=== PATIENT | female | born 1945 | race Caucasian/White ===

== ENCOUNTER 2018-08-18 12:24 | Emergency (ER) | payer MEDICARE, OTHER ==
[2018-08-18 13:05] LABS: ALT (SGPT) 15 U/L (8-55); AST (SGOT) 29 U/L (5-34); Albumin 3.7 g/dL (3.4-4.8); Alkaline Phosphatase 98 U/L (40-150); Anion Gap 19 mmol/L (10-20); BUN (Urea Nitrogen) 25 mg/dL (9.8-20.1); Bilirubin, Total 1.3 mg/dL (0.2-1.2); Calc. Creatinine Clearance 0 mL/min (70-130); Calcium 9.2 mg/dL (7.8-10.44); Estimated GFR-MDRD 45; Globulin 3.5 g/dL (2.4-3.5); Glucose 60 mg/dL (83-110); Protein, Total 7.2 g/dL (6.0-8.3)
[2018-08-18 13:06] LABS: #Basophils 0.1 thou/uL (0.0-0.2); #Eosinphils 0.1 thou/uL (0.0-0.7); #Lymphocytes 1.6 thou/uL (1.20-3.40); #Monocytes 0.9 thou/uL (0.11-0.59); #Neutrophils 11.2 thou/uL (1.40-6.50); %Basophils 0.9 % (0.0-1.0); %Eosinophils 0.9 % (0.0-10.0); %Lymphocytes 11.3 % (21.0-51.0); %Monocytes 6.5 % (0.0-10.0); %Neutrophils 80.4 % (42.0-75.0); Elliptocytes SLIGHT = 2-5 cells (100X) (0-1/hpf); Hemoglobin 6.8 g/dL (12.0-16.0); Hypochromia MARKED = >30 cells (100X) (0-5/hpf); Large Platelets SLIGHT; MDiff Complete? YES; Macrocytosis SLIGHT = 6-15 cells (100X) (0-5/hpf); Mean Corpuscular HGB CONC 28.7 g/dL (32.0-36.0); Mean Corpuscular Hemoglobin 16.5 pg (27.0-31.0); Mean Corpuscular Volume 57.3 fL (78.0-98.0); Mean Platelet Volume 7.8 fL (7.4-10.4); Microcytosis MARKED = >30 cells (100X) (0-5/hpf); Platelet Count 163 thou/uL (130-400); Polychromasia SLIGHT = 2-3 cells (100X) (0-2/hpf); RBC Distribution Width 15.1 % (11.5-14.5); Red Blood Cell (RBC) Count 4.14 mill/uL (4.20-5.40); Stomatocytes SLIGHT = 2-5 cells (100X) (0-1/hpf); Tear Drops SLIGHT = 2-5 cells (100X) (0-1/hpf); White Blood Cell (WBC) Count 13.9 thou/uL (4.8-10.8)
[2018-08-18 13:09] LABS: Chloride 78 mmol/L (98-107); Sodium 135 mmol/L (136-145)
[2018-08-18 13:13] LABS: Carbon Dioxide 41 mmol/L (23-31); Potassium 2.7 mmol/L (3.5-5.1)
[2018-08-18 13:21] LABS: CKMB 1.6 ng/mL (0-6.6)
[2018-08-18 13:46] LABS: Bilirubin Small (Negative); Blood, Urine Negative (Negative); Clarity Clear (Clear); Glucose, Urine (Dipstick) Negative (Negative); Leukocyte Negative (Negative); Nitrite Negative (Negative); Protein, Urine (Dipstick) Negative (Neg-Trace); Specific Gravity, Urine 1.015 (1.005-1.030)
[2018-08-18] MEDS ORDERED: Potassium Chloride 20 MEQ TAB ONE (14:26)
[2018-08-18] MEDS ORDERED: Ondansetron PF 4 MG/2 ML Vial ONE (14:46)
--- NOTE | 2018-08-18 15:09 | CT ---
CT OF THE BRAIN WITHOUT CONTRAST: DATE: 08/18/2018. FINDINGS: Spiral CT of the brain was performed for evaluation following trauma. Axial slices were acquired, th en coronal and sagittal reconstructions were done. No acute bleeding was seen. There was no sign of parenchymal hematoma or extraaxial hematoma. Subar achnoid/subdural space on the left side is chronically large, not any different than prior studies. No intracranial mass or edema was seen. The ventricular sizes are normal. The calvarium appears int act. The sphenoid sinus and mastoid air cells are clear. IMPRESSION: No acute intracranial findings. No adverse change since 09/22/2010 scan. POS: HOME
--- NOTE | 2018-08-18 15:11 | RAD ---
PORTABLE CHEST: DATE: 08/18/2018. COMPARISON: Comparison is made with a 02/06/2016 study. FINDINGS: Cardiomegaly is about the same. Chronic interstitial changes are seen in the lungs, particularly the upper lobes. The mediastinal width is prominent but the same as pr8ior studies. This appears to be her norm. There are no large effusions. IMPRESSION: Cardiomegaly and chronic interstitial changes. See CT report to follow. POS: HOME
--- NOTE | 2018-08-18 15:11 | RAD ---
RIGHT LEG TWO VIEWS: 08/18/2018 FINDINGS: Fractures of the proximal tibial and fibular shafts are present. The fibula fracture is near the nec k. There is slight posterior angulation of the proximal fragment of the tibia. Each fragment is sli ghtly comminuted. Degenerative changes are seen at the knee. The mid to distal portions of the tibi a and fibula appear intact. IMPRESSION: Displaced fractures of the proximal tibia and fibula. POS: HOME
--- NOTE | 2018-08-18 15:32 | CT ---
CT OF THE THORAX WITHOUT CONTRAST: DATE: 08/18/2018. FINDINGS: Comparison is made with the prior study from 01/11/2014. As before, there are chronic interstitial changes throughout the lungs which are particularly severe in the apices of the upper lobes. Changes are present in all lobes, however. There are some scatter ed mildly prominent mediastinal nodes, generally measuring in the 1.2 to 1.4 cm range. These are not markedly different than before and are present throughout, both in the subcarinal regions and in the vicinity of the ascending aorta. No discrete pulmonary mass was seen. While most of the interstiti al changes are presumed to be chronic and seem very similar to the prior scan, a minimal acute infilt rate would be lost against this chronic background. The heart is mildly enlarged and shows coronary artery calcifications. The widening of the mediastinum and prominence of the central vessels is mere ly due to ectasia. No central masses were detected. No focal lesions of the visualized portions of the liver and spleen were seen. No adrenal masses. There is a mass in the left adrenal gland. On this noncontrast study it is difficult to measure disc retely but seems around 2.7 cm in size. Many of the central areas in this mass have CT numbers that are single-digit or slightly negative. This makes a benign adenoma more likely. Looking back at the 2013 study, there was a small 1.8 cm mass on that exam that was better defined. Since it was a cont rast study, I cannot compare the densities. IMPRESSION: 1. Diffuse severe interstitial lung disease, worst in the lung apices. Change is present throughout all lobes. Overall, the appearance is fairly similar to 2014. Although there may be a few more lillian nges in some places than others, overall the findings are fairly comparable. 2. Cardiomegaly and coronary arteriosclerosis. 3. Scattered mediastinal nodes similar to before. 4. A 2.7 cm left adrenal mass with very low CT numbers. Statistically, this is most likely an adeno ma. Adrenal washout study could be done for confirmation if deemed necessary. POS: HOME
== END 2018-08-18 15:05 | disposition short-term general hospital (02) ==
LOC: BURERS 12:24
DX: S82.144A Nondisplaced bicondylar fracture of right tibia, initial encounter for closed fracture (principal); S82.831A Other fracture of upper and lower end of right fibula, initial encounter for closed fracture; S09.90XA Unspecified injury of head, initial encounter; D64.9 Anemia, unspecified; J44.9 Chronic obstructive pulmonary disease, unspecified; E87.6 Hypokalemia; I25.10 Atherosclerotic heart disease of native coronary artery without angina pectoris; I11.0 Hypertensive heart disease with heart failure; I50.9 Heart failure, unspecified; E11.9 Type 2 diabetes mellitus without complications; K21.9 Gastro-esophageal reflux disease without esophagitis; D50.9 Iron deficiency anemia, unspecified; Z86.73 Personal history of transient ischemic attack (TIA), and cerebral infarction without residual deficits; E03.9 Hypothyroidism, unspecified; E66.9 Obesity, unspecified; E78.5 Hyperlipidemia, unspecified; F41.9 Anxiety disorder, unspecified; G47.00 Insomnia, unspecified; F17.210 Nicotine dependence, cigarettes, uncomplicated; Z79.899 Other long term (current) drug therapy; Z79.4 Long term (current) use of insulin; Z79.51 Long term (current) use of inhaled steroids; Z79.82 Long term (current) use of aspirin
CPT/HCPCS: 51701; 70450; 71045; 71250; 80053; 81003; 82553; 83880; 84484; 85025; 93005; 94760; 96374; A4353; J2405

== ENCOUNTER 2018-08-24 11:52 | Inpatient (IN) | payer MEDICARE, MEDICAID ==
[2018-08-24] MEDS: Famotidine 20 MG TAB PO SCH (16:00)
[2018-08-24] MEDS ORDERED: Dextrose 5% in Water 1,000 ML IV PRN (17:34)
[2018-08-24] MEDS ORDERED: Dextrose 50% Abboject 50 ML SYRINGE SLOW IVP PRN (17:34)
[2018-08-24] MEDS ORDERED: HumaLOG 300 UNITS/3 ML VIAL SC PRN ×2 (17:45→18:17)
[2018-08-24] MEDS ORDERED: Nitroglycerin 0.4 MG TAB (25 Tab Bottle) SL PRN ×2 (17:59→19:45)
[2018-08-24] MEDS ORDERED: Sodium Chloride 0.65% Nasal 44 ML BOT EA NARE PRN (18:03)
[2018-08-24] MEDS: Mometasone/Formoterol 60 PUFF AER INH SCH (18:53)
[2018-08-24] MEDS ORDERED: traMADol HCl 50 MG TAB PO PRN (19:45)
[2018-08-24] MEDS ORDERED: [UNRECOGNIZED DRUG - REMARK] EA NARE PRN (19:45)
[2018-08-24] MEDS: Pregabalin 75 MG CAP PO SCH (20:07)
[2018-08-24] MEDS: Atorvastatin Calcium 10 MG TAB PO SCH (20:09)
[2018-08-24] MEDS: Aspirin 81 mg Enteric Coated Tablet PO SCH (20:09)
[2018-08-24] MEDS: Fish Oil 1,000 MG CAP PO SCH (20:09)
[2018-08-24] MEDS: Loratadine 10 MG TAB PO SCH (20:09)
[2018-08-24] MEDS: Mirtazapine 15 MG TAB PO SCH (20:09)
[2018-08-24] MEDS: traZODone HCl 50 MG TAB PO SCH (20:09)
[2018-08-24] MEDS: Magnesium Oxide 400 MG TAB PO SCH (20:10)
[2018-08-24] MEDS: traMADol HCl 50 MG TAB PO PRN (20:10)
[2018-08-24] MEDS: Senokot S 8.6-50 MG TAB PO SCH (20:10)
[2018-08-24] MEDS: Fluticasone Propionate Nasal Spray 16 gm Bottle NASAL SCH (20:11)
[2018-08-24] MEDS ORDERED: Non-Formulary Item 1 EACH (Pregabalin [Lyrica] 300 MG) PO SCH (21:00)
[2018-08-24] MEDS ORDERED: Loratadine 10 MG TAB PO SCH (21:00)
[2018-08-24] MEDS ORDERED: TRAZODONE 200 MG PO SCH (21:00)
[2018-08-24] MEDS ORDERED: MIRTAZAPINE 30 MG PO SCH (21:00)
[2018-08-24] MEDS ORDERED: Magnesium Oxide 400 MG TAB PO SCH (21:00)
[2018-08-24] MEDS ORDERED: Non-Formulary Item 1 EACH (Insulin Glargine,Hum.Rec.Anlog [Lantus Solostar] 32 UNIT) SC SCH (21:00)
[2018-08-24] MEDS ORDERED: Fish Oil 1,000 MG CAP PO SCH (21:00)
[2018-08-24] MEDS ORDERED: Non-Formulary Item 1 EACH (Ranitidine Hcl [Ranitidine Hcl] 150 MG) PO SCH (21:00)
[2018-08-24] MEDS ORDERED: Famotidine 20 MG TAB PO SCH (21:00)
[2018-08-24] MEDS ORDERED: Albuterol Sulfate 2.5 mg/3 ml Neb NEB SCH (21:00)
[2018-08-24] MEDS ORDERED: Non-Formulary Item 1 EACH (Pravastatin Sodium [Pravastatin Sodium] 40 MG) PO SCH (21:00)
[2018-08-24] MEDS ORDERED: Senokot S 8.6-50 MG TAB PO SCH (21:00)
[2018-08-24] MEDS ORDERED: Insulin Glargine 100 UNIT/ML 3 ML PEN SQ SCH (21:00)
[2018-08-24] MEDS: Levemir Flexpen 100 UNITS/ML PEN SC SCH (21:14)
[2018-08-25] MEDS: traMADol HCl 50 MG TAB PO PRN ×2 (05:42→11:54)
[2018-08-25] MEDS: Mometasone/Formoterol 60 PUFF AER INH SCH ×2 (06:06→18:28)
[2018-08-25] MEDS ORDERED: Potassium Chloride 20 MEQ TAB PO SCH (08:00)
[2018-08-25] MEDS ORDERED: Metolazone 5 MG TAB PO SCH ×2 (08:30→09:00)
[2018-08-25] MEDS: Aspirin 81 mg Enteric Coated Tablet PO SCH ×2 (08:43→20:59)
[2018-08-25] MEDS: Potassium Chloride 20 MEQ TAB PO SCH ×2 (08:44→17:31)
[2018-08-25] MEDS: Senokot S 8.6-50 MG TAB PO SCH ×2 (08:44→20:59)
[2018-08-25] MEDS: Fish Oil 1,000 MG CAP PO SCH ×2 (08:45→21:00)
[2018-08-25] MEDS: DULoxetine 30 MG CAP PO SCH (08:45)
[2018-08-25] MEDS: Docusate 100 MG CAP PO SCH (08:45)
[2018-08-25] MEDS: Famotidine 20 MG TAB PO SCH ×2 (08:45→20:59)
[2018-08-25] MEDS: Pregabalin 75 MG CAP PO SCH ×2 (08:45→20:57)
[2018-08-25] MEDS: Clopidogrel Bisulfate 75 MG TAB PO SCH (08:45)
[2018-08-25] MEDS: Polyethylene Glycol 3350 17 GM Packet PO SCH (08:47)
[2018-08-25] MEDS: Cyanocobalamin (Vitamin B-12) 1,000 MCG TAB PO SCH (08:47)
[2018-08-25] MEDS: Multivit, Therapeutic 1 TAB PO SCH (08:47)
[2018-08-25] MEDS: Magnesium Oxide 400 MG TAB PO SCH ×2 (08:47→21:00)
[2018-08-25] MEDS: Fluticasone Propionate Nasal Spray 16 gm Bottle NASAL SCH ×2 (08:51→20:57)
[2018-08-25] MEDS ORDERED: EAC PO SCH (09:00)
[2018-08-25] MEDS ORDERED: MULTIVIT MIN PO SCH (09:00)
[2018-08-25] MEDS ORDERED: CA CARB PO SCH (09:00)
[2018-08-25] MEDS ORDERED: Losartan Potassium 50 MG TAB PO SCH (09:00)
[2018-08-25] MEDS ORDERED: Pantoprazole 40 MG GRANULES PACKET PO SCH (09:00)
[2018-08-25] MEDS ORDERED: LOSARTAN 25 MG PO SCH (09:00)
[2018-08-25] MEDS ORDERED: Polyethylene Glycol 3350 17 GM Packet PO SCH (09:00)
[2018-08-25] MEDS ORDERED: VIT K PO SCH (09:00)
[2018-08-25] MEDS ORDERED: [UNRECOGNIZED DRUG - OTHER] PO SCH (09:00)
[2018-08-25] MEDS: Levemir Flexpen 100 UNITS/ML PEN SC SCH ×2 (09:04→20:55)
[2018-08-25] MEDS: Estradiol 1 MG TAB PO SCH (09:05)
[2018-08-25] MEDS ORDERED: traMADol HCl 50 MG TAB PO PRN (10:28)
[2018-08-25] MEDS: traZODone HCl 50 MG TAB PO SCH (20:58)
[2018-08-25] MEDS: Atorvastatin Calcium 10 MG TAB PO SCH (20:59)
[2018-08-25] MEDS: Mirtazapine 15 MG TAB PO SCH (21:00)
[2018-08-25] MEDS: Loratadine 10 MG TAB PO SCH (21:00)
[2018-08-26 05:40] LABS: ALT (SGPT) 20 U/L (8-55); AST (SGOT) 38 U/L (5-34); Alkaline Phosphatase 83 U/L (40-150); Anion Gap 16 mmol/L (10-20); BUN (Urea Nitrogen) 42 mg/dL (9.8-20.1); Bilirubin, Total 1.5 mg/dL (0.2-1.2); Calc. Creatinine Clearance 24 mL/min (70-130); Calcium 8.6 mg/dL (7.8-10.44); Carbon Dioxide 32 mmol/L (23-31); Chloride 90 mmol/L (98-107); Estimated GFR-MDRD 18; Globulin 2.9 g/dL (2.4-3.5); Glucose 103 mg/dL (83-110); Potassium 6.5 mmol/L (3.5-5.1); Protein, Total 5.9 g/dL (6.0-8.3); Sodium 131 mmol/L (136-145)
[2018-08-26 05:41] LABS: Mean Corpuscular HGB CONC 29.8 g/dL (32.0-36.0); Mean Corpuscular Hemoglobin 19.1 pg (27.0-31.0); Mean Platelet Volume 7.8 fL (7.4-10.4); Platelet Count 200 thou/uL (130-400); RBC Distribution Width 23.4 % (11.5-14.5); Red Blood Cell (RBC) Count 4.16 mill/uL (4.20-5.40); White Blood Cell (WBC) Count 27.6 thou/uL (4.8-10.8)
[2018-08-26] MEDS: traMADol HCl 50 MG TAB PO PRN (05:49)
[2018-08-26 05:51] LABS: Anisocytosis MODERATE=16-30 cells (100X) (0-5/hpf); Band 1 % (5-11); Basophilic Stippling SLIGHT = 1-2 cells (100X) (None Seen); Hypochromia SLIGHT = 6-15 cells (100X) (0-5/hpf); Lymphocytes 6 % (21-51); MDiff Complete? YES; Metamyelocyte 1 % (0-0); Microcytosis MODERATE=15-30 cells (100X) (0-5/hpf); Monocytes 6 % (0-10); Neutrophil 86 % (42-75); Platelet Morphology Comment Appears Adequate; Polychromasia SLIGHT = 2-3 cells (100X) (0-2/hpf)
[2018-08-26] MEDS: Mometasone/Formoterol 60 PUFF AER INH SCH (05:51)
[2018-08-26 06:05] VITALS: BP 106/50; TEMP 100.4
[2018-08-26] MEDS ORDERED: Sodium Chloride 0.9% 1,000 ML IV SCH ×2 (07:30→12:50)
[2018-08-26] MEDS ORDERED: cefTRIAXone\\ROCEPHIN 1 GM in Sodium Chloride 0.9% 100 ML IVPB SCH (08:00)
[2018-08-26] MEDS ORDERED: Ferrous Sulfate 325 MG TAB PO SCH (08:00)
[2018-08-26] MEDS: Aspirin 81 mg Enteric Coated Tablet PO SCH (09:54)
[2018-08-26] MEDS: Clopidogrel Bisulfate 75 MG TAB PO SCH (09:55)
[2018-08-26] MEDS: Cyanocobalamin (Vitamin B-12) 1,000 MCG TAB PO SCH (09:55)
[2018-08-26] MEDS: Docusate 100 MG CAP PO SCH (09:56)
[2018-08-26] MEDS: DULoxetine 30 MG CAP PO SCH (09:56)
[2018-08-26] MEDS: Estradiol 1 MG TAB PO SCH (09:57)
[2018-08-26] MEDS: Fish Oil 1,000 MG CAP PO SCH (09:58)
[2018-08-26] MEDS: Famotidine 20 MG TAB PO SCH (09:58)
[2018-08-26] MEDS: Fluticasone Propionate Nasal Spray 16 gm Bottle NASAL SCH (10:00)
[2018-08-26] MEDS: Levemir Flexpen 100 UNITS/ML PEN SC SCH (10:02)
[2018-08-26] MEDS: Polyethylene Glycol 3350 17 GM Packet PO SCH (10:05)
[2018-08-26] MEDS: Magnesium Oxide 400 MG TAB PO SCH (10:05)
[2018-08-26] MEDS: Multivit, Therapeutic 1 TAB PO SCH (10:05)
[2018-08-26] MEDS: Pregabalin 75 MG CAP PO SCH (10:06)
[2018-08-26] MEDS: Senokot S 8.6-50 MG TAB PO SCH (10:07)
[2018-08-26] MEDS ORDERED: Ibuprofen 200 MG TAB PO PRN (10:28)
[2018-08-26 13:51] LABS: Clarity Hazy (Clear)
[2018-08-26 13:52] LABS: Bacteria/HPF 3+ HPF (None Seen); Bilirubin Moderate (Negative); Blood, Urine Negative (Negative); Glucose, Urine (Dipstick) Negative (Negative); Leukocyte Negative (Negative); Nitrite Negative (Negative); Protein, Urine (Dipstick) Negative (Neg-Trace); RBC/HPF 0-3 HPF (0-3); WBC/HPF 0-3 HPF (0-3); pH, Urine 6.5 (5.0-9.0)
[2018-08-26 13:53] LABS: Other Microscopic Description MUCOUS THREADS
[2018-08-26 14:06] VITALS: BMI 29.7
[2018-08-26 16:04] LABS: Hemoglobin 7.2 g/dL (12.0-16.0); Mean Corpuscular HGB CONC 30.1 g/dL (32.0-36.0); Mean Corpuscular Hemoglobin 19.3 pg (27.0-31.0); Mean Corpuscular Volume 64.2 fL (78.0-98.0); Mean Platelet Volume 7.7 fL (7.4-10.4); Platelet Count 192 thou/uL (130-400); Red Blood Cell (RBC) Count 3.71 mill/uL (4.20-5.40); White Blood Cell (WBC) Count 24.3 thou/uL (4.8-10.8)
[2018-08-26 16:11] LABS: Lactic Acid 0.9 mmol/L (0.5-2.2)
[2018-08-26 16:12] LABS: #Basophils 0.3 thou/uL (0.0-0.2); #Eosinphils 0.2 thou/uL (0.0-0.7); #Lymphocytes 1.1 thou/uL (1.20-3.40); #Monocytes 1.3 thou/uL (0.11-0.59); #Neutrophils 21.5 thou/uL (1.40-6.50); %Basophils 0.9 % (0.0-1.0); %Eosinophils 0.9 % (0.0-10.0); %Lymphocytes 4.6 % (21.0-51.0); %Monocytes 5.2 % (0.0-10.0); %Neutrophils 88.4 % (42.0-75.0); Basophilic Stippling SLIGHT = 1-2 cells (100X) (None Seen); Elliptocytes SLIGHT = 2-5 cells (100X) (0-1/hpf); Hypochromia MODERATE=16-30 cells (100X) (0-5/hpf); MDiff Complete? YES; Macrocytosis SLIGHT = 6-15 cells (100X) (0-5/hpf); Microcytosis MARKED = >30 cells (100X) (0-5/hpf); Reflex for Review?? NO; Spherocytes MARKED = >16 cells (100X) (None Seen)
[2018-08-26 16:14] LABS: Anion Gap 16 mmol/L (10-20); BUN (Urea Nitrogen) 44 mg/dL (9.8-20.1); Calc. Creatinine Clearance 25 mL/min (70-130); Calcium 8.1 mg/dL (7.8-10.44); Carbon Dioxide 28 mmol/L (23-31); Chloride 92 mmol/L (98-107); Estimated GFR-MDRD 19; Glucose 130 mg/dL (83-110); Potassium 5.7 mmol/L (3.5-5.1); Sodium 130 mmol/L (136-145)
--- NOTE | 2018-08-26 18:01 | RAD ---
PORTABLE CHEST 08/26/18 An AP portable film at 0727 is compared with a 08/19/18 study. Chronic interstitial changes are seen throughout the lungs again, worse in the upper lobes. This stay s fair constant film to film. No lobar consolidation or obvious new infiltrate was seen. There are no effusions. The heart is enlarged but I am not convinced that there is congestion of the vessels. IMPRESSION: Cardiomegaly and chronic interstitial changes. POS: HOME
--- NOTE | 2018-08-27 15:46 | DIS ---
DATE OF ADMISSION: 08/24/2018 DATE OF DISCHARGE: 08/26/2018 ADMISSION DIAGNOSES: 1. Status post repair of right tibial plateau fracture. 2. Chronic obstructive pulmonary disease, oxygen dependence. 3. Diastolic congestive heart failure. 4. Type 1 diabetes mellitus. 5. Hypertension. 6. Coronary artery disease. 7. Dyslipidemia. 8. Anemia. DISCHARGE DIAGNOSES: 1. Status post repair of right tibial plateau fracture. 2. Chronic obstructive pulmonary disease, oxygen dependence. 3. Diastolic congestive heart failure. 4. Type 1 diabetes mellitus. 5. Hypertension. 6. Coronary artery disease. 7. Dyslipidemia. 8. Anemia. 9. Sepsis. 10. Acute renal failure. 11. Hyponatremia. 12. Hyperkalemia. PROCEDURES: On 08/26/2018, chest x-ray shows chronic interstitial changes and cardiomegaly, minimally different than 08/19/2018 chest x-ray. HOSPITAL COURSE: A 73-year-old female recently presented to our facility as a swing patient from [facility] to participate with physical therapy and occupational therapy as she is status post repair of a right tibial plateau fracture via Dr. Mcmullen on 08/19/2018. During that admission in [place] , the patient, per review of records notably did have a change in her mentation along with acute kidney injury, and thus, her Lasix and Zaroxolyn were held due to concern for dehydration, and she was provided intravenous fluids; subsequent evaluation of her renal function showed vast improvement and her mentation reportedly did as well. Thus, she was able to be discharged to our facility as a swing patient. Upon arrival here, the patient was resumed on her usual medications other than the Lasix being held to see how her intake would be. This morning, the patient had repeat labs drawn with a noted drastic rise in her white blood cell count to 27.6 with a left shift whereas her white blood cell count on 08/24/2018 was 8.6. She was also noted to be febrile this morning with a temperature of 100.4. Further evaluation of her lab work showed electrolyte abnormalities with a sodium of 131, potassium of 6.5, BUN 42, and creatinine of 2.63 with a GFR of 18 displaying acute renal failure. The patient has underlying COPD, which is oxygen dependent and was requiring her usual amount of supplemental oxygen. However, she notably has had developed a cough with mucopurulent sputum. Thus, the chest x-ray was ordered and is stated as above. The patient was suspected to be dehydrated as per her recent hospitalization and thus was started on normal saline intravenous fluid initially at 100 mL an hour and then increased to 150 mL an hour around lunchtime. She was provided Kayexalate in light of her elevated potassium. Blood cultures were obtained along with a lactic acid level, and she was started empirically on Rocephin and Levaquin. Her lactic acid level has returned within normal limits at 0.9. Followup labs were obtained in the afternoon showing virtually unchanged sodium level now at 130 and improved potassium level at 5.7, and only modest improvement in her renal function with a BUN of 44 and a creatinine of 2.55. Unfortunately, the patient's blood pressure began to drop with a systolic blood pressure in the mid 80s and thus she was transferred to the emergency department for further care and likely transition back to [facility] in [place]. At this time, it is somewhat unclear as to what the exact cause of her sepsis is, as her chest x-ray was somewhat reassuring. Urinalysis and urine culture were ordered as well as the blood cultures and sputum culture. DISPOSITION: The patient has been discharged from swing bed status to the [facility] Emergency Department due to sepsis with development of hypotension. DISCHARGE MEDICATIONS: The patient has resumed all of her home medications. However, as of today, her supplemental potassium has been held along with her Lasix and metolazone. Job ID: [id number] MTDD
== END 2018-08-26 16:00 | disposition short-term general hospital (02) | DRG 559 ==
LOC: BURMED 15:06
PROVIDERS: ADMIT Family Medicine; ATTEND Family Medicine
DX: S82.141D Displaced bicondylar fracture of right tibia, subsequent encounter for closed fracture with routine healing (principal); A41.9 Sepsis, unspecified organism; R65.20 Severe sepsis without septic shock; N17.9 Acute kidney failure, unspecified; I50.30 Unspecified diastolic (congestive) heart failure; E87.1 Hypo-osmolality and hyponatremia; J44.9 Chronic obstructive pulmonary disease, unspecified; I11.0 Hypertensive heart disease with heart failure; E10.9 Type 1 diabetes mellitus without complications; I25.10 Atherosclerotic heart disease of native coronary artery without angina pectoris; E78.5 Hyperlipidemia, unspecified; D64.9 Anemia, unspecified; E87.5 Hyperkalemia; E86.0 Dehydration; Z99.81 Dependence on supplemental oxygen; X58.XXXD Exposure to other specified factors, subsequent encounter
CPT/HCPCS: 36415; 36416; 71045; 80053; 81001; 83605; 85025; 87040; 87070; 87077; 87086; 87186; 87205; A4353; J0696; J1815; J1956; J7050; J7620

== ENCOUNTER 2018-08-26 16:18 | Emergency (ER) | payer MEDICARE, MEDICAID ==
[2018-08-26] MEDS ORDERED: DOPamine 400 MG/D5W 250 ML 0 ML ONE (16:54)
[2018-08-26] MEDS ORDERED: DOPamine 400 MG/D5W 250 ML 250 ML ONE (16:56)
[2018-08-26 17:14] LABS: CKMB 2.4 ng/mL (0-6.6)
--- NOTE | 2018-08-26 17:31 | RAD ---
PORTABLE CHEST: 08/26/18 Followup film at 1629 is compared with the earlier exam from the morning. Cardiomegaly is about the s yamilex as before. Chronic interstitial changes, particularly in the upper lobes are noted as usual. The mediastinum is prominent in width but it always is. There is a little more streaking in the right ronaldo g base than there was before. I cannot exclude a developing infiltrate here. The depth of inspiration is shallow which does make seeing the lungs well very difficult. IMPRESSION: 1. Cardiomegaly and chronic interstitial changes. 2. Possible slight increase in haziness in the right lung base. POS: HOME
[2018-08-26] MEDS ORDERED: Norepinephrine 4 MG/4 ML VIAL ONE ×2 (18:10→18:14)
== END 2018-08-26 18:45 | disposition short-term general hospital (02) ==
LOC: BURERS 16:18
DX: A41.9 Sepsis, unspecified organism (principal); J18.9 Pneumonia, unspecified organism; I11.0 Hypertensive heart disease with heart failure; I50.9 Heart failure, unspecified; I25.10 Atherosclerotic heart disease of native coronary artery without angina pectoris; E11.9 Type 2 diabetes mellitus without complications; K21.9 Gastro-esophageal reflux disease without esophagitis; F41.9 Anxiety disorder, unspecified; D50.9 Iron deficiency anemia, unspecified; Z86.73 Personal history of transient ischemic attack (TIA), and cerebral infarction without residual deficits; J44.9 Chronic obstructive pulmonary disease, unspecified; E66.9 Obesity, unspecified; E78.5 Hyperlipidemia, unspecified; G47.00 Insomnia, unspecified; F17.210 Nicotine dependence, cigarettes, uncomplicated; Z79.899 Other long term (current) drug therapy; Z79.82 Long term (current) use of aspirin; Z79.51 Long term (current) use of inhaled steroids
CPT/HCPCS: 71045; 82553; 83880; 84484; 93005; 96365; 96375; J1265

== ENCOUNTER 2018-09-02 14:11 | Inpatient (IN) | payer MEDICARE, MEDICAID ==
[2018-09-02] MEDS ORDERED: [UNRECOGNIZED DRUG - REMARK] EA NARE PRN (20:26)
[2018-09-02] MEDS ORDERED: Nitroglycerin 0.4 MG TAB (25 Tab Bottle) SL PRN (20:26)
[2018-09-02] MEDS ORDERED: INSULIN ASPART 1 UNIT SC SCH (20:30)
[2018-09-02] MEDS ORDERED: Dextrose 50% Abboject 50 ML SYRINGE SLOW IVP PRN (20:43)
[2018-09-02] MEDS ORDERED: Dextrose 5% in Water 1,000 ML IV PRN (20:43)
[2018-09-02] MEDS ORDERED: Non-Formulary Item 1 EACH (Ipratropium/Albuterol Sulfate [Combivent Respimat] 1 PUFF) INH SCH (21:00)
[2018-09-02] MEDS ORDERED: Non-Formulary Item 1 EACH (Pravastatin Sodium [Pravastatin Sodium] 40 MG) PO SCH (21:00)
[2018-09-02] MEDS ORDERED: LEVOCETIRIZINE DIHYDROCHLORIDE 10 MG PO SCH (21:00)
[2018-09-02] MEDS ORDERED: AZELASTINE NS SCH (21:00)
[2018-09-02] MEDS ORDERED: Non-Formulary Item 1 EACH (Ranitidine Hcl [Ranitidine Hcl] 150 MG) PO SCH (21:00)
[2018-09-02] MEDS ORDERED: Atorvastatin Calcium 10 MG TAB PO SCH (21:45)
[2018-09-02] MEDS: Magnesium Oxide 400 MG TAB PO SCH (22:52)
[2018-09-02] MEDS: Senokot S 8.6-50 MG TAB PO SCH (22:52)
[2018-09-02] MEDS: Acetaminophen 500 MG TAB PO SCH (22:52)
[2018-09-02] MEDS: Fish Oil 1,000 MG CAP PO SCH (22:52)
[2018-09-02] MEDS: Mirtazapine 15 MG TAB PO SCH (22:52)
[2018-09-02] MEDS: Atorvastatin Calcium 10 MG TAB PO SCH (22:53)
[2018-09-02] MEDS: Fluticasone Propionate Nasal Spray 16 gm Bottle NASAL SCH (22:53)
[2018-09-02] MEDS: Pregabalin 75 MG CAP PO SCH (22:54)
[2018-09-02] MEDS: traZODone HCl 50 MG TAB PO SCH (22:54)
[2018-09-02] MEDS: Albuterol Sulfate 2.5 mg/3 ml Neb NEB SCH ×2 (22:56→23:46)
[2018-09-02] MEDS: Lantus 1000 UNITS/10 ML VIAL SC SCH (23:07)
[2018-09-02] MEDS ORDERED: Albuterol Sulfate 2.5 mg/3 ml Neb ONE (23:41)
[2018-09-02] MEDS: HumaLOG 300 UNITS/3 ML VIAL SC PRN (23:45)
[2018-09-03] MEDS: Acetaminophen 500 MG TAB PO SCH ×4 (03:34→21:46)
[2018-09-03] MEDS: Mometasone/Formoterol 60 PUFF AER INH SCH ×2 (05:40→18:40)
[2018-09-03] MEDS: Furosemide 40 MG TAB PO SCH ×2 (05:40→14:54)
[2018-09-03] MEDS: Albuterol Sulfate 2.5 mg/3 ml Neb NEB SCH ×4 (07:16→22:08)
[2018-09-03] MEDS ORDERED: [UNRECOGNIZED DRUG - OTHER] PO SCH (09:00)
[2018-09-03] MEDS ORDERED: MULTIVIT MIN PO SCH (09:00)
[2018-09-03] MEDS ORDERED: CA CARB PO SCH (09:00)
[2018-09-03] MEDS ORDERED: VIT K PO SCH (09:00)
[2018-09-03] MEDS ORDERED: Estradiol 1 MG TAB PO SCH (09:00)
[2018-09-03] MEDS ORDERED: Non-Formulary Item 1 EACH (Fluticasone/Vilanterol [Breo Ellipta] 1 INH) IH SCH (09:00)
[2018-09-03] MEDS ORDERED: EAC PO SCH (09:00)
[2018-09-03] MEDS: Losartan Potassium 50 MG TAB PO SCH (10:00)
[2018-09-03] MEDS: DULoxetine 30 MG CAP PO SCH (10:00)
[2018-09-03] MEDS: Potassium Chloride 20 MEQ TAB PO SCH ×2 (10:00→17:13)
[2018-09-03] MEDS: Aspirin 81 mg Enteric Coated Tablet PO SCH (10:00)
[2018-09-03] MEDS: Famotidine 20 MG TAB PO SCH ×2 (10:00→21:47)
[2018-09-03] MEDS: Multivitamin W/ Minerals 1 TAB PO SCH (10:00)
[2018-09-03] MEDS: Cyanocobalamin (Vitamin B-12) 1,000 MCG TAB PO SCH (10:02)
[2018-09-03] MEDS: Digoxin 0.125 MG TAB PO SCH (10:02)
[2018-09-03] MEDS: Fish Oil 1,000 MG CAP PO SCH ×2 (10:02→21:45)
[2018-09-03] MEDS: Magnesium Oxide 400 MG TAB PO SCH ×2 (10:02→21:49)
[2018-09-03] MEDS: Pregabalin 75 MG CAP PO SCH ×2 (10:02→21:49)
[2018-09-03] MEDS: Docusate 100 MG CAP PO SCH (10:04)
[2018-09-03] MEDS: Pantoprazole 40 MG GRANULES PACKET PO SCH (10:04)
[2018-09-03] MEDS: Fluticasone Propionate Nasal Spray 16 gm Bottle NASAL SCH ×2 (10:04→21:51)
[2018-09-03] MEDS: Senokot S 8.6-50 MG TAB PO SCH ×2 (10:05→21:51)
[2018-09-03] MEDS: Polyethylene Glycol 3350 17 GM Packet PO SCH (10:05)
[2018-09-03] MEDS: Lantus 1000 UNITS/10 ML VIAL SC SCH ×2 (10:08→22:02)
[2018-09-03] MEDS: HumaLOG 300 UNITS/3 ML VIAL SC PRN ×2 (13:10→22:03)
[2018-09-03] MEDS ORDERED: Enoxaparin Sodium 40 MG/0.4 ML SYRINGE SC SCH (14:45)
--- NOTE | 2018-09-03 15:47 | HP ---
ADMISSION HISTORY AND PHYSICAL TO RESIDENTIAL UNIT CHIEF COMPLAINT: Need for skilled rehabilitation. HISTORY OF PRESENT ILLNESS: Ms. Kwong is a 73-year-old female, who earlier in August experienced a ground-level fall with resultant right bicondylar tibial plateau fracture and underwent closed reduction and percutaneous screw stabilization of the intercondylar split of the right tibial plateau and closed treatment of the proximal tibial metaphyseal fracture with Dr. César Mcmullen on August 19, 2018. Just prior to her discharge on August 24, 2018, her Lasix and Zaroxolyn were held with concern for dehydration as her p.o. intake was not sufficient, and she had a slight change in her mental status and acute kidney injury. However, she improved enough with bolus fluid back to her baseline and her creatinine normalized prior to her transfer. She was admitted here for rehab and became hypotensive on August 26, and had alteration of mental status. She was evaluated in the emergency room here at [facility] and was noted to have leukocytosis and hypotension with suspicion for sepsis and was transferred back to [facility] on August 26, where she required admission. She necessitated the start of Levophed to support her blood pressure. The patient remained on 100% O2 saturation in the ED on 3 L nasal cannula and was weaned off the Levophed and placed on hydrocortisone at a taper dose during her hospital stay. Thus, it was felt that her hypotension was a possible adrenal insufficiency. The patient was given gentle fluid hydration for renal protection, and her I's and O 's were monitored strictly during her stay. She had an episode of dyspnea with flash pulmonary edema while she was there, which was improved with Lasix, and Cardiology saw the patient. She had an echocardiogram performed at recommendations from Dr. Clark on August 29, which showed left ventricular ejection fraction at 45% to 50 % with overall left ventricular function mildly depressed, moderately dilated left atrium, mildly enlarged right atrium, mitral annular calcification, mild mitral regurgitation, trivial aortic regurgitation, and moderate tricuspid regurgitation. The patient was placed empirically on IV antibiotics and eventually was transitioned to oral Levaquin. The patient had hypomagnesemia and hypokalemia, which were repleted during her hospital stay as well. She had paroxysmal atrial fibrillation and was started on digoxin. The patient eventually was placed with a new brace to the right lower extremity and continued to tolerate her pain regimen and diet. She has been transferred back here for continued physical and occupational therapy. PAST MEDICAL HISTORY: 1. Gastroesophageal reflux disease. 2. COPD. 3. Hyperlipidemia. 4. Hypothyroidism. 5. Carotid artery disease. 6. Hypertension. 7. History of TIA. 8. Type 2 diabetes. 9. Anxiety. 10. Insomnia. 11. Spinal stenosis. 12. Peripheral vascular disease. 13. Systolic congestive heart failure with recent echo as per HPI. 14. Chronic kidney disease with baseline creatinine of 0.98 to 1.2 since her recent medical issues began. PAST SURGICAL HISTORY: 1. Appendectomy. 2. Coronary artery bypass graft, 4-vessel. 3. Cholecystectomy. 4. Hernia repair. 5. Hysterectomy. 6. Tonsillectomy. 7. Right tibial fracture repair. SOCIAL HISTORY: Prior to the fall, the patient lived independently at home. Smokes approximately 4 to 5 cigarettes per day, but has smoked more over her lifetime. Denies drug or alcohol use. FAMILY HISTORY: Noncontributory to this case. ALLERGIES: CODEINE, GABAPENTIN, HYDROCODONE, AND MORPHINE, WHICH ALL MAKE HER TO FEEL "FUNNY AND WOOZY". NO HISTORY OF ANAPHYLAXIS FROM ANY OF THESE MEDICATIONS. CURRENT MEDICATIONS: 1. Acetaminophen 1000 mg q.i.d. 2. Albuterol nebulized t.i.d. 3. Aspirin 81 mg daily. 4. Atorvastatin calcium 10 mg p.o. at bedtime. 5. Vitamin B12 of 1000 mcg daily. 6. Cyclobenzaprine 5 mg p.o. t.i.d. p.r.n. muscle spasm. 7. Digoxin 0.125 mg p.o. daily. 8. Diltiazem 180 mg p.o. daily. 9. Docusate 100 mg p.o. daily. 10. Duloxetine 60 mg p.o. daily. 11. Estradiol 0.5 mg p.o. daily. 12. Pepcid 20 mg p.o. b.i.d. 13. Fish oil 1000 mg p.o. b.i.d. 14. Fluticasone nasal 1 spray per naris b.i.d. 15. Lasix 40 mg p.o. b.i.d. 16. Humalog mild sliding scale as directed. 17. Lantus 32 units subcutaneous b.i.d. 18. DuoNeb t.i.d. 19. Loratadine 10 mg p.o. at bedtime. 20. Losartan 25 mg p.o. daily. 21. Magnesium oxide 400 mg p.o. b.i.d. 22. Mirtazapine 30 mg p.o. at bedtime. 23. Mometasone/formoterol 2 puffs inhaled b.i.d. 24. Multivitamin 1 p.o. daily. 25. Nitroglycerin 0.4 mg sublingual q.5 minutes p.r.n. chest pain. 26. Pantoprazole 40 mg p.o. daily. 27. MiraLAX 17 g p.o. daily. 28. Potassium chloride 40 mEq p.o. b.i.d. 29. Lyrica 300 mg p.o. b.i.d. 30. Sennosides/docusate 1 p.o. b.i.d. 31. Trazodone 200 mg p.o. at bedtime. 32. Hypoglycemia correction protocol p.r.n. REVIEW OF SYSTEMS: GENERAL: The patient denies fever. She has generalized weakness from her hospital stay. She denies any confusion, lightheadedness, or presyncope. HEENT: Denies vision changes, sore throat, ear pain, or rhinorrhea. CARDIOVASCULAR: Denies chest pain, palpitations, orthopnea, or PND. RESPIRATORY: Denies shortness of breath above her baseline or wheezing above her baseline. She has had no recent cough or sputum production. GASTROINTESTINAL: The patient denies nausea, vomiting, diarrhea, constipation, or abdominal pain. GENITOURINARY: The patient denies dysuria, gross hematuria, or problems with urination. HEMATOLOGY: The patient denies any bleeding. MUSCULOSKELETAL: The patient has a right fracture of the proximal tibia with a brace and has pain at this region, but no other localized pain. LYMPHATIC: The patient has had some recent swelling, but this has improved. NEUROLOGIC: The patient denies numbness, tingling, confusion, slurring of her speech, or vision changes. PHYSICAL EXAMINATION: VITAL SIGNS: Temperature 98.1, pulse 70, respirations 20, O2 saturation 100% on 3 L per minute, blood pressure 131/60. GENERAL: Well-developed, well-nourished, female with slight cantu-like facies, who is alert and oriented x3, in no acute distress. HEENT: Normocephalic and atraumatic. Pupils are equally round and reactive to light and accommodation. Extraocular muscles are intact. Nares are patent without discharge. Tongue protrudes in the midline. NECK: Supple without lymphadenopathy, thyromegaly, JVD, or bruit. HEART: Regular rate and rhythm with a 3/6 systolic ejection murmur best heard at the left upper sternal border without radiation. LUNGS: Diminished air entry throughout, but clear to auscultation. No wheezes or rhonchi. No increased work of breathing. Nasal cannula is in place. ABDOMEN: Positive bowel sounds in all 4 quadrants. Soft, nontender, and nondistended. No masses, guarding, or rebound tenderness. EXTREMITIES: No cyanosis, clubbing, or edema. The right lower extremity has an immobilizer brace in place from the proximal to the distal aspect of the extremity with Coban wrap where the surgical site occurred. She cannot dorsiflex the foot and has a padding in place near the straps into the posterior aspect of the heel, which she has developed some pressure changes. ASSESSMENT AND PLAN: 1. Status post percutaneous screw fixation of the right proximal tibial fracture. The patient will remain in the brace with careful padding of pressure areas. We will keep her pain well controlled. She will have physical and occupational therapy and orthopedic followup as directed. Orthopedic precautions will be continued. 2. Right lower lobe pneumonia/sepsis. The patient has completed her antibiotic regimen. We will monitor for recurrent symptoms. 3. Chronic obstructive pulmonary disease. The patient will be continued on her maintenance regimen and supportive O2. 4. Congestive heart failure. We will have strict I's and O's and daily weights as able. We have parameters for notification in place. Low-sodium diet. She will be continued on her angiotensin-receptor breanna. She had a recent echo with left ventricular ejection fraction documented as above. She is currently not on beta-breanna presumably secondary to severe chronic obstructive pulmonary disease. 5. Pwmwy-ue-[id number] kidney disease. We will follow her BUN and creatinine. 6. Coronary artery disease. The patient will be continued on aspirin, statin, nitroglycerin p.r.n., angiotensin-receptor breanna, and omega-3 fatty acid. 7. Paroxysmal atrial fibrillation. The patient will be continued on digoxin, and we will monitor levels. 8. Allergic rhinitis. The patient will be continued on her azelastine and nasal steroid sprays as well as her oral antihistamine. 9. Type 2 diabetes. The patient is on a sliding scale. We will have Accu-Cheks q.a.c., and at bedtime. We will continue a diabetic diet. Hypoglycemia protocol p.r.n. 10. Hypokalemia. The patient will be continued on potassium, and we will monitor this. 11. Hypomagnesemia. The patient will be continued on magnesium, and we will monitor this. 12. Gastroesophageal reflux disease. The patient will be continued on her histamine-breanna and her PPI. 13. Hyperlipidemia. Statin and omega-3 to be continued and low-cholesterol diet. 14. History of hypothyroidism. Not currently on levothyroxine or thyroid medication. We will check a TSH. 15. Hypertension. We will continue current regimen and monitor BP. 16. Anxiety/insomnia. The patient will be continued on her psych regimen. 17. Spinal stenosis and chronic pain. The patient's Lyrica will be continued. 18. Prophylaxis. We will order subcutaneous Lovenox as the patient is not a candidate for sequential compression devices with this recent fracture. She is already on PPI. CODE STATUS: Full code. Job ID: [id number] MTDD
[2018-09-03] MEDS ORDERED: ESTRADIOL 0.5 MG TAB PO SCH (16:30)
[2018-09-03] MEDS: Cyclobenzaprine 10 MG TAB PO PRN (17:15)
[2018-09-03] MEDS: Mirtazapine 15 MG TAB PO SCH (21:46)
[2018-09-03] MEDS: traZODone HCl 50 MG TAB PO SCH (21:48)
[2018-09-03] MEDS: Loratadine 10 MG TAB PO SCH (21:49)
[2018-09-03] MEDS: Atorvastatin Calcium 10 MG TAB PO SCH (22:01)
[2018-09-04] MEDS: Acetaminophen 500 MG TAB PO SCH ×4 (03:20→20:10)
[2018-09-04] MEDS: Furosemide 40 MG TAB PO SCH ×2 (05:36→13:07)
[2018-09-04] MEDS: Mometasone/Formoterol 60 PUFF AER INH SCH ×2 (05:36→18:40)
[2018-09-04 05:48] LABS: Platelet Count 193 thou/uL (130-400)
[2018-09-04] MEDS: Magnesium Oxide 400 MG TAB PO SCH ×2 (10:08→20:11)
[2018-09-04] MEDS: Fish Oil 1,000 MG CAP PO SCH ×2 (10:08→20:09)
[2018-09-04] MEDS: Multivitamin W/ Minerals 1 TAB PO SCH (10:08)
[2018-09-04] MEDS: DULoxetine 30 MG CAP PO SCH (10:08)
[2018-09-04] MEDS: ESTRADIOL 0.5 MG TAB PO SCH (10:08)
[2018-09-04] MEDS: Famotidine 20 MG TAB PO SCH ×2 (10:09→20:09)
[2018-09-04] MEDS: Digoxin 0.125 MG TAB PO SCH (10:09)
[2018-09-04] MEDS: Potassium Chloride 20 MEQ TAB PO SCH ×2 (10:09→17:45)
[2018-09-04] MEDS: Cyanocobalamin (Vitamin B-12) 1,000 MCG TAB PO SCH (10:10)
[2018-09-04] MEDS: Losartan Potassium 50 MG TAB PO SCH (10:10)
[2018-09-04] MEDS: Aspirin 81 mg Enteric Coated Tablet PO SCH (10:12)
[2018-09-04] MEDS: Docusate 100 MG CAP PO SCH (10:12)
[2018-09-04] MEDS: Pregabalin 75 MG CAP PO SCH ×2 (10:12→20:07)
[2018-09-04] MEDS: Pantoprazole 40 MG GRANULES PACKET PO SCH (10:12)
[2018-09-04] MEDS: Fluticasone Propionate Nasal Spray 16 gm Bottle NASAL SCH ×2 (10:13→20:15)
[2018-09-04] MEDS: Polyethylene Glycol 3350 17 GM Packet PO SCH (10:13)
[2018-09-04] MEDS: Senokot S 8.6-50 MG TAB PO SCH ×2 (10:13→20:11)
[2018-09-04] MEDS: Enoxaparin Sodium 40 MG/0.4 ML SYRINGE SC SCH (10:14)
[2018-09-04] MEDS: Albuterol Sulfate 2.5 mg/3 ml Neb NEB SCH ×3 (10:28→20:41)
[2018-09-04] MEDS: Lantus 1000 UNITS/10 ML VIAL SC SCH ×2 (10:28→20:33)
[2018-09-04] MEDS: HumaLOG 300 UNITS/3 ML VIAL SC PRN ×4 (10:29→20:32)
[2018-09-04] MEDS: traZODone HCl 50 MG TAB PO SCH (20:09)
[2018-09-04] MEDS: Atorvastatin Calcium 10 MG TAB PO SCH (20:11)
[2018-09-04] MEDS: Mirtazapine 15 MG TAB PO SCH (20:12)
[2018-09-04] MEDS: Loratadine 10 MG TAB PO SCH (20:12)
[2018-09-05] MEDS: Cyclobenzaprine 10 MG TAB PO PRN ×2 (01:16→13:14)
[2018-09-05] MEDS: Acetaminophen 500 MG TAB PO SCH ×4 (03:07→20:18)
[2018-09-05 05:03] LABS: #Basophils 0.1 thou/uL (0.0-0.2); #Eosinphils 0.3 thou/uL (0.0-0.7); #Lymphocytes 1.1 thou/uL (1.20-3.40); #Monocytes 0.7 thou/uL (0.11-0.59); #Neutrophils 7.4 thou/uL (1.40-6.50); %Basophils 1.2 % (0.0-1.0); %Eosinophils 2.6 % (0.0-10.0); %Lymphocytes 11.9 % (21.0-51.0); %Monocytes 7.3 % (0.0-10.0); Hemoglobin 9.2 g/dL (12.0-16.0); Mean Corpuscular HGB CONC 30.2 g/dL (32.0-36.0); Mean Corpuscular Hemoglobin 20.7 pg (27.0-31.0); Mean Corpuscular Volume 68.6 fL (78.0-98.0); Mean Platelet Volume 9.1 fL (7.4-10.4); Platelet Count 187 thou/uL (130-400); RBC Distribution Width 24.1 % (11.5-14.5); Red Blood Cell (RBC) Count 4.44 mill/uL (4.20-5.40); White Blood Cell (WBC) Count 9.6 thou/uL (4.8-10.8)
[2018-09-05 05:04] LABS: Anisocytosis MODERATE=16-30 cells (100X) (0-5/hpf); Hypochromia SLIGHT = 6-15 cells (100X) (0-5/hpf); MDiff Complete? YES; Microcytosis MODERATE=15-30 cells (100X) (0-5/hpf); Ovalocytes SLIGHT = 2-5 cells (100X) (0-1/hpf); Platelet Morphology Comment Appears Adequate; Poikilocytosis MODERATE=16-30 cells (100X) (0-5/hpf); Stomatocytes SLIGHT = 2-5 cells (100X) (0-1/hpf)
[2018-09-05 05:20] LABS: Anion Gap 15 mmol/L (10-20); BUN (Urea Nitrogen) 30 mg/dL (9.8-20.1); Calc. Creatinine Clearance 42 mL/min (70-130); Calcium 9.1 mg/dL (7.8-10.44); Carbon Dioxide 35 mmol/L (23-31); Chloride 86 mmol/L (98-107); Estimated GFR-MDRD 36; Glucose 183 mg/dL (83-110); Magnesium 4.6 mg/dL (1.6-2.6); Potassium 4.4 mmol/L (3.5-5.1); Sodium 132 mmol/L (136-145)
[2018-09-05 05:49] LABS: Digoxin 1.47 ng/mL (0.8-2.0)
[2018-09-05] MEDS: Furosemide 40 MG TAB PO SCH ×2 (06:15→13:14)
[2018-09-05] MEDS: Mometasone/Formoterol 60 PUFF AER INH SCH ×2 (06:16→18:07)
[2018-09-05] MEDS: Fluticasone Propionate Nasal Spray 16 gm Bottle NASAL SCH (08:50)
[2018-09-05] MEDS: Digoxin 0.125 MG TAB PO SCH (08:51)
[2018-09-05] MEDS: Aspirin 81 mg Enteric Coated Tablet PO SCH (08:51)
[2018-09-05] MEDS: DULoxetine 30 MG CAP PO SCH (08:52)
[2018-09-05] MEDS: Cyanocobalamin (Vitamin B-12) 1,000 MCG TAB PO SCH (08:56)
[2018-09-05] MEDS: Magnesium Oxide 400 MG TAB PO SCH (08:56)
[2018-09-05] MEDS: Losartan Potassium 50 MG TAB PO SCH (08:56)
[2018-09-05] MEDS: Docusate 100 MG CAP PO SCH (08:56)
[2018-09-05] MEDS: Fish Oil 1,000 MG CAP PO SCH ×2 (08:56→20:21)
[2018-09-05] MEDS: Famotidine 20 MG TAB PO SCH ×2 (08:57→20:20)
[2018-09-05] MEDS: Multivitamin W/ Minerals 1 TAB PO SCH (08:57)
[2018-09-05] MEDS: ESTRADIOL 0.5 MG TAB PO SCH (08:57)
[2018-09-05] MEDS: Potassium Chloride 20 MEQ TAB PO SCH ×2 (08:57→18:07)
[2018-09-05] MEDS: Enoxaparin Sodium 40 MG/0.4 ML SYRINGE SC SCH (08:58)
[2018-09-05] MEDS: Pregabalin 75 MG CAP PO SCH ×2 (08:58→20:21)
[2018-09-05] MEDS: Pantoprazole 40 MG GRANULES PACKET PO SCH (08:58)
[2018-09-05] MEDS: Polyethylene Glycol 3350 17 GM Packet PO SCH (09:00)
[2018-09-05] MEDS: Senokot S 8.6-50 MG TAB PO SCH ×2 (09:01→20:20)
[2018-09-05] MEDS: Albuterol Sulfate 2.5 mg/3 ml Neb NEB SCH ×3 (09:01→20:40)
[2018-09-05] MEDS: Lantus 1000 UNITS/10 ML VIAL SC SCH ×2 (09:06→20:41)
[2018-09-05] MEDS: HumaLOG 300 UNITS/3 ML VIAL SC PRN (13:15)
[2018-09-05] MEDS: [UNRECOGNIZED DRUG - OTHER] PO PRN (15:32)
[2018-09-05] MEDS: traZODone HCl 50 MG TAB PO SCH (20:18)
[2018-09-05] MEDS: Mirtazapine 15 MG TAB PO SCH (20:19)
[2018-09-05] MEDS: Atorvastatin Calcium 10 MG TAB PO SCH (20:19)
[2018-09-05] MEDS: Loratadine 10 MG TAB PO SCH (20:20)
[2018-09-05] MEDS: DYMISTA EA NARE SCH (20:37)
[2018-09-06] MEDS ORDERED: Acetaminophen 500 MG TAB ONE (03:02)
[2018-09-06] MEDS: Acetaminophen 500 MG TAB PO SCH ×4 (03:20→21:21)
[2018-09-06 04:53] LABS: Hemoglobin 9.1 g/dL (12.0-16.0); Platelet Count 179 thou/uL (130-400)
[2018-09-06] MEDS: Furosemide 40 MG TAB PO SCH ×2 (06:13→13:19)
[2018-09-06] MEDS: Mometasone/Formoterol 60 PUFF AER INH SCH ×2 (06:13→18:37)
[2018-09-06] MEDS: Potassium Chloride 20 MEQ TAB PO SCH ×2 (08:51→17:46)
[2018-09-06] MEDS: Pantoprazole 40 MG GRANULES PACKET PO SCH (08:52)
[2018-09-06] MEDS: Digoxin 0.125 MG TAB PO SCH (08:52)
[2018-09-06] MEDS: Docusate 100 MG CAP PO SCH (08:52)
[2018-09-06] MEDS: Magnesium Oxide 400 MG TAB PO SCH (08:53)
[2018-09-06] MEDS: Famotidine 20 MG TAB PO SCH ×2 (08:53→21:19)
[2018-09-06] MEDS: DULoxetine 30 MG CAP PO SCH (08:53)
[2018-09-06] MEDS: Multivitamin W/ Minerals 1 TAB PO SCH (08:53)
[2018-09-06] MEDS: Aspirin 81 mg Enteric Coated Tablet PO SCH (08:53)
[2018-09-06] MEDS: Fish Oil 1,000 MG CAP PO SCH ×2 (09:02→21:19)
[2018-09-06] MEDS: Pregabalin 75 MG CAP PO SCH ×2 (09:03→21:23)
[2018-09-06] MEDS: ESTRADIOL 0.5 MG TAB PO SCH (09:03)
[2018-09-06] MEDS: Cyanocobalamin (Vitamin B-12) 1,000 MCG TAB PO SCH (09:03)
[2018-09-06] MEDS: Enoxaparin Sodium 40 MG/0.4 ML SYRINGE SC SCH (09:11)
[2018-09-06] MEDS: Senokot S 8.6-50 MG TAB PO SCH ×2 (09:12→21:19)
[2018-09-06] MEDS: DYMISTA EA NARE SCH ×2 (09:12→21:24)
[2018-09-06] MEDS: Polyethylene Glycol 3350 17 GM Packet PO SCH (09:12)
[2018-09-06] MEDS: Lantus 1000 UNITS/10 ML VIAL SC SCH ×2 (09:18→21:30)
[2018-09-06] MEDS: Albuterol Sulfate 2.5 mg/3 ml Neb NEB SCH ×3 (09:21→21:26)
[2018-09-06] MEDS: HumaLOG 300 UNITS/3 ML VIAL SC PRN ×2 (12:14→21:31)
[2018-09-06] MEDS: [UNRECOGNIZED DRUG - OTHER] PO PRN (15:50)
[2018-09-06] MEDS: Loratadine 10 MG TAB PO SCH (21:20)
[2018-09-06] MEDS: Atorvastatin Calcium 10 MG TAB PO SCH (21:22)
[2018-09-06] MEDS: traZODone HCl 50 MG TAB PO SCH (21:22)
[2018-09-06] MEDS: Mirtazapine 15 MG TAB PO SCH (21:22)
[2018-09-07] MEDS: Acetaminophen 500 MG TAB PO SCH ×4 (02:28→19:58)
[2018-09-07 05:26] LABS: ALT (SGPT) 17 U/L (8-55); AST (SGOT) 33 U/L (5-34); Albumin 3.1 g/dL (3.4-4.8); Alkaline Phosphatase 130 U/L (40-150); Anion Gap 16 mmol/L (10-20); BUN (Urea Nitrogen) 28 mg/dL (9.8-20.1); Bilirubin, Total 0.6 mg/dL (0.2-1.2); Calc. Creatinine Clearance 52 mL/min (70-130); Calcium 9.1 mg/dL (7.8-10.44); Carbon Dioxide 34 mmol/L (23-31); Chloride 91 mmol/L (98-107); Estimated GFR-MDRD 46; Glucose 137 mg/dL (83-110); Potassium 3.9 mmol/L (3.5-5.1); Protein, Total 6.1 g/dL (6.0-8.3); Sodium 137 mmol/L (136-145)
[2018-09-07] MEDS: Furosemide 40 MG TAB PO SCH ×2 (05:50→13:35)
[2018-09-07] MEDS: Mometasone/Formoterol 60 PUFF AER INH SCH ×2 (05:51→18:27)
[2018-09-07 06:22] LABS: #Basophils 0.1 thou/uL (0.0-0.2); #Eosinphils 0.2 thou/uL (0.0-0.7); #Lymphocytes 1.3 thou/uL (1.20-3.40); #Monocytes 0.6 thou/uL (0.11-0.59); #Neutrophils 5.5 thou/uL (1.40-6.50); %Basophils 1.3 % (0.0-1.0); %Eosinophils 2.5 % (0.0-10.0); %Lymphocytes 17.1 % (21.0-51.0); %Monocytes 7.6 % (0.0-10.0); %Neutrophils 71.5 % (42.0-75.0); Anisocytosis SLIGHT = 6-15 cells (100X) (0-5/hpf); MDiff Complete? YES; Mean Corpuscular HGB CONC 29.5 g/dL (32.0-36.0); Mean Corpuscular Hemoglobin 20.1 pg (27.0-31.0); Mean Corpuscular Volume 68.2 fL (78.0-98.0); Mean Platelet Volume 9.4 fL (7.4-10.4); Microcytosis MODERATE=15-30 cells (100X) (0-5/hpf); Ovalocytes SLIGHT = 2-5 cells (100X) (0-1/hpf); Platelet Count 165 thou/uL (130-400); Platelet Morphology Comment Appears Adequate; Poikilocytosis MODERATE=16-30 cells (100X) (0-5/hpf); RBC Distribution Width 24.2 % (11.5-14.5); Red Blood Cell (RBC) Count 4.47 mill/uL (4.20-5.40); Target Cells SLIGHT = 2-5 cells (100X) (0-1/hpf); White Blood Cell (WBC) Count 7.6 thou/uL (4.8-10.8)
[2018-09-07] MEDS: Enoxaparin Sodium 40 MG/0.4 ML SYRINGE SC SCH (08:36)
[2018-09-07] MEDS: Pregabalin 75 MG CAP PO SCH ×2 (08:36→20:00)
[2018-09-07] MEDS: Polyethylene Glycol 3350 17 GM Packet PO SCH (08:36)
[2018-09-07] MEDS: Pantoprazole 40 MG GRANULES PACKET PO SCH (08:38)
[2018-09-07] MEDS: Fish Oil 1,000 MG CAP PO SCH ×2 (08:38→19:57)
[2018-09-07] MEDS: Multivitamin W/ Minerals 1 TAB PO SCH (08:38)
[2018-09-07] MEDS: Magnesium Oxide 400 MG TAB PO SCH (08:38)
[2018-09-07] MEDS: Potassium Chloride 20 MEQ TAB PO SCH ×2 (08:38→16:49)
[2018-09-07] MEDS: DULoxetine 30 MG CAP PO SCH (08:39)
[2018-09-07] MEDS: Cyanocobalamin (Vitamin B-12) 1,000 MCG TAB PO SCH (08:39)
[2018-09-07] MEDS: Digoxin 0.125 MG TAB PO SCH (08:40)
[2018-09-07] MEDS: Senokot S 8.6-50 MG TAB PO SCH ×2 (08:40→19:57)
[2018-09-07] MEDS: Famotidine 20 MG TAB PO SCH ×2 (08:41→19:56)
[2018-09-07] MEDS: Aspirin 81 mg Enteric Coated Tablet PO SCH (08:41)
[2018-09-07] MEDS: Albuterol Sulfate 2.5 mg/3 ml Neb NEB SCH ×3 (08:51→20:03)
[2018-09-07] MEDS: Lantus 1000 UNITS/10 ML VIAL SC SCH ×2 (09:00→20:07)
[2018-09-07] MEDS: Docusate 100 MG CAP PO SCH (09:01)
[2018-09-07] MEDS: DYMISTA EA NARE SCH ×2 (09:01→20:02)
[2018-09-07] MEDS: ESTRADIOL 0.5 MG TAB PO SCH (09:02)
[2018-09-07] MEDS: HumaLOG 300 UNITS/3 ML VIAL SC PRN ×3 (12:37→20:06)
[2018-09-07] MEDS: Mirtazapine 15 MG TAB PO SCH (19:58)
[2018-09-07] MEDS: Loratadine 10 MG TAB PO SCH (19:59)
[2018-09-07] MEDS: Atorvastatin Calcium 10 MG TAB PO SCH (19:59)
[2018-09-07] MEDS: traZODone HCl 50 MG TAB PO SCH (19:59)
[2018-09-08] MEDS: Acetaminophen 500 MG TAB PO SCH ×4 (03:23→20:49)
[2018-09-08 04:47] LABS: Platelet Count 166 thou/uL (130-400)
[2018-09-08] MEDS: Furosemide 40 MG TAB PO SCH ×2 (05:24→14:24)
[2018-09-08] MEDS: Mometasone/Formoterol 60 PUFF AER INH SCH ×2 (05:25→18:29)
[2018-09-08] MEDS: Docusate 100 MG CAP PO SCH (08:42)
[2018-09-08] MEDS: Polyethylene Glycol 3350 17 GM Packet PO SCH (08:42)
[2018-09-08] MEDS: Pregabalin 75 MG CAP PO SCH ×2 (08:43→20:50)
[2018-09-08] MEDS: Magnesium Oxide 400 MG TAB PO SCH (08:43)
[2018-09-08] MEDS: Cyanocobalamin (Vitamin B-12) 1,000 MCG TAB PO SCH (08:43)
[2018-09-08] MEDS: Pantoprazole 40 MG GRANULES PACKET PO SCH (08:45)
[2018-09-08] MEDS: Fish Oil 1,000 MG CAP PO SCH ×2 (08:45→20:50)
[2018-09-08] MEDS: Multivitamin W/ Minerals 1 TAB PO SCH (08:45)
[2018-09-08] MEDS: Famotidine 20 MG TAB PO SCH ×2 (08:45→20:49)
[2018-09-08] MEDS: Aspirin 81 mg Enteric Coated Tablet PO SCH (08:45)
[2018-09-08] MEDS: Potassium Chloride 20 MEQ TAB PO SCH ×2 (08:46→17:49)
[2018-09-08] MEDS: Senokot S 8.6-50 MG TAB PO SCH ×2 (08:46→20:50)
[2018-09-08] MEDS: DULoxetine 30 MG CAP PO SCH (08:46)
[2018-09-08] MEDS: Digoxin 0.125 MG TAB PO SCH (08:48)
[2018-09-08] MEDS: Enoxaparin Sodium 40 MG/0.4 ML SYRINGE SC SCH (08:49)
[2018-09-08] MEDS: Lantus 1000 UNITS/10 ML VIAL SC SCH ×2 (08:58→20:47)
[2018-09-08] MEDS: DYMISTA EA NARE SCH ×2 (09:00→20:47)
[2018-09-08] MEDS: Albuterol Sulfate 2.5 mg/3 ml Neb NEB SCH ×3 (09:01→20:41)
[2018-09-08] MEDS: ESTRADIOL 0.5 MG TAB PO SCH (09:08)
[2018-09-08] MEDS: HumaLOG 300 UNITS/3 ML VIAL SC PRN ×2 (12:18→17:47)
[2018-09-08] MEDS: Ibuprofen 800 MG TAB PO PRN (17:53)
[2018-09-08] MEDS: traZODone HCl 50 MG TAB PO SCH (20:48)
[2018-09-08] MEDS: Atorvastatin Calcium 10 MG TAB PO SCH (20:49)
[2018-09-08] MEDS: Mirtazapine 15 MG TAB PO SCH (20:49)
[2018-09-08] MEDS: Loratadine 10 MG TAB PO SCH (20:50)
[2018-09-08] MEDS: [UNRECOGNIZED DRUG - OTHER] PO PRN (21:52)
[2018-09-09] MEDS: Acetaminophen 500 MG TAB PO SCH ×4 (03:19→20:33)
[2018-09-09 04:57] LABS: #Basophils 0.1 thou/uL (0.0-0.2); #Eosinphils 0.2 thou/uL (0.0-0.7); #Lymphocytes 1.1 thou/uL (1.20-3.40); #Monocytes 0.7 thou/uL (0.11-0.59); %Basophils 1.9 % (0.0-1.0); %Eosinophils 3.4 % (0.0-10.0); %Lymphocytes 15.6 % (21.0-51.0); %Monocytes 9.6 % (0.0-10.0); %Neutrophils 69.5 % (42.0-75.0); Anisocytosis SLIGHT = 6-15 cells (100X) (0-5/hpf); Hemoglobin 8.4 g/dL (12.0-16.0); Hypochromia SLIGHT = 6-15 cells (100X) (0-5/hpf); MDiff Complete? YES; Mean Corpuscular HGB CONC 30.6 g/dL (32.0-36.0); Mean Corpuscular Hemoglobin 21.1 pg (27.0-31.0); Mean Platelet Volume 8.8 fL (7.4-10.4); Microcytosis MODERATE=15-30 cells (100X) (0-5/hpf); Ovalocytes SLIGHT = 2-5 cells (100X) (0-1/hpf); Platelet Count 155 thou/uL (130-400); Platelet Morphology Comment Appears Adequate; Poikilocytosis MODERATE=16-30 cells (100X) (0-5/hpf); RBC Distribution Width 23.9 % (11.5-14.5); Red Blood Cell (RBC) Count 3.98 mill/uL (4.20-5.40); Tear Drops SLIGHT = 2-5 cells (100X) (0-1/hpf); White Blood Cell (WBC) Count 7.2 thou/uL (4.8-10.8)
[2018-09-09 05:22] LABS: ALT (SGPT) 13 U/L (8-55); AST (SGOT) 28 U/L (5-34); Alkaline Phosphatase 120 U/L (40-150); Anion Gap 16 mmol/L (10-20); BUN (Urea Nitrogen) 32 mg/dL (9.8-20.1); Bilirubin, Total 0.5 mg/dL (0.2-1.2); Calc. Creatinine Clearance 44 mL/min (70-130); Carbon Dioxide 32 mmol/L (23-31); Chloride 98 mmol/L (98-107); Estimated GFR-MDRD 39; Globulin 2.9 g/dL (2.4-3.5); Glucose 175 mg/dL (83-110); Potassium 4.1 mmol/L (3.5-5.1); Protein, Total 5.9 g/dL (6.0-8.3); Sodium 142 mmol/L (136-145)
[2018-09-09] MEDS: Furosemide 40 MG TAB PO SCH ×2 (05:59→14:44)
[2018-09-09] MEDS: Mometasone/Formoterol 60 PUFF AER INH SCH ×2 (05:59→16:52)
[2018-09-09] MEDS: Lantus 1000 UNITS/10 ML VIAL SC SCH ×2 (08:15→20:48)
[2018-09-09] MEDS: HumaLOG 300 UNITS/3 ML VIAL SC PRN ×3 (08:16→17:02)
[2018-09-09] MEDS: Enoxaparin Sodium 40 MG/0.4 ML SYRINGE SC SCH (08:21)
[2018-09-09] MEDS: Polyethylene Glycol 3350 17 GM Packet PO SCH (08:22)
[2018-09-09] MEDS: Pregabalin 75 MG CAP PO SCH ×2 (08:22→20:34)
[2018-09-09] MEDS: Multivitamin W/ Minerals 1 TAB PO SCH (08:24)
[2018-09-09] MEDS: Fish Oil 1,000 MG CAP PO SCH ×2 (08:24→20:31)
[2018-09-09] MEDS: Potassium Chloride 20 MEQ TAB PO SCH ×2 (08:25→16:45)
[2018-09-09] MEDS: Pantoprazole 40 MG GRANULES PACKET PO SCH (08:26)
[2018-09-09] MEDS: Senokot S 8.6-50 MG TAB PO SCH ×2 (08:27→20:31)
[2018-09-09] MEDS: Aspirin 81 mg Enteric Coated Tablet PO SCH (08:27)
[2018-09-09] MEDS: Ferrous Sulfate 325 MG TAB PO SCH (08:27)
[2018-09-09] MEDS: Famotidine 20 MG TAB PO SCH ×2 (08:27→20:34)
[2018-09-09] MEDS: Cyanocobalamin (Vitamin B-12) 1,000 MCG TAB PO SCH (08:28)
[2018-09-09] MEDS: DULoxetine 30 MG CAP PO SCH (08:29)
[2018-09-09] MEDS: Digoxin 0.125 MG TAB PO SCH (08:29)
[2018-09-09] MEDS: Docusate 100 MG CAP PO SCH (08:30)
[2018-09-09] MEDS: Magnesium Oxide 400 MG TAB PO SCH (08:30)
[2018-09-09] MEDS: Albuterol Sulfate 2.5 mg/3 ml Neb NEB SCH ×3 (08:31→20:36)
[2018-09-09] MEDS: ESTRADIOL 0.5 MG TAB PO SCH (12:15)
[2018-09-09] MEDS: Ibuprofen 800 MG TAB PO PRN (12:15)
[2018-09-09] MEDS: DYMISTA EA NARE SCH ×2 (12:16→20:41)
[2018-09-09] MEDS: Loratadine 10 MG TAB PO SCH (20:31)
[2018-09-09] MEDS: traZODone HCl 50 MG TAB PO SCH (20:32)
[2018-09-09] MEDS: Atorvastatin Calcium 10 MG TAB PO SCH (20:33)
[2018-09-09] MEDS: Mirtazapine 15 MG TAB PO SCH (20:34)
[2018-09-10] MEDS: Acetaminophen 500 MG TAB PO SCH ×4 (03:03→20:29)
[2018-09-10 05:25] LABS: Hemoglobin 7.7 g/dL (12.0-16.0); Platelet Count 143 thou/uL (130-400)
[2018-09-10] MEDS: Furosemide 40 MG TAB PO SCH ×2 (05:46→13:59)
[2018-09-10] MEDS: Mometasone/Formoterol 60 PUFF AER INH SCH ×2 (05:47→18:16)
[2018-09-10] MEDS: Pregabalin 75 MG CAP PO SCH ×2 (09:26→20:25)
[2018-09-10] MEDS: Potassium Chloride 20 MEQ TAB PO SCH ×2 (09:28→17:10)
[2018-09-10] MEDS: Ferrous Sulfate 325 MG TAB PO SCH (09:28)
[2018-09-10] MEDS: Aspirin 81 mg Enteric Coated Tablet PO SCH (09:28)
[2018-09-10] MEDS: DULoxetine 30 MG CAP PO SCH (09:28)
[2018-09-10] MEDS: Docusate 100 MG CAP PO SCH (09:29)
[2018-09-10] MEDS: Multivitamin W/ Minerals 1 TAB PO SCH (09:29)
[2018-09-10] MEDS: Fish Oil 1,000 MG CAP PO SCH ×2 (09:29→20:28)
[2018-09-10] MEDS: Cyanocobalamin (Vitamin B-12) 1,000 MCG TAB PO SCH (09:29)
[2018-09-10] MEDS: Senokot S 8.6-50 MG TAB PO SCH ×2 (09:29→20:31)
[2018-09-10] MEDS: Magnesium Oxide 400 MG TAB PO SCH (09:30)
[2018-09-10] MEDS: Polyethylene Glycol 3350 17 GM Packet PO SCH (09:30)
[2018-09-10] MEDS: Famotidine 20 MG TAB PO SCH ×2 (09:30→20:31)
[2018-09-10] MEDS: Pantoprazole 40 MG GRANULES PACKET PO SCH (09:30)
[2018-09-10] MEDS: Enoxaparin Sodium 40 MG/0.4 ML SYRINGE SC SCH (09:30)
[2018-09-10] MEDS: Digoxin 0.125 MG TAB PO SCH (09:30)
[2018-09-10] MEDS: ESTRADIOL 0.5 MG TAB PO SCH (09:31)
[2018-09-10] MEDS: Lantus 1000 UNITS/10 ML VIAL SC SCH ×2 (09:31→20:34)
[2018-09-10] MEDS: Albuterol Sulfate 2.5 mg/3 ml Neb NEB SCH ×3 (09:39→20:32)
[2018-09-10] MEDS: DYMISTA EA NARE SCH ×2 (09:52→20:27)
[2018-09-10] MEDS: Ibuprofen 800 MG TAB PO PRN ×2 (11:37→21:37)
[2018-09-10] MEDS: HumaLOG 300 UNITS/3 ML VIAL SC PRN ×2 (12:39→17:14)
[2018-09-10 14:42] LABS: Bacteria/HPF Rare-Few HPF (None Seen); Bilirubin Negative (Negative); Blood, Urine Negative (Negative); Clarity Clear (Clear); Glucose, Urine (Dipstick) Negative (Negative); Leukocyte Negative (Negative); Nitrite Negative (Negative); Protein, Urine (Dipstick) Negative (Neg-Trace); RBC/HPF 0-3 HPF (0-3); Specific Gravity, Urine 1.015 (1.005-1.030); Squamous Epithelial 0-3 HPF (0-3); Urobilinogen 0.2 mg/dL (0.2-1.0); WBC/HPF 0-3 HPF (0-3)
[2018-09-10] MEDS: Mirtazapine 15 MG TAB PO SCH (20:28)
[2018-09-10] MEDS: Atorvastatin Calcium 10 MG TAB PO SCH (20:29)
[2018-09-10] MEDS: Loratadine 10 MG TAB PO SCH (20:31)
[2018-09-10] MEDS: traZODone HCl 50 MG TAB PO SCH (20:31)
[2018-09-10] MEDS: Cyclobenzaprine 10 MG TAB PO PRN (22:20)
[2018-09-11] MEDS: Acetaminophen 500 MG TAB PO SCH ×4 (03:52→20:43)
[2018-09-11 05:35] LABS: Hemoglobin 7.6 g/dL (12.0-16.0)
[2018-09-11] MEDS: Mometasone/Formoterol 60 PUFF AER INH SCH ×2 (05:51→18:09)
[2018-09-11] MEDS: Furosemide 40 MG TAB PO SCH ×2 (05:51→14:57)
[2018-09-11] MEDS: Enoxaparin Sodium 40 MG/0.4 ML SYRINGE SC SCH (08:33)
[2018-09-11] MEDS: Potassium Chloride 20 MEQ TAB PO SCH ×2 (08:34→17:12)
[2018-09-11] MEDS: Pantoprazole 40 MG GRANULES PACKET PO SCH (08:34)
[2018-09-11] MEDS: Ferrous Sulfate 325 MG TAB PO SCH (08:34)
[2018-09-11] MEDS: Magnesium Oxide 400 MG TAB PO SCH (08:35)
[2018-09-11] MEDS: Famotidine 20 MG TAB PO SCH ×2 (08:35→20:42)
[2018-09-11] MEDS: Digoxin 0.125 MG TAB PO SCH (08:35)
[2018-09-11] MEDS: Senokot S 8.6-50 MG TAB PO SCH ×2 (08:35→20:53)
[2018-09-11] MEDS: Pregabalin 75 MG CAP PO SCH ×2 (08:35→20:39)
[2018-09-11] MEDS: Docusate 100 MG CAP PO SCH (08:37)
[2018-09-11] MEDS: Fish Oil 1,000 MG CAP PO SCH ×2 (08:37→20:43)
[2018-09-11] MEDS: Multivitamin W/ Minerals 1 TAB PO SCH (08:37)
[2018-09-11] MEDS: Cyanocobalamin (Vitamin B-12) 1,000 MCG TAB PO SCH (08:37)
[2018-09-11] MEDS: DULoxetine 30 MG CAP PO SCH (08:37)
[2018-09-11] MEDS: Aspirin 81 mg Enteric Coated Tablet PO SCH (08:38)
[2018-09-11] MEDS: DYMISTA EA NARE SCH ×2 (08:38→20:39)
[2018-09-11] MEDS: Polyethylene Glycol 3350 17 GM Packet PO SCH (08:42)
[2018-09-11] MEDS: ESTRADIOL 0.5 MG TAB PO SCH (08:46)
[2018-09-11] MEDS: Lantus 1000 UNITS/10 ML VIAL SC SCH ×2 (08:47→20:43)
[2018-09-11] MEDS: Albuterol Sulfate 2.5 mg/3 ml Neb NEB SCH ×3 (08:49→20:44)
[2018-09-11 11:15] LABS: Hemoglobin 8.4 g/dL (12.0-16.0)
[2018-09-11] MEDS: Ibuprofen 800 MG TAB PO PRN ×2 (11:22→22:35)
[2018-09-11] MEDS: HumaLOG 300 UNITS/3 ML VIAL SC PRN ×2 (12:01→17:16)
[2018-09-11] MEDS: Cyclobenzaprine 10 MG TAB PO PRN (17:11)
[2018-09-11] MEDS: traZODone HCl 50 MG TAB PO SCH (20:37)
[2018-09-11] MEDS: Loratadine 10 MG TAB PO SCH (20:40)
[2018-09-11] MEDS: Mirtazapine 15 MG TAB PO SCH (20:41)
[2018-09-11] MEDS: Atorvastatin Calcium 10 MG TAB PO SCH (20:41)
[2018-09-12] MEDS: Acetaminophen 500 MG TAB PO SCH ×4 (03:17→20:10)
[2018-09-12] MEDS: Furosemide 40 MG TAB PO SCH ×2 (05:04→13:30)
[2018-09-12] MEDS: Mometasone/Formoterol 60 PUFF AER INH SCH ×2 (05:05→18:06)
[2018-09-12 05:35] LABS: ALT (SGPT) 18 U/L (8-55); AST (SGOT) 31 U/L (5-34); Albumin 2.9 g/dL (3.4-4.8); Alkaline Phosphatase 128 U/L (40-150); Anion Gap 12 mmol/L (10-20); BUN (Urea Nitrogen) 29 mg/dL (9.8-20.1); Bilirubin, Total 0.5 mg/dL (0.2-1.2); Calc. Creatinine Clearance 48 mL/min (70-130); Carbon Dioxide 32 mmol/L (23-31); Chloride 104 mmol/L (98-107); Estimated GFR-MDRD 41; Globulin 2.7 g/dL (2.4-3.5); Glucose 106 mg/dL (83-110); Potassium 4.2 mmol/L (3.5-5.1); Protein, Total 5.6 g/dL (6.0-8.3); Sodium 144 mmol/L (136-145)
[2018-09-12 05:41] LABS: #Basophils 0.1 thou/uL (0.0-0.2); #Eosinphils 0.3 thou/uL (0.0-0.7); #Lymphocytes 1.1 thou/uL (1.20-3.40); #Monocytes 0.6 thou/uL (0.11-0.59); #Neutrophils 3.9 thou/uL (1.40-6.50); %Basophils 1.5 % (0.0-1.0); %Eosinophils 4.7 % (0.0-10.0); %Lymphocytes 17.8 % (21.0-51.0); %Monocytes 9.9 % (0.0-10.0); %Neutrophils 66.1 % (42.0-75.0); Anisocytosis MODERATE=16-30 cells (100X) (0-5/hpf); Basophilic Stippling SLIGHT = 1-2 cells (100X) (None Seen); Hemoglobin 7.4 g/dL (12.0-16.0); Hypochromia MODERATE=16-30 cells (100X) (0-5/hpf); MDiff Complete? YES; Mean Corpuscular HGB CONC 30.4 g/dL (32.0-36.0); Mean Corpuscular Hemoglobin 20.9 pg (27.0-31.0); Mean Corpuscular Volume 68.8 fL (78.0-98.0); Mean Platelet Volume 10.6 fL (7.4-10.4); Microcytosis MODERATE=15-30 cells (100X) (0-5/hpf); Platelet Count 120 thou/uL (130-400); Platelet Morphology Comment Appears Decreased; RBC Distribution Width 23.9 % (11.5-14.5); Red Blood Cell (RBC) Count 3.55 mill/uL (4.20-5.40); White Blood Cell (WBC) Count 5.9 thou/uL (4.8-10.8)
[2018-09-12] MEDS: ESTRADIOL 0.5 MG TAB PO SCH (08:13)
[2018-09-12] MEDS: Fish Oil 1,000 MG CAP PO SCH ×2 (08:14→20:12)
[2018-09-12] MEDS: Pregabalin 75 MG CAP PO SCH ×2 (08:14→20:05)
[2018-09-12] MEDS: DULoxetine 30 MG CAP PO SCH (08:15)
[2018-09-12] MEDS: Famotidine 20 MG TAB PO SCH ×2 (08:16→20:14)
[2018-09-12] MEDS: Docusate 100 MG CAP PO SCH (08:16)
[2018-09-12] MEDS: Ferrous Sulfate 325 MG TAB PO SCH (08:17)
[2018-09-12] MEDS: Magnesium Oxide 400 MG TAB PO SCH (08:17)
[2018-09-12] MEDS: Cyanocobalamin (Vitamin B-12) 1,000 MCG TAB PO SCH (08:17)
[2018-09-12] MEDS: Potassium Chloride 20 MEQ TAB PO SCH ×2 (08:17→17:24)
[2018-09-12] MEDS: Senokot S 8.6-50 MG TAB PO SCH ×2 (08:17→20:05)
[2018-09-12] MEDS: Multivitamin W/ Minerals 1 TAB PO SCH (08:17)
[2018-09-12] MEDS: Aspirin 81 mg Enteric Coated Tablet PO SCH (08:18)
[2018-09-12] MEDS: Digoxin 0.125 MG TAB PO SCH (08:18)
[2018-09-12] MEDS: Polyethylene Glycol 3350 17 GM Packet PO SCH (08:18)
[2018-09-12] MEDS: Pantoprazole 40 MG GRANULES PACKET PO SCH (08:18)
[2018-09-12] MEDS: Lantus 1000 UNITS/10 ML VIAL SC SCH ×2 (08:23→20:35)
[2018-09-12] MEDS: Albuterol Sulfate 2.5 mg/3 ml Neb NEB SCH ×3 (08:26→20:26)
[2018-09-12] MEDS: DYMISTA EA NARE SCH ×2 (09:13→20:15)
[2018-09-12] MEDS: Ibuprofen 800 MG TAB PO PRN (09:17)
[2018-09-12] MEDS: Ondansetron ODT 4 MG TAB PO PRN (09:56)
[2018-09-12] MEDS: Cyclobenzaprine 10 MG TAB PO PRN (17:24)
[2018-09-12] MEDS: HumaLOG 300 UNITS/3 ML VIAL SC PRN (17:25)
[2018-09-12] MEDS: [UNRECOGNIZED DRUG - OTHER] PO PRN ×2 (18:33→23:27)
[2018-09-12] MEDS: traZODone HCl 50 MG TAB PO SCH (20:09)
[2018-09-12] MEDS: Mirtazapine 15 MG TAB PO SCH (20:10)
[2018-09-12] MEDS: Atorvastatin Calcium 10 MG TAB PO SCH (20:10)
[2018-09-12] MEDS: Loratadine 10 MG TAB PO SCH (20:10)
[2018-09-13] MEDS: Acetaminophen 500 MG TAB PO SCH ×4 (03:45→21:21)
[2018-09-13] MEDS: [UNRECOGNIZED DRUG - OTHER] PO PRN ×4 (04:04→16:02)
[2018-09-13] MEDS: Mometasone/Formoterol 60 PUFF AER INH SCH ×2 (05:55→19:51)
[2018-09-13] MEDS: Furosemide 40 MG TAB PO SCH ×2 (05:55→13:47)
[2018-09-13] MEDS: DYMISTA EA NARE SCH ×2 (08:11→21:14)
[2018-09-13] MEDS: ESTRADIOL 0.5 MG TAB PO SCH (08:12)
[2018-09-13] MEDS: Polyethylene Glycol 3350 17 GM Packet PO SCH (08:13)
[2018-09-13] MEDS: Cyanocobalamin (Vitamin B-12) 1,000 MCG TAB PO SCH (08:13)
[2018-09-13] MEDS: Senokot S 8.6-50 MG TAB PO SCH ×2 (08:13→21:21)
[2018-09-13] MEDS: Digoxin 0.125 MG TAB PO SCH (08:14)
[2018-09-13] MEDS: Famotidine 20 MG TAB PO SCH ×2 (08:14→21:19)
[2018-09-13] MEDS: Fish Oil 1,000 MG CAP PO SCH ×2 (08:14→21:18)
[2018-09-13] MEDS: Multivitamin W/ Minerals 1 TAB PO SCH (08:14)
[2018-09-13] MEDS: Potassium Chloride 20 MEQ TAB PO SCH ×2 (08:15→17:09)
[2018-09-13] MEDS: DULoxetine 30 MG CAP PO SCH (08:15)
[2018-09-13] MEDS: Ferrous Sulfate 325 MG TAB PO SCH (08:15)
[2018-09-13] MEDS: Pregabalin 75 MG CAP PO SCH ×2 (08:16→21:16)
[2018-09-13] MEDS: Pantoprazole 40 MG GRANULES PACKET PO SCH (08:16)
[2018-09-13] MEDS: Aspirin 81 mg Enteric Coated Tablet PO SCH (08:16)
[2018-09-13] MEDS: Magnesium Oxide 400 MG TAB PO SCH (08:16)
[2018-09-13] MEDS: Lantus 1000 UNITS/10 ML VIAL SC SCH ×2 (08:22→21:15)
[2018-09-13] MEDS: Albuterol Sulfate 2.5 mg/3 ml Neb NEB SCH ×3 (08:26→21:23)
[2018-09-13] MEDS: Docusate 100 MG CAP PO SCH (08:39)
[2018-09-13] MEDS: HumaLOG 300 UNITS/3 ML VIAL SC PRN (12:32)
[2018-09-13] MEDS: Ibuprofen 800 MG TAB PO PRN (13:47)
--- NOTE | 2018-09-13 20:30 | RAD ---
PORTABLE CHEST: 09/13/18 An AP portable film at 1733 is compared with recent studies of 08/27, 08/28 and 08/29/18. This portable film at 1733 again shows a left upper lobe consolidation. It is no worst that before. N o new infiltrates were seen. There are no larger effusions. Overall, the right lung seems a little cl earer than on some of the prior films. The mild cardiomegaly is no worse. While it is difficult to te ll in this patient, I do not belief there is clear vascular congestion. IMPRESSION: Persisting left upper lobe consolidation, but overall, the appearance of the chest may have improved slightly over the interval. POS: HOME
[2018-09-13] MEDS: guaiFENesin ER 600 MG TAB PO SCH (21:18)
[2018-09-13] MEDS: Mirtazapine 15 MG TAB PO SCH (21:19)
[2018-09-13] MEDS: Atorvastatin Calcium 10 MG TAB PO SCH (21:19)
[2018-09-13] MEDS: traZODone HCl 50 MG TAB PO SCH (21:20)
[2018-09-13] MEDS: Loratadine 10 MG TAB PO SCH (21:22)
[2018-09-14] MEDS: Ibuprofen 800 MG TAB PO PRN ×2 (00:11→12:13)
[2018-09-14] MEDS: [UNRECOGNIZED DRUG - OTHER] PO PRN ×4 (00:13→21:24)
[2018-09-14] MEDS: Acetaminophen 500 MG TAB PO SCH ×4 (03:46→21:27)
[2018-09-14 05:37] LABS: Hemoglobin 7.8 g/dL (12.0-16.0); Platelet Count 105 thou/uL (130-400)
[2018-09-14] MEDS: Mometasone/Formoterol 60 PUFF AER INH SCH (06:02)
[2018-09-14] MEDS: Furosemide 40 MG TAB PO SCH ×2 (06:07→15:15)
[2018-09-14] MEDS: Ferrous Sulfate 325 MG TAB PO SCH (07:54)
[2018-09-14] MEDS: Potassium Chloride 20 MEQ TAB PO SCH ×2 (07:54→15:14)
[2018-09-14] MEDS: Pantoprazole 40 MG GRANULES PACKET PO SCH (07:57)
[2018-09-14] MEDS: Polyethylene Glycol 3350 17 GM Packet PO SCH (08:04)
[2018-09-14] MEDS: Albuterol Sulfate 2.5 mg/3 ml Neb NEB SCH (08:18)
[2018-09-14] MEDS: Aspirin 81 mg Enteric Coated Tablet PO SCH (08:48)
[2018-09-14] MEDS: Digoxin 0.125 MG TAB PO SCH (08:48)
[2018-09-14] MEDS: Cyanocobalamin (Vitamin B-12) 1,000 MCG TAB PO SCH (08:48)
[2018-09-14] MEDS: DULoxetine 30 MG CAP PO SCH (08:51)
[2018-09-14] MEDS: Docusate 100 MG CAP PO SCH (08:51)
[2018-09-14] MEDS: Lantus 1000 UNITS/10 ML VIAL SC SCH ×2 (08:56→21:25)
[2018-09-14] MEDS: Fish Oil 1,000 MG CAP PO SCH ×2 (08:56→21:27)
[2018-09-14] MEDS: Famotidine 20 MG TAB PO SCH (08:56)
[2018-09-14] MEDS: guaiFENesin ER 600 MG TAB PO SCH ×2 (08:56→21:27)
[2018-09-14] MEDS: Magnesium Oxide 400 MG TAB PO SCH (08:57)
[2018-09-14] MEDS: Multivitamin W/ Minerals 1 TAB PO SCH (08:57)
[2018-09-14] MEDS: DYMISTA EA NARE SCH ×2 (08:57→21:49)
[2018-09-14] MEDS: ESTRADIOL 0.5 MG TAB PO SCH (08:58)
[2018-09-14] MEDS: Pregabalin 75 MG CAP PO SCH ×2 (08:59→21:27)
[2018-09-14] MEDS ORDERED: Azithromycin 250 MG TAB PO SCH ×2 (09:00→09:30)
[2018-09-14] MEDS: Senokot S 8.6-50 MG TAB PO SCH ×2 (09:01→21:27)
[2018-09-14] MEDS: HumaLOG 300 UNITS/3 ML VIAL SC PRN ×2 (12:40→17:39)
[2018-09-14] MEDS: Loratadine 10 MG TAB PO SCH (21:26)
[2018-09-14] MEDS: Mirtazapine 15 MG TAB PO SCH (21:26)
[2018-09-14] MEDS: traZODone HCl 50 MG TAB PO SCH (21:26)
[2018-09-14] MEDS: Atorvastatin Calcium 10 MG TAB PO SCH (21:26)
[2018-09-15] MEDS: Acetaminophen 500 MG TAB PO SCH ×4 (03:25→20:08)
[2018-09-15 05:16] LABS: #Eosinphils 0.2 thou/uL (0.0-0.7); #Monocytes 0.5 thou/uL (0.11-0.59); #Neutrophils 4.1 thou/uL (1.40-6.50); %Basophils 0.8 % (0.0-1.0); %Eosinophils 3.8 % (0.0-10.0); %Lymphocytes 17.3 % (21.0-51.0); %Monocytes 8.6 % (0.0-10.0); %Neutrophils 69.4 % (42.0-75.0); ALT (SGPT) 20 U/L (8-55); AST (SGOT) 27 U/L (5-34); Albumin 2.9 g/dL (3.4-4.8); Alkaline Phosphatase 144 U/L (40-150); Anion Gap 12 mmol/L (10-20); Anisocytosis SLIGHT = 6-15 cells (100X) (0-5/hpf); BUN (Urea Nitrogen) 20 mg/dL (9.8-20.1); Bilirubin, Total 0.5 mg/dL (0.2-1.2); Calc. Creatinine Clearance 68 mL/min (70-130); Calcium 8.7 mg/dL (7.8-10.44); Carbon Dioxide 34 mmol/L (23-31); Chloride 103 mmol/L (98-107); Estimated GFR-MDRD 62; Globulin 2.6 g/dL (2.4-3.5); Glucose 150 mg/dL (83-110); Hemoglobin 7.3 g/dL (12.0-16.0); Hypochromia SLIGHT = 6-15 cells (100X) (0-5/hpf); MDiff Complete? YES; Mean Corpuscular HGB CONC 29.4 g/dL (32.0-36.0); Mean Corpuscular Hemoglobin 20.5 pg (27.0-31.0); Mean Corpuscular Volume 69.6 fL (78.0-98.0); Mean Platelet Volume 8.6 fL (7.4-10.4); Microcytosis SLIGHT = 6-15 cells (100X) (0-5/hpf); Platelet Count 92 thou/uL (130-400); Platelet Morphology Comment Appears Decreased; Potassium 4.2 mmol/L (3.5-5.1); Protein, Total 5.5 g/dL (6.0-8.3); RBC Distribution Width 23.5 % (11.5-14.5); Red Blood Cell (RBC) Count 3.58 mill/uL (4.20-5.40); Sodium 145 mmol/L (136-145); White Blood Cell (WBC) Count 5.9 thou/uL (4.8-10.8)
[2018-09-15] MEDS: Furosemide 40 MG TAB PO SCH ×2 (05:36→14:51)
[2018-09-15] MEDS: Mometasone/Formoterol 60 PUFF AER INH SCH ×3 (06:10→18:58)
[2018-09-15] MEDS: [UNRECOGNIZED DRUG - OTHER] PO PRN ×3 (06:14→20:25)
[2018-09-15] MEDS: Ibuprofen 800 MG TAB PO PRN (07:18)
[2018-09-15] MEDS: Pregabalin 75 MG CAP PO SCH ×2 (08:31→20:38)
[2018-09-15] MEDS: Potassium Chloride 20 MEQ TAB PO SCH ×2 (08:31→17:17)
[2018-09-15] MEDS: DULoxetine 30 MG CAP PO SCH (08:34)
[2018-09-15] MEDS: Multivitamin W/ Minerals 1 TAB PO SCH (08:34)
[2018-09-15] MEDS: Cyanocobalamin (Vitamin B-12) 1,000 MCG TAB PO SCH (08:34)
[2018-09-15] MEDS: Senokot S 8.6-50 MG TAB PO SCH ×3 (08:34→20:19)
[2018-09-15] MEDS: Magnesium Oxide 400 MG TAB PO SCH (08:34)
[2018-09-15] MEDS: Ferrous Sulfate 325 MG TAB PO SCH (08:34)
[2018-09-15] MEDS: guaiFENesin ER 600 MG TAB PO SCH ×2 (08:35→20:07)
[2018-09-15] MEDS: Docusate 100 MG CAP PO SCH (08:35)
[2018-09-15] MEDS: Pantoprazole 40 MG GRANULES PACKET PO SCH ×2 (08:35→08:57)
[2018-09-15] MEDS: Fish Oil 1,000 MG CAP PO SCH ×2 (08:35→20:07)
[2018-09-15] MEDS: Aspirin 81 mg Enteric Coated Tablet PO SCH (08:35)
[2018-09-15] MEDS: Digoxin 0.125 MG TAB PO SCH (08:35)
[2018-09-15] MEDS: Azithromycin 250 MG TAB PO SCH (08:37)
[2018-09-15] MEDS: ESTRADIOL 0.5 MG TAB PO SCH (08:42)
[2018-09-15] MEDS: Lantus 1000 UNITS/10 ML VIAL SC SCH ×2 (08:46→20:33)
[2018-09-15] MEDS: Polyethylene Glycol 3350 17 GM Packet PO SCH (08:54)
[2018-09-15] MEDS: DYMISTA EA NARE SCH ×2 (09:02→20:28)
[2018-09-15] MEDS: HumaLOG 300 UNITS/3 ML VIAL SC PRN ×3 (12:23→20:30)
[2018-09-15] MEDS: Mirtazapine 15 MG TAB PO SCH (20:07)
[2018-09-15] MEDS: Atorvastatin Calcium 10 MG TAB PO SCH (20:08)
[2018-09-15] MEDS: Loratadine 10 MG TAB PO SCH (20:09)
[2018-09-15] MEDS: traZODone HCl 50 MG TAB PO SCH (20:09)
[2018-09-16] MEDS: Ibuprofen 800 MG TAB PO PRN (00:34)
[2018-09-16] MEDS: [UNRECOGNIZED DRUG - OTHER] PO PRN ×3 (00:36→22:54)
[2018-09-16] MEDS: Acetaminophen 500 MG TAB PO SCH ×4 (02:51→21:56)
[2018-09-16 04:44] LABS: Hemoglobin 7.2 g/dL (12.0-16.0); Platelet Count 92 thou/uL (130-400)
[2018-09-16] MEDS: Mometasone/Formoterol 60 PUFF AER INH SCH ×2 (06:10→18:31)
[2018-09-16] MEDS: Furosemide 40 MG TAB PO SCH ×2 (06:11→13:38)
[2018-09-16] MEDS: Pregabalin 75 MG CAP PO SCH ×2 (08:46→21:57)
[2018-09-16] MEDS: Magnesium Oxide 400 MG TAB PO SCH (08:48)
[2018-09-16] MEDS: Multivitamin W/ Minerals 1 TAB PO SCH (08:48)
[2018-09-16] MEDS: Azithromycin 250 MG TAB PO SCH (08:48)
[2018-09-16] MEDS: guaiFENesin ER 600 MG TAB PO SCH ×2 (08:48→21:56)
[2018-09-16] MEDS: DULoxetine 30 MG CAP PO SCH (08:48)
[2018-09-16] MEDS: Polyethylene Glycol 3350 17 GM Packet PO SCH (08:49)
[2018-09-16] MEDS: Digoxin 0.125 MG TAB PO SCH (08:49)
[2018-09-16] MEDS: Fish Oil 1,000 MG CAP PO SCH ×2 (08:49→21:56)
[2018-09-16] MEDS: Senokot S 8.6-50 MG TAB PO SCH ×2 (08:50→21:56)
[2018-09-16] MEDS: Cyanocobalamin (Vitamin B-12) 1,000 MCG TAB PO SCH (08:50)
[2018-09-16] MEDS: Aspirin 81 mg Enteric Coated Tablet PO SCH (08:50)
[2018-09-16] MEDS: Ferrous Sulfate 325 MG TAB PO SCH (08:51)
[2018-09-16] MEDS: Potassium Chloride 20 MEQ TAB PO SCH ×2 (08:51→16:58)
[2018-09-16] MEDS: Lantus 1000 UNITS/10 ML VIAL SC SCH ×2 (08:52→21:53)
[2018-09-16] MEDS: Docusate 100 MG CAP PO SCH (08:52)
[2018-09-16] MEDS: ESTRADIOL 0.5 MG TAB PO SCH (08:52)
[2018-09-16] MEDS: DYMISTA EA NARE SCH ×2 (09:01→21:54)
[2018-09-16] MEDS: HumaLOG 300 UNITS/3 ML VIAL SC PRN ×3 (12:20→21:49)
[2018-09-16] MEDS ORDERED: Sodium Chloride For Inhalation 0.9% 3 ML NEB ONE (13:20)
[2018-09-16] MEDS ORDERED: Sodium Chloride 0.9% 10 ML ONE (13:21)
[2018-09-16] MEDS: Mirtazapine 15 MG TAB PO SCH (21:55)
[2018-09-16] MEDS: Atorvastatin Calcium 10 MG TAB PO SCH (21:56)
[2018-09-16] MEDS: Loratadine 10 MG TAB PO SCH (21:56)
[2018-09-16] MEDS: traZODone HCl 50 MG TAB PO SCH (21:56)
[2018-09-17] MEDS: Acetaminophen 500 MG TAB PO SCH ×4 (03:05→21:31)
[2018-09-17] MEDS: Mometasone/Formoterol 60 PUFF AER INH SCH ×2 (06:06→18:06)
[2018-09-17] MEDS: Furosemide 40 MG TAB PO SCH ×2 (06:06→13:58)
[2018-09-17] MEDS: Multivitamin W/ Minerals 1 TAB PO SCH (09:18)
[2018-09-17] MEDS: Digoxin 0.125 MG TAB PO SCH (09:18)
[2018-09-17] MEDS: Pregabalin 75 MG CAP PO SCH ×2 (09:19→21:32)
[2018-09-17] MEDS: DULoxetine 30 MG CAP PO SCH (09:20)
[2018-09-17] MEDS: Magnesium Oxide 400 MG TAB PO SCH (09:20)
[2018-09-17] MEDS: Potassium Chloride 20 MEQ TAB PO SCH ×2 (09:20→17:31)
[2018-09-17] MEDS: Senokot S 8.6-50 MG TAB PO SCH ×2 (09:20→21:31)
[2018-09-17] MEDS: Cyanocobalamin (Vitamin B-12) 1,000 MCG TAB PO SCH (09:20)
[2018-09-17] MEDS: Docusate 100 MG CAP PO SCH (09:21)
[2018-09-17] MEDS: Ferrous Sulfate 325 MG TAB PO SCH (09:21)
[2018-09-17] MEDS: Aspirin 81 mg Enteric Coated Tablet PO SCH (09:21)
[2018-09-17] MEDS: guaiFENesin ER 600 MG TAB PO SCH ×2 (09:21→21:32)
[2018-09-17] MEDS: Polyethylene Glycol 3350 17 GM Packet PO SCH (09:22)
[2018-09-17] MEDS: Azithromycin 250 MG TAB PO SCH (09:22)
[2018-09-17] MEDS: Fish Oil 1,000 MG CAP PO SCH ×2 (09:22→21:31)
[2018-09-17] MEDS: ESTRADIOL 0.5 MG TAB PO SCH (09:23)
[2018-09-17] MEDS: Pantoprazole 40 MG GRANULES PACKET PO SCH (09:23)
[2018-09-17] MEDS: DYMISTA EA NARE SCH ×2 (09:23→21:33)
[2018-09-17] MEDS: Lantus 1000 UNITS/10 ML VIAL SC SCH ×2 (09:24→21:46)
[2018-09-17] MEDS: HumaLOG 300 UNITS/3 ML VIAL SC PRN ×3 (12:32→21:46)
[2018-09-17] MEDS: Atorvastatin Calcium 10 MG TAB PO SCH (21:31)
[2018-09-17] MEDS: traZODone HCl 50 MG TAB PO SCH (21:31)
[2018-09-17] MEDS: Mirtazapine 15 MG TAB PO SCH (21:31)
[2018-09-17] MEDS: Loratadine 10 MG TAB PO SCH (21:37)
[2018-09-17] MEDS: [UNRECOGNIZED DRUG - OTHER] PO PRN (21:41)
[2018-09-18] MEDS: Ibuprofen 800 MG TAB PO PRN ×2 (00:30→12:49)
[2018-09-18] MEDS: Acetaminophen 500 MG TAB PO SCH ×4 (02:21→21:05)
[2018-09-18 05:23] LABS: Platelet Count 99 thou/uL (130-400)
[2018-09-18] MEDS: Furosemide 40 MG TAB PO SCH ×2 (06:11→13:02)
[2018-09-18] MEDS: Mometasone/Formoterol 60 PUFF AER INH SCH ×2 (06:11→18:35)
[2018-09-18] MEDS: ESTRADIOL 0.5 MG TAB PO SCH (08:59)
[2018-09-18] MEDS: DYMISTA EA NARE SCH ×2 (08:59→21:19)
[2018-09-18] MEDS: Polyethylene Glycol 3350 17 GM Packet PO SCH (09:00)
[2018-09-18] MEDS: Fish Oil 1,000 MG CAP PO SCH ×2 (09:01→21:06)
[2018-09-18] MEDS: Magnesium Oxide 400 MG TAB PO SCH (09:01)
[2018-09-18] MEDS: Aspirin 81 mg Enteric Coated Tablet PO SCH (09:01)
[2018-09-18] MEDS: DULoxetine 30 MG CAP PO SCH (09:01)
[2018-09-18] MEDS: Ferrous Sulfate 325 MG TAB PO SCH (09:01)
[2018-09-18] MEDS: Potassium Chloride 20 MEQ TAB PO SCH ×2 (09:01→18:05)
[2018-09-18] MEDS: Senokot S 8.6-50 MG TAB PO SCH ×2 (09:02→21:06)
[2018-09-18] MEDS: guaiFENesin ER 600 MG TAB PO SCH ×2 (09:02→21:06)
[2018-09-18] MEDS: Azithromycin 250 MG TAB PO SCH (09:02)
[2018-09-18] MEDS: Pantoprazole 40 MG GRANULES PACKET PO SCH (09:03)
[2018-09-18] MEDS: Multivitamin W/ Minerals 1 TAB PO SCH (09:03)
[2018-09-18] MEDS: Digoxin 0.125 MG TAB PO SCH (09:03)
[2018-09-18] MEDS: Docusate 100 MG CAP PO SCH (09:03)
[2018-09-18] MEDS: Cyanocobalamin (Vitamin B-12) 1,000 MCG TAB PO SCH (09:03)
[2018-09-18] MEDS: Pregabalin 75 MG CAP PO SCH ×2 (09:03→21:02)
[2018-09-18] MEDS: Lantus 1000 UNITS/10 ML VIAL SC SCH ×2 (09:10→21:08)
[2018-09-18] MEDS: HumaLOG 300 UNITS/3 ML VIAL SC PRN ×3 (12:50→21:08)
[2018-09-18] MEDS: traZODone HCl 50 MG TAB PO SCH (21:04)
[2018-09-18] MEDS: Atorvastatin Calcium 10 MG TAB PO SCH (21:06)
[2018-09-18] MEDS: Loratadine 10 MG TAB PO SCH (21:07)
[2018-09-18] MEDS: Mirtazapine 15 MG TAB PO SCH (21:07)
[2018-09-19] MEDS: Acetaminophen 500 MG TAB PO SCH ×4 (02:52→21:05)
[2018-09-19] MEDS: Cyclobenzaprine 10 MG TAB PO PRN (02:55)
[2018-09-19] MEDS: Furosemide 40 MG TAB PO SCH ×2 (06:04→13:58)
[2018-09-19] MEDS: Mometasone/Formoterol 60 PUFF AER INH SCH ×2 (06:05→18:23)
[2018-09-19] MEDS: ESTRADIOL 0.5 MG TAB PO SCH (08:23)
[2018-09-19] MEDS: Polyethylene Glycol 3350 17 GM Packet PO SCH (08:24)
[2018-09-19] MEDS: DYMISTA EA NARE SCH ×2 (08:24→21:07)
[2018-09-19] MEDS: Pregabalin 75 MG CAP PO SCH ×2 (08:26→21:04)
[2018-09-19] MEDS: Ferrous Sulfate 325 MG TAB PO SCH (08:27)
[2018-09-19] MEDS: DULoxetine 30 MG CAP PO SCH (08:27)
[2018-09-19] MEDS: Cyanocobalamin (Vitamin B-12) 1,000 MCG TAB PO SCH (08:27)
[2018-09-19] MEDS: Fish Oil 1,000 MG CAP PO SCH ×2 (08:27→21:04)
[2018-09-19] MEDS: Multivitamin W/ Minerals 1 TAB PO SCH (08:28)
[2018-09-19] MEDS: Digoxin 0.125 MG TAB PO SCH (08:28)
[2018-09-19] MEDS: Magnesium Oxide 400 MG TAB PO SCH (08:28)
[2018-09-19] MEDS: Docusate 100 MG CAP PO SCH (08:28)
[2018-09-19] MEDS: Senokot S 8.6-50 MG TAB PO SCH ×2 (08:28→21:06)
[2018-09-19] MEDS: Potassium Chloride 20 MEQ TAB PO SCH ×2 (08:28→17:52)
[2018-09-19] MEDS: Pantoprazole 40 MG GRANULES PACKET PO SCH (08:28)
[2018-09-19] MEDS: Lantus 1000 UNITS/10 ML VIAL SC SCH ×2 (08:31→21:10)
[2018-09-19] MEDS: HumaLOG 300 UNITS/3 ML VIAL SC PRN ×3 (08:31→21:41)
[2018-09-19] MEDS ORDERED: Acetaminophen 500 MG TAB ONE ×2 (08:39→14:56)
[2018-09-19] MEDS: guaiFENesin ER 600 MG TAB PO SCH ×2 (08:44→21:06)
[2018-09-19] MEDS: Aspirin 81 mg Enteric Coated Tablet PO SCH (08:44)
[2018-09-19] MEDS: Ibuprofen 800 MG TAB PO PRN (13:58)
[2018-09-19] MEDS: Albuterol Sulfate 2.5 mg/3 ml Neb NEB PRN ×3 (16:22→23:42)
[2018-09-19] MEDS: methylPREDNISolone Sod Succ 40 MG VIAL IVP SCH (16:41)
[2018-09-19] MEDS ORDERED: Furosemide 20 MG/2 ML VIAL SLOW IVP SCH ×2 (17:00)
--- NOTE | 2018-09-19 17:49 | RAD ---
PORTABLE CHEST: 09/19/2018 COMPARISON: 09/13/2018 FINDINGS: The vasculature seems a little more congested today than before. There are no large effusions. The left upper lobe infiltrate persists and is about the same. The mediastinum remains prominent in size , but no different than it appeared on the chest x-ray done last month, when a CT angio of the chest was done. Cardiomegaly is about the same. IMPRESSION: 1. Slight increased prominence of vessels. Mild congestive change is possible. 2. Left upper lobe streaking, about the same as before. COMMENT: If the patient is not improving at a rate expected,it may become pertinent in the near future to do a follow-up elective CT of the chest to compare with the prior study. POS: HOME
[2018-09-19] MEDS: traZODone HCl 50 MG TAB PO SCH (21:05)
[2018-09-19] MEDS: Loratadine 10 MG TAB PO SCH (21:06)
[2018-09-19] MEDS: Mirtazapine 15 MG TAB PO SCH (21:06)
[2018-09-19] MEDS: Atorvastatin Calcium 10 MG TAB PO SCH (21:06)
[2018-09-19] MEDS ORDERED: Acetaminophen 500 MG TAB PO SCH (21:45)
[2018-09-20] MEDS: Sodium Chloride 0.9% 20 ML ONE ×2 (00:53→21:18)
[2018-09-20] MEDS: methylPREDNISolone Sod Succ 40 MG VIAL IVP SCH (00:54)
[2018-09-20] MEDS: Ibuprofen 800 MG TAB PO PRN ×2 (02:04→13:44)
[2018-09-20] MEDS: Acetaminophen 500 MG TAB PO SCH ×4 (03:12→21:20)
[2018-09-20] MEDS: Albuterol Sulfate 2.5 mg/3 ml Neb NEB PRN ×3 (04:15→18:31)
[2018-09-20] MEDS: Cyclobenzaprine 10 MG TAB PO PRN ×2 (04:34→17:01)
[2018-09-20 05:20] LABS: Hemoglobin 10.9 g/dL (12.0-16.0); Platelet Count 83 thou/uL (130-400)
[2018-09-20] MEDS: Mometasone/Formoterol 60 PUFF AER INH SCH ×2 (06:11→18:27)
[2018-09-20] MEDS: Furosemide 40 MG TAB PO SCH ×2 (06:11→13:04)
[2018-09-20] MEDS: Lantus 1000 UNITS/10 ML VIAL SC SCH ×2 (09:13→21:42)
[2018-09-20] MEDS: HumaLOG 300 UNITS/3 ML VIAL SC PRN ×3 (09:13→21:42)
[2018-09-20] MEDS: DYMISTA EA NARE SCH ×2 (09:16→21:42)
[2018-09-20] MEDS: ESTRADIOL 0.5 MG TAB PO SCH (09:16)
[2018-09-20] MEDS: Pregabalin 75 MG CAP PO SCH ×2 (09:17→21:19)
[2018-09-20] MEDS: DULoxetine 30 MG CAP PO SCH (09:18)
[2018-09-20] MEDS: Aspirin 81 mg Enteric Coated Tablet PO SCH (09:18)
[2018-09-20] MEDS: Ferrous Sulfate 325 MG TAB PO SCH (09:19)
[2018-09-20] MEDS: Multivitamin W/ Minerals 1 TAB PO SCH (09:19)
[2018-09-20] MEDS: Fish Oil 1,000 MG CAP PO SCH ×2 (09:19→21:20)
[2018-09-20] MEDS: Senokot S 8.6-50 MG TAB PO SCH ×2 (09:19→21:21)
[2018-09-20] MEDS: predniSONE 20 MG TAB PO SCH (09:19)
[2018-09-20] MEDS: Digoxin 0.125 MG TAB PO SCH (09:19)
[2018-09-20] MEDS: guaiFENesin ER 600 MG TAB PO SCH ×2 (09:19→21:20)
[2018-09-20] MEDS: Potassium Chloride 20 MEQ TAB PO SCH ×2 (09:20→17:01)
[2018-09-20] MEDS: Docusate 100 MG CAP PO SCH (09:20)
[2018-09-20] MEDS: Magnesium Oxide 400 MG TAB PO SCH (09:20)
[2018-09-20] MEDS: Cyanocobalamin (Vitamin B-12) 1,000 MCG TAB PO SCH (09:21)
[2018-09-20] MEDS: Pantoprazole 40 MG GRANULES PACKET PO SCH (09:21)
[2018-09-20] MEDS: Polyethylene Glycol 3350 17 GM Packet PO SCH (09:22)
[2018-09-20] MEDS ORDERED: Albuterol Sulfate 2.5 mg/3 ml Neb NEB PRN (18:43)
[2018-09-20] MEDS ORDERED: HumaLOG 300 UNITS/3 ML VIAL SC SCH (18:45)
[2018-09-20] MEDS: Nystatin Powder 15 GM BOT TOP SCH (21:17)
[2018-09-20] MEDS: traZODone HCl 50 MG TAB PO SCH (21:20)
[2018-09-20] MEDS: Atorvastatin Calcium 10 MG TAB PO SCH (21:21)
[2018-09-20] MEDS: Loratadine 10 MG TAB PO SCH (21:21)
[2018-09-20] MEDS: Mirtazapine 15 MG TAB PO SCH (21:21)
[2018-09-21] MEDS: Ibuprofen 800 MG TAB PO PRN (03:25)
[2018-09-21] MEDS: Acetaminophen 500 MG TAB PO SCH ×4 (03:25→20:38)
[2018-09-21] MEDS: Mometasone/Formoterol 60 PUFF AER INH SCH ×2 (06:08→16:55)
[2018-09-21] MEDS: Furosemide 40 MG TAB PO SCH ×2 (06:08→14:48)
[2018-09-21] MEDS: Cyclobenzaprine 10 MG TAB PO PRN (07:20)
[2018-09-21] MEDS: Lantus 1000 UNITS/10 ML VIAL SC SCH ×2 (09:11→20:50)
[2018-09-21] MEDS: HumaLOG 300 UNITS/3 ML VIAL SC PRN ×4 (09:12→21:26)
[2018-09-21] MEDS: Pantoprazole 40 MG GRANULES PACKET PO SCH (09:14)
[2018-09-21] MEDS: Pregabalin 75 MG CAP PO SCH ×2 (09:16→20:41)
[2018-09-21] MEDS: Ferrous Sulfate 325 MG TAB PO SCH (09:18)
[2018-09-21] MEDS: Digoxin 0.125 MG TAB PO SCH (09:18)
[2018-09-21] MEDS: guaiFENesin ER 600 MG TAB PO SCH ×2 (09:19→20:38)
[2018-09-21] MEDS: Senokot S 8.6-50 MG TAB PO SCH ×2 (09:19→20:39)
[2018-09-21] MEDS: Fish Oil 1,000 MG CAP PO SCH ×2 (09:20→20:38)
[2018-09-21] MEDS: DULoxetine 30 MG CAP PO SCH (09:20)
[2018-09-21] MEDS: Cyanocobalamin (Vitamin B-12) 1,000 MCG TAB PO SCH (09:21)
[2018-09-21] MEDS: Docusate 100 MG CAP PO SCH (09:21)
[2018-09-21] MEDS: Multivitamin W/ Minerals 1 TAB PO SCH (09:21)
[2018-09-21] MEDS: Magnesium Oxide 400 MG TAB PO SCH (09:21)
[2018-09-21] MEDS: predniSONE 20 MG TAB PO SCH (09:22)
[2018-09-21] MEDS: Potassium Chloride 20 MEQ TAB PO SCH ×2 (09:22→16:55)
[2018-09-21] MEDS: Metolazone 5 MG TAB PO SCH (09:23)
[2018-09-21] MEDS: Aspirin 81 mg Enteric Coated Tablet PO SCH (09:25)
[2018-09-21] MEDS: Nystatin Powder 15 GM BOT TOP SCH ×2 (09:27→20:48)
[2018-09-21] MEDS: DYMISTA EA NARE SCH ×2 (09:28→20:46)
[2018-09-21] MEDS: ESTRADIOL 0.5 MG TAB PO SCH (09:29)
[2018-09-21] MEDS: Polyethylene Glycol 3350 17 GM Packet PO SCH (09:30)
[2018-09-21] MEDS: Atorvastatin Calcium 10 MG TAB PO SCH (20:38)
[2018-09-21] MEDS: Loratadine 10 MG TAB PO SCH (20:39)
[2018-09-21] MEDS: Mirtazapine 15 MG TAB PO SCH (20:39)
[2018-09-21] MEDS: traZODone HCl 50 MG TAB PO SCH (20:40)
[2018-09-22] MEDS: Acetaminophen 500 MG TAB PO SCH ×4 (04:27→20:57)
[2018-09-22 05:03] LABS: Hemoglobin 10.8 g/dL (12.0-16.0); Platelet Count 98 thou/uL (130-400)
[2018-09-22] MEDS: Ibuprofen 800 MG TAB PO PRN (05:40)
[2018-09-22] MEDS: Mometasone/Formoterol 60 PUFF AER INH SCH ×2 (05:41→19:01)
[2018-09-22] MEDS: Furosemide 40 MG TAB PO SCH ×2 (05:41→14:33)
[2018-09-22] MEDS: Lantus 1000 UNITS/10 ML VIAL SC SCH ×2 (09:47→20:54)
[2018-09-22] MEDS: Polyethylene Glycol 3350 17 GM Packet PO SCH (09:48)
[2018-09-22] MEDS: Magnesium Oxide 400 MG TAB PO SCH (09:50)
[2018-09-22] MEDS: Cyanocobalamin (Vitamin B-12) 1,000 MCG TAB PO SCH (09:50)
[2018-09-22] MEDS: guaiFENesin ER 600 MG TAB PO SCH ×2 (09:50→20:54)
[2018-09-22] MEDS: DULoxetine 30 MG CAP PO SCH (09:51)
[2018-09-22] MEDS: Fish Oil 1,000 MG CAP PO SCH ×2 (09:51→20:54)
[2018-09-22] MEDS: Potassium Chloride 20 MEQ TAB PO SCH ×2 (09:52→16:55)
[2018-09-22] MEDS: Aspirin 81 mg Enteric Coated Tablet PO SCH (09:52)
[2018-09-22] MEDS: Ferrous Sulfate 325 MG TAB PO SCH (09:53)
[2018-09-22] MEDS: Senokot S 8.6-50 MG TAB PO SCH ×2 (09:53→20:55)
[2018-09-22] MEDS: Digoxin 0.125 MG TAB PO SCH (09:53)
[2018-09-22] MEDS: predniSONE 20 MG TAB PO SCH (09:54)
[2018-09-22] MEDS: Multivitamin W/ Minerals 1 TAB PO SCH (09:54)
[2018-09-22] MEDS: Docusate 100 MG CAP PO SCH (09:54)
[2018-09-22] MEDS: Pregabalin 75 MG CAP PO SCH ×2 (09:54→20:55)
[2018-09-22] MEDS: ESTRADIOL 0.5 MG TAB PO SCH (09:55)
[2018-09-22] MEDS: DYMISTA EA NARE SCH (09:56)
[2018-09-22] MEDS: Nystatin Powder 15 GM BOT TOP SCH ×2 (10:00→21:00)
[2018-09-22] MEDS: Pantoprazole 40 MG GRANULES PACKET PO SCH (10:00)
[2018-09-22] MEDS: HumaLOG 300 UNITS/3 ML VIAL SC PRN ×2 (18:37→20:53)
[2018-09-22] MEDS: Mirtazapine 15 MG TAB PO SCH (20:54)
[2018-09-22] MEDS: traZODone HCl 50 MG TAB PO SCH (20:56)
[2018-09-22] MEDS: Loratadine 10 MG TAB PO SCH (20:57)
[2018-09-22] MEDS: Atorvastatin Calcium 10 MG TAB PO SCH (20:57)
[2018-09-23] MEDS: DYMISTA EA NARE SCH ×3 (00:13→22:14)
[2018-09-23] MEDS: Acetaminophen 500 MG TAB PO SCH ×4 (03:18→21:54)
[2018-09-23] MEDS: Ibuprofen 800 MG TAB PO PRN ×2 (05:37→14:24)
[2018-09-23] MEDS: Furosemide 40 MG TAB PO SCH ×2 (05:37→14:15)
[2018-09-23] MEDS: Mometasone/Formoterol 60 PUFF AER INH SCH ×2 (06:03→18:25)
[2018-09-23] MEDS: Lantus 1000 UNITS/10 ML VIAL SC SCH ×2 (09:41→21:58)
[2018-09-23] MEDS: ESTRADIOL 0.5 MG TAB PO SCH (09:43)
[2018-09-23] MEDS: Polyethylene Glycol 3350 17 GM Packet PO SCH (09:44)
[2018-09-23] MEDS: Pantoprazole 40 MG GRANULES PACKET PO SCH (09:46)
[2018-09-23] MEDS: guaiFENesin ER 600 MG TAB PO SCH ×2 (09:48→21:55)
[2018-09-23] MEDS: Aspirin 81 mg Enteric Coated Tablet PO SCH (09:48)
[2018-09-23] MEDS: Docusate 100 MG CAP PO SCH (09:48)
[2018-09-23] MEDS: DULoxetine 30 MG CAP PO SCH (09:48)
[2018-09-23] MEDS: predniSONE 10 MG TAB PO SCH (09:48)
[2018-09-23] MEDS: Digoxin 0.125 MG TAB PO SCH (09:49)
[2018-09-23] MEDS: Senokot S 8.6-50 MG TAB PO SCH ×2 (09:49→21:54)
[2018-09-23] MEDS: Potassium Chloride 20 MEQ TAB PO SCH ×2 (09:50→18:21)
[2018-09-23] MEDS: Ferrous Sulfate 325 MG TAB PO SCH (09:50)
[2018-09-23] MEDS: Multivitamin W/ Minerals 1 TAB PO SCH (09:50)
[2018-09-23] MEDS: Magnesium Oxide 400 MG TAB PO SCH (09:50)
[2018-09-23] MEDS: Pregabalin 75 MG CAP PO SCH ×2 (09:51→21:51)
[2018-09-23] MEDS: Fish Oil 1,000 MG CAP PO SCH ×2 (09:51→21:53)
[2018-09-23] MEDS: Cyanocobalamin (Vitamin B-12) 1,000 MCG TAB PO SCH (09:51)
[2018-09-23] MEDS: Metolazone 5 MG TAB PO SCH (11:06)
[2018-09-23] MEDS: Nystatin Powder 15 GM BOT TOP SCH ×2 (11:08→22:13)
[2018-09-23] MEDS: HumaLOG 300 UNITS/3 ML VIAL SC PRN ×2 (18:23→22:07)
[2018-09-23] MEDS: Mirtazapine 15 MG TAB PO SCH (21:53)
[2018-09-23] MEDS: Loratadine 10 MG TAB PO SCH (21:55)
[2018-09-23] MEDS: traZODone HCl 50 MG TAB PO SCH (21:55)
[2018-09-23] MEDS: Atorvastatin Calcium 10 MG TAB PO SCH (21:58)
[2018-09-24] MEDS: Acetaminophen 500 MG TAB PO SCH ×4 (03:25→20:58)
[2018-09-24 05:36] LABS: Hemoglobin 10.5 g/dL (12.0-16.0); Platelet Count 92 thou/uL (130-400)
[2018-09-24] MEDS: Mometasone/Formoterol 60 PUFF AER INH SCH ×2 (06:24→18:23)
[2018-09-24] MEDS: Furosemide 40 MG TAB PO SCH ×2 (06:25→13:30)
[2018-09-24] MEDS: Polyethylene Glycol 3350 17 GM Packet PO SCH (09:22)
[2018-09-24] MEDS: ESTRADIOL 0.5 MG TAB PO SCH (09:23)
[2018-09-24] MEDS: DYMISTA EA NARE SCH ×2 (09:23→20:49)
[2018-09-24] MEDS: Lantus 1000 UNITS/10 ML VIAL SC SCH ×2 (09:24→20:54)
[2018-09-24] MEDS: DULoxetine 30 MG CAP PO SCH (09:36)
[2018-09-24] MEDS: Pregabalin 75 MG CAP PO SCH ×2 (09:36→20:57)
[2018-09-24] MEDS: Fish Oil 1,000 MG CAP PO SCH ×2 (09:37→20:57)
[2018-09-24] MEDS: Ferrous Sulfate 325 MG TAB PO SCH (09:37)
[2018-09-24] MEDS: Digoxin 0.125 MG TAB PO SCH (09:37)
[2018-09-24] MEDS: guaiFENesin ER 600 MG TAB PO SCH ×2 (09:39→20:56)
[2018-09-24] MEDS: predniSONE 10 MG TAB PO SCH (09:40)
[2018-09-24] MEDS: Senokot S 8.6-50 MG TAB PO SCH ×2 (09:40→20:56)
[2018-09-24] MEDS: Potassium Chloride 20 MEQ TAB PO SCH ×2 (09:40→18:21)
[2018-09-24] MEDS: Multivitamin W/ Minerals 1 TAB PO SCH (09:41)
[2018-09-24] MEDS: Cyanocobalamin (Vitamin B-12) 1,000 MCG TAB PO SCH (09:41)
[2018-09-24] MEDS: Aspirin 81 mg Enteric Coated Tablet PO SCH (09:41)
[2018-09-24] MEDS: Magnesium Oxide 400 MG TAB PO SCH (09:41)
[2018-09-24] MEDS: Docusate 100 MG CAP PO SCH (09:41)
[2018-09-24] MEDS: Nystatin Powder 15 GM BOT TOP SCH ×2 (09:42→21:04)
[2018-09-24] MEDS: Pantoprazole 40 MG GRANULES PACKET PO SCH (09:42)
[2018-09-24] MEDS: HumaLOG 300 UNITS/3 ML VIAL SC PRN ×3 (13:25→20:55)
[2018-09-24] MEDS: Ibuprofen 800 MG TAB PO PRN (13:30)
[2018-09-24] MEDS: Loratadine 10 MG TAB PO SCH (20:56)
[2018-09-24] MEDS: Atorvastatin Calcium 10 MG TAB PO SCH (20:59)
[2018-09-24] MEDS: traZODone HCl 50 MG TAB PO SCH (20:59)
[2018-09-24] MEDS: Mirtazapine 15 MG TAB PO SCH (21:02)
[2018-09-25] MEDS: Acetaminophen 500 MG TAB PO SCH ×4 (03:36→21:15)
[2018-09-25] MEDS: Furosemide 40 MG TAB PO SCH ×2 (06:05→15:12)
[2018-09-25] MEDS: Polyethylene Glycol 3350 17 GM Packet PO SCH (09:51)
[2018-09-25] MEDS: ESTRADIOL 0.5 MG TAB PO SCH (09:52)
[2018-09-25] MEDS: Lantus 1000 UNITS/10 ML VIAL SC SCH ×2 (09:54→21:20)
[2018-09-25] MEDS: HumaLOG 300 UNITS/3 ML VIAL SC PRN ×4 (09:56→21:21)
[2018-09-25] MEDS: Pantoprazole 40 MG GRANULES PACKET PO SCH (09:58)
[2018-09-25] MEDS: Pregabalin 75 MG CAP PO SCH ×2 (09:59→21:12)
[2018-09-25] MEDS: DULoxetine 30 MG CAP PO SCH (10:00)
[2018-09-25] MEDS: Potassium Chloride 20 MEQ TAB PO SCH ×2 (10:01→18:34)
[2018-09-25] MEDS: Cyanocobalamin (Vitamin B-12) 1,000 MCG TAB PO SCH (10:02)
[2018-09-25] MEDS: Ferrous Sulfate 325 MG TAB PO SCH (10:02)
[2018-09-25] MEDS: Digoxin 0.125 MG TAB PO SCH (10:02)
[2018-09-25] MEDS: Magnesium Oxide 400 MG TAB PO SCH (10:03)
[2018-09-25] MEDS: Multivitamin W/ Minerals 1 TAB PO SCH (10:03)
[2018-09-25] MEDS: guaiFENesin ER 600 MG TAB PO SCH ×2 (10:03→21:16)
[2018-09-25] MEDS: predniSONE 10 MG TAB PO SCH (10:03)
[2018-09-25] MEDS: Senokot S 8.6-50 MG TAB PO SCH ×2 (10:04→21:20)
[2018-09-25] MEDS: Aspirin 81 mg Enteric Coated Tablet PO SCH (10:04)
[2018-09-25] MEDS: Docusate 100 MG CAP PO SCH (10:04)
[2018-09-25] MEDS: Fish Oil 1,000 MG CAP PO SCH ×2 (10:04→21:16)
[2018-09-25] MEDS: DYMISTA EA NARE SCH ×2 (10:08→21:11)
[2018-09-25] MEDS: Mometasone/Formoterol 60 PUFF AER INH SCH ×2 (10:33→18:37)
[2018-09-25] MEDS: Nystatin Powder 15 GM BOT TOP SCH ×2 (10:34→23:09)
[2018-09-25] MEDS: Loratadine 10 MG TAB PO SCH (21:16)
[2018-09-25] MEDS: Atorvastatin Calcium 10 MG TAB PO SCH (21:16)
[2018-09-25] MEDS: traZODone HCl 50 MG TAB PO SCH (21:18)
[2018-09-25] MEDS: Mirtazapine 15 MG TAB PO SCH (21:19)
[2018-09-26] MEDS: Acetaminophen 500 MG TAB PO SCH ×4 (03:50→20:47)
[2018-09-26 05:12] LABS: Platelet Count 112 thou/uL (130-400)
[2018-09-26] MEDS: Mometasone/Formoterol 60 PUFF AER INH SCH ×2 (05:37→09:59)
[2018-09-26] MEDS: Furosemide 40 MG TAB PO SCH ×2 (05:37→14:55)
[2018-09-26] MEDS: Cyclobenzaprine 10 MG TAB PO PRN (09:07)
[2018-09-26] MEDS: ESTRADIOL 0.5 MG TAB PO SCH (09:10)
[2018-09-26] MEDS: Pregabalin 75 MG CAP PO SCH ×2 (09:11→20:45)
[2018-09-26] MEDS: Polyethylene Glycol 3350 17 GM Packet PO SCH (09:13)
[2018-09-26] MEDS: Senokot S 8.6-50 MG TAB PO SCH ×2 (09:13→20:48)
[2018-09-26] MEDS: Docusate 100 MG CAP PO SCH (09:13)
[2018-09-26] MEDS: Magnesium Oxide 400 MG TAB PO SCH (09:13)
[2018-09-26] MEDS: Potassium Chloride 20 MEQ TAB PO SCH ×2 (09:14→17:47)
[2018-09-26] MEDS: Cyanocobalamin (Vitamin B-12) 1,000 MCG TAB PO SCH (09:14)
[2018-09-26] MEDS: DULoxetine 30 MG CAP PO SCH (09:15)
[2018-09-26] MEDS: Fish Oil 1,000 MG CAP PO SCH ×2 (09:15→20:55)
[2018-09-26] MEDS: Digoxin 0.125 MG TAB PO SCH (09:16)
[2018-09-26] MEDS: Ferrous Sulfate 325 MG TAB PO SCH (09:25)
[2018-09-26] MEDS: Multivitamin W/ Minerals 1 TAB PO SCH (09:25)
[2018-09-26] MEDS: guaiFENesin ER 600 MG TAB PO SCH ×2 (09:25→20:47)
[2018-09-26] MEDS: Aspirin 81 mg Enteric Coated Tablet PO SCH (09:25)
[2018-09-26] MEDS: Nystatin Powder 15 GM BOT TOP SCH ×2 (09:38→21:45)
[2018-09-26] MEDS: Lantus 1000 UNITS/10 ML VIAL SC SCH ×2 (09:40→20:54)
[2018-09-26] MEDS: Pantoprazole 40 MG GRANULES PACKET PO SCH (09:48)
[2018-09-26] MEDS: DYMISTA EA NARE SCH ×2 (10:04→20:53)
[2018-09-26] MEDS: Ibuprofen 800 MG TAB PO PRN (12:20)
[2018-09-26] MEDS: HumaLOG 300 UNITS/3 ML VIAL SC PRN ×3 (12:41→20:59)
[2018-09-26] MEDS: Metolazone 5 MG TAB PO SCH (12:41)
[2018-09-26] MEDS: Mirtazapine 15 MG TAB PO SCH (20:44)
[2018-09-26] MEDS: traZODone HCl 50 MG TAB PO SCH (20:47)
[2018-09-26] MEDS: Atorvastatin Calcium 10 MG TAB PO SCH (20:48)
[2018-09-26] MEDS: Loratadine 10 MG TAB PO SCH (20:48)
[2018-09-27] MEDS: Acetaminophen 500 MG TAB PO SCH ×4 (02:12→20:50)
[2018-09-27] MEDS: Cyclobenzaprine 10 MG TAB PO PRN (02:13)
[2018-09-27] MEDS: Mometasone/Formoterol 60 PUFF AER INH SCH ×2 (06:04→17:20)
[2018-09-27] MEDS: Furosemide 40 MG TAB PO SCH ×2 (06:04→13:53)
[2018-09-27] MEDS: Lantus 1000 UNITS/10 ML VIAL SC SCH ×2 (09:05→20:47)
[2018-09-27] MEDS: Polyethylene Glycol 3350 17 GM Packet PO SCH (09:07)
[2018-09-27] MEDS: Pantoprazole 40 MG GRANULES PACKET PO SCH (09:10)
[2018-09-27] MEDS: Pregabalin 75 MG CAP PO SCH ×2 (09:11→20:48)
[2018-09-27] MEDS: DULoxetine 30 MG CAP PO SCH (09:11)
[2018-09-27] MEDS: Docusate 100 MG CAP PO SCH (09:12)
[2018-09-27] MEDS: guaiFENesin ER 600 MG TAB PO SCH ×2 (09:12→20:50)
[2018-09-27] MEDS: Fish Oil 1,000 MG CAP PO SCH ×2 (09:13→20:50)
[2018-09-27] MEDS: Senokot S 8.6-50 MG TAB PO SCH ×2 (09:13→20:51)
[2018-09-27] MEDS: Aspirin 81 mg Enteric Coated Tablet PO SCH (09:14)
[2018-09-27] MEDS: Potassium Chloride 20 MEQ TAB PO SCH ×2 (09:14→17:20)
[2018-09-27] MEDS: Ferrous Sulfate 325 MG TAB PO SCH (09:14)
[2018-09-27] MEDS: Multivitamin W/ Minerals 1 TAB PO SCH (09:15)
[2018-09-27] MEDS: Digoxin 0.125 MG TAB PO SCH (09:16)
[2018-09-27] MEDS: Cyanocobalamin (Vitamin B-12) 1,000 MCG TAB PO SCH (09:16)
[2018-09-27] MEDS: DYMISTA EA NARE SCH ×2 (10:38→20:42)
[2018-09-27] MEDS: ESTRADIOL 0.5 MG TAB PO SCH (10:38)
[2018-09-27] MEDS: Magnesium Oxide 400 MG TAB PO SCH (10:38)
[2018-09-27] MEDS: Nystatin Powder 15 GM BOT TOP SCH ×2 (10:39→20:47)
[2018-09-27] MEDS: HumaLOG 300 UNITS/3 ML VIAL SC PRN ×3 (12:57→20:55)
[2018-09-27] MEDS: Loratadine 10 MG TAB PO SCH (20:51)
[2018-09-27] MEDS: Atorvastatin Calcium 10 MG TAB PO SCH (20:51)
[2018-09-27] MEDS: Mirtazapine 15 MG TAB PO SCH (20:52)
[2018-09-27] MEDS: traZODone HCl 50 MG TAB PO SCH (20:52)
[2018-09-28] MEDS: Acetaminophen 500 MG TAB PO SCH ×4 (03:39→21:26)
[2018-09-28 05:15] LABS: Hemoglobin 10.7 g/dL (12.0-16.0); Platelet Count 126 thou/uL (130-400)
[2018-09-28] MEDS: Mometasone/Formoterol 60 PUFF AER INH SCH ×2 (06:06→16:54)
[2018-09-28] MEDS: Furosemide 40 MG TAB PO SCH ×2 (06:06→14:34)
[2018-09-28] MEDS: Ferrous Sulfate 325 MG TAB PO SCH (11:01)
[2018-09-28] MEDS: Potassium Chloride 20 MEQ TAB PO SCH ×2 (11:01→16:52)
[2018-09-28] MEDS: Cyanocobalamin (Vitamin B-12) 1,000 MCG TAB PO SCH (11:02)
[2018-09-28] MEDS: Docusate 100 MG CAP PO SCH (11:02)
[2018-09-28] MEDS: Metolazone 5 MG TAB PO SCH (11:02)
[2018-09-28] MEDS: DULoxetine 30 MG CAP PO SCH (11:02)
[2018-09-28] MEDS: Aspirin 81 mg Enteric Coated Tablet PO SCH (11:02)
[2018-09-28] MEDS: Digoxin 0.125 MG TAB PO SCH (11:02)
[2018-09-28] MEDS: Fish Oil 1,000 MG CAP PO SCH ×2 (11:03→21:30)
[2018-09-28] MEDS: guaiFENesin ER 600 MG TAB PO SCH ×2 (11:03→21:29)
[2018-09-28] MEDS: Lantus 1000 UNITS/10 ML VIAL SC SCH ×2 (11:03→21:35)
[2018-09-28] MEDS: Magnesium Oxide 400 MG TAB PO SCH (11:04)
[2018-09-28] MEDS: Pantoprazole 40 MG GRANULES PACKET PO SCH (11:05)
[2018-09-28] MEDS: DYMISTA EA NARE SCH ×2 (11:05→21:35)
[2018-09-28] MEDS: Pregabalin 75 MG CAP PO SCH ×2 (11:05→21:27)
[2018-09-28] MEDS: ESTRADIOL 0.5 MG TAB PO SCH (11:05)
[2018-09-28] MEDS: Nystatin Powder 15 GM BOT TOP SCH ×2 (11:05→21:34)
[2018-09-28] MEDS: Multivitamin W/ Minerals 1 TAB PO SCH (11:05)
[2018-09-28] MEDS: Polyethylene Glycol 3350 17 GM Packet PO SCH (11:05)
[2018-09-28] MEDS: Senokot S 8.6-50 MG TAB PO SCH ×2 (11:06→21:30)
[2018-09-28] MEDS: HumaLOG 300 UNITS/3 ML VIAL SC PRN ×2 (12:34→21:38)
[2018-09-28] MEDS: traZODone HCl 50 MG TAB PO SCH (21:26)
[2018-09-28] MEDS: Atorvastatin Calcium 10 MG TAB PO SCH (21:29)
[2018-09-28] MEDS: Mirtazapine 15 MG TAB PO SCH (21:30)
[2018-09-28] MEDS: Loratadine 10 MG TAB PO SCH (21:30)
[2018-09-28] MEDS: [UNRECOGNIZED DRUG - OTHER] PO PRN (21:42)
[2018-09-29] MEDS: Acetaminophen 500 MG TAB PO SCH ×4 (03:22→20:41)
[2018-09-29] MEDS: Furosemide 40 MG TAB PO SCH ×2 (06:12→14:11)
[2018-09-29] MEDS: Mometasone/Formoterol 60 PUFF AER INH SCH ×2 (06:14→18:26)
[2018-09-29] MEDS: ESTRADIOL 0.5 MG TAB PO SCH (09:05)
[2018-09-29] MEDS: Polyethylene Glycol 3350 17 GM Packet PO SCH (09:06)
[2018-09-29] MEDS: Pregabalin 75 MG CAP PO SCH ×2 (09:06→20:43)
[2018-09-29] MEDS: DULoxetine 30 MG CAP PO SCH (09:07)
[2018-09-29] MEDS: Multivitamin W/ Minerals 1 TAB PO SCH (09:08)
[2018-09-29] MEDS: Fish Oil 1,000 MG CAP PO SCH ×2 (09:08→20:43)
[2018-09-29] MEDS: Magnesium Oxide 400 MG TAB PO SCH (09:08)
[2018-09-29] MEDS: Docusate 100 MG CAP PO SCH (09:08)
[2018-09-29] MEDS: Potassium Chloride 20 MEQ TAB PO SCH ×2 (09:08→17:25)
[2018-09-29] MEDS: Aspirin 81 mg Enteric Coated Tablet PO SCH (09:09)
[2018-09-29] MEDS: Senokot S 8.6-50 MG TAB PO SCH ×2 (09:09→20:43)
[2018-09-29] MEDS: Pantoprazole 40 MG GRANULES PACKET PO SCH (09:10)
[2018-09-29] MEDS: guaiFENesin ER 600 MG TAB PO SCH ×2 (09:10→20:42)
[2018-09-29] MEDS: Cyanocobalamin (Vitamin B-12) 1,000 MCG TAB PO SCH (09:10)
[2018-09-29] MEDS: Ferrous Sulfate 325 MG TAB PO SCH (09:11)
[2018-09-29] MEDS: Digoxin 0.125 MG TAB PO SCH (09:11)
[2018-09-29] MEDS: Lantus 1000 UNITS/10 ML VIAL SC SCH ×2 (09:14→20:48)
[2018-09-29] MEDS: DYMISTA EA NARE SCH ×2 (09:17→20:39)
[2018-09-29] MEDS: Nystatin Powder 15 GM BOT TOP SCH ×2 (09:19→20:51)
[2018-09-29] MEDS: [UNRECOGNIZED DRUG - OTHER] PO PRN ×2 (09:45→20:38)
[2018-09-29] MEDS: HumaLOG 300 UNITS/3 ML VIAL SC PRN ×3 (14:13→20:49)
[2018-09-29] MEDS: traZODone HCl 50 MG TAB PO SCH (20:40)
[2018-09-29] MEDS: Atorvastatin Calcium 10 MG TAB PO SCH (20:41)
[2018-09-29] MEDS: Loratadine 10 MG TAB PO SCH (20:41)
[2018-09-29] MEDS: Mirtazapine 15 MG TAB PO SCH (20:42)
[2018-09-30] MEDS: Ibuprofen 800 MG TAB PO PRN (00:03)
[2018-09-30] MEDS: Acetaminophen 500 MG TAB PO SCH ×4 (03:22→20:24)
[2018-09-30 05:18] LABS: Hemoglobin 10.4 g/dL (12.0-16.0); Platelet Count 143 thou/uL (130-400)
[2018-09-30] MEDS: Mometasone/Formoterol 60 PUFF AER INH SCH ×2 (06:22→16:46)
[2018-09-30] MEDS: Furosemide 40 MG TAB PO SCH ×2 (06:27→14:28)
[2018-09-30] MEDS: Lantus 1000 UNITS/10 ML VIAL SC SCH ×2 (08:44→20:19)
[2018-09-30] MEDS: ESTRADIOL 0.5 MG TAB PO SCH (08:44)
[2018-09-30] MEDS: Pregabalin 75 MG CAP PO SCH ×2 (08:49→20:22)
[2018-09-30] MEDS: HumaLOG 300 UNITS/3 ML VIAL SC PRN ×4 (08:49→20:16)
[2018-09-30] MEDS: Multivitamin W/ Minerals 1 TAB PO SCH (08:51)
[2018-09-30] MEDS: Ferrous Sulfate 325 MG TAB PO SCH (08:51)
[2018-09-30] MEDS: Potassium Chloride 20 MEQ TAB PO SCH ×2 (08:52→16:45)
[2018-09-30] MEDS: DULoxetine 30 MG CAP PO SCH (08:52)
[2018-09-30] MEDS: Fish Oil 1,000 MG CAP PO SCH ×2 (08:52→20:28)
[2018-09-30] MEDS: Magnesium Oxide 400 MG TAB PO SCH (08:53)
[2018-09-30] MEDS: Digoxin 0.125 MG TAB PO SCH (08:53)
[2018-09-30] MEDS: Cyanocobalamin (Vitamin B-12) 1,000 MCG TAB PO SCH (08:53)
[2018-09-30] MEDS: Senokot S 8.6-50 MG TAB PO SCH ×2 (08:54→20:24)
[2018-09-30] MEDS: guaiFENesin ER 600 MG TAB PO SCH ×2 (08:54→20:26)
[2018-09-30] MEDS: Aspirin 81 mg Enteric Coated Tablet PO SCH (08:54)
[2018-09-30] MEDS: Pantoprazole 40 MG GRANULES PACKET PO SCH (08:54)
[2018-09-30] MEDS: Polyethylene Glycol 3350 17 GM Packet PO SCH (08:55)
[2018-09-30] MEDS: Nystatin Powder 15 GM BOT TOP SCH ×2 (09:00→20:21)
[2018-09-30] MEDS: DYMISTA EA NARE SCH ×2 (09:01→20:21)
[2018-09-30] MEDS: Docusate 100 MG CAP PO SCH (09:03)
[2018-09-30] MEDS: Metolazone 5 MG TAB PO SCH (09:04)
[2018-09-30] MEDS: Atorvastatin Calcium 10 MG TAB PO SCH (20:25)
[2018-09-30] MEDS: Loratadine 10 MG TAB PO SCH (20:25)
[2018-09-30] MEDS: Mirtazapine 15 MG TAB PO SCH (20:26)
[2018-09-30] MEDS: traZODone HCl 50 MG TAB PO SCH (20:27)
[2018-10-01] MEDS: Acetaminophen 500 MG TAB PO SCH ×4 (02:46→21:31)
[2018-10-01] MEDS: Furosemide 40 MG TAB PO SCH ×2 (06:02→14:56)
[2018-10-01] MEDS: Mometasone/Formoterol 60 PUFF AER INH SCH ×2 (06:02→21:42)
[2018-10-01] MEDS: Ferrous Sulfate 325 MG TAB PO SCH (08:44)
[2018-10-01] MEDS: Potassium Chloride 20 MEQ TAB PO SCH ×2 (08:44→18:21)
[2018-10-01] MEDS: Senokot S 8.6-50 MG TAB PO SCH ×2 (08:57→21:31)
[2018-10-01] MEDS: Multivitamin W/ Minerals 1 TAB PO SCH (08:58)
[2018-10-01] MEDS: Pregabalin 75 MG CAP PO SCH ×2 (08:58→21:28)
[2018-10-01] MEDS: Docusate 100 MG CAP PO SCH (08:58)
[2018-10-01] MEDS: ESTRADIOL 0.5 MG TAB PO SCH (09:00)
[2018-10-01] MEDS: DYMISTA EA NARE SCH ×2 (09:00→21:49)
[2018-10-01] MEDS: Aspirin 81 mg Enteric Coated Tablet PO SCH (09:05)
[2018-10-01] MEDS: Polyethylene Glycol 3350 17 GM Packet PO SCH (09:05)
[2018-10-01] MEDS: DULoxetine 30 MG CAP PO SCH (09:06)
[2018-10-01] MEDS: Fish Oil 1,000 MG CAP PO SCH ×2 (09:06→21:30)
[2018-10-01] MEDS: guaiFENesin ER 600 MG TAB PO SCH ×2 (09:06→21:34)
[2018-10-01] MEDS: Digoxin 0.125 MG TAB PO SCH (09:07)
[2018-10-01] MEDS: Cyanocobalamin (Vitamin B-12) 1,000 MCG TAB PO SCH (09:07)
[2018-10-01] MEDS: Magnesium Oxide 400 MG TAB PO SCH (09:08)
[2018-10-01] MEDS: Pantoprazole 40 MG GRANULES PACKET PO SCH (09:14)
[2018-10-01] MEDS: Nystatin Powder 15 GM BOT TOP SCH ×2 (09:16→21:45)
[2018-10-01] MEDS: Lantus 1000 UNITS/10 ML VIAL SC SCH ×2 (09:25→21:47)
[2018-10-01] MEDS: HumaLOG 300 UNITS/3 ML VIAL SC PRN ×3 (09:26→18:21)
[2018-10-01] MEDS: Ibuprofen 800 MG TAB PO PRN (15:44)
[2018-10-01] MEDS: Atorvastatin Calcium 10 MG TAB PO SCH (21:30)
[2018-10-01] MEDS: Loratadine 10 MG TAB PO SCH (21:34)
[2018-10-01] MEDS: traZODone HCl 50 MG TAB PO SCH (21:34)
[2018-10-01] MEDS: Mirtazapine 15 MG TAB PO SCH (21:34)
[2018-10-02] MEDS: Acetaminophen 500 MG TAB PO SCH ×4 (04:00→21:49)
[2018-10-02 05:38] LABS: Hemoglobin 9.8 g/dL (12.0-16.0); Platelet Count 140 thou/uL (130-400)
[2018-10-02] MEDS: Mometasone/Formoterol 60 PUFF AER INH SCH ×2 (06:18→18:31)
[2018-10-02] MEDS: Furosemide 40 MG TAB PO SCH ×2 (06:18→14:44)
[2018-10-02] MEDS: Potassium Chloride 20 MEQ TAB PO SCH ×2 (08:55→16:33)
[2018-10-02] MEDS: Ferrous Sulfate 325 MG TAB PO SCH (08:55)
[2018-10-02] MEDS: Fish Oil 1,000 MG CAP PO SCH ×2 (08:56→21:50)
[2018-10-02] MEDS: guaiFENesin ER 600 MG TAB PO SCH ×2 (08:56→21:53)
[2018-10-02] MEDS: DULoxetine 30 MG CAP PO SCH (08:57)
[2018-10-02] MEDS: Pregabalin 50 MG CAP PO SCH ×2 (08:57→21:50)
[2018-10-02] MEDS: Senokot S 8.6-50 MG TAB PO SCH ×2 (08:59→21:54)
[2018-10-02] MEDS: Docusate 100 MG CAP PO SCH (08:59)
[2018-10-02] MEDS: Pantoprazole 40 MG GRANULES PACKET PO SCH (09:00)
[2018-10-02] MEDS: Cyanocobalamin (Vitamin B-12) 1,000 MCG TAB PO SCH (09:00)
[2018-10-02] MEDS: Multivitamin W/ Minerals 1 TAB PO SCH (09:00)
[2018-10-02] MEDS: Aspirin 81 mg Enteric Coated Tablet PO SCH (09:00)
[2018-10-02] MEDS: Polyethylene Glycol 3350 17 GM Packet PO SCH (09:00)
[2018-10-02] MEDS: Magnesium Oxide 400 MG TAB PO SCH (09:00)
[2018-10-02] MEDS: Nystatin Powder 15 GM BOT TOP SCH ×2 (09:01→22:14)
[2018-10-02] MEDS: Digoxin 0.125 MG TAB PO SCH (09:14)
[2018-10-02] MEDS: Lantus 1000 UNITS/10 ML VIAL SC SCH ×2 (09:19→22:12)
[2018-10-02] MEDS: DYMISTA EA NARE SCH ×2 (09:39→21:55)
[2018-10-02] MEDS: ESTRADIOL 0.5 MG TAB PO SCH (09:40)
[2018-10-02] MEDS: HumaLOG 300 UNITS/3 ML VIAL SC PRN ×2 (14:39→18:36)
[2018-10-02] MEDS ORDERED: Acetaminophen 500 MG TAB ONE ×2 (20:04→20:05)
[2018-10-02] MEDS: Atorvastatin Calcium 10 MG TAB PO SCH (21:50)
[2018-10-02] MEDS: traZODone HCl 50 MG TAB PO SCH (21:52)
[2018-10-02] MEDS: Mirtazapine 15 MG TAB PO SCH (21:53)
[2018-10-02] MEDS: Loratadine 10 MG TAB PO SCH (21:54)
[2018-10-03] MEDS ORDERED: Acetaminophen 500 MG TAB ONE ×2 (02:18)
[2018-10-03] MEDS: Acetaminophen 500 MG TAB PO SCH ×4 (02:39→21:02)
[2018-10-03] MEDS: Furosemide 40 MG TAB PO SCH ×2 (05:27→14:54)
[2018-10-03] MEDS: Mometasone/Formoterol 60 PUFF AER INH SCH (05:29)
[2018-10-03] MEDS: Lantus 1000 UNITS/10 ML VIAL SC SCH ×2 (08:26→20:55)
[2018-10-03] MEDS: HumaLOG 300 UNITS/3 ML VIAL SC PRN ×3 (08:26→20:56)
[2018-10-03] MEDS: Pantoprazole 40 MG GRANULES PACKET PO SCH (08:32)
[2018-10-03] MEDS: Polyethylene Glycol 3350 17 GM Packet PO SCH (08:33)
[2018-10-03] MEDS: DULoxetine 30 MG CAP PO SCH (08:34)
[2018-10-03] MEDS: Pregabalin 50 MG CAP PO SCH ×2 (08:35→20:57)
[2018-10-03] MEDS: Magnesium Oxide 400 MG TAB PO SCH (08:35)
[2018-10-03] MEDS: Digoxin 0.125 MG TAB PO SCH (08:39)
[2018-10-03] MEDS: Docusate 100 MG CAP PO SCH (08:39)
[2018-10-03] MEDS: Fish Oil 1,000 MG CAP PO SCH ×2 (08:40→21:01)
[2018-10-03] MEDS: Aspirin 81 mg Enteric Coated Tablet PO SCH (08:40)
[2018-10-03] MEDS: Multivitamin W/ Minerals 1 TAB PO SCH (08:40)
[2018-10-03] MEDS: Senokot S 8.6-50 MG TAB PO SCH ×2 (08:40→21:02)
[2018-10-03] MEDS: guaiFENesin ER 600 MG TAB PO SCH ×2 (08:41→21:02)
[2018-10-03] MEDS: Cyanocobalamin (Vitamin B-12) 1,000 MCG TAB PO SCH (08:41)
[2018-10-03] MEDS: Ferrous Sulfate 325 MG TAB PO SCH (08:41)
[2018-10-03] MEDS: Nystatin Powder 15 GM BOT TOP SCH ×2 (08:45→20:54)
[2018-10-03] MEDS: ESTRADIOL 0.5 MG TAB PO SCH (08:45)
[2018-10-03] MEDS: DYMISTA EA NARE SCH ×2 (08:47→21:05)
[2018-10-03] MEDS: Cyclobenzaprine 10 MG TAB PO PRN (09:27)
[2018-10-03] MEDS: Potassium Chloride 20 MEQ TAB PO SCH ×2 (09:31→17:09)
[2018-10-03] MEDS: Metolazone 5 MG TAB PO SCH (13:26)
[2018-10-03] MEDS: Ibuprofen 800 MG TAB PO PRN ×2 (13:28→23:41)
[2018-10-03] MEDS: Atorvastatin Calcium 10 MG TAB PO SCH (21:01)
[2018-10-03] MEDS: traZODone HCl 50 MG TAB PO SCH (21:01)
[2018-10-03] MEDS: Mirtazapine 15 MG TAB PO SCH (21:02)
[2018-10-03] MEDS: Loratadine 10 MG TAB PO SCH (21:02)
[2018-10-04 04:44] LABS: Hemoglobin 9.6 g/dL (12.0-16.0); Platelet Count 134 thou/uL (130-400)
[2018-10-04] MEDS: Acetaminophen 500 MG TAB PO SCH ×4 (04:51→21:24)
[2018-10-04] MEDS: Furosemide 40 MG TAB PO SCH ×2 (05:57→14:29)
[2018-10-04] MEDS: Mometasone/Formoterol 60 PUFF AER INH SCH ×3 (05:58→17:21)
[2018-10-04] MEDS: Pregabalin 50 MG CAP PO SCH ×2 (08:28→21:27)
[2018-10-04] MEDS: Lantus 1000 UNITS/10 ML VIAL SC SCH ×2 (08:56→21:45)
[2018-10-04] MEDS: Polyethylene Glycol 3350 17 GM Packet PO SCH (08:58)
[2018-10-04] MEDS: Pantoprazole 40 MG GRANULES PACKET PO SCH (09:01)
[2018-10-04] MEDS: Nystatin Powder 15 GM BOT TOP SCH (09:02)
[2018-10-04] MEDS: Potassium Chloride 20 MEQ TAB PO SCH ×2 (09:03→17:20)
[2018-10-04] MEDS: guaiFENesin ER 600 MG TAB PO SCH ×2 (09:03→21:24)
[2018-10-04] MEDS: Multivitamin W/ Minerals 1 TAB PO SCH (09:04)
[2018-10-04] MEDS: Ferrous Sulfate 325 MG TAB PO SCH (09:05)
[2018-10-04] MEDS: DULoxetine 30 MG CAP PO SCH (09:05)
[2018-10-04] MEDS: Senokot S 8.6-50 MG TAB PO SCH ×2 (09:05→21:25)
[2018-10-04] MEDS: Docusate 100 MG CAP PO SCH (09:05)
[2018-10-04] MEDS: Magnesium Oxide 400 MG TAB PO SCH (09:06)
[2018-10-04] MEDS: Cyanocobalamin (Vitamin B-12) 1,000 MCG TAB PO SCH (09:06)
[2018-10-04] MEDS: Aspirin 81 mg Enteric Coated Tablet PO SCH (09:06)
[2018-10-04] MEDS: Digoxin 0.125 MG TAB PO SCH (09:06)
[2018-10-04] MEDS: DYMISTA EA NARE SCH ×2 (09:12→21:31)
[2018-10-04] MEDS: ESTRADIOL 0.5 MG TAB PO SCH (09:12)
[2018-10-04] MEDS: Fish Oil 1,000 MG CAP PO SCH ×2 (09:18→21:25)
[2018-10-04] MEDS: HumaLOG 300 UNITS/3 ML VIAL SC PRN ×3 (12:47→21:56)
[2018-10-04] MEDS: traZODone HCl 50 MG TAB PO SCH (21:24)
[2018-10-04] MEDS: Loratadine 10 MG TAB PO SCH (21:25)
[2018-10-04] MEDS: Atorvastatin Calcium 10 MG TAB PO SCH (21:25)
[2018-10-04] MEDS: Mirtazapine 15 MG TAB PO SCH (21:25)
[2018-10-05] MEDS: Nystatin Powder 15 GM BOT TOP SCH ×3 (00:42→20:49)
[2018-10-05] MEDS: Acetaminophen 500 MG TAB PO SCH ×4 (03:12→20:45)
[2018-10-05] MEDS: Mometasone/Formoterol 60 PUFF AER INH SCH ×2 (06:18→18:12)
[2018-10-05] MEDS: Furosemide 40 MG TAB PO SCH ×2 (06:18→13:13)
[2018-10-05] MEDS: Pregabalin 50 MG CAP PO SCH ×2 (08:51→20:43)
[2018-10-05] MEDS: Fish Oil 1,000 MG CAP PO SCH ×2 (08:53→20:47)
[2018-10-05] MEDS: Potassium Chloride 20 MEQ TAB PO SCH ×2 (08:53→16:17)
[2018-10-05] MEDS: Senokot S 8.6-50 MG TAB PO SCH ×2 (08:54→20:43)
[2018-10-05] MEDS: Magnesium Oxide 400 MG TAB PO SCH (08:54)
[2018-10-05] MEDS: guaiFENesin ER 600 MG TAB PO SCH ×2 (08:54→20:45)
[2018-10-05] MEDS: Aspirin 81 mg Enteric Coated Tablet PO SCH (08:54)
[2018-10-05] MEDS: Multivitamin W/ Minerals 1 TAB PO SCH (08:54)
[2018-10-05] MEDS: Docusate 100 MG CAP PO SCH (08:55)
[2018-10-05] MEDS: DULoxetine 30 MG CAP PO SCH (08:55)
[2018-10-05] MEDS: Cyanocobalamin (Vitamin B-12) 1,000 MCG TAB PO SCH (08:56)
[2018-10-05] MEDS: Digoxin 0.125 MG TAB PO SCH (08:56)
[2018-10-05] MEDS: Ferrous Sulfate 325 MG TAB PO SCH (08:56)
[2018-10-05] MEDS: Pantoprazole 40 MG GRANULES PACKET PO SCH (08:57)
[2018-10-05] MEDS: Lantus 1000 UNITS/10 ML VIAL SC SCH ×2 (08:57→21:10)
[2018-10-05] MEDS: Polyethylene Glycol 3350 17 GM Packet PO SCH (08:57)
[2018-10-05] MEDS: HumaLOG 300 UNITS/3 ML VIAL SC PRN ×4 (09:03→21:13)
[2018-10-05] MEDS: ESTRADIOL 0.5 MG TAB PO SCH (09:04)
[2018-10-05] MEDS: DYMISTA EA NARE SCH ×2 (09:04→20:49)
[2018-10-05] MEDS: Metolazone 5 MG TAB PO SCH (09:11)
[2018-10-05] MEDS: Ibuprofen 800 MG TAB PO PRN (13:13)
[2018-10-05] MEDS: Atorvastatin Calcium 10 MG TAB PO SCH (20:44)
[2018-10-05] MEDS: traZODone HCl 50 MG TAB PO SCH (20:46)
[2018-10-05] MEDS: Mirtazapine 15 MG TAB PO SCH (20:47)
[2018-10-05] MEDS: Loratadine 10 MG TAB PO SCH (20:47)
[2018-10-06] MEDS: Acetaminophen 500 MG TAB PO SCH ×4 (03:00→20:46)
[2018-10-06 04:58] LABS: Hemoglobin 9.1 g/dL (12.0-16.0); Platelet Count 108 thou/uL (130-400)
[2018-10-06] MEDS: Mometasone/Formoterol 60 PUFF AER INH SCH ×2 (06:11→18:51)
[2018-10-06] MEDS: Furosemide 40 MG TAB PO SCH ×2 (06:14→14:47)
[2018-10-06] MEDS: Polyethylene Glycol 3350 17 GM Packet PO SCH (10:23)
[2018-10-06] MEDS: Pregabalin 50 MG CAP PO SCH ×2 (10:23→20:44)
[2018-10-06] MEDS: Aspirin 81 mg Enteric Coated Tablet PO SCH (10:24)
[2018-10-06] MEDS: Multivitamin W/ Minerals 1 TAB PO SCH (10:26)
[2018-10-06] MEDS: Fish Oil 1,000 MG CAP PO SCH ×2 (10:27→20:46)
[2018-10-06] MEDS: Cyanocobalamin (Vitamin B-12) 1,000 MCG TAB PO SCH (10:27)
[2018-10-06] MEDS: DULoxetine 30 MG CAP PO SCH (10:27)
[2018-10-06] MEDS: Potassium Chloride 20 MEQ TAB PO SCH ×2 (10:28→17:35)
[2018-10-06] MEDS: guaiFENesin ER 600 MG TAB PO SCH ×2 (10:28→20:45)
[2018-10-06] MEDS: Ferrous Sulfate 325 MG TAB PO SCH (10:28)
[2018-10-06] MEDS: Senokot S 8.6-50 MG TAB PO SCH ×2 (10:31→20:48)
[2018-10-06] MEDS: Digoxin 0.125 MG TAB PO SCH (10:31)
[2018-10-06] MEDS: Nystatin Powder 15 GM BOT TOP SCH ×2 (10:32→20:49)
[2018-10-06] MEDS: Pantoprazole 40 MG GRANULES PACKET PO SCH (10:32)
[2018-10-06] MEDS: Lantus 1000 UNITS/10 ML VIAL SC SCH ×2 (10:32→20:43)
[2018-10-06] MEDS: Magnesium Oxide 400 MG TAB PO SCH (10:32)
[2018-10-06] MEDS: Docusate 100 MG CAP PO SCH (10:32)
[2018-10-06] MEDS: DYMISTA EA NARE SCH ×2 (10:49→20:48)
[2018-10-06] MEDS: ESTRADIOL 0.5 MG TAB PO SCH (10:50)
[2018-10-06] MEDS: HumaLOG 300 UNITS/3 ML VIAL SC PRN ×4 (10:50→20:42)
[2018-10-06] MEDS: Ibuprofen 800 MG TAB PO PRN (13:20)
[2018-10-06] MEDS: traZODone HCl 50 MG TAB PO SCH (20:45)
[2018-10-06] MEDS: Loratadine 10 MG TAB PO SCH (20:47)
[2018-10-06] MEDS: Atorvastatin Calcium 10 MG TAB PO SCH (20:47)
[2018-10-06] MEDS: Mirtazapine 15 MG TAB PO SCH (20:48)
[2018-10-07] MEDS: Acetaminophen 500 MG TAB PO SCH ×4 (03:15→21:07)
[2018-10-07 03:44] VITALS: BMI 29.0
[2018-10-07] MEDS: Furosemide 40 MG TAB PO SCH ×2 (06:19→14:43)
[2018-10-07] MEDS: Mometasone/Formoterol 60 PUFF AER INH SCH ×2 (06:19→17:44)
[2018-10-07] MEDS: Polyethylene Glycol 3350 17 GM Packet PO SCH (09:13)
[2018-10-07] MEDS: Digoxin 0.125 MG TAB PO SCH (09:14)
[2018-10-07] MEDS: Docusate 100 MG CAP PO SCH (09:15)
[2018-10-07] MEDS: Aspirin 81 mg Enteric Coated Tablet PO SCH (09:15)
[2018-10-07] MEDS: Magnesium Oxide 400 MG TAB PO SCH (09:15)
[2018-10-07] MEDS: Potassium Chloride 20 MEQ TAB PO SCH ×2 (09:15→18:47)
[2018-10-07] MEDS: Fish Oil 1,000 MG CAP PO SCH ×2 (09:15→21:52)
[2018-10-07] MEDS: Cyanocobalamin (Vitamin B-12) 1,000 MCG TAB PO SCH (09:16)
[2018-10-07] MEDS: DULoxetine 30 MG CAP PO SCH (09:16)
[2018-10-07] MEDS: Multivitamin W/ Minerals 1 TAB PO SCH (09:16)
[2018-10-07] MEDS: Pantoprazole 40 MG GRANULES PACKET PO SCH (09:17)
[2018-10-07] MEDS: guaiFENesin ER 600 MG TAB PO SCH ×2 (09:17→21:05)
[2018-10-07] MEDS: Metolazone 5 MG TAB PO SCH (09:17)
[2018-10-07] MEDS: Ferrous Sulfate 325 MG TAB PO SCH (09:18)
[2018-10-07] MEDS: Senokot S 8.6-50 MG TAB PO SCH ×2 (09:18→21:05)
[2018-10-07] MEDS: Pregabalin 50 MG CAP PO SCH ×2 (09:19→21:03)
[2018-10-07] MEDS: Nystatin Powder 15 GM BOT TOP SCH ×2 (09:21→21:14)
[2018-10-07] MEDS: HumaLOG 300 UNITS/3 ML VIAL SC PRN ×4 (09:29→21:58)
[2018-10-07] MEDS: Lantus 1000 UNITS/10 ML VIAL SC SCH ×2 (09:30→21:53)
[2018-10-07] MEDS: DYMISTA EA NARE SCH ×2 (11:08→21:11)
[2018-10-07] MEDS: ESTRADIOL 0.5 MG TAB PO SCH (11:09)
[2018-10-07] MEDS ORDERED: Potassium Chloride 20 MEQ TAB PO SCH (17:45)
[2018-10-07] MEDS: Atorvastatin Calcium 10 MG TAB PO SCH (21:06)
[2018-10-07] MEDS: Loratadine 10 MG TAB PO SCH (21:06)
[2018-10-07] MEDS: Mirtazapine 15 MG TAB PO SCH (21:06)
[2018-10-07] MEDS: traZODone HCl 50 MG TAB PO SCH (21:07)
[2018-10-08] MEDS: Acetaminophen 500 MG TAB PO SCH ×4 (04:08→21:26)
[2018-10-08 05:44] LABS: Hemoglobin 9.6 g/dL (12.0-16.0); Platelet Count 102 thou/uL (130-400)
[2018-10-08] MEDS: Mometasone/Formoterol 60 PUFF AER INH SCH ×2 (06:18→18:50)
[2018-10-08] MEDS: Furosemide 40 MG TAB PO SCH ×2 (06:18→14:41)
[2018-10-08] MEDS: DULoxetine 30 MG CAP PO SCH (10:08)
[2018-10-08] MEDS: Docusate 100 MG CAP PO SCH (10:09)
[2018-10-08] MEDS: Digoxin 0.125 MG TAB PO SCH (10:09)
[2018-10-08] MEDS: Ferrous Sulfate 325 MG TAB PO SCH (10:09)
[2018-10-08] MEDS: Metolazone 5 MG TAB PO SCH (10:10)
[2018-10-08] MEDS: Pregabalin 50 MG CAP PO SCH ×2 (10:11→21:23)
[2018-10-08] MEDS: Potassium Chloride 20 MEQ TAB PO SCH ×2 (10:13→17:20)
[2018-10-08] MEDS: guaiFENesin ER 600 MG TAB PO SCH ×2 (10:13→21:27)
[2018-10-08] MEDS: Pantoprazole 40 MG GRANULES PACKET PO SCH (10:14)
[2018-10-08] MEDS: Senokot S 8.6-50 MG TAB PO SCH ×2 (10:14→21:28)
[2018-10-08] MEDS: Magnesium Oxide 400 MG TAB PO SCH (10:14)
[2018-10-08] MEDS: Cyanocobalamin (Vitamin B-12) 1,000 MCG TAB PO SCH (10:14)
[2018-10-08] MEDS: Aspirin 81 mg Enteric Coated Tablet PO SCH (10:14)
[2018-10-08] MEDS: Multivitamin W/ Minerals 1 TAB PO SCH (10:14)
[2018-10-08] MEDS: Fish Oil 1,000 MG CAP PO SCH ×2 (10:15→21:26)
[2018-10-08] MEDS: Lantus 1000 UNITS/10 ML VIAL SC SCH ×2 (10:15→21:28)
[2018-10-08] MEDS: ESTRADIOL 0.5 MG TAB PO SCH (10:16)
[2018-10-08] MEDS: DYMISTA EA NARE SCH ×2 (10:17→21:22)
[2018-10-08] MEDS: Nystatin Powder 15 GM BOT TOP SCH ×2 (10:25→21:32)
[2018-10-08] MEDS: Polyethylene Glycol 3350 17 GM Packet PO SCH (10:26)
[2018-10-08] MEDS: HumaLOG 300 UNITS/3 ML VIAL SC PRN ×3 (12:34→21:36)
[2018-10-08] MEDS: Ibuprofen 800 MG TAB PO PRN (17:31)
[2018-10-08] MEDS: Ondansetron ODT 4 MG TAB PO PRN (18:49)
[2018-10-08] MEDS: Loratadine 10 MG TAB PO SCH (21:24)
[2018-10-08] MEDS: Mirtazapine 15 MG TAB PO SCH (21:25)
[2018-10-08] MEDS: Atorvastatin Calcium 10 MG TAB PO SCH (21:25)
[2018-10-08] MEDS: traZODone HCl 50 MG TAB PO SCH (21:27)
[2018-10-08] MEDS: Cyclobenzaprine 10 MG TAB PO PRN (22:46)
[2018-10-08] MEDS: Promethazine 25 MG TAB PO PRN (23:44)
[2018-10-09] MEDS: Acetaminophen 500 MG TAB PO SCH ×3 (03:48→15:33)
[2018-10-09] MEDS: Ondansetron ODT 4 MG TAB PO PRN (04:18)
[2018-10-09] MEDS: Mometasone/Formoterol 60 PUFF AER INH SCH (06:15)
[2018-10-09] MEDS: Furosemide 40 MG TAB PO SCH ×2 (06:15→15:33)
[2018-10-09] MEDS: Promethazine 25 MG TAB PO PRN (08:22)
[2018-10-09] MEDS ORDERED: Vancomycin HCl 25 MG/ML Oral PO SCH ×2 (09:00→13:15)
[2018-10-09 10:47] LABS: ALT (SGPT) 59 U/L (8-55); AST (SGOT) 57 U/L (5-34); Albumin 3.4 g/dL (3.4-4.8); Alkaline Phosphatase 181 U/L (40-150); Anion Gap 16 mmol/L (10-20); BUN (Urea Nitrogen) 19 mg/dL (9.8-20.1); Bilirubin, Total 0.9 mg/dL (0.2-1.2); Calc. Creatinine Clearance 59 mL/min (70-130); Calcium 9.4 mg/dL (7.8-10.44); Carbon Dioxide 37 mmol/L (23-31); Estimated GFR-MDRD 52; Globulin 3.3 g/dL (2.4-3.5); Glucose 168 mg/dL (83-110); Lipase 14 U/L (8-78); Protein, Total 6.7 g/dL (6.0-8.3)
[2018-10-09 10:50] LABS: Band 27 % (5-11); Basophilic Stippling SLIGHT = 1-2 cells (100X) (None Seen); Hemoglobin 11.6 g/dL (12.0-16.0); Lymphocytes 2 % (21-51); MDiff Complete? YES; Macrocytosis MARKED = >30 cells (100X) (0-5/hpf); Mean Corpuscular HGB CONC 31.4 g/dL (32.0-36.0); Mean Corpuscular Hemoglobin 25.3 pg (27.0-31.0); Mean Corpuscular Volume 80.7 fL (78.0-98.0); Mean Platelet Volume 8.8 fL (7.4-10.4); Microcytosis MODERATE=15-30 cells (100X) (0-5/hpf); Neutrophil 69 % (42-75); Platelet Count 118 thou/uL (130-400); RBC Distribution Width 21.9 % (11.5-14.5); Reactive Lymphocytes 2 % (0-10); Red Blood Cell (RBC) Count 4.59 mill/uL (4.20-5.40); Stomatocytes SLIGHT = 2-5 cells (100X) (0-1/hpf); White Blood Cell (WBC) Count 20.4 thou/uL (4.8-10.8)
[2018-10-09 10:51] LABS: Chloride 91 mmol/L (98-107); Potassium 4.2 mmol/L (3.5-5.1); Sodium 140 mmol/L (136-145)
[2018-10-09 11:00] LABS: Clarity Slightly Cloudy (Clear); Glucose, Urine (Dipstick) Negative (Negative); Leukocyte Negative (Negative); Nitrite Negative (Negative); Protein, Urine (Dipstick) Negative (Neg-Trace); Specific Gravity, Urine 1.015 (1.005-1.030); Urobilinogen 0.2 mg/dL (0.2-1.0)
[2018-10-09 11:01] LABS: Bilirubin Negative (Negative); Blood, Urine Negative (Negative)
[2018-10-09 11:03] LABS: Bacteria/HPF 1+ HPF (None Seen); RBC/HPF 0-3 HPF (0-3); WBC/HPF 0-3 HPF (0-3)
[2018-10-09 11:06] LABS: Urine Culture Reflex No No
--- NOTE | 2018-10-09 11:21 | CT ---
CT ABDOMEN AND PELVIS NONCONTRAST: Date: 10/09/18 HISTORY: Right flank pain. Fever. FINDINGS: Each renal collecting system, ureter, and the urinary bladder are decompressed without stone evident. Lack of contrast limits evaluation for other abnormalities. Interstitial thickening at the lung bases is again demonstrated. Gallbladder not visualized. Subtle nodularity to the contour of the liver. Sp aguilar measures up to 15.8 cm length. Prominent calcification throughout the arterial structures. Small splenule just anterior to the spleen. Thickening of the adrenal glands is stable. Subtle stranding w ithin the right upper quadrant abdominal fat. Subtle circumferential wall thickening involving the ce cum and lower right colon, and the proximal portion of the transverse colon near the hepatic flexure. There is an area of more normal colon wall between these two levels. No free fluid or free air. Scat tered diverticula of the colon are also apparent. IMPRESSION: 1. No CT evidence of urinary tract obstruction or calcification. 2. Two areas of inflammation involving the right and transverse colon, as detailed above, with a nor mal area in between. Cause for multifocal colitis is not apparent. There are diverticula, although th is is not a typical appearance of diverticulitis. Distribution argues against ischemic colitis. Consi dominique infectious colitis? 3. Cirrhotic appearance of the liver with moderate splenomegaly. 4. Atherosclerosis. POS: [facility]
[2018-10-09] MEDS: Dextrose 5 %-0.45 % NaCl 1,000 ML IV SCH ×2 (12:00→15:33)
[2018-10-09 12:02] LABS: Lactic Acid 2.7 mmol/L (0.5-2.2)
[2018-10-09 12:04] VITALS: BP 92/42; TEMP 101.5
[2018-10-09] MEDS ORDERED: D5 1/2 NS w/10 mEq KCl 1,000 ML/1,000 ML BAG IV SCH (12:15)
[2018-10-09] MEDS ORDERED: metroNIDAZOLE 250 MG TAB ONE (13:12)
[2018-10-09] MEDS ORDERED: metroNIDAZOLE 250 MG TAB PO SCH ×2 (15:00)
[2018-10-09] MEDS: Ferrous Sulfate 325 MG TAB PO SCH (15:21)
[2018-10-09] MEDS: Aspirin 81 mg Enteric Coated Tablet PO SCH (15:22)
[2018-10-09] MEDS: Potassium Chloride 20 MEQ TAB PO SCH (15:22)
[2018-10-09] MEDS: Cyanocobalamin (Vitamin B-12) 1,000 MCG TAB PO SCH (15:22)
[2018-10-09] MEDS: Docusate 100 MG CAP PO SCH (15:23)
[2018-10-09] MEDS: Digoxin 0.125 MG TAB PO SCH (15:23)
[2018-10-09] MEDS: guaiFENesin ER 600 MG TAB PO SCH (15:24)
[2018-10-09] MEDS: Fish Oil 1,000 MG CAP PO SCH (15:24)
[2018-10-09] MEDS: Lantus 1000 UNITS/10 ML VIAL SC SCH (15:24)
[2018-10-09] MEDS: DULoxetine 30 MG CAP PO SCH (15:24)
[2018-10-09] MEDS: Magnesium Oxide 400 MG TAB PO SCH (15:25)
[2018-10-09] MEDS: Multivitamin W/ Minerals 1 TAB PO SCH (15:26)
[2018-10-09] MEDS: DYMISTA EA NARE SCH (15:29)
[2018-10-09] MEDS: Pantoprazole 40 MG GRANULES PACKET PO SCH (15:29)
[2018-10-09] MEDS: ESTRADIOL 0.5 MG TAB PO SCH (15:31)
[2018-10-09] MEDS: Polyethylene Glycol 3350 17 GM Packet PO SCH (15:31)
[2018-10-09] MEDS: Pregabalin 50 MG CAP PO SCH (15:31)
[2018-10-09] MEDS: Senokot S 8.6-50 MG TAB PO SCH (15:32)
[2018-10-10] MEDS ORDERED: Vancomycin HCl 25 MG/ML Oral PO SCH (09:00)
[2018-10-10] MEDS ORDERED: Saccharomyces boulardii 250 MG CAP PO SCH (09:00)
--- NOTE | 2018-10-10 14:09 | DIS ---
DATE OF ADMISSION: 09/02/2018 DATE OF DISCHARGE: 10/09/2018 ADMISSION DIAGNOSIS: Status post right tibial fracture. SECONDARY DIAGNOSES: Chronic obstructive pulmonary disease, chronic diastolic congestive heart failure, paroxysmal atrial fibrillation, type 2 diabetes mellitus, microcytic anemia, hypertension, and chronic kidney disease stage 3. DISCHARGE DIAGNOSIS: Infectious colitis with sepsis. PROCEDURES: 10/09/2018, CT of the abdomen and pelvis shows no CT evidence of urinary tract obstruction or calcification, 2 areas of inflammation involving the right and transverse colon as detailed above with a normal area in between. Cause for multifocal colitis is not apparent. There are diverticula, although this is not a typical appearance of diverticulitis. Distribution argues against ischemic colitis. Consider infectious colitis. Cirrhotic appearance of the liver with moderate splenomegaly and atherosclerosis. HOSPITAL COURSE: 73-year-old female was admitted to [facility] as a swing patient for physical therapy and occupational therapy regarding a right tibial fracture, status post repair via Dr. Mcmullen. The patient subsequently developed footdrop on the right side and thus it has been planned for surgical intervention on 10/12/2018; the patient has been nonweightbearing over the last month. She has been largely stable until last night when she began experiencing some nausea and vomiting. As of this morning, she developed 2 episodes of diarrhea accompanied by fever with temperature of 101.0. She displayed a borderline tachycardia at that time. She was examined and noted to have diffuse abdominal pain; however, more localized to the right side of the abdomen and the epigastrium. Labs were ordered including CBC, CMP, lipase, lactic acid, urinalysis, and blood cultures. CT of the abdomen and pelvis was obtained and is noted as above; she is unable to receive IV contrast due to iodine allergy and she was unable to receive oral contrast secondary to her complaints of nausea. Review of the patient's labs revealed a white blood cell count elevated at 20.4 along with an elevated lactic acid level at 2.7. There is concern for dehydration as her hemoglobin is noted to be 11.6, which is approximately 2 points higher than her most recent baseline along with a BUN to creatinine ratio of 19 to 1.04. Due to this, she was started on D5 half-normal saline with KCl at 125 mL an hour earlier this morning. Secondary to the concern for infectious colitis, metronidazole and vancomycin were ordered as well. Unfortunately, the patient has displayed further signs of sepsis including hypotension with blood pressure dropping to 92/42 with tachycardia, with heart rate up to 113 and mild tachypnea with respiratory rate at 24. She received antipyretics; however, her temperature has also risen up to 103.1. Secondary to the patient's worsening status, I spoke with Dr. Nam in the [facility] Emergency Department regarding this patient's case. She will be transitioned to the emergency department for further stabilization with planned ultimate transfer to see [facility] in [place] for higher level care in regard to her sepsis and need for further treatment of infectious colitis. DISPOSITION: The patient will transfer from swing status patient on the floor to [facility] Emergency Department for further stabilization and ultimate transition to [facility]. DISCHARGE MEDICATIONS: 1. Albuterol sulfate 2.5 mg nebs q.2 hours p.r.n. 2. Aspirin 81 mg p.o. daily. 3. Tylenol 500 mg p.o. q.6 hours p.r.n. 4. Atorvastatin 10 mg p.o. at bedtime. 5. Cyanocobalamin 1000 mcg p.o. daily. 6. Cyclobenzaprine 5 mg p.o. t.i.d. p.r.n. 7. Digoxin 0.125 mg p.o. daily. 8. Diltiazem 120 mg p.o. daily. 9. Docusate 100 mg p.o. daily. 10. Duloxetine 60 mg p.o. daily. 11. Ferrous sulfate 325 mg p.o. daily. 12. Fish oil 1000 mg p.o. b.i.d. 13. Lasix 40 mg p.o. b.i.d. 14. Lantus 32 units subcutaneously b.i.d. 15. DuoNeb 3 mL t.i.d. 16. Loratadine 10 mg p.o. at bedtime. 17. Humalog sliding scale. 18. Ibuprofen 800 mg p.o. q.8 hours p.r.n. 19. Magnesium oxide 400 mg p.o. daily. 20. Metolazone 2.5 mg p.o. Wednesday, Wednesday, and Wednesday. 21. Mirtazapine 30 mg p.o. at bedtime. 22. Dulera 2 puffs inhaled b.i.d. 23. Daily multivitamin. 24. Zofran ODT 4 mg p.o. q.6 hours p.r.n. 25. Pantoprazole 40 mg p.o. daily. 26. Florastor 250 mg p.o. daily. 27. Trazodone 200 mg p.o. at bedtime. 28. Lyrica 300 mg p.o. b.i.d. 29. Potassium chloride 40 mEq p.o. b.i.d. 30. MiraLAX 17 g p.o. daily. 31. Sennosides/docusate sodium 1 tab p.o. b.i.d. The patient did have ordered, but I do not believe this has been received; 1. Metronidazole 500 mg p.o. t.i.d. 2. P.o. vancomycin 125 mg q.i.d. Job ID: [id number] MTDD
== END 2018-10-09 13:30 | disposition short-term general hospital (02) | DRG 560 ==
LOC: BURMED 17:26
PROVIDERS: ADMIT Family Medicine; ATTEND Family Medicine
PROC: 30233N1 Transfusion of Nonautologous Red Blood Cells into Peripheral Vein, Percutaneous Approach (ICD-10-PCS; principal; 2018-09-16)
DX: S82.141D Displaced bicondylar fracture of right tibia, subsequent encounter for closed fracture with routine healing (principal); I13.0 Hypertensive heart and chronic kidney disease with heart failure and stage 1 through stage 4 chronic kidney disease, or unspecified chronic kidney disease; I50.32 Chronic diastolic (congestive) heart failure; K21.9 Gastro-esophageal reflux disease without esophagitis; J44.9 Chronic obstructive pulmonary disease, unspecified; E78.5 Hyperlipidemia, unspecified; E03.9 Hypothyroidism, unspecified; F41.9 Anxiety disorder, unspecified; G47.00 Insomnia, unspecified; E11.51 Type 2 diabetes mellitus with diabetic peripheral angiopathy without gangrene; M48.00 Spinal stenosis, site unspecified; I25.10 Atherosclerotic heart disease of native coronary artery without angina pectoris; I48.0 Paroxysmal atrial fibrillation; J30.9 Allergic rhinitis, unspecified; E87.6 Hypokalemia; E83.42 Hypomagnesemia; G89.29 Other chronic pain; R79.89 Other specified abnormal findings of blood chemistry; R10.9 Unspecified abdominal pain; D72.829 Elevated white blood cell count, unspecified; R50.9 Fever, unspecified; R19.7 Diarrhea, unspecified; N18.3 Chronic kidney disease, stage 3 (moderate); D69.6 Thrombocytopenia, unspecified; I95.9 Hypotension, unspecified; D50.9 Iron deficiency anemia, unspecified; E11.22 Type 2 diabetes mellitus with diabetic chronic kidney disease; E11.40 Type 2 diabetes mellitus with diabetic neuropathy, unspecified; F17.210 Nicotine dependence, cigarettes, uncomplicated; Z87.01 Personal history of pneumonia (recurrent); Z86.73 Personal history of transient ischemic attack (TIA), and cerebral infarction without residual deficits; Z90.49 Acquired absence of other specified parts of digestive tract; Z95.1 Presence of aortocoronary bypass graft; Z90.710 Acquired absence of both cervix and uterus; Z90.89 Acquired absence of other organs; Z98.890 Other specified postprocedural states; Z88.5 Allergy status to narcotic agent; Z88.8 Allergy status to other drugs, medicaments and biological substances; Z79.82 Long term (current) use of aspirin; Z79.4 Long term (current) use of insulin; Z79.899 Other long term (current) drug therapy; W18.30XD Fall on same level, unspecified, subsequent encounter
CPT/HCPCS: 36415; 36416; 36430; 71045; 74176; 80048; 80053; 80162; 81001; 82565; 83605; 83690; 83735; 83880; 84443; 85014; 85018; 85025; 85049; 86850; 86900; 86901; 86922; 87040; 87086; 94640; 94664; J1650; J1815; J1940; J2920; J7512; J7611; J7620; P9016; Q0162; Q0169

== ENCOUNTER 2018-10-09 13:39 | Emergency (ER) | payer MEDICARE, MEDICAID ==
[2018-10-09] MEDS ORDERED: Sodium Chloride 0.9% 100 ML ONE ×2 (14:02→20:14)
[2018-10-09] MEDS ORDERED: Ondansetron PF 4 MG/2 ML Vial ONE (14:02)
[2018-10-09] MEDS ORDERED: Ketorolac Tromethamine 30 MG/ML VIAL ONE (14:02)
[2018-10-09] MEDS ORDERED: Piperacillin/Tazobactam 4.5 GM VIAL ONE ×2 (14:04→20:13)
[2018-10-09 14:36] LABS: Digoxin 0.88 ng/mL (0.8-2.0)
[2018-10-09 14:37] LABS: CKMB 1.5 ng/mL (0-6.6)
--- NOTE | 2018-10-09 15:45 | RAD ---
CHEST ONE VIEW: HISTORY: Dyspnea. Chest pain. COMPARISON: 09/19/2018 FINDINGS: The cardiac silhouette is magnified by projection. The pulmonary vasculature remains engorged with b ilateral perihilar and bibasilar infiltrates. The patient is slightly rotated rightward. Postoperat larry changes of the mediastinum. No evidence of pneumothorax. IMPRESSION: Pulmonary vascular congestion with the appearance of chronic congestive heart failure. Appearance is similar to the most recent examination. POS: [facility]
--- NOTE | 2018-10-09 15:56 | CT ---
CT CHEST NONCONTRAST: Date: 10/09/18 HISTORY: Dyspnea. COMPARISON: 08/18/18. FINDINGS: Widespread irregular areas of interstitial fibrosis and scattered peripheral mild honeycombing is aga in demonstrated. Interstitial disease most pronounced at the upper lobes. No pleural fluid or evidenc e of pneumothorax. No lobar consolidation. Lack of contrast limits evaluation of the soft tissues. Reactive appearing lymph nodes about the medi astinum are similar in appearance to the prior study. Prominent calcification in the coronary arterie s. Postoperative changes of the mediastinum. IMPRESSION: 1. Fibrotic interstitial lung disease. Stable appearance to 08/18/18. No lobar consolidation is appa rent. 2. Atherosclerosis. POS: [facility]
[2018-10-09 21:33] LABS: Lactic Acid 2.6 mmol/L (0.5-2.2)
[2018-10-09] MEDS ORDERED: Furosemide 40 MG TAB ONE (21:59)
[2018-10-09] MEDS ORDERED: Albuterol Sulfate 1.25 MG/3 ML NEB ONE (21:59)
[2018-10-09] MEDS ORDERED: Mirtazapine 15 MG TAB PO SCH (22:15)
[2018-10-09] MEDS ORDERED: Pregabalin 75 MG CAP PO SCH (22:15)
[2018-10-09] MEDS ORDERED: traZODone HCl 50 MG TAB PO SCH (22:15)
[2018-10-09] MEDS ORDERED: Lantus 1000 UNITS/10 ML VIAL SC SCH (22:15)
[2018-10-10] MEDS ORDERED: Piperacillin/Tazobactam 4.5 GM VIAL ONE ×2 (02:10→07:43)
[2018-10-10] MEDS ORDERED: Sodium Chloride 0.9% 100 ML ONE ×2 (02:11→07:43)
[2018-10-10 06:13] LABS: ALT (SGPT) 38 U/L (8-55); AST (SGOT) 33 U/L (5-34); Albumin 2.7 g/dL (3.4-4.8); Alkaline Phosphatase 117 U/L (40-150); Anion Gap 13 mmol/L (10-20); BUN (Urea Nitrogen) 20 mg/dL (9.8-20.1); Bilirubin, Total 1.2 mg/dL (0.2-1.2); Calc. Creatinine Clearance 0 mL/min (70-130); Calcium 8.1 mg/dL (7.8-10.44); Carbon Dioxide 32 mmol/L (23-31); Chloride 100 mmol/L (98-107); Estimated GFR-MDRD 54; Globulin 2.8 g/dL (2.4-3.5); Glucose 154 mg/dL (83-110); Protein, Total 5.5 g/dL (6.0-8.3); Sodium 142 mmol/L (136-145)
[2018-10-10 06:15] LABS: Potassium 2.9 mmol/L (3.5-5.1)
[2018-10-10 06:22] LABS: #Basophils 0.1 thou/uL (0.0-0.2); #Eosinphils 0.1 thou/uL (0.0-0.7); #Lymphocytes 1.3 thou/uL (1.20-3.40); #Monocytes 0.7 thou/uL (0.11-0.59); #Neutrophils 16.6 thou/uL (1.40-6.50); %Basophils 0.4 % (0.0-1.0); %Eosinophils 0.4 % (0.0-10.0); %Lymphocytes 7.1 % (21.0-51.0); %Neutrophils 88.2 % (42.0-75.0); Anisocytosis MODERATE=16-30 cells (100X) (0-5/hpf); Hemoglobin 9.3 g/dL (12.0-16.0); Hypochromia SLIGHT = 6-15 cells (100X) (0-5/hpf); MDiff Complete? YES; Mean Corpuscular Hemoglobin 25.1 pg (27.0-31.0); Mean Corpuscular Volume 78.4 fL (78.0-98.0); Mean Platelet Volume 9.2 fL (7.4-10.4); Platelet Count 96 thou/uL (130-400); Platelet Morphology Comment Appears Decreased; Red Blood Cell (RBC) Count 3.69 mill/uL (4.20-5.40); White Blood Cell (WBC) Count 18.8 thou/uL (4.8-10.8)
[2018-10-10 06:31] LABS: CKMB 0.9 ng/mL (0-6.6)
[2018-10-10] MEDS ORDERED: Potassium Chloride 20 MEQ TAB ONE (06:53)
[2018-10-10] MEDS ORDERED: Digoxin 0.125 MG TAB PO SCH (07:30)
[2018-10-10] MEDS ORDERED: Ondansetron PF 4 MG/2 ML Vial ONE (08:39)
== END 2018-10-10 08:42 | disposition short-term general hospital (02) ==
LOC: BURERS 13:39
DX: A41.9 Sepsis, unspecified organism (principal); K52.9 Noninfective gastroenteritis and colitis, unspecified; J44.9 Chronic obstructive pulmonary disease, unspecified; S82.201D Unspecified fracture of shaft of right tibia, subsequent encounter for closed fracture with routine healing; S82.401D Unspecified fracture of shaft of right fibula, subsequent encounter for closed fracture with routine healing; I25.10 Atherosclerotic heart disease of native coronary artery without angina pectoris; E11.9 Type 2 diabetes mellitus without complications; K21.9 Gastro-esophageal reflux disease without esophagitis; D50.9 Iron deficiency anemia, unspecified; I11.0 Hypertensive heart disease with heart failure; I50.9 Heart failure, unspecified; Z86.73 Personal history of transient ischemic attack (TIA), and cerebral infarction without residual deficits; E78.5 Hyperlipidemia, unspecified; E03.9 Hypothyroidism, unspecified; F17.210 Nicotine dependence, cigarettes, uncomplicated; F41.9 Anxiety disorder, unspecified; G47.00 Insomnia, unspecified; Z79.899 Other long term (current) drug therapy; Z79.82 Long term (current) use of aspirin; Z79.51 Long term (current) use of inhaled steroids
CPT/HCPCS: 36416; 71045; 71250; 80162; 82553; 83605; 83690; 83880; 84484; 94640; 96361; 96365; 96366; 96367; 96375; 96376; 36415-59; J1815; J1885; J2405; J2543; J3370; J7050; J7620

== ENCOUNTER 2018-10-14 14:05 | Inpatient (IN) | payer MEDICARE, MEDICAID ==
[2018-10-14] MEDS ORDERED: Nitroglycerin 0.4 MG TAB (25 Tab Bottle) SL PRN (22:26)
[2018-10-14] MEDS ORDERED: INSULIN ASPART 1 UNIT SC PRN (22:26)
[2018-10-14] MEDS ORDERED: Sodium Chloride 0.65% Nasal 44 ML BOT EA NARE PRN (23:46)
[2018-10-15] MEDS: metroNIDAZOLE 500 MG/100 ML BAG IVPB SCH ×3 (05:44→21:44)
[2018-10-15] MEDS: Mometasone/Formoterol 60 PUFF AER INH SCH ×2 (05:46→18:16)
[2018-10-15] MEDS ORDERED: Clopidogrel Bisulfate 75 MG TAB PO SCH (09:00)
[2018-10-15] MEDS ORDERED: Docusate 100 MG CAP PO SCH (09:00)
[2018-10-15] MEDS: Estradiol 1 MG TAB PO SCH (10:17)
[2018-10-15] MEDS: DULoxetine 30 MG CAP PO SCH (10:19)
[2018-10-15] MEDS: Furosemide 40 MG TAB PO SCH ×2 (10:19→21:30)
[2018-10-15] MEDS: Loratadine 10 MG TAB PO SCH (10:20)
[2018-10-15] MEDS: Meloxicam 7.5 MG TAB PO SCH (10:24)
[2018-10-15] MEDS: Famotidine 20 MG TAB PO SCH ×2 (10:24→21:32)
[2018-10-15] MEDS: Multivitamin W/ Minerals 1 TAB PO SCH (10:25)
[2018-10-15] MEDS: Losartan Potassium 50 MG TAB PO SCH (10:25)
[2018-10-15] MEDS: Saccharomyces boulardii 250 MG CAP PO SCH (10:25)
[2018-10-15] MEDS: predniSONE 20 MG TAB PO SCH ×2 (10:25→21:34)
[2018-10-15] MEDS: Fish Oil 1,000 MG CAP PO SCH ×2 (10:28→21:30)
[2018-10-15] MEDS: Cyanocobalamin (Vitamin B-12) 1,000 MCG TAB PO SCH (10:28)
[2018-10-15] MEDS: Pantoprazole 40 MG GRANULES PACKET PO SCH (10:29)
[2018-10-15] MEDS: Albuterol Sulfate 2.5 mg/3 ml Neb NEB SCH ×3 (10:31→21:45)
[2018-10-15] MEDS: Aspirin 81 mg Enteric Coated Tablet PO SCH (10:31)
[2018-10-15] MEDS: Lantus 1000 UNITS/10 ML VIAL SC SCH ×2 (10:34→21:50)
[2018-10-15] MEDS: Hydrocortisone Acetate 25 MG Suppository PR SCH ×3 (10:34→21:37)
[2018-10-15] MEDS: Nystatin Cream 15 GM TUBE TOP SCH ×2 (10:35→21:58)
[2018-10-15] MEDS: Vancomycin HCl 25 MG/ML Oral PO SCH ×4 (10:36→21:38)
[2018-10-15] MEDS ORDERED: Oseltamivir 75 MG CAP ONE ×2 (11:00→21:59)
[2018-10-15] MEDS: Pregabalin 75 MG CAP PO SCH ×2 (11:04→21:34)
[2018-10-15] MEDS: Oseltamivir 75 MG CAP PO SCH ×2 (11:04→22:00)
[2018-10-15] MEDS: AZELASTINE NS SCH ×2 (11:06→21:01)
[2018-10-15] MEDS ORDERED: Dextrose 5% in Water 1,000 ML IV PRN (12:31)
[2018-10-15] MEDS ORDERED: Dextrose 50% Abboject 50 ML SYRINGE SLOW IVP PRN (12:31)
--- NOTE | 2018-10-15 14:14 | PRG ---
DATE OF SERVICE: 10/15/2018 Ms. Kwong is a 73-year-old female whom was admitted last night to our skilled unit for PT and OT following a recent stay at [facility] for C. diff colitis. She also had an episode of atrial fibrillation that resolved spontaneously to normal sinus rhythm and was instructed by Cardiology just to continue aspirin. During her admission assessment this morning, I noted an irregularly irregular rhythm and an EKG was ordered, which confirmed atrial fibrillation with RVR with a rate of 114 and a right bundle-branch block. The patient was not symptomatic and denied any chest pain, palpitations, or shortness of breath above her baseline. Therefore, I consulted with our ER physician here who was made aware of the situation in our skilled unit and called [facility] and spoke with the radiology director, who is on-call, Dr. Xander Rausch. He advised me that since the patient is currently asymptomatic, that we can likely just manage this on our skilled unit floor with close monitoring, but since it is a repeat episode, that she should have full anticoagulation at this point and should continue only on a baby aspirin due to her history of coronary artery disease, so we would discontinue her clopidogrel. For rate control, we will increase her Cardizem from 30 mg b.i.d. to t.i.d. and if she tolerates this well in the morning, I will change her over to 120 mg of the extended release. I have started her on Eliquis 5 mg p.o. b.i.d., and I have updated the patient. I have also updated the ER physician of the plan. The patient does adamantly confirm that she does not want any transfer to the emergency room for stabilization or further workup due to the fact that she is asymptomatic at this time and does advise understanding that we do not have telemetry monitoring and is willing to take that risk. She has also requested that I call and advise her son, Eze, of her change in medical status and I will do so. Job ID: [id number] MTDD
--- NOTE | 2018-10-15 14:31 | RAD ---
PORTABLE CHEST: DATE: 10/15/2018. FINDINGS: An AP portable film at 1212 is compared with a 10/09/2018 study. I also reviewed a CT of the chest don e the same day. Cardiomegaly is about the same as before. There is some chronic vascular prominence as well as some chronic interstitial thickening in the lung apices. There are no effusions. Overall, the appearance of the chest has changed little since last week. IMPRESSION: 1. Cardiomegaly and mild (probably chronic) congestive change. 2. Fibrotic apical infiltrates that are presumably just chronic fibrotic thickening. No change sinc e the 10/09/2018 study. POS: HOME
--- NOTE | 2018-10-15 16:25 | HP ---
Admission history and physical to skilled unit. CHIEF COMPLAINT: Need for skilled rehab. HISTORY OF PRESENT ILLNESS: Ms. Kwong is a 73-year-old female, who was hospitalized originally at [facility] from August 18 through August 24 for a right proximal tibia and fibula fracture following a fall. She underwent closed reduction and percutaneous screw stabilization of intercondylar split of the right tibial plateau and closed treatment of proximal tibial metaphyseal fracture. She was subsequently transferred to swing bed at [facility] on August 24, but returned August 26, where she remained admitted through September 02 for sepsis due to right lower lobe pneumonia. She was transferred back to [facility] for physical and occupational therapy, where she remained until October 09. Approximately 2 days prior, she started having abdominal pain. This was located to the right lower quadrant and was sharp in nature, rated an 8/10, and was constant, radiating to the left lower quadrant and accompanied by vomiting x4 and a temperature elevation. She was having some diarrhea, and subsequently, became hypotensive and was transferred back to [facility] for a further workup of sepsis which was determined due to Clostridium difficile. She was evaluated by the Gastroenterology Service and improved with enteral vancomycin and IV metronidazole, and at this time, GI Service, Dr. Ricardo Williamson, has recommended to continue a 14-day course of vancomycin 125 mg orally 4 times daily and metronidazole IV q.8 hours of 500 mg over the next few days and potentially to be tapered off when she significantly clinically improves. During the hospitalization, she also had new onset atrial fibrillation. She was seen by the Cardiology Service, and a 2D echocardiogram was performed, which showed a left ventricular ejection fraction of 50% to 55%, and E/A flow reversal suggestive of diastolic dysfunction. She converted to normal sinus rhythm and was cleared for discharge by Cardiology. She was transferred back to [facility] for physical and occupational therapy and further treatment late last night. Today, the patient reports that she has had an increase in cough with sputum production, clear in nature. She denies any chest pain or palpitations. She is chronically short of breath, but denies any increase above her baseline. She did have a somewhat formed stool this morning, but is denying abdominal pain. PAST MEDICAL HISTORY: 1. Gastroesophageal reflux disease. 2. COPD. 3. Dyslipidemia. 4. Hypothyroidism. 5. Coronary artery disease. 6. Hypertension. 7. History of TIA. 8. Type 2 diabetes. 9. Anxiety. 10. Insomnia. 11. Spinal stenosis. 12. Peripheral vascular disease. 13. Systolic congestive heart failure with a recent echocardiogram on October 13 with a left ventricular ejection fraction of 50% to 55% and E/A flow reversal suggestive of diastolic dysfunction. 14. Chronic kidney disease with baseline creatinine of 0.8 to 1.2. 15. August, tib-fib fracture on the right. 16. Lone atrial fibrillation, recent hospitalization. 17. Chronic pain. PAST SURGICAL HISTORY: 1. Appendectomy. 2. Coronary artery bypass graft. 3. Cholecystectomy. 4. Hernia repair. 5. Hysterectomy. 6. Tonsillectomy. 7. Right tibial fracture repair. SOCIAL HISTORY: The patient currently denies tobacco, alcohol, or recreational drug use. FAMILY HISTORY: Significant for hypertension. ALLERGIES: CODEINE, GABAPENTIN, HYDROCODONE, MORPHINE, ACETAMINOPHEN, AND ADHESIVE TAPE. CURRENT MEDICATIONS: 1. Albuterol sulfate nebulizer treatment t.i.d. 2. Aspirin 81 mg daily. 3. Atorvastatin 10 mg p.o. at bedtime. 4. Azelastine nasal b.i.d. 5. Clopidogrel 75 mg p.o. daily. 6. Cyanocobalamin 1000 mcg p.o. daily. 7. Diltiazem hydrochloride 30 mg p.o. b.i.d. 8. Docusate 100 mg p.o. daily. 9. Duloxetine 60 mg p.o. daily. 10. Estradiol 0.5 mg p.o. daily. 11. Pepcid 20 mg p.o. b.i.d. 12. Fish oil 1000 mg p.o. b.i.d. 13. Lasix 40 mg p.o. b.i.d. 14. Hydrocortisone acetate suppository 25 mg per rectum t.i.d. 15. Sliding scale with NovoLog. 16. Lantus 32 units subcu b.i.d. 17. DuoNeb q.6 hours per RT. 18. Claritin 10 mg p.o. daily. 19. Losartan 25 mg p.o. daily. 20. Meloxicam 15 mg p.o. daily. 21. Metronidazole 500 mg IV q.8 hours. 22. Mirtazapine 30 mg p.o. at bedtime. 23. Mometasone/formoterol two puffs inhaled b.i.d. 24. Multivitamin one p.o. daily. 25. Nitrostat 0.4 mg sublingual q.5 minutes p.r.n. chest pain. 26. Nystatin topically b.i.d. 27. Tamiflu 75 mg p.o. b.i.d. 28. Pantoprazole 40 mg p.o. daily. 29. Prednisone 20 mg p.o. b.i.d. 30. Lyrica 300 mg p.o. b.i.d. 31. Florastor 250 mg p.o. daily. 32. Dewitt nasal spray one spray per naris p.r.n. 33. Trazodone 200 mg p.o. at bedtime. 34. Vancomycin hydrochloride 125 mg p.o. q.i.d. for 10 days. REVIEW OF SYSTEMS: GENERAL: The patient has been afebrile since her transfer. She is deconditioned secondary to her prolonged stay. She denies chills. HEENT: Denies rhinorrhea, sore throat, or ear pain. CARDIOVASCULAR: Denies chest pain, palpitations, orthopnea, or PND. RESPIRATORY: Increased cough with increased sputum production, clear. No hemoptysis. Shortness of breath at her baseline. Positive dyspnea on exertion. GI: The patient with recent vomiting that has now resolved. She denies nausea. The patient with recent diarrhea that has now resolved. Denies abdominal pain. Denies melena or hematochezia. She has had some problems with hemorrhoids and is being treated for that. GENITOURINARY: Denies dysuria, urgency, or gross hematuria. ENDOCRINE: Denies polydipsia, polyphagia, or polyuria. HEMATOLOGIC: Denies bruising. NEUROLOGIC: Denies focal weakness, tingling, numbness above her baseline with neuropathy due to diabetes. MUSCULOSKELETAL: The patient has an immobilizer brace to the right lower extremity that encompasses the knee and distal leg. She has a right foot drop from her prior procedure. She denies pain above her baseline. DERM: The patient has a pressure point to her heel. PHYSICAL EXAMINATION: VITAL SIGNS: Temperature 98.3, pulse 81, respirations 18, 98% O2 saturation on 2 L nasal cannula, and blood pressure 117/56. GENERAL: Well-developed female, sitting up on the side of the bed with a productive cough, but is otherwise in no acute distress, moonlike facies from chronic steroids. Alert and oriented x3. HEENT: Normocephalic, atraumatic. Pupils equally round, reactive to light and accommodation. Extraocular muscles intact. Wears corrective lenses. Nares are patent without discharge. Tongue protrudes in the midline. NECK: Supple without lymphadenopathy, thyromegaly, JVD, or bruit. HEART: Irregularly irregular with normal S1, S2, and a 2/6 systolic ejection murmur best heard at left upper sternal border without radiation. The right lung base is diminished, and the patient has coarse breath sounds in all other lung briscoe. No wheezing. No increased work of breathing. ABDOMEN: Positive bowel sounds in all 4 quadrants. Soft, nontender, and nondistended. No masses, guarding, or rebound tenderness. EXTREMITIES: No cyanosis, clubbing, or edema. The right lower extremity has an immobilizer brace in place with Daniel wrap underneath and a pad to the right heel and a right foot drop. DERMATOLOGIC: The wound to the right heel is unstageable as there is a scab over the region, but it is without erythema or drainage. NEUROLOGIC: Cranial nerves 2 through 12 grossly intact. She does have peripheral neuropathy. LABORATORY DATA: CBC; white count 5.1, hemoglobin 9.6, hematocrit 31.4, and platelets 124. Sodium 140, potassium 3.7, chloride 101, bicarb 31, BUN 13, creatinine 0.8, and glucose 229 on October 13. She has since had Accu-Chek that was 95 at 7:40 this morning. Hemoglobin A1c last entered January of 2018 at 7.7. Her LFTs last checked on October 10 were within normal limits. Clostridium difficile antigen and toxin on October 10 are antigen positive and toxin positive. IMAGING STUDIES: Echo from October 13 as per HPI. Chest x-ray on October 09 with pulmonary vascular congestion with the appearance of chronic congestive heart failure, similar to the most recent examination. Chest CT from October 09 with fibrotic interstitial lung disease. Stable appearance to August 18. No lobar consolidation is apparent. Atherosclerosis. ASSESSMENT AND PLAN: 1. Physical deconditioning status post tibial and fibular repair. She is currently in an immobilizer brace and has a resultant right foot drop. The patient will need additional procedures to be coordinated through her orthopedic surgeon. We will have PT and OT work with her to the best of their ability per Orthopedic instructions. 2. Clostridium difficile colitis. The patient will be continued on IV metronidazole for the next couple of days until her symptoms improve and can be tapered, and we will continue oral vancomycin for a total of 14-day course. She has had formed stools this morning. We are holding her stool softener. I believe we can lift the contact precautions. We will confirm with the Infectious Disease coordinator here. 3. Lone atrial fibrillation. The patient has an irregularly irregular rhythm on her examination today, and I suspect that she is back in atrial fibrillation; however, she seems to be rate controlled if that is the case. We will go ahead and confirm with an EKG. She is already on Cardizem, which should help with her rate control and antiplatelet inhibitors of aspirin and Plavix. We will consult with Cardiology if needed over the phone. 4. History of chronic obstructive pulmonary disease with increased sputum production and cough. I do not hear any wheezing on exam, and the patient's dyspnea is at her baseline. We will continue her prednisone and her nebulizer treatments as well as her chronic O2. We will try to avoid the use of antibiotics unless absolutely necessary. However, she does have a history of congestive heart failure, and I would like to get a chest x-ray as baseline at this time, and we will compare to her previous one done on October 09. 5. Congestive heart failure, chronic, combined. The patient appears euvolemic on exam today. We will review her imaging of the chest when it is back. She will be continued on her losartan and diuretic therapy. 6. Coronary artery disease. The patient will be continued on her aspirin, Plavix, and statin therapy. Presumably, not on a beta-breanna secondary to her chronic obstructive pulmonary disease. 7. Gastroesophageal reflux disease. The patient will be continued on her Pepcid. 8. Dyslipidemia. Statin will be continued. 9. Hypothyroidism. The patient's thyroid supplementation is currently on hold. Her most recent TSH in August was within normal limits, off medication. 10. Anxiety/insomnia/depression. The patient's psych and chronic pain regimen will be continued. 11. Chronic kidney disease. We will periodically monitor her renal function. 12. Type 2 diabetes. The patient will be continued on her insulin regimen, and we will order Accu-Chek's with a correctional NovoLog sliding scale. 13. Hypertension. The patient's antihypertensive regimen will be continued. 14. Prophylaxis. The patient is on Pepcid. She is on aspirin and Plavix, but for right now, we cannot place SCDs. She did not tolerate Lovenox well on previous admissions. We will try to mobilize her as much as we can with physical and occupational therapy. 15. Code status: The patient desires to be a DNAR. Discussed with the patient. Job ID: [id number] [facility] MEDICAL CENTERLupe
[2018-10-15] MEDS: HumaLOG 300 UNITS/3 ML VIAL SC PRN (17:53)
[2018-10-15] MEDS: Apixaban 5 MG TAB PO SCH (21:30)
[2018-10-15] MEDS: Atorvastatin Calcium 10 MG TAB PO SCH (21:30)
[2018-10-15] MEDS: Mirtazapine 15 MG TAB PO SCH (21:32)
[2018-10-15] MEDS: traZODone HCl 50 MG TAB PO SCH (21:32)
[2018-10-16] MEDS: metroNIDAZOLE 500 MG/100 ML BAG IVPB SCH ×3 (05:53→21:55)
[2018-10-16] MEDS: Mometasone/Formoterol 60 PUFF AER INH SCH ×2 (06:01→18:11)
[2018-10-16] MEDS: Lantus 1000 UNITS/10 ML VIAL SC SCH ×2 (08:35→20:05)
[2018-10-16] MEDS: HumaLOG 300 UNITS/3 ML VIAL SC PRN ×4 (08:37→20:05)
[2018-10-16] MEDS: Pregabalin 75 MG CAP PO SCH ×2 (08:39→20:08)
[2018-10-16] MEDS: Estradiol 1 MG TAB PO SCH (08:41)
[2018-10-16] MEDS: Multivitamin W/ Minerals 1 TAB PO SCH (08:42)
[2018-10-16] MEDS: Saccharomyces boulardii 250 MG CAP PO SCH (08:42)
[2018-10-16] MEDS: Aspirin 81 mg Enteric Coated Tablet PO SCH (08:42)
[2018-10-16] MEDS: Apixaban 5 MG TAB PO SCH ×2 (08:43→20:10)
[2018-10-16] MEDS: Famotidine 20 MG TAB PO SCH ×2 (08:43→20:10)
[2018-10-16] MEDS: Loratadine 10 MG TAB PO SCH (08:43)
[2018-10-16] MEDS: Fish Oil 1,000 MG CAP PO SCH ×2 (08:43→20:10)
[2018-10-16] MEDS: predniSONE 20 MG TAB PO SCH ×2 (08:43→20:10)
[2018-10-16] MEDS: DULoxetine 30 MG CAP PO SCH (08:44)
[2018-10-16] MEDS: Meloxicam 7.5 MG TAB PO SCH (08:44)
[2018-10-16] MEDS: Furosemide 40 MG TAB PO SCH ×2 (08:44→20:11)
[2018-10-16] MEDS: Cyanocobalamin (Vitamin B-12) 1,000 MCG TAB PO SCH (08:44)
[2018-10-16] MEDS: Losartan Potassium 50 MG TAB PO SCH (08:45)
[2018-10-16] MEDS: Pantoprazole 40 MG GRANULES PACKET PO SCH (08:45)
[2018-10-16] MEDS ORDERED: Meloxicam 7.5 MG TAB PO SCH (08:45)
[2018-10-16] MEDS: Vancomycin HCl 25 MG/ML Oral PO SCH ×4 (08:49→20:06)
[2018-10-16] MEDS: Albuterol Sulfate 2.5 mg/3 ml Neb NEB SCH ×3 (08:51→21:07)
[2018-10-16] MEDS: Hydrocortisone Acetate 25 MG Suppository PR SCH ×3 (08:52→20:23)
[2018-10-16] MEDS: AZELASTINE NS SCH ×2 (08:52→20:23)
[2018-10-16] MEDS: Nystatin Cream 15 GM TUBE TOP SCH ×2 (09:21→20:11)
[2018-10-16] MEDS ORDERED: Sodium Chloride For Inhalation 0.9% 3 ML NEB ONE (13:09)
[2018-10-16] MEDS: Sodium Chloride 0.9% 10 ML ONE ×2 (13:15→21:58)
[2018-10-16] MEDS: traZODone HCl 50 MG TAB PO SCH (20:09)
[2018-10-16] MEDS: Atorvastatin Calcium 10 MG TAB PO SCH (20:11)
[2018-10-16] MEDS: Mirtazapine 15 MG TAB PO SCH (20:11)
[2018-10-17] MEDS: metroNIDAZOLE 500 MG/100 ML BAG IVPB SCH ×3 (05:45→21:57)
[2018-10-17] MEDS: Mometasone/Formoterol 60 PUFF AER INH SCH ×2 (05:46→21:49)
[2018-10-17] MEDS: Sodium Chloride 0.9% 10 ML ONE (05:50)
[2018-10-17 06:18] LABS: Anion Gap 12 mmol/L (10-20); BUN (Urea Nitrogen) 21 mg/dL (9.8-20.1); Calc. Creatinine Clearance 56 mL/min (70-130); Calcium 8.1 mg/dL (7.8-10.44); Carbon Dioxide 36 mmol/L (23-31); Chloride 98 mmol/L (98-107); Estimated GFR-MDRD 48; Glucose 183 mg/dL (83-110); Potassium 3.2 mmol/L (3.5-5.1); Sodium 143 mmol/L (136-145)
[2018-10-17 06:48] LABS: #Eosinphils 0.1 thou/uL (0.0-0.7); #Lymphocytes 0.7 thou/uL (1.20-3.40); #Monocytes 0.5 thou/uL (0.11-0.59); #Neutrophils 6.3 thou/uL (1.40-6.50); %Basophils 0.5 % (0.0-1.0); %Eosinophils 0.7 % (0.0-10.0); %Lymphocytes 9.2 % (21.0-51.0); %Neutrophils 82.5 % (42.0-75.0); Anisocytosis SLIGHT = 6-15 cells (100X) (0-5/hpf); Hemoglobin 9.2 g/dL (12.0-16.0); MDiff Complete? YES; Mean Corpuscular Hemoglobin 24.5 pg (27.0-31.0); Mean Corpuscular Volume 81.8 fL (78.0-98.0); Platelet Count 169 thou/uL (130-400); Platelet Morphology Comment Appears Adequate; Poikilocytosis MODERATE=16-30 cells (100X) (0-5/hpf); Polychromasia SLIGHT = 2-3 cells (100X) (0-2/hpf); Red Blood Cell (RBC) Count 3.76 mill/uL (4.20-5.40); White Blood Cell (WBC) Count 7.7 thou/uL (4.8-10.8)
[2018-10-17] MEDS: HumaLOG 300 UNITS/3 ML VIAL SC PRN ×4 (08:26→22:13)
[2018-10-17] MEDS: Vancomycin HCl 25 MG/ML Oral PO SCH ×4 (09:18→21:52)
[2018-10-17] MEDS: Nystatin Cream 15 GM TUBE TOP SCH ×2 (09:20→21:57)
[2018-10-17] MEDS: Lantus 1000 UNITS/10 ML VIAL SC SCH ×2 (09:21→22:13)
[2018-10-17] MEDS: Pregabalin 75 MG CAP PO SCH ×2 (09:24→21:54)
[2018-10-17] MEDS: Estradiol 1 MG TAB PO SCH (09:26)
[2018-10-17] MEDS: Cyanocobalamin (Vitamin B-12) 1,000 MCG TAB PO SCH (09:27)
[2018-10-17] MEDS: Pantoprazole 40 MG GRANULES PACKET PO SCH (09:27)
[2018-10-17] MEDS: Furosemide 40 MG TAB PO SCH ×2 (09:27→21:54)
[2018-10-17] MEDS: Aspirin 81 mg Enteric Coated Tablet PO SCH (09:27)
[2018-10-17] MEDS: Saccharomyces boulardii 250 MG CAP PO SCH (09:27)
[2018-10-17] MEDS: Apixaban 5 MG TAB PO SCH ×2 (09:27→21:54)
[2018-10-17] MEDS: Fish Oil 1,000 MG CAP PO SCH ×2 (09:27→21:54)
[2018-10-17] MEDS: Meloxicam 7.5 MG TAB PO SCH (09:28)
[2018-10-17] MEDS: DULoxetine 30 MG CAP PO SCH (09:28)
[2018-10-17] MEDS: Multivitamin W/ Minerals 1 TAB PO SCH (09:29)
[2018-10-17] MEDS: AZELASTINE NS SCH ×2 (09:30→21:56)
[2018-10-17] MEDS: Loratadine 10 MG TAB PO SCH (09:30)
[2018-10-17] MEDS: Losartan Potassium 50 MG TAB PO SCH (09:31)
[2018-10-17] MEDS: Famotidine 20 MG TAB PO SCH ×2 (09:31→21:54)
[2018-10-17] MEDS: Hydrocortisone Acetate 25 MG Suppository PR SCH ×3 (09:31→21:56)
[2018-10-17] MEDS: Albuterol Sulfate 2.5 mg/3 ml Neb NEB SCH ×3 (09:48→22:14)
[2018-10-17] MEDS ORDERED: Sodium Chloride 0.9% 10 ML ONE (13:31)
[2018-10-17] MEDS: traZODone HCl 50 MG TAB PO SCH (21:53)
[2018-10-17] MEDS: Atorvastatin Calcium 10 MG TAB PO SCH (21:53)
[2018-10-17] MEDS: Mirtazapine 15 MG TAB PO SCH (21:54)
[2018-10-18] MEDS: Mometasone/Formoterol 60 PUFF AER INH SCH ×2 (05:37→18:40)
[2018-10-18] MEDS: metroNIDAZOLE 500 MG/100 ML BAG IVPB SCH ×3 (05:41→21:46)
[2018-10-18] MEDS: Nystatin Cream 15 GM TUBE TOP SCH ×2 (09:29→21:29)
[2018-10-18] MEDS: DULoxetine 30 MG CAP PO SCH (09:34)
[2018-10-18] MEDS: Fish Oil 1,000 MG CAP PO SCH ×2 (09:35→21:37)
[2018-10-18] MEDS: Estradiol 1 MG TAB PO SCH (09:36)
[2018-10-18] MEDS: Pregabalin 75 MG CAP PO SCH ×2 (09:37→21:35)
[2018-10-18] MEDS: Losartan Potassium 50 MG TAB PO SCH (09:38)
[2018-10-18] MEDS: Meloxicam 7.5 MG TAB PO SCH (09:38)
[2018-10-18] MEDS: Multivitamin W/ Minerals 1 TAB PO SCH (09:38)
[2018-10-18] MEDS: Cyanocobalamin (Vitamin B-12) 1,000 MCG TAB PO SCH (09:38)
[2018-10-18] MEDS: Furosemide 40 MG TAB PO SCH ×2 (09:39→21:37)
[2018-10-18] MEDS: Famotidine 20 MG TAB PO SCH ×2 (09:39→21:38)
[2018-10-18] MEDS: Potassium Chloride 20 MEQ TAB PO SCH (09:39)
[2018-10-18] MEDS: Aspirin 81 mg Enteric Coated Tablet PO SCH (09:39)
[2018-10-18] MEDS: Apixaban 5 MG TAB PO SCH ×2 (09:40→21:38)
[2018-10-18] MEDS: Loratadine 10 MG TAB PO SCH (09:40)
[2018-10-18] MEDS: Saccharomyces boulardii 250 MG CAP PO SCH (09:40)
[2018-10-18] MEDS: AZELASTINE NS SCH (09:40)
[2018-10-18] MEDS: Hydrocortisone Acetate 25 MG Suppository PR SCH ×3 (09:41→21:40)
[2018-10-18] MEDS: Vancomycin HCl 25 MG/ML Oral PO SCH ×4 (09:42→21:30)
[2018-10-18] MEDS: Lantus 1000 UNITS/10 ML VIAL SC SCH ×2 (09:43→21:40)
[2018-10-18] MEDS: Pantoprazole 40 MG GRANULES PACKET PO SCH (09:43)
[2018-10-18] MEDS: Albuterol Sulfate 2.5 mg/3 ml Neb NEB SCH ×3 (09:48→21:32)
[2018-10-18] MEDS ORDERED: Sodium Chloride 0.9% 10 ML ONE (15:06)
[2018-10-18] MEDS: HumaLOG 300 UNITS/3 ML VIAL SC PRN ×2 (17:41→21:46)
[2018-10-18] MEDS: Mirtazapine 15 MG TAB PO SCH (21:37)
[2018-10-18] MEDS: traZODone HCl 50 MG TAB PO SCH (21:38)
[2018-10-18] MEDS: Atorvastatin Calcium 10 MG TAB PO SCH (21:38)
[2018-10-19] MEDS: AZELASTINE NS SCH ×3 (01:21→22:04)
[2018-10-19] MEDS: Mometasone/Formoterol 60 PUFF AER INH SCH ×2 (06:14→17:17)
[2018-10-19] MEDS: metroNIDAZOLE 500 MG/100 ML BAG IVPB SCH ×3 (06:34→22:03)
[2018-10-19] MEDS: Albuterol Sulfate 2.5 mg/3 ml Neb NEB SCH ×3 (10:44→20:38)
[2018-10-19] MEDS: Potassium Chloride 20 MEQ TAB PO SCH (10:44)
[2018-10-19] MEDS: Apixaban 5 MG TAB PO SCH ×2 (10:45→20:34)
[2018-10-19] MEDS: Cyanocobalamin (Vitamin B-12) 1,000 MCG TAB PO SCH (10:46)
[2018-10-19] MEDS: Fish Oil 1,000 MG CAP PO SCH ×2 (10:46→20:34)
[2018-10-19] MEDS: DULoxetine 30 MG CAP PO SCH (10:46)
[2018-10-19] MEDS: Aspirin 81 mg Enteric Coated Tablet PO SCH (10:46)
[2018-10-19] MEDS: Furosemide 40 MG TAB PO SCH ×2 (10:46→20:35)
[2018-10-19] MEDS: Estradiol 1 MG TAB PO SCH (10:46)
[2018-10-19] MEDS: Famotidine 20 MG TAB PO SCH ×2 (10:46→20:35)
[2018-10-19] MEDS: Meloxicam 7.5 MG TAB PO SCH (10:47)
[2018-10-19] MEDS: Losartan Potassium 50 MG TAB PO SCH (10:47)
[2018-10-19] MEDS: Loratadine 10 MG TAB PO SCH (10:47)
[2018-10-19] MEDS: Lantus 1000 UNITS/10 ML VIAL SC SCH ×2 (10:47→22:03)
[2018-10-19] MEDS: Hydrocortisone Acetate 25 MG Suppository PR SCH ×3 (10:47→20:35)
[2018-10-19] MEDS: Multivitamin W/ Minerals 1 TAB PO SCH (10:48)
[2018-10-19] MEDS: Pantoprazole 40 MG GRANULES PACKET PO SCH (10:48)
[2018-10-19] MEDS: Pregabalin 75 MG CAP PO SCH ×2 (10:48→20:27)
[2018-10-19] MEDS: Nystatin Cream 15 GM TUBE TOP SCH ×2 (10:48→22:02)
[2018-10-19] MEDS: Saccharomyces boulardii 250 MG CAP PO SCH (10:49)
[2018-10-19] MEDS: Vancomycin HCl 25 MG/ML Oral PO SCH ×4 (10:49→20:34)
[2018-10-19] MEDS: HumaLOG 300 UNITS/3 ML VIAL SC PRN ×2 (17:16→22:03)
[2018-10-19] MEDS: traZODone HCl 50 MG TAB PO SCH (20:34)
[2018-10-19] MEDS: Atorvastatin Calcium 10 MG TAB PO SCH (20:34)
[2018-10-19] MEDS: guaiFENesin ER 600 MG TAB PO SCH (20:35)
[2018-10-19] MEDS: Mirtazapine 15 MG TAB PO SCH (20:36)
[2018-10-20] MEDS: Mometasone/Formoterol 60 PUFF AER INH SCH ×2 (05:31→18:08)
[2018-10-20] MEDS: metroNIDAZOLE 500 MG/100 ML BAG IVPB SCH ×3 (05:34→21:10)
[2018-10-20] MEDS: Lantus 1000 UNITS/10 ML VIAL SC SCH ×2 (09:02→21:42)
[2018-10-20] MEDS: Vancomycin HCl 25 MG/ML Oral PO SCH ×4 (09:03→21:07)
[2018-10-20] MEDS: Saccharomyces boulardii 250 MG CAP PO SCH (09:05)
[2018-10-20] MEDS: Aspirin 81 mg Enteric Coated Tablet PO SCH (09:05)
[2018-10-20] MEDS: DULoxetine 30 MG CAP PO SCH (09:05)
[2018-10-20] MEDS: Multivitamin W/ Minerals 1 TAB PO SCH (09:06)
[2018-10-20] MEDS: Loratadine 10 MG TAB PO SCH (09:06)
[2018-10-20] MEDS: Fish Oil 1,000 MG CAP PO SCH ×2 (09:06→21:10)
[2018-10-20] MEDS: Cyanocobalamin (Vitamin B-12) 1,000 MCG TAB PO SCH (09:06)
[2018-10-20] MEDS: Losartan Potassium 50 MG TAB PO SCH (09:07)
[2018-10-20] MEDS: guaiFENesin ER 600 MG TAB PO SCH ×2 (09:07→21:10)
[2018-10-20] MEDS: Furosemide 40 MG TAB PO SCH ×2 (09:07→21:10)
[2018-10-20] MEDS: Famotidine 20 MG TAB PO SCH ×2 (09:08→21:10)
[2018-10-20] MEDS: Potassium Chloride 20 MEQ TAB PO SCH (09:08)
[2018-10-20] MEDS: Apixaban 5 MG TAB PO SCH ×2 (09:09→21:10)
[2018-10-20] MEDS: Estradiol 1 MG TAB PO SCH (09:09)
[2018-10-20] MEDS: Albuterol Sulfate 2.5 mg/3 ml Neb NEB SCH ×3 (09:10→21:04)
[2018-10-20] MEDS: Pregabalin 75 MG CAP PO SCH ×2 (09:18→21:08)
[2018-10-20] MEDS: Meloxicam 7.5 MG TAB PO SCH (09:19)
[2018-10-20] MEDS: Hydrocortisone Acetate 25 MG Suppository PR SCH ×3 (09:20→21:12)
[2018-10-20] MEDS: AZELASTINE NS SCH ×2 (09:21→21:11)
[2018-10-20] MEDS: Nystatin Cream 15 GM TUBE TOP SCH ×2 (09:22→21:12)
[2018-10-20] MEDS: Pantoprazole 40 MG GRANULES PACKET PO SCH (09:23)
[2018-10-20] MEDS: HumaLOG 300 UNITS/3 ML VIAL SC PRN ×3 (12:08→21:42)
[2018-10-20] MEDS: Mirtazapine 15 MG TAB PO SCH (21:08)
[2018-10-20] MEDS: traZODone HCl 50 MG TAB PO SCH (21:10)
[2018-10-20] MEDS: Atorvastatin Calcium 10 MG TAB PO SCH (21:10)
[2018-10-21] MEDS: metroNIDAZOLE 500 MG/100 ML BAG IVPB SCH (05:16)
[2018-10-21] MEDS: Mometasone/Formoterol 60 PUFF AER INH SCH ×2 (05:16→18:45)
[2018-10-21 05:23] LABS: ALT (SGPT) 16 U/L (8-55); AST (SGOT) 15 U/L (5-34); Albumin 2.4 g/dL (3.4-4.8); Alkaline Phosphatase 101 U/L (40-150); Anion Gap 11 mmol/L (10-20); BUN (Urea Nitrogen) 19 mg/dL (9.8-20.1); Bilirubin, Total 0.3 mg/dL (0.2-1.2); Calc. Creatinine Clearance 62 mL/min (70-130); Calcium 7.9 mg/dL (7.8-10.44); Carbon Dioxide 33 mmol/L (23-31); Chloride 103 mmol/L (98-107); Estimated GFR-MDRD 53; Globulin 2.5 g/dL (2.4-3.5); Glucose 179 mg/dL (83-110); Potassium 3.9 mmol/L (3.5-5.1); Protein, Total 4.9 g/dL (6.0-8.3); Sodium 143 mmol/L (136-145)
[2018-10-21 05:52] LABS: #Eosinphils 0.2 thou/uL (0.0-0.7); #Monocytes 0.5 thou/uL (0.11-0.59); %Basophils 0.5 % (0.0-1.0); %Eosinophils 2.3 % (0.0-10.0); %Lymphocytes 13.3 % (21.0-51.0); %Monocytes 6.9 % (0.0-10.0); %Neutrophils 76.9 % (42.0-75.0); Anisocytosis SLIGHT = 6-15 cells (100X) (0-5/hpf); Basophilic Stippling SLIGHT = 1-2 cells (100X) (None Seen); Hemoglobin 8.2 g/dL (12.0-16.0); MDiff Complete? YES; Mean Corpuscular HGB CONC 30.2 g/dL (32.0-36.0); Mean Corpuscular Hemoglobin 24.9 pg (27.0-31.0); Mean Corpuscular Volume 82.4 fL (78.0-98.0); Mean Platelet Volume 8.5 fL (7.4-10.4); Platelet Count 156 thou/uL (130-400); Platelet Morphology Comment Appears Adequate; RBC Distribution Width 20.8 % (11.5-14.5); White Blood Cell (WBC) Count 7.8 thou/uL (4.8-10.8)
[2018-10-21] MEDS: Vancomycin HCl 25 MG/ML Oral PO SCH ×4 (09:06→20:34)
[2018-10-21] MEDS: Lantus 1000 UNITS/10 ML VIAL SC SCH ×2 (09:07→20:32)
[2018-10-21] MEDS: HumaLOG 300 UNITS/3 ML VIAL SC PRN ×4 (09:07→20:33)
[2018-10-21] MEDS: Albuterol Sulfate 2.5 mg/3 ml Neb NEB SCH ×3 (09:09→20:40)
[2018-10-21] MEDS: Estradiol 1 MG TAB PO SCH (09:15)
[2018-10-21] MEDS: Metolazone 5 MG TAB PO SCH (09:16)
[2018-10-21] MEDS: Aspirin 81 mg Enteric Coated Tablet PO SCH (09:16)
[2018-10-21] MEDS: Apixaban 5 MG TAB PO SCH ×2 (09:16→20:38)
[2018-10-21] MEDS: Meloxicam 7.5 MG TAB PO SCH (09:17)
[2018-10-21] MEDS: Loratadine 10 MG TAB PO SCH (09:17)
[2018-10-21] MEDS: Cyanocobalamin (Vitamin B-12) 1,000 MCG TAB PO SCH (09:17)
[2018-10-21] MEDS: Pantoprazole 40 MG GRANULES PACKET PO SCH (09:17)
[2018-10-21] MEDS: Famotidine 20 MG TAB PO SCH ×2 (09:17→20:39)
[2018-10-21] MEDS: DULoxetine 30 MG CAP PO SCH (09:17)
[2018-10-21] MEDS: guaiFENesin ER 600 MG TAB PO SCH ×2 (09:18→20:39)
[2018-10-21] MEDS: Potassium Chloride 20 MEQ TAB PO SCH (09:18)
[2018-10-21] MEDS: metroNIDAZOLE 250 MG TAB PO SCH ×3 (09:18→20:38)
[2018-10-21] MEDS: Furosemide 40 MG TAB PO SCH ×2 (09:19→20:39)
[2018-10-21] MEDS: Fish Oil 1,000 MG CAP PO SCH ×2 (09:19→20:39)
[2018-10-21] MEDS: Multivitamin W/ Minerals 1 TAB PO SCH (09:19)
[2018-10-21] MEDS: Pregabalin 75 MG CAP PO SCH ×2 (09:19→20:35)
[2018-10-21] MEDS: Saccharomyces boulardii 250 MG CAP PO SCH (09:19)
[2018-10-21] MEDS: Nystatin Cream 15 GM TUBE TOP SCH ×2 (09:20→20:43)
[2018-10-21] MEDS: AZELASTINE NS SCH ×2 (12:27→20:40)
[2018-10-21] MEDS: Hydrocortisone Acetate 25 MG Suppository PR SCH ×3 (12:28→22:07)
[2018-10-21] MEDS: traZODone HCl 50 MG TAB PO SCH (20:37)
[2018-10-21] MEDS: Atorvastatin Calcium 10 MG TAB PO SCH (20:38)
[2018-10-21] MEDS: Mirtazapine 15 MG TAB PO SCH (20:39)
[2018-10-22] MEDS: Mometasone/Formoterol 60 PUFF AER INH SCH ×2 (05:49→19:14)
[2018-10-22] MEDS: Albuterol Sulfate 2.5 mg/3 ml Neb NEB SCH ×3 (10:19→20:22)
[2018-10-22] MEDS: Vancomycin HCl 25 MG/ML Oral PO SCH ×4 (10:22→20:17)
[2018-10-22] MEDS: Pantoprazole 40 MG GRANULES PACKET PO SCH (10:23)
[2018-10-22] MEDS: Lantus 1000 UNITS/10 ML VIAL SC SCH ×2 (10:24→20:24)
[2018-10-22] MEDS: Estradiol 1 MG TAB PO SCH (10:33)
[2018-10-22] MEDS: Potassium Chloride 20 MEQ TAB PO SCH (10:34)
[2018-10-22] MEDS: Famotidine 20 MG TAB PO SCH ×2 (10:34→20:13)
[2018-10-22] MEDS: Multivitamin W/ Minerals 1 TAB PO SCH (10:34)
[2018-10-22] MEDS: Pregabalin 75 MG CAP PO SCH ×2 (10:35→20:13)
[2018-10-22] MEDS: Aspirin 81 mg Enteric Coated Tablet PO SCH (10:36)
[2018-10-22] MEDS: DULoxetine 30 MG CAP PO SCH (10:36)
[2018-10-22] MEDS: Apixaban 5 MG TAB PO SCH ×2 (10:37→20:17)
[2018-10-22] MEDS: metroNIDAZOLE 250 MG TAB PO SCH ×3 (10:37→20:16)
[2018-10-22] MEDS: Meloxicam 7.5 MG TAB PO SCH (10:38)
[2018-10-22] MEDS: Fish Oil 1,000 MG CAP PO SCH ×2 (10:38→20:12)
[2018-10-22] MEDS: Loratadine 10 MG TAB PO SCH (10:38)
[2018-10-22] MEDS: guaiFENesin ER 600 MG TAB PO SCH ×2 (10:38→21:29)
[2018-10-22] MEDS: Furosemide 40 MG TAB PO SCH (10:38)
[2018-10-22] MEDS: Saccharomyces boulardii 250 MG CAP PO SCH (10:38)
[2018-10-22] MEDS: Cyanocobalamin (Vitamin B-12) 1,000 MCG TAB PO SCH (10:38)
[2018-10-22] MEDS: Nystatin Cream 15 GM TUBE TOP SCH ×2 (10:39→20:19)
[2018-10-22] MEDS: Hydrocortisone Acetate 25 MG Suppository PR SCH ×3 (10:39→20:20)
[2018-10-22] MEDS: AZELASTINE NS SCH ×2 (10:40→20:24)
[2018-10-22] MEDS: HumaLOG 300 UNITS/3 ML VIAL SC PRN ×3 (14:07→20:26)
[2018-10-22] MEDS ORDERED: Furosemide 40 MG TAB PO SCH (19:30)
[2018-10-22] MEDS: Atorvastatin Calcium 10 MG TAB PO SCH (20:13)
[2018-10-22] MEDS: Mirtazapine 15 MG TAB PO SCH (20:16)
[2018-10-22] MEDS: traZODone HCl 50 MG TAB PO SCH (20:18)
[2018-10-23] MEDS: Mometasone/Formoterol 60 PUFF AER INH SCH ×3 (06:22→21:24)
[2018-10-23] MEDS: HumaLOG 300 UNITS/3 ML VIAL SC PRN ×4 (09:31→21:28)
[2018-10-23] MEDS: Lantus 1000 UNITS/10 ML VIAL SC SCH ×2 (09:31→21:28)
[2018-10-23] MEDS: Albuterol Sulfate 2.5 mg/3 ml Neb NEB SCH ×3 (09:33→21:35)
[2018-10-23] MEDS: Vancomycin HCl 25 MG/ML Oral PO SCH ×4 (09:35→21:27)
[2018-10-23] MEDS: Famotidine 20 MG TAB PO SCH ×2 (09:37→21:34)
[2018-10-23] MEDS: DULoxetine 30 MG CAP PO SCH (09:37)
[2018-10-23] MEDS: Cyanocobalamin (Vitamin B-12) 1,000 MCG TAB PO SCH (09:37)
[2018-10-23] MEDS: Meloxicam 7.5 MG TAB PO SCH (09:37)
[2018-10-23] MEDS: Estradiol 1 MG TAB PO SCH (09:38)
[2018-10-23] MEDS: Saccharomyces boulardii 250 MG CAP PO SCH (09:38)
[2018-10-23] MEDS: Pregabalin 75 MG CAP PO SCH ×2 (09:40→21:30)
[2018-10-23] MEDS: Loratadine 10 MG TAB PO SCH (09:41)
[2018-10-23] MEDS: Aspirin 81 mg Enteric Coated Tablet PO SCH (09:41)
[2018-10-23] MEDS: Fish Oil 1,000 MG CAP PO SCH ×2 (09:41→21:33)
[2018-10-23] MEDS: Potassium Chloride 20 MEQ TAB PO SCH (09:41)
[2018-10-23] MEDS: Pantoprazole 40 MG GRANULES PACKET PO SCH (09:42)
[2018-10-23] MEDS: Furosemide 40 MG TAB PO SCH ×2 (09:42→13:27)
[2018-10-23] MEDS: Multivitamin W/ Minerals 1 TAB PO SCH (09:42)
[2018-10-23] MEDS: guaiFENesin ER 600 MG TAB PO SCH ×2 (09:42→21:34)
[2018-10-23] MEDS: Apixaban 5 MG TAB PO SCH ×2 (09:42→21:34)
[2018-10-23] MEDS: metroNIDAZOLE 250 MG TAB PO SCH ×3 (09:42→21:34)
[2018-10-23] MEDS: AZELASTINE NS SCH ×2 (09:43→21:35)
[2018-10-23] MEDS: Hydrocortisone Acetate 25 MG Suppository PR SCH ×3 (09:43→21:37)
[2018-10-23] MEDS: Nystatin Cream 15 GM TUBE TOP SCH ×2 (09:43→21:29)
[2018-10-23] MEDS: Mirtazapine 15 MG TAB PO SCH (21:32)
[2018-10-23] MEDS: traZODone HCl 50 MG TAB PO SCH (21:32)
[2018-10-23] MEDS: Atorvastatin Calcium 10 MG TAB PO SCH (21:33)
[2018-10-24 05:33] LABS: ALT (SGPT) 11 U/L (8-55); AST (SGOT) 12 U/L (5-34); Albumin 2.2 g/dL (3.4-4.8); Alkaline Phosphatase 87 U/L (40-150); Anion Gap 11 mmol/L (10-20); Bilirubin, Total 0.3 mg/dL (0.2-1.2); Calc. Creatinine Clearance 42 mL/min (70-130); Calcium 8.2 mg/dL (7.8-10.44); Carbon Dioxide 36 mmol/L (23-31); Chloride 97 mmol/L (98-107); Estimated GFR-MDRD 34; Globulin 2.4 g/dL (2.4-3.5); Glucose 196 mg/dL (83-110); Potassium 3.9 mmol/L (3.5-5.1); Protein, Total 4.6 g/dL (6.0-8.3); Sodium 140 mmol/L (136-145)
[2018-10-24 05:41] LABS: BUN (Urea Nitrogen) 24 mg/dL (9.8-20.1)
[2018-10-24 05:48] LABS: Anisocytosis SLIGHT = 6-15 cells (100X) (0-5/hpf); Band 1 % (5-11); Eosinophils 1 % (0-10); Hemoglobin 6.5 g/dL (12.0-16.0); Hypochromia SLIGHT = 6-15 cells (100X) (0-5/hpf); Lymphocytes 15 % (21-51); MDiff Complete? YES; Mean Corpuscular Hemoglobin 25.8 pg (27.0-31.0); Mean Corpuscular Volume 80.7 fL (78.0-98.0); Mean Platelet Volume 9.4 fL (7.4-10.4); Monocytes 10 % (0-10); Neutrophil 73 % (42-75); Platelet Count 120 thou/uL (130-400); Platelet Morphology Comment Appears Decreased; Polychromasia SLIGHT = 2-3 cells (100X) (0-2/hpf); RBC Distribution Width 21.2 % (11.5-14.5); Red Blood Cell (RBC) Count 2.53 mill/uL (4.20-5.40); White Blood Cell (WBC) Count 5.9 thou/uL (4.8-10.8)
[2018-10-24] MEDS: Mometasone/Formoterol 60 PUFF AER INH SCH ×2 (06:21→18:01)
[2018-10-24] MEDS ORDERED: Sodium Chloride 0.9% 10 ML ONE ×2 (08:09→12:05)
[2018-10-24] MEDS: HumaLOG 300 UNITS/3 ML VIAL SC PRN ×4 (08:45→21:15)
[2018-10-24] MEDS: Metolazone 5 MG TAB PO SCH (08:46)
[2018-10-24] MEDS: Potassium Chloride 20 MEQ TAB PO SCH (08:46)
[2018-10-24] MEDS: Vancomycin HCl 25 MG/ML Oral PO SCH ×4 (09:27→21:15)
[2018-10-24] MEDS: Pantoprazole 40 MG GRANULES PACKET PO SCH (09:28)
[2018-10-24] MEDS: Albuterol Sulfate 2.5 mg/3 ml Neb NEB SCH ×3 (09:29→21:17)
[2018-10-24] MEDS: Lantus 1000 UNITS/10 ML VIAL SC SCH ×2 (09:29→21:14)
[2018-10-24] MEDS: Multivitamin W/ Minerals 1 TAB PO SCH (09:30)
[2018-10-24] MEDS: Saccharomyces boulardii 250 MG CAP PO SCH (09:30)
[2018-10-24] MEDS: Loratadine 10 MG TAB PO SCH (09:30)
[2018-10-24] MEDS: Pregabalin 75 MG CAP PO SCH ×2 (09:30→21:20)
[2018-10-24] MEDS: DULoxetine 30 MG CAP PO SCH (09:31)
[2018-10-24] MEDS: Fish Oil 1,000 MG CAP PO SCH ×2 (09:31→21:22)
[2018-10-24] MEDS: Meloxicam 7.5 MG TAB PO SCH (09:32)
[2018-10-24] MEDS: metroNIDAZOLE 250 MG TAB PO SCH ×3 (09:32→21:21)
[2018-10-24] MEDS: Estradiol 1 MG TAB PO SCH (09:32)
[2018-10-24] MEDS: Aspirin 81 mg Enteric Coated Tablet PO SCH (09:32)
[2018-10-24] MEDS: Apixaban 5 MG TAB PO SCH ×2 (09:32→21:22)
[2018-10-24] MEDS: Furosemide 40 MG TAB PO SCH ×2 (09:33→14:06)
[2018-10-24] MEDS: guaiFENesin ER 600 MG TAB PO SCH ×2 (09:33→21:22)
[2018-10-24] MEDS: Cyanocobalamin (Vitamin B-12) 1,000 MCG TAB PO SCH (09:33)
[2018-10-24] MEDS: AZELASTINE NS SCH ×2 (09:33→21:23)
[2018-10-24] MEDS: Famotidine 20 MG TAB PO SCH ×2 (09:33→21:22)
[2018-10-24] MEDS: Nystatin Cream 15 GM TUBE TOP SCH ×2 (09:34→21:23)
[2018-10-24] MEDS: Hydrocortisone Acetate 25 MG Suppository PR SCH ×3 (09:34→21:23)
[2018-10-24] MEDS: traZODone HCl 50 MG TAB PO SCH (21:21)
[2018-10-24] MEDS: Mirtazapine 15 MG TAB PO SCH (21:22)
[2018-10-24] MEDS: Atorvastatin Calcium 10 MG TAB PO SCH (21:22)
[2018-10-25 06:16] LABS: Anion Gap 14 mmol/L (10-20); BUN (Urea Nitrogen) 22 mg/dL (9.8-20.1); Calc. Creatinine Clearance 57 mL/min (70-130); Calcium 8.4 mg/dL (7.8-10.44); Carbon Dioxide 33 mmol/L (23-31); Chloride 96 mmol/L (98-107); Estimated GFR-MDRD 48; Glucose 175 mg/dL (83-110); Potassium 3.7 mmol/L (3.5-5.1); Sodium 139 mmol/L (136-145)
[2018-10-25 06:35] LABS: #Basophils 0.1 thou/uL (0.0-0.2); #Eosinphils 0.2 thou/uL (0.0-0.7); #Lymphocytes 1.1 thou/uL (1.20-3.40); #Monocytes 0.7 thou/uL (0.11-0.59); #Neutrophils 5.3 thou/uL (1.40-6.50); %Basophils 1.4 % (0.0-1.0); %Eosinophils 2.4 % (0.0-10.0); %Lymphocytes 15.3 % (21.0-51.0); %Monocytes 8.9 % (0.0-10.0); Anisocytosis SLIGHT = 6-15 cells (100X) (0-5/hpf); Hemoglobin 9.6 g/dL (12.0-16.0); MDiff Complete? YES; Mean Corpuscular HGB CONC 33.4 g/dL (32.0-36.0); Mean Corpuscular Hemoglobin 27.9 pg (27.0-31.0); Mean Corpuscular Volume 83.5 fL (78.0-98.0); Mean Platelet Volume 8.8 fL (7.4-10.4); Platelet Count 108 thou/uL (130-400); Platelet Morphology Comment Appears Decreased; RBC Distribution Width 19.2 % (11.5-14.5); Red Blood Cell (RBC) Count 3.44 mill/uL (4.20-5.40); White Blood Cell (WBC) Count 7.4 thou/uL (4.8-10.8)
[2018-10-25] MEDS: Vancomycin HCl 25 MG/ML Oral PO SCH (08:37)
[2018-10-25] MEDS: Lantus 1000 UNITS/10 ML VIAL SC SCH ×2 (08:39→20:36)
[2018-10-25] MEDS: HumaLOG 300 UNITS/3 ML VIAL SC PRN ×4 (08:39→20:36)
[2018-10-25] MEDS: Mometasone/Formoterol 60 PUFF AER INH SCH ×2 (08:41→20:42)
[2018-10-25] MEDS: Pregabalin 75 MG CAP PO SCH ×2 (08:46→20:43)
[2018-10-25] MEDS: Meloxicam 7.5 MG TAB PO SCH (08:48)
[2018-10-25] MEDS: Estradiol 1 MG TAB PO SCH (08:48)
[2018-10-25] MEDS: Saccharomyces boulardii 250 MG CAP PO SCH (08:49)
[2018-10-25] MEDS: Famotidine 20 MG TAB PO SCH ×2 (08:49→20:47)
[2018-10-25] MEDS: Fish Oil 1,000 MG CAP PO SCH ×2 (08:49→20:47)
[2018-10-25] MEDS: Loratadine 10 MG TAB PO SCH (08:50)
[2018-10-25] MEDS: Cyanocobalamin (Vitamin B-12) 1,000 MCG TAB PO SCH (08:50)
[2018-10-25] MEDS: guaiFENesin ER 600 MG TAB PO SCH ×2 (08:50→20:47)
[2018-10-25] MEDS: Apixaban 5 MG TAB PO SCH ×2 (08:50→20:47)
[2018-10-25] MEDS: Aspirin 81 mg Enteric Coated Tablet PO SCH (08:50)
[2018-10-25] MEDS: DULoxetine 30 MG CAP PO SCH (08:50)
[2018-10-25] MEDS: Potassium Chloride 20 MEQ TAB PO SCH (08:50)
[2018-10-25] MEDS: Multivitamin W/ Minerals 1 TAB PO SCH (08:51)
[2018-10-25] MEDS: Albuterol Sulfate 2.5 mg/3 ml Neb NEB SCH ×3 (08:51→20:48)
[2018-10-25] MEDS: Furosemide 40 MG TAB PO SCH ×2 (08:52→14:30)
[2018-10-25] MEDS: Hydrocortisone Acetate 25 MG Suppository PR SCH ×3 (08:52→20:51)
[2018-10-25] MEDS: AZELASTINE NS SCH ×2 (08:52→20:50)
[2018-10-25] MEDS: Nystatin Cream 15 GM TUBE TOP SCH ×2 (08:53→20:37)
[2018-10-25] MEDS: Pantoprazole 40 MG GRANULES PACKET PO SCH (08:54)
[2018-10-25] MEDS: traZODone HCl 50 MG TAB PO SCH (20:45)
[2018-10-25] MEDS: Atorvastatin Calcium 10 MG TAB PO SCH (20:45)
[2018-10-25] MEDS: Mirtazapine 15 MG TAB PO SCH (20:46)
[2018-10-26] MEDS: Mometasone/Formoterol 60 PUFF AER INH SCH ×2 (05:29→20:56)
[2018-10-26] MEDS: Lantus 1000 UNITS/10 ML VIAL SC SCH ×2 (07:54→21:00)
[2018-10-26] MEDS: Pregabalin 75 MG CAP PO SCH ×2 (08:03→20:50)
[2018-10-26] MEDS: Pantoprazole 40 MG GRANULES PACKET PO SCH (08:04)
[2018-10-26] MEDS: Famotidine 20 MG TAB PO SCH ×2 (08:04→21:01)
[2018-10-26] MEDS: Fish Oil 1,000 MG CAP PO SCH ×2 (08:05→20:52)
[2018-10-26] MEDS: Meloxicam 7.5 MG TAB PO SCH (08:05)
[2018-10-26] MEDS: Estradiol 1 MG TAB PO SCH (08:05)
[2018-10-26] MEDS: Aspirin 81 mg Enteric Coated Tablet PO SCH (08:05)
[2018-10-26] MEDS: Furosemide 40 MG TAB PO SCH ×2 (08:05→17:06)
[2018-10-26] MEDS: Cyanocobalamin (Vitamin B-12) 1,000 MCG TAB PO SCH (08:05)
[2018-10-26] MEDS: DULoxetine 30 MG CAP PO SCH (08:05)
[2018-10-26] MEDS: Saccharomyces boulardii 250 MG CAP PO SCH (08:05)
[2018-10-26] MEDS: Loratadine 10 MG TAB PO SCH (08:06)
[2018-10-26] MEDS: guaiFENesin ER 600 MG TAB PO SCH ×2 (08:06→20:52)
[2018-10-26] MEDS: Apixaban 5 MG TAB PO SCH ×2 (08:06→20:53)
[2018-10-26] MEDS: Multivitamin W/ Minerals 1 TAB PO SCH (08:06)
[2018-10-26] MEDS: Potassium Chloride 20 MEQ TAB PO SCH (08:07)
[2018-10-26] MEDS: Metolazone 5 MG TAB PO SCH (08:07)
[2018-10-26] MEDS: Albuterol Sulfate 2.5 mg/3 ml Neb NEB SCH ×3 (08:09→20:57)
[2018-10-26] MEDS: Hydrocortisone Acetate 25 MG Suppository PR SCH ×3 (08:11→21:00)
[2018-10-26] MEDS: Nystatin Cream 15 GM TUBE TOP SCH ×2 (08:11→21:01)
[2018-10-26] MEDS: AZELASTINE NS SCH ×2 (08:11→21:01)
[2018-10-26] MEDS: HumaLOG 300 UNITS/3 ML VIAL SC PRN ×3 (12:47→21:02)
[2018-10-26] MEDS: traZODone HCl 50 MG TAB PO SCH (20:52)
[2018-10-26] MEDS: Mirtazapine 15 MG TAB PO SCH (20:52)
[2018-10-26] MEDS: Atorvastatin Calcium 10 MG TAB PO SCH (20:52)
[2018-10-27] MEDS: Mometasone/Formoterol 60 PUFF AER INH SCH ×2 (06:29→17:37)
[2018-10-27] MEDS: Lantus 1000 UNITS/10 ML VIAL SC SCH ×2 (09:26→22:16)
[2018-10-27] MEDS: HumaLOG 300 UNITS/3 ML VIAL SC PRN ×4 (09:26→22:15)
[2018-10-27] MEDS: Nystatin Cream 15 GM TUBE TOP SCH ×2 (09:27→22:15)
[2018-10-27] MEDS: Saccharomyces boulardii 250 MG CAP PO SCH (09:29)
[2018-10-27] MEDS: DULoxetine 30 MG CAP PO SCH (09:29)
[2018-10-27] MEDS: Pantoprazole 40 MG GRANULES PACKET PO SCH (09:30)
[2018-10-27] MEDS: guaiFENesin ER 600 MG TAB PO SCH ×2 (09:30→22:12)
[2018-10-27] MEDS: Estradiol 1 MG TAB PO SCH (09:30)
[2018-10-27] MEDS: Multivitamin W/ Minerals 1 TAB PO SCH (09:32)
[2018-10-27] MEDS: Cyanocobalamin (Vitamin B-12) 1,000 MCG TAB PO SCH (09:32)
[2018-10-27] MEDS: Potassium Chloride 20 MEQ TAB PO SCH (09:32)
[2018-10-27] MEDS: Furosemide 40 MG TAB PO SCH ×2 (09:33→13:47)
[2018-10-27] MEDS: Loratadine 10 MG TAB PO SCH (09:33)
[2018-10-27] MEDS: Aspirin 81 mg Enteric Coated Tablet PO SCH (09:33)
[2018-10-27] MEDS: Fish Oil 1,000 MG CAP PO SCH ×2 (09:33→22:13)
[2018-10-27] MEDS: Famotidine 20 MG TAB PO SCH ×2 (09:33→22:12)
[2018-10-27] MEDS: Meloxicam 7.5 MG TAB PO SCH (09:34)
[2018-10-27] MEDS: Apixaban 5 MG TAB PO SCH ×2 (09:34→22:13)
[2018-10-27] MEDS: Pregabalin 75 MG CAP PO SCH ×2 (09:35→22:13)
[2018-10-27] MEDS: Albuterol Sulfate 2.5 mg/3 ml Neb NEB SCH ×3 (09:37→22:18)
[2018-10-27] MEDS: AZELASTINE NS SCH ×2 (10:29→22:18)
[2018-10-27] MEDS: Hydrocortisone Acetate 25 MG Suppository PR SCH ×3 (10:30→22:17)
[2018-10-27] MEDS: Mirtazapine 15 MG TAB PO SCH (22:12)
[2018-10-27] MEDS: Atorvastatin Calcium 10 MG TAB PO SCH (22:13)
[2018-10-27] MEDS: traZODone HCl 50 MG TAB PO SCH (22:14)
[2018-10-28] MEDS: Mometasone/Formoterol 60 PUFF AER INH SCH ×2 (06:34→18:26)
[2018-10-28] MEDS: Fish Oil 1,000 MG CAP PO SCH ×2 (08:57→21:23)
[2018-10-28] MEDS: Potassium Chloride 20 MEQ TAB PO SCH (08:57)
[2018-10-28] MEDS: Pregabalin 75 MG CAP PO SCH ×2 (08:57→21:23)
[2018-10-28] MEDS: Famotidine 20 MG TAB PO SCH ×2 (08:58→21:27)
[2018-10-28] MEDS: Multivitamin W/ Minerals 1 TAB PO SCH (08:58)
[2018-10-28] MEDS: Estradiol 1 MG TAB PO SCH (08:58)
[2018-10-28] MEDS: Aspirin 81 mg Enteric Coated Tablet PO SCH (08:58)
[2018-10-28] MEDS: Meloxicam 7.5 MG TAB PO SCH (08:59)
[2018-10-28] MEDS: Pantoprazole 40 MG GRANULES PACKET PO SCH (09:00)
[2018-10-28] MEDS: Apixaban 5 MG TAB PO SCH ×2 (09:00→21:27)
[2018-10-28] MEDS: DULoxetine 30 MG CAP PO SCH (09:00)
[2018-10-28] MEDS: Cyanocobalamin (Vitamin B-12) 1,000 MCG TAB PO SCH (09:00)
[2018-10-28] MEDS: guaiFENesin ER 600 MG TAB PO SCH ×2 (09:00→21:27)
[2018-10-28] MEDS: Loratadine 10 MG TAB PO SCH (09:00)
[2018-10-28] MEDS: Albuterol Sulfate 2.5 mg/3 ml Neb NEB SCH ×3 (09:00→21:19)
[2018-10-28] MEDS: Metolazone 5 MG TAB PO SCH (09:01)
[2018-10-28] MEDS: Saccharomyces boulardii 250 MG CAP PO SCH (09:01)
[2018-10-28] MEDS: AZELASTINE NS SCH ×2 (09:02→21:28)
[2018-10-28] MEDS: Hydrocortisone Acetate 25 MG Suppository PR SCH ×3 (09:03→21:28)
[2018-10-28] MEDS: Furosemide 40 MG TAB PO SCH ×2 (09:03→13:32)
[2018-10-28] MEDS: Lantus 1000 UNITS/10 ML VIAL SC SCH ×2 (09:04→21:14)
[2018-10-28] MEDS: Nystatin Cream 15 GM TUBE TOP SCH ×2 (09:16→21:53)
[2018-10-28] MEDS: HumaLOG 300 UNITS/3 ML VIAL SC PRN ×3 (12:59→21:14)
[2018-10-28] MEDS: traZODone HCl 50 MG TAB PO SCH (21:26)
[2018-10-28] MEDS: Mirtazapine 15 MG TAB PO SCH (21:27)
[2018-10-28] MEDS: Atorvastatin Calcium 10 MG TAB PO SCH (21:27)
[2018-10-29] MEDS: Mometasone/Formoterol 60 PUFF AER INH SCH ×2 (06:05→20:49)
[2018-10-29] MEDS: Fish Oil 1,000 MG CAP PO SCH ×2 (11:10→22:13)
[2018-10-29] MEDS: DULoxetine 30 MG CAP PO SCH (11:10)
[2018-10-29] MEDS: Albuterol Sulfate 2.5 mg/3 ml Neb NEB SCH ×3 (11:10→22:09)
[2018-10-29] MEDS: Estradiol 1 MG TAB PO SCH (11:11)
[2018-10-29] MEDS: Pregabalin 75 MG CAP PO SCH ×2 (11:12→22:11)
[2018-10-29] MEDS: Aspirin 81 mg Enteric Coated Tablet PO SCH (11:14)
[2018-10-29] MEDS: Apixaban 5 MG TAB PO SCH ×2 (11:15→22:12)
[2018-10-29] MEDS: guaiFENesin ER 600 MG TAB PO SCH ×2 (11:15→22:14)
[2018-10-29] MEDS: Cyanocobalamin (Vitamin B-12) 1,000 MCG TAB PO SCH (11:16)
[2018-10-29] MEDS: Famotidine 20 MG TAB PO SCH ×2 (11:16→22:13)
[2018-10-29] MEDS: Meloxicam 7.5 MG TAB PO SCH (11:17)
[2018-10-29] MEDS: Loratadine 10 MG TAB PO SCH (11:18)
[2018-10-29] MEDS: Saccharomyces boulardii 250 MG CAP PO SCH (11:18)
[2018-10-29] MEDS: Multivitamin W/ Minerals 1 TAB PO SCH (11:19)
[2018-10-29] MEDS: Furosemide 40 MG TAB PO SCH ×2 (11:20→15:14)
[2018-10-29] MEDS: Potassium Chloride 20 MEQ TAB PO SCH (11:20)
[2018-10-29] MEDS: Hydrocortisone Acetate 25 MG Suppository PR SCH ×3 (11:29→22:15)
[2018-10-29] MEDS: Lantus 1000 UNITS/10 ML VIAL SC SCH ×2 (11:30→22:18)
[2018-10-29] MEDS: Nystatin Cream 15 GM TUBE TOP SCH ×2 (11:31→22:08)
[2018-10-29] MEDS: Pantoprazole 40 MG GRANULES PACKET PO SCH (11:33)
[2018-10-29] MEDS: AZELASTINE NS SCH ×2 (11:42→22:15)
[2018-10-29] MEDS ORDERED: traMADol HCl 50 MG TAB PO PRN (15:53)
[2018-10-29] MEDS: Acetaminophen 325 MG TAB PO PRN (17:16)
[2018-10-29] MEDS: traZODone HCl 50 MG TAB PO SCH (22:13)
[2018-10-29] MEDS: Mirtazapine 15 MG TAB PO SCH (22:14)
[2018-10-29] MEDS: Atorvastatin Calcium 10 MG TAB PO SCH (22:14)
[2018-10-29] MEDS: HumaLOG 300 UNITS/3 ML VIAL SC PRN (22:19)
[2018-10-30] MEDS: Mometasone/Formoterol 60 PUFF AER INH SCH ×2 (06:21→18:17)
[2018-10-30] MEDS: Multivitamin W/ Minerals 1 TAB PO SCH (08:24)
[2018-10-30] MEDS: Saccharomyces boulardii 250 MG CAP PO SCH (08:24)
[2018-10-30] MEDS: DULoxetine 30 MG CAP PO SCH (08:24)
[2018-10-30] MEDS: Estradiol 1 MG TAB PO SCH (08:25)
[2018-10-30] MEDS: Aspirin 81 mg Enteric Coated Tablet PO SCH (08:25)
[2018-10-30] MEDS: Pregabalin 75 MG CAP PO SCH ×2 (08:26→22:05)
[2018-10-30] MEDS: Meloxicam 7.5 MG TAB PO SCH (08:27)
[2018-10-30] MEDS: guaiFENesin ER 600 MG TAB PO SCH ×2 (08:27→22:08)
[2018-10-30] MEDS: Cyanocobalamin (Vitamin B-12) 1,000 MCG TAB PO SCH (08:27)
[2018-10-30] MEDS: Fish Oil 1,000 MG CAP PO SCH ×2 (08:27→22:07)
[2018-10-30] MEDS: Furosemide 40 MG TAB PO SCH ×3 (08:28→14:28)
[2018-10-30] MEDS: Loratadine 10 MG TAB PO SCH (08:29)
[2018-10-30] MEDS: Potassium Chloride 20 MEQ TAB PO SCH (08:29)
[2018-10-30] MEDS: Pantoprazole 40 MG GRANULES PACKET PO SCH (08:29)
[2018-10-30] MEDS: Apixaban 5 MG TAB PO SCH ×2 (08:29→23:54)
[2018-10-30] MEDS: Famotidine 20 MG TAB PO SCH ×2 (08:29→22:08)
[2018-10-30] MEDS: Albuterol Sulfate 2.5 mg/3 ml Neb NEB SCH ×3 (08:30→22:13)
[2018-10-30] MEDS: AZELASTINE NS SCH ×2 (08:52→22:12)
[2018-10-30] MEDS: Hydrocortisone Acetate 25 MG Suppository PR SCH ×3 (08:53→22:11)
[2018-10-30] MEDS: Lantus 1000 UNITS/10 ML VIAL SC SCH ×2 (08:53→22:10)
[2018-10-30] MEDS: Nystatin Cream 15 GM TUBE TOP SCH ×2 (08:54→22:11)
[2018-10-30] MEDS: HumaLOG 300 UNITS/3 ML VIAL SC PRN ×3 (12:57→22:10)
[2018-10-30] MEDS: Acetaminophen 325 MG TAB PO PRN (14:28)
[2018-10-30] MEDS: Docusate 100 MG CAP PO PRN (14:35)
[2018-10-30] MEDS: traZODone HCl 50 MG TAB PO SCH (22:06)
[2018-10-30] MEDS: Mirtazapine 15 MG TAB PO SCH (22:07)
[2018-10-30] MEDS: Atorvastatin Calcium 10 MG TAB PO SCH (22:07)
[2018-10-31 05:29] LABS: ALT (SGPT) 12 U/L (8-55); AST (SGOT) 18 U/L (5-34); Albumin 2.4 g/dL (3.4-4.8); Alkaline Phosphatase 89 U/L (40-150); Anion Gap 16 mmol/L (10-20); BUN (Urea Nitrogen) 22 mg/dL (9.8-20.1); Bilirubin, Total 0.4 mg/dL (0.2-1.2); Calc. Creatinine Clearance 57 mL/min (70-130); Calcium 8.3 mg/dL (7.8-10.44); Carbon Dioxide 35 mmol/L (23-31); Estimated GFR-MDRD 48; Globulin 2.8 g/dL (2.4-3.5); Glucose 118 mg/dL (83-110); Protein, Total 5.2 g/dL (6.0-8.3)
[2018-10-31 05:33] LABS: Chloride 95 mmol/L (98-107); Potassium 3.2 mmol/L (3.5-5.1); Sodium 143 mmol/L (136-145)
[2018-10-31 05:42] LABS: #Eosinphils 0.1 thou/uL (0.0-0.7); #Lymphocytes 0.9 thou/uL (1.20-3.40); #Monocytes 0.4 thou/uL (0.11-0.59); #Neutrophils 4.2 thou/uL (1.40-6.50); %Basophils 0.8 % (0.0-1.0); %Eosinophils 1.5 % (0.0-10.0); %Lymphocytes 15.8 % (21.0-51.0); %Monocytes 6.4 % (0.0-10.0); %Neutrophils 75.5 % (42.0-75.0); Anisocytosis MODERATE=16-30 cells (100X) (0-5/hpf); Hemoglobin 7.4 g/dL (12.0-16.0); Hypochromia SLIGHT = 6-15 cells (100X) (0-5/hpf); MDiff Complete? YES; Mean Corpuscular HGB CONC 31.5 g/dL (32.0-36.0); Mean Corpuscular Hemoglobin 26.5 pg (27.0-31.0); Mean Corpuscular Volume 84.4 fL (78.0-98.0); Mean Platelet Volume 10.7 fL (7.4-10.4); Ovalocytes SLIGHT = 2-5 cells (100X) (0-1/hpf); Platelet Count 114 thou/uL (130-400); Platelet Morphology Comment Appears Decreased; Polychromasia SLIGHT = 2-3 cells (100X) (0-2/hpf); RBC Distribution Width 18.8 % (11.5-14.5); Red Blood Cell (RBC) Count 2.79 mill/uL (4.20-5.40); White Blood Cell (WBC) Count 5.6 thou/uL (4.8-10.8)
[2018-10-31] MEDS: Mometasone/Formoterol 60 PUFF AER INH SCH (06:36)
[2018-10-31] MEDS ORDERED: Potassium Chloride 20 MEQ TAB PO SCH (07:30)
[2018-10-31] MEDS: Lantus 1000 UNITS/10 ML VIAL SC SCH ×2 (08:58→22:36)
[2018-10-31] MEDS: Pregabalin 75 MG CAP PO SCH ×2 (08:59→22:32)
[2018-10-31] MEDS: Albuterol Sulfate 2.5 mg/3 ml Neb NEB SCH ×3 (08:59→22:34)
[2018-10-31] MEDS: DULoxetine 30 MG CAP PO SCH (09:00)
[2018-10-31] MEDS: guaiFENesin ER 600 MG TAB PO SCH ×2 (09:00→22:32)
[2018-10-31] MEDS: Fish Oil 1,000 MG CAP PO SCH ×2 (09:01→22:30)
[2018-10-31] MEDS: Saccharomyces boulardii 250 MG CAP PO SCH (09:01)
[2018-10-31] MEDS: Estradiol 1 MG TAB PO SCH (09:01)
[2018-10-31] MEDS: Potassium Chloride 20 MEQ TAB PO SCH (09:01)
[2018-10-31] MEDS: Multivitamin W/ Minerals 1 TAB PO SCH (09:02)
[2018-10-31] MEDS: Cyanocobalamin (Vitamin B-12) 1,000 MCG TAB PO SCH (09:02)
[2018-10-31] MEDS: Meloxicam 7.5 MG TAB PO SCH (09:02)
[2018-10-31] MEDS: Pantoprazole 40 MG GRANULES PACKET PO SCH (09:02)
[2018-10-31] MEDS: Famotidine 20 MG TAB PO SCH ×2 (09:03→22:31)
[2018-10-31] MEDS: Metolazone 5 MG TAB PO SCH (09:03)
[2018-10-31] MEDS: Aspirin 81 mg Enteric Coated Tablet PO SCH (09:04)
[2018-10-31] MEDS: Apixaban 5 MG TAB PO SCH ×2 (09:04→22:31)
[2018-10-31] MEDS: AZELASTINE NS SCH ×2 (09:04→22:37)
[2018-10-31] MEDS: Hydrocortisone Acetate 25 MG Suppository PR SCH ×3 (09:05→22:37)
[2018-10-31] MEDS: Loratadine 10 MG TAB PO SCH (09:06)
[2018-10-31] MEDS: Polyethylene Glycol 3350 17 GM Packet PO SCH (09:07)
[2018-10-31] MEDS: Nystatin Cream 15 GM TUBE TOP SCH ×2 (09:09→22:33)
[2018-10-31] MEDS: Furosemide 40 MG TAB PO SCH (13:44)
[2018-10-31] MEDS: Acetaminophen 325 MG TAB PO PRN (15:27)
[2018-10-31] MEDS: HumaLOG 300 UNITS/3 ML VIAL SC PRN (17:01)
[2018-10-31] MEDS: traZODone HCl 50 MG TAB PO SCH (22:30)
[2018-10-31] MEDS: Atorvastatin Calcium 10 MG TAB PO SCH (22:31)
[2018-10-31] MEDS: Mirtazapine 15 MG TAB PO SCH (22:32)
[2018-11-01 05:32] LABS: Anion Gap 13 mmol/L (10-20); BUN (Urea Nitrogen) 29 mg/dL (9.8-20.1); Calc. Creatinine Clearance 60 mL/min (70-130); Calcium 8.2 mg/dL (7.8-10.44); Carbon Dioxide 35 mmol/L (23-31); Chloride 96 mmol/L (98-107); Estimated GFR-MDRD 52; Glucose 133 mg/dL (83-110); Sodium 141 mmol/L (136-145)
[2018-11-01 05:37] LABS: #Basophils 0.1 thou/uL (0.0-0.2); #Eosinphils 0.1 thou/uL (0.0-0.7); #Monocytes 0.5 thou/uL (0.11-0.59); #Neutrophils 5.1 thou/uL (1.40-6.50); %Basophils 1.2 % (0.0-1.0); %Eosinophils 1.9 % (0.0-10.0); %Lymphocytes 14.8 % (21.0-51.0); %Monocytes 7.5 % (0.0-10.0); %Neutrophils 74.6 % (42.0-75.0); Anisocytosis SLIGHT = 6-15 cells (100X) (0-5/hpf); Hemoglobin 7.2 g/dL (12.0-16.0); Hypochromia SLIGHT = 6-15 cells (100X) (0-5/hpf); MDiff Complete? YES; Mean Corpuscular Hemoglobin 26.6 pg (27.0-31.0); Mean Corpuscular Volume 83.2 fL (78.0-98.0); Mean Platelet Volume 10.5 fL (7.4-10.4); Platelet Count 105 thou/uL (130-400); Platelet Morphology Comment Appears Decreased; Polychromasia SLIGHT = 2-3 cells (100X) (0-2/hpf); RBC Distribution Width 18.1 % (11.5-14.5); Red Blood Cell (RBC) Count 2.69 mill/uL (4.20-5.40); White Blood Cell (WBC) Count 6.8 thou/uL (4.8-10.8)
[2018-11-01] MEDS: Mometasone/Formoterol 60 PUFF AER INH SCH ×3 (06:15→18:01)
[2018-11-01] MEDS ORDERED: Potassium Chloride 20 MEQ TAB PO SCH (08:15)
[2018-11-01] MEDS: Cyanocobalamin (Vitamin B-12) 1,000 MCG TAB PO SCH (08:53)
[2018-11-01] MEDS: Pregabalin 75 MG CAP PO SCH ×2 (08:55→22:16)
[2018-11-01] MEDS: Furosemide 40 MG TAB PO SCH ×2 (08:57→13:21)
[2018-11-01] MEDS: Aspirin 81 mg Enteric Coated Tablet PO SCH (08:57)
[2018-11-01] MEDS: Saccharomyces boulardii 250 MG CAP PO SCH (08:57)
[2018-11-01] MEDS: Fish Oil 1,000 MG CAP PO SCH ×2 (08:58→22:19)
[2018-11-01] MEDS: Multivitamin W/ Minerals 1 TAB PO SCH (08:58)
[2018-11-01] MEDS: Albuterol Sulfate 2.5 mg/3 ml Neb NEB SCH ×3 (08:58→22:20)
[2018-11-01] MEDS: Loratadine 10 MG TAB PO SCH (08:58)
[2018-11-01] MEDS: guaiFENesin ER 600 MG TAB PO SCH ×2 (09:00→22:17)
[2018-11-01] MEDS: Lantus 1000 UNITS/10 ML VIAL SC SCH ×2 (09:00→22:21)
[2018-11-01] MEDS: Apixaban 5 MG TAB PO SCH ×2 (09:00→22:19)
[2018-11-01] MEDS: Famotidine 20 MG TAB PO SCH ×2 (09:00→22:19)
[2018-11-01] MEDS: Meloxicam 7.5 MG TAB PO SCH (09:00)
[2018-11-01] MEDS: DULoxetine 30 MG CAP PO SCH (09:00)
[2018-11-01] MEDS: AZELASTINE NS SCH ×2 (09:01→22:20)
[2018-11-01] MEDS: Nystatin Cream 15 GM TUBE TOP SCH ×2 (09:04→22:22)
[2018-11-01] MEDS: Hydrocortisone Acetate 25 MG Suppository PR SCH ×3 (09:04→22:21)
[2018-11-01] MEDS: Polyethylene Glycol 3350 17 GM Packet PO SCH (09:05)
[2018-11-01] MEDS: Pantoprazole 40 MG GRANULES PACKET PO SCH (09:05)
[2018-11-01] MEDS: Estradiol 1 MG TAB PO SCH (09:10)
[2018-11-01] MEDS: HumaLOG 300 UNITS/3 ML VIAL SC PRN ×3 (12:31→22:20)
[2018-11-01] MEDS: Potassium Chloride 20 MEQ TAB PO SCH (12:33)
[2018-11-01] MEDS: Acetaminophen 325 MG TAB PO PRN (13:22)
[2018-11-01] MEDS: Mirtazapine 15 MG TAB PO SCH (22:17)
[2018-11-01] MEDS: traZODone HCl 50 MG TAB PO SCH (22:18)
[2018-11-01] MEDS: Atorvastatin Calcium 10 MG TAB PO SCH (22:19)
[2018-11-02 05:17] LABS: Anion Gap 12 mmol/L (10-20); BUN (Urea Nitrogen) 32 mg/dL (9.8-20.1); Calc. Creatinine Clearance 60 mL/min (70-130); Calcium 8.1 mg/dL (7.8-10.44); Carbon Dioxide 35 mmol/L (23-31); Chloride 98 mmol/L (98-107); Estimated GFR-MDRD 52; Glucose 121 mg/dL (83-110); Sodium 142 mmol/L (136-145)
[2018-11-02] MEDS: Mometasone/Formoterol 60 PUFF AER INH SCH ×2 (06:02→18:27)
[2018-11-02 06:20] LABS: Potassium 2.8 mmol/L (3.5-5.1)
[2018-11-02 06:48] LABS: #Basophils 0.1 thou/uL (0.0-0.2); #Eosinphils 0.2 thou/uL (0.0-0.7); #Monocytes 0.5 thou/uL (0.11-0.59); #Neutrophils 4.7 thou/uL (1.40-6.50); %Eosinophils 2.5 % (0.0-10.0); %Lymphocytes 15.2 % (21.0-51.0); %Monocytes 8.3 % (0.0-10.0); %Neutrophils 72.9 % (42.0-75.0); Anisocytosis MODERATE=16-30 cells (100X) (0-5/hpf); Hemoglobin 6.6 g/dL (12.0-16.0); MDiff Complete? YES; Mean Corpuscular HGB CONC 30.7 g/dL (32.0-36.0); Mean Corpuscular Hemoglobin 25.5 pg (27.0-31.0); Mean Corpuscular Volume 82.9 fL (78.0-98.0); Mean Platelet Volume 11.1 fL (7.4-10.4); Platelet Count 117 thou/uL (130-400); Platelet Morphology Comment Appears Decreased; RBC Distribution Width 18.3 % (11.5-14.5); Red Blood Cell (RBC) Count 2.59 mill/uL (4.20-5.40); White Blood Cell (WBC) Count 6.5 thou/uL (4.8-10.8)
[2018-11-02] MEDS ORDERED: Potassium Chloride 20 MEQ TAB PO SCH (08:00)
[2018-11-02] MEDS: Polyethylene Glycol 3350 17 GM Packet PO SCH (08:57)
[2018-11-02] MEDS: Albuterol Sulfate 2.5 mg/3 ml Neb NEB SCH ×3 (08:57→21:33)
[2018-11-02] MEDS: DULoxetine 30 MG CAP PO SCH (08:58)
[2018-11-02] MEDS: Estradiol 1 MG TAB PO SCH (08:58)
[2018-11-02] MEDS: guaiFENesin ER 600 MG TAB PO SCH ×2 (08:59→21:26)
[2018-11-02] MEDS: Pantoprazole 40 MG GRANULES PACKET PO SCH (08:59)
[2018-11-02] MEDS: Apixaban 5 MG TAB PO SCH ×2 (08:59→21:25)
[2018-11-02] MEDS: Cyanocobalamin (Vitamin B-12) 1,000 MCG TAB PO SCH (08:59)
[2018-11-02] MEDS: Aspirin 81 mg Enteric Coated Tablet PO SCH (08:59)
[2018-11-02] MEDS: Saccharomyces boulardii 250 MG CAP PO SCH (09:00)
[2018-11-02] MEDS: Loratadine 10 MG TAB PO SCH (09:00)
[2018-11-02] MEDS: Metolazone 5 MG TAB PO SCH (09:00)
[2018-11-02] MEDS: Famotidine 20 MG TAB PO SCH ×2 (09:00→21:24)
[2018-11-02] MEDS: Furosemide 40 MG TAB PO SCH ×2 (09:00→14:02)
[2018-11-02] MEDS: Potassium Chloride 20 MEQ TAB PO SCH ×2 (09:00→21:27)
[2018-11-02] MEDS: Meloxicam 7.5 MG TAB PO SCH (09:00)
[2018-11-02] MEDS: Multivitamin W/ Minerals 1 TAB PO SCH (09:00)
[2018-11-02] MEDS: Fish Oil 1,000 MG CAP PO SCH ×2 (09:01→21:25)
[2018-11-02] MEDS: Pregabalin 75 MG CAP PO SCH ×2 (09:01→21:20)
[2018-11-02] MEDS: Lantus 1000 UNITS/10 ML VIAL SC SCH ×2 (09:02→21:36)
[2018-11-02] MEDS: AZELASTINE NS SCH ×2 (09:02→21:20)
[2018-11-02] MEDS: Hydrocortisone Acetate 25 MG Suppository PR SCH ×3 (09:03→21:26)
[2018-11-02] MEDS: Nystatin Cream 15 GM TUBE TOP SCH ×2 (09:07→21:24)
[2018-11-02] MEDS ORDERED: Sodium Chloride 0.9% 10 ML ONE ×2 (10:14→19:10)
[2018-11-02] MEDS ORDERED: Acetylcysteine 20% 200 MG/ML 30 ML VIAL INH SCH ×2 (13:00→14:00)
[2018-11-02] MEDS ORDERED: Acetylcysteine 10% 100 MG/ML (4ML VIAL) INH SCH (14:00)
[2018-11-02] MEDS: Ferrous Sulfate 325 MG TAB PO SCH (16:52)
[2018-11-02] MEDS: Docusate 100 MG CAP PO PRN (18:26)
[2018-11-02] MEDS: Acetylcysteine 10% 100 MG/ML (4ML VIAL) INH SCH (19:13)
[2018-11-02] MEDS: Atorvastatin Calcium 10 MG TAB PO SCH (21:25)
[2018-11-02] MEDS: Mirtazapine 15 MG TAB PO SCH (21:26)
[2018-11-02] MEDS: traZODone HCl 50 MG TAB PO SCH (21:28)
[2018-11-02] MEDS: HumaLOG 300 UNITS/3 ML VIAL SC PRN (21:36)
[2018-11-03] MEDS: Acetylcysteine 10% 100 MG/ML (4ML VIAL) INH SCH ×4 (01:00→18:42)
[2018-11-03 04:25] LABS: INR-International Normal Ratio 1.8; PTT 47.5 SEC (22.9-36.1)
[2018-11-03 04:26] LABS: ALT (SGPT) 14 U/L (8-55); AST (SGOT) 28 U/L (5-34); Albumin 2.5 g/dL (3.4-4.8); Alkaline Phosphatase 93 U/L (40-150); Anion Gap 12 mmol/L (10-20); BUN (Urea Nitrogen) 27 mg/dL (9.8-20.1); Bilirubin, Total 0.6 mg/dL (0.2-1.2); Calc. Creatinine Clearance 67 mL/min (70-130); Calcium 8.5 mg/dL (7.8-10.44); Carbon Dioxide 37 mmol/L (23-31); Chloride 98 mmol/L (98-107); Estimated GFR-MDRD 57; Globulin 2.9 g/dL (2.4-3.5); Glucose 65 mg/dL (83-110); Magnesium 1.5 mg/dL (1.6-2.6); Potassium 3.2 mmol/L (3.5-5.1); Protein, Total 5.4 g/dL (6.0-8.3); Sodium 144 mmol/L (136-145)
[2018-11-03 05:30] LABS: Anisocytosis SLIGHT = 6-15 cells (100X) (0-5/hpf); Basophilic Stippling SLIGHT = 1-2 cells (100X) (None Seen); Eosinophils 1 % (0-10); Hemoglobin 8.8 g/dL (12.0-16.0); Hypochromia SLIGHT = 6-15 cells (100X) (0-5/hpf); Lymphocytes 17 % (21-51); MDiff Complete? YES; Mean Corpuscular Hemoglobin 26.5 pg (27.0-31.0); Mean Corpuscular Volume 82.8 fL (78.0-98.0); Mean Platelet Volume 9.4 fL (7.4-10.4); Monocytes 5 % (0-10); Neutrophil 77 % (42-75); Ovalocytes SLIGHT = 2-5 cells (100X) (0-1/hpf); Platelet Count 130 thou/uL (130-400); Platelet Morphology Comment Appears Adequate; Polychromasia MODERATE = 3-4 cells (100X) (0-2/hpf); RBC Distribution Width 17.5 % (11.5-14.5); Red Blood Cell (RBC) Count 3.31 mill/uL (4.20-5.40); White Blood Cell (WBC) Count 8.6 thou/uL (4.8-10.8)
[2018-11-03 05:31] LABS: Reflex for Review?? YES
[2018-11-03] MEDS: Mometasone/Formoterol 60 PUFF AER INH SCH ×3 (06:13→21:56)
[2018-11-03] MEDS: Albuterol Sulfate 2.5 mg/3 ml Neb NEB SCH ×3 (10:10→21:49)
[2018-11-03] MEDS: Polyethylene Glycol 3350 17 GM Packet PO SCH (10:17)
[2018-11-03] MEDS: Nystatin Cream 15 GM TUBE TOP SCH ×2 (10:17→21:57)
[2018-11-03] MEDS: Lantus 1000 UNITS/10 ML VIAL SC SCH ×3 (10:18→22:05)
[2018-11-03] MEDS: Famotidine 20 MG TAB PO SCH ×2 (10:21→21:59)
[2018-11-03] MEDS: Saccharomyces boulardii 250 MG CAP PO SCH (10:21)
[2018-11-03] MEDS: Multivitamin W/ Minerals 1 TAB PO SCH (10:21)
[2018-11-03] MEDS: Aspirin 81 mg Enteric Coated Tablet PO SCH (10:21)
[2018-11-03] MEDS: DULoxetine 30 MG CAP PO SCH (10:22)
[2018-11-03] MEDS: Ferrous Sulfate 325 MG TAB PO SCH ×2 (10:22→15:36)
[2018-11-03] MEDS: Meloxicam 7.5 MG TAB PO SCH (10:22)
[2018-11-03] MEDS: Loratadine 10 MG TAB PO SCH (10:23)
[2018-11-03] MEDS: Potassium Chloride 20 MEQ TAB PO SCH ×2 (10:23→21:58)
[2018-11-03] MEDS: Estradiol 1 MG TAB PO SCH (10:23)
[2018-11-03] MEDS: Cyanocobalamin (Vitamin B-12) 1,000 MCG TAB PO SCH (10:23)
[2018-11-03] MEDS: guaiFENesin ER 600 MG TAB PO SCH ×2 (10:23→21:58)
[2018-11-03] MEDS: Fish Oil 1,000 MG CAP PO SCH ×2 (10:23→21:58)
[2018-11-03] MEDS: Furosemide 40 MG TAB PO SCH ×2 (10:25→14:34)
[2018-11-03] MEDS: Apixaban 5 MG TAB PO SCH ×2 (10:25→21:58)
[2018-11-03] MEDS: Pantoprazole 40 MG GRANULES PACKET PO SCH (10:26)
[2018-11-03] MEDS: Pregabalin 75 MG CAP PO SCH ×2 (10:46→22:00)
[2018-11-03] MEDS: AZELASTINE NS SCH (10:49)
[2018-11-03] MEDS: Hydrocortisone Acetate 25 MG Suppository PR SCH ×3 (10:49→23:57)
[2018-11-03 11:40] LABS: Reticulocyte Count 7.4 % (0.5-1.5)
[2018-11-03] MEDS: HumaLOG 300 UNITS/3 ML VIAL SC PRN (12:35)
[2018-11-03] MEDS: Mirtazapine 15 MG TAB PO SCH (21:58)
[2018-11-03] MEDS: traZODone HCl 50 MG TAB PO SCH (21:59)
[2018-11-03] MEDS: Atorvastatin Calcium 10 MG TAB PO SCH (22:00)
[2018-11-03] MEDS: Azelastine 137 MCG/Spray 30 ML NS SCH (23:56)
[2018-11-04] MEDS: Acetylcysteine 10% 100 MG/ML (4ML VIAL) INH SCH ×4 (00:50→18:43)
[2018-11-04] MEDS: Mometasone/Formoterol 60 PUFF AER INH SCH ×3 (06:33→21:43)
[2018-11-04] MEDS: Lantus 1000 UNITS/10 ML VIAL SC SCH ×2 (08:14→21:48)
[2018-11-04] MEDS: Furosemide 40 MG TAB PO SCH ×3 (08:15→14:36)
[2018-11-04] MEDS: HumaLOG 300 UNITS/3 ML VIAL SC PRN ×3 (08:16→21:49)
[2018-11-04] MEDS: Polyethylene Glycol 3350 17 GM Packet PO SCH (08:18)
[2018-11-04] MEDS: Albuterol Sulfate 2.5 mg/3 ml Neb NEB SCH ×3 (08:18→21:42)
[2018-11-04] MEDS: Meloxicam 7.5 MG TAB PO SCH (08:21)
[2018-11-04] MEDS: Multivitamin W/ Minerals 1 TAB PO SCH (08:22)
[2018-11-04] MEDS: Potassium Chloride 20 MEQ TAB PO SCH ×2 (08:22→21:46)
[2018-11-04] MEDS: Ferrous Sulfate 325 MG TAB PO SCH ×2 (08:22→16:24)
[2018-11-04] MEDS: Fish Oil 1,000 MG CAP PO SCH ×2 (08:22→21:43)
[2018-11-04] MEDS: guaiFENesin ER 600 MG TAB PO SCH ×2 (08:22→21:45)
[2018-11-04] MEDS: Famotidine 20 MG TAB PO SCH ×2 (08:31→21:46)
[2018-11-04] MEDS: Estradiol 1 MG TAB PO SCH (08:32)
[2018-11-04] MEDS: Saccharomyces boulardii 250 MG CAP PO SCH (08:32)
[2018-11-04] MEDS: Cyanocobalamin (Vitamin B-12) 1,000 MCG TAB PO SCH (08:32)
[2018-11-04] MEDS: DULoxetine 30 MG CAP PO SCH (08:33)
[2018-11-04] MEDS: Aspirin 81 mg Enteric Coated Tablet PO SCH (08:33)
[2018-11-04] MEDS: Loratadine 10 MG TAB PO SCH (08:34)
[2018-11-04] MEDS: Pregabalin 75 MG CAP PO SCH ×2 (08:34→21:40)
[2018-11-04] MEDS: Pantoprazole 40 MG GRANULES PACKET PO SCH (08:35)
[2018-11-04] MEDS: Nystatin Cream 15 GM TUBE TOP SCH ×2 (08:35→21:31)
[2018-11-04] MEDS: Hydrocortisone Acetate 25 MG Suppository PR SCH ×3 (08:36→21:49)
[2018-11-04] MEDS: Apixaban 5 MG TAB PO SCH (08:37)
[2018-11-04] MEDS: Azelastine 137 MCG/Spray 30 ML NS SCH ×2 (08:37→21:40)
[2018-11-04] MEDS: Acetaminophen 325 MG TAB PO PRN (14:36)
[2018-11-04] MEDS: Atorvastatin Calcium 10 MG TAB PO SCH (21:45)
[2018-11-04] MEDS: Mirtazapine 15 MG TAB PO SCH (21:47)
[2018-11-04] MEDS: traZODone HCl 50 MG TAB PO SCH (21:47)
[2018-11-05] MEDS: Acetylcysteine 10% 100 MG/ML (4ML VIAL) INH SCH ×5 (00:16→18:19)
[2018-11-05 06:04] LABS: ALT (SGPT) 16 U/L (8-55); AST (SGOT) 24 U/L (5-34); Albumin 2.5 g/dL (3.4-4.8); Alkaline Phosphatase 113 U/L (40-150); Anion Gap 13 mmol/L (10-20); BUN (Urea Nitrogen) 29 mg/dL (9.8-20.1); Bilirubin, Total 0.6 mg/dL (0.2-1.2); Calc. Creatinine Clearance 60 mL/min (70-130); Calcium 8.4 mg/dL (7.8-10.44); Carbon Dioxide 34 mmol/L (23-31); Chloride 98 mmol/L (98-107); Estimated GFR-MDRD 54; Globulin 2.9 g/dL (2.4-3.5); Glucose 153 mg/dL (83-110); Potassium 3.5 mmol/L (3.5-5.1); Protein, Total 5.4 g/dL (6.0-8.3); Sodium 141 mmol/L (136-145)
[2018-11-05 06:17] LABS: #Basophils 0.1 thou/uL (0.0-0.2); #Eosinphils 0.2 thou/uL (0.0-0.7); #Lymphocytes 1.5 thou/uL (1.20-3.40); #Monocytes 0.9 thou/uL (0.11-0.59); #Neutrophils 7.4 thou/uL (1.40-6.50); %Basophils 0.9 % (0.0-1.0); %Eosinophils 1.8 % (0.0-10.0); %Lymphocytes 15.3 % (21.0-51.0); %Monocytes 8.7 % (0.0-10.0); %Neutrophils 73.3 % (42.0-75.0); Anisocytosis SLIGHT = 6-15 cells (100X) (0-5/hpf); Basophilic Stippling SLIGHT = 1-2 cells (100X) (None Seen); Hemoglobin 8.2 g/dL (12.0-16.0); Hypochromia SLIGHT = 6-15 cells (100X) (0-5/hpf); MDiff Complete? YES; Mean Corpuscular HGB CONC 30.1 g/dL (32.0-36.0); Mean Platelet Volume 10.8 fL (7.4-10.4); Platelet Count 146 thou/uL (130-400); Platelet Morphology Comment Appears Decreased; RBC Distribution Width 17.8 % (11.5-14.5); Red Blood Cell (RBC) Count 3.29 mill/uL (4.20-5.40); White Blood Cell (WBC) Count 10.1 thou/uL (4.8-10.8)
[2018-11-05] MEDS: Ferrous Sulfate 325 MG TAB PO SCH ×2 (08:30→16:47)
[2018-11-05] MEDS: Mometasone/Formoterol 60 PUFF AER INH SCH ×3 (08:36→21:15)
[2018-11-05] MEDS ORDERED: DULoxetine 30 MG CAP PO SCH (10:30)
[2018-11-05] MEDS ORDERED: Pregabalin 75 MG CAP PO SCH (10:30)
[2018-11-05] MEDS: Saccharomyces boulardii 250 MG CAP PO SCH (10:40)
[2018-11-05] MEDS: Fish Oil 1,000 MG CAP PO SCH ×2 (10:40→21:21)
[2018-11-05] MEDS: Aspirin 81 mg Enteric Coated Tablet PO SCH (10:40)
[2018-11-05] MEDS: Meloxicam 7.5 MG TAB PO SCH (10:41)
[2018-11-05] MEDS: Potassium Chloride 20 MEQ TAB PO SCH ×2 (10:41→21:20)
[2018-11-05] MEDS: Multivitamin W/ Minerals 1 TAB PO SCH (10:41)
[2018-11-05] MEDS: Cyanocobalamin (Vitamin B-12) 1,000 MCG TAB PO SCH (10:41)
[2018-11-05] MEDS: Loratadine 10 MG TAB PO SCH (10:41)
[2018-11-05] MEDS: Furosemide 40 MG TAB PO SCH ×2 (10:42→14:25)
[2018-11-05] MEDS: guaiFENesin ER 600 MG TAB PO SCH ×2 (10:42→21:21)
[2018-11-05] MEDS: Pantoprazole 40 MG GRANULES PACKET PO SCH (10:45)
[2018-11-05] MEDS: Famotidine 20 MG TAB PO SCH ×2 (10:45→21:23)
[2018-11-05] MEDS: Azelastine 137 MCG/Spray 30 ML NS SCH ×2 (10:53→21:22)
[2018-11-05] MEDS: Estradiol 1 MG TAB PO SCH (10:54)
[2018-11-05] MEDS: Lantus 1000 UNITS/10 ML VIAL SC SCH ×2 (10:55→21:27)
[2018-11-05] MEDS: Polyethylene Glycol 3350 17 GM Packet PO SCH (10:58)
[2018-11-05] MEDS: Nystatin Cream 15 GM TUBE TOP SCH ×2 (10:58→21:27)
[2018-11-05] MEDS: Albuterol Sulfate 2.5 mg/3 ml Neb NEB SCH ×3 (11:11→21:16)
[2018-11-05] MEDS: Hydrocortisone Acetate 25 MG Suppository PR SCH ×3 (11:24→21:22)
[2018-11-05] MEDS: HumaLOG 300 UNITS/3 ML VIAL SC PRN ×2 (12:51→21:33)
[2018-11-05] MEDS: DULoxetine 30 MG CAP PO SCH (14:08)
[2018-11-05] MEDS: Pregabalin 75 MG CAP PO SCH ×2 (14:08→21:18)
[2018-11-05] MEDS: Atorvastatin Calcium 10 MG TAB PO SCH (21:21)
[2018-11-05] MEDS: Mirtazapine 15 MG TAB PO SCH (21:21)
[2018-11-05] MEDS: traZODone HCl 50 MG TAB PO SCH (21:23)
[2018-11-06] MEDS: Acetylcysteine 10% 100 MG/ML (4ML VIAL) INH SCH ×4 (05:15→18:48)
[2018-11-06] MEDS: Mometasone/Formoterol 60 PUFF AER INH SCH ×2 (09:46→21:21)
[2018-11-06] MEDS: Albuterol Sulfate 2.5 mg/3 ml Neb NEB SCH ×3 (09:50→21:13)
[2018-11-06] MEDS: Lantus 1000 UNITS/10 ML VIAL SC SCH (10:04)
[2018-11-06] MEDS: Pregabalin 75 MG CAP PO SCH ×2 (10:08→21:15)
[2018-11-06] MEDS: Estradiol 1 MG TAB PO SCH (10:09)
[2018-11-06] MEDS: Multivitamin W/ Minerals 1 TAB PO SCH (10:09)
[2018-11-06] MEDS: Fish Oil 1,000 MG CAP PO SCH ×2 (10:09→21:18)
[2018-11-06] MEDS: Meloxicam 7.5 MG TAB PO SCH (10:10)
[2018-11-06] MEDS: Famotidine 20 MG TAB PO SCH ×2 (10:11→21:18)
[2018-11-06] MEDS: Furosemide 40 MG TAB PO SCH ×2 (10:11→13:49)
[2018-11-06] MEDS: Pantoprazole 40 MG GRANULES PACKET PO SCH (10:11)
[2018-11-06] MEDS: Cyanocobalamin (Vitamin B-12) 1,000 MCG TAB PO SCH (10:12)
[2018-11-06] MEDS: guaiFENesin ER 600 MG TAB PO SCH ×2 (10:12→21:18)
[2018-11-06] MEDS: Potassium Chloride 20 MEQ TAB PO SCH ×2 (10:12→21:17)
[2018-11-06] MEDS: Ferrous Sulfate 325 MG TAB PO SCH ×2 (10:12→17:13)
[2018-11-06] MEDS: Aspirin 81 mg Enteric Coated Tablet PO SCH (10:13)
[2018-11-06] MEDS: Loratadine 10 MG TAB PO SCH (10:13)
[2018-11-06] MEDS: Hydrocortisone Acetate 25 MG Suppository PR SCH ×3 (10:13→21:19)
[2018-11-06] MEDS: Azelastine 137 MCG/Spray 30 ML NS SCH ×2 (10:14→21:20)
[2018-11-06] MEDS: Nystatin Cream 15 GM TUBE TOP SCH ×2 (10:14→21:13)
[2018-11-06] MEDS: Polyethylene Glycol 3350 17 GM Packet PO SCH (10:15)
[2018-11-06] MEDS: Saccharomyces boulardii 250 MG CAP PO SCH (10:15)
[2018-11-06] MEDS: DULoxetine 30 MG CAP PO SCH (11:41)
[2018-11-06] MEDS: HumaLOG 300 UNITS/3 ML VIAL SC PRN ×2 (13:50→21:10)
[2018-11-06] MEDS ORDERED: Lantus 1000 UNITS/10 ML VIAL SC SCH (21:00)
[2018-11-06] MEDS: traZODone HCl 50 MG TAB PO SCH (21:17)
[2018-11-06] MEDS: Atorvastatin Calcium 10 MG TAB PO SCH (21:17)
[2018-11-06] MEDS: Mirtazapine 15 MG TAB PO SCH (21:18)
[2018-11-07] MEDS: Acetylcysteine 10% 100 MG/ML (4ML VIAL) INH SCH ×2 (01:21→06:17)
[2018-11-07 05:24] VITALS: BMI 27.8
[2018-11-07 05:25] VITALS: BP 94/50; TEMP 98.8
[2018-11-07] MEDS: Albuterol Sulfate 2.5 mg/3 ml Neb NEB SCH (08:24)
[2018-11-07] MEDS: Mometasone/Formoterol 60 PUFF AER INH SCH (08:24)
[2018-11-07] MEDS: DULoxetine 30 MG CAP PO SCH (08:24)
[2018-11-07] MEDS: Pantoprazole 40 MG GRANULES PACKET PO SCH (08:24)
[2018-11-07] MEDS: Famotidine 20 MG TAB PO SCH (08:25)
[2018-11-07] MEDS: Pregabalin 75 MG CAP PO SCH (08:25)
--- NOTE | 2018-11-07 13:02 | DIS ---
DATE OF ADMISSION: 10/14/2018 DATE OF DISCHARGE: 11/07/2018 ADMISSION DIAGNOSES: 1. Status post tibial repair and footdrop of the right lower extremity. 2. Clostridium difficile colitis. 3. Atrial fibrillation. SECONDARY DIAGNOSES: 1. Oxygen-dependent chronic obstructive pulmonary disease. 2. Chronic combined congestive heart failure. 3. Hypertension. 4. Insulin-dependent diabetes mellitus. 5. Chronic kidney disease, stage 3. 6. Chronic anemia. PROCEDURES: None. HOSPITAL COURSE: A 73-year-old female, status post mechanical fall with resultant right tib-fib fracture, status post repair via Dr. Mcmullen, initially presented to our facility to participate with physical therapy and occupational therapy. The patient developed footdrop in regard to the right lower extremity with resultant orthopedic restrictions including nonweightbearing activity. Since that time, she has had further physical therapy related to these restrictions with planned followup surgical intervention. She did develop C difficile colitis, for which she has now completed a course of vancomycin and metronidazole. Also complicating her stay, the patient developed atrial fibrillation, for which Dr. aRusch was consulted; she has since stabilized on Cardizem and converted to normal sinus rhythm. She remains on her chronic supplemental oxygen at 2 L. She is currently euvolemic in regard to her chronic combined congestive heart failure. She has received 2 units of packed red blood cells within the last week for her chronic anemia; during this time period, her supplemental iron was restarted as well. The patient has been set for her right lower extremity surgical intervention via Dr. Mcmullen for today and thus will discharge to [facility] in [place] for further care at this time. DISPOSITION: The patient will discharge from swing bed status at [facility] to inpatient status at [facility] in [place] for surgical intervention of right lower extremity via Dr. Mcmullen. DISCHARGE MEDICATIONS: Include; 1. Tylenol 650 mg p.o. q.6 hours p.r.n. 2. Cardizem 120 mg p.o. daily. 3. Albuterol sulfate nebs 2.5 mg q.4 hours p.r.n. 4. Atorvastatin 10 mg p.o. at bedtime. 5. Cyanocobalamin 1000 mcg p.o. daily. 6. Digoxin 0.125 mg p.o. daily. 7. Docusate 100 mg p.o. daily. 8. Duloxetine 60 mg p.o. daily. 9. Ferrous sulfate 325 mg p.o. b.i.d. 10. Lasix 40 mg p.o. b.i.d. 11. Lantus 32 units subcutaneously b.i.d. 12. Loratadine 10 mg p.o. at bedtime. 13. Magnesium oxide 400 mg p.o. daily. 14. Mirtazapine 30 mg p.o. at bedtime. 15. Dulera 2 puffs inhaled b.i.d. 16. Daily multivitamin. 17. Zofran 4 mg p.o. q.6 hours p.r.n. 18. Pantoprazole 40 mg p.o. daily. 19. Trazodone 200 mg p.o. at bedtime. 20. Lyrica 300 mg p.o. b.i.d. 21. Potassium chloride 40 mEq p.o. b.i.d. 22. MiraLAX 17 g p.o. daily. 23. Senokot 1 tab p.o. b.i.d. 24. The patient's Eliquis has been held since 11/04/2018, in preparation for her surgery. Job ID: [id number]
== END 2018-11-07 09:55 | disposition short-term general hospital (02) | DRG 560 ==
LOC: BURMED 18:33
PROVIDERS: ADMIT Family Medicine; ATTEND Family Medicine
PROC: 30233N1 Transfusion of Nonautologous Red Blood Cells into Peripheral Vein, Percutaneous Approach (ICD-10-PCS; principal; 2018-10-24)
DX: S82.141D Displaced bicondylar fracture of right tibia, subsequent encounter for closed fracture with routine healing (principal); A04.72 Enterocolitis due to Clostridium difficile, not specified as recurrent; I50.42 Chronic combined systolic (congestive) and diastolic (congestive) heart failure; I13.0 Hypertensive heart and chronic kidney disease with heart failure and stage 1 through stage 4 chronic kidney disease, or unspecified chronic kidney disease; S82.401D Unspecified fracture of shaft of right fibula, subsequent encounter for closed fracture with routine healing; Z66 Do not resuscitate; K21.9 Gastro-esophageal reflux disease without esophagitis; J44.9 Chronic obstructive pulmonary disease, unspecified; E78.5 Hyperlipidemia, unspecified; E03.9 Hypothyroidism, unspecified; I25.10 Atherosclerotic heart disease of native coronary artery without angina pectoris; F41.9 Anxiety disorder, unspecified; G47.00 Insomnia, unspecified; G89.29 Other chronic pain; E11.51 Type 2 diabetes mellitus with diabetic peripheral angiopathy without gangrene; F32.9 Major depressive disorder, single episode, unspecified; I45.10 Unspecified right bundle-branch block; D64.9 Anemia, unspecified; N18.3 Chronic kidney disease, stage 3 (moderate); M21.371 Foot drop, right foot; Z86.73 Personal history of transient ischemic attack (TIA), and cerebral infarction without residual deficits; Z90.49 Acquired absence of other specified parts of digestive tract; Z95.1 Presence of aortocoronary bypass graft; Z90.710 Acquired absence of both cervix and uterus; Z90.89 Acquired absence of other organs; Z88.5 Allergy status to narcotic agent; Z88.8 Allergy status to other drugs, medicaments and biological substances; Z79.4 Long term (current) use of insulin; Z99.81 Dependence on supplemental oxygen; W19.XXXD Unspecified fall, subsequent encounter
CPT/HCPCS: 36415; 36416; 36430; 71045; 80048; 80053; 83010; 83615; 83735; 85007; 85025; 85027; 85046; 85060; 85610; 85730; 86850; 86900; 86901; 86922; 94640; 94664; J1815; J7611; J7620; P9016

== ENCOUNTER 2018-11-12 12:23 | Inpatient (IN) | payer MEDICARE, MEDICAID ==
[2018-11-13] MEDS ORDERED: Zolpidem Tartrate 5 MG TAB PO PRN (18:23)
[2018-11-13] MEDS ORDERED: traMADol HCl 50 MG TAB PO PRN (18:23)
[2018-11-13] MEDS ORDERED: Sodium Chloride 0.65% Nasal 44 ML BOT EA NARE PRN (18:23)
[2018-11-13] MEDS ORDERED: Nitroglycerin 0.4 MG TAB (25 Tab Bottle) SL PRN (18:23)
[2018-11-13] MEDS ORDERED: Insulin Regular 300 UNITS/3 ML VIAL SC PRN ×2 (18:28→23:03)
[2018-11-13] MEDS ORDERED: Dextrose 50% Abboject 50 ML SYRINGE SLOW IVP PRN (18:28)
[2018-11-13] MEDS ORDERED: Dextrose 5% in Water 1,000 ML IV PRN (18:28)
[2018-11-13] MEDS: Pregabalin 75 MG CAP PO SCH (20:22)
[2018-11-13] MEDS: guaiFENesin ER 600 MG TAB PO SCH (20:24)
[2018-11-13] MEDS: Mirtazapine 15 MG TAB PO SCH (20:24)
[2018-11-13] MEDS: Acetaminophen 325 MG TAB PO PRN (20:24)
[2018-11-13] MEDS: Fish Oil 1,000 MG CAP PO SCH (20:24)
[2018-11-13] MEDS: traZODone HCl 50 MG TAB PO SCH (20:24)
[2018-11-13] MEDS: Atorvastatin Calcium 10 MG TAB PO SCH (20:24)
[2018-11-13] MEDS: Apixaban 5 MG TAB PO SCH (20:25)
[2018-11-13] MEDS: Loratadine 10 MG TAB PO SCH (20:25)
[2018-11-13] MEDS: Azelastine 137 MCG/Spray 30 ML NS SCH (20:26)
[2018-11-13] MEDS: Mometasone/Formoterol 60 PUFF AER INH SCH (21:00)
[2018-11-13] MEDS ORDERED: ALBUTEROL SULFATE NEB SCH (22:00)
[2018-11-13] MEDS: Acetylcysteine 10% 100 MG/ML (4ML VIAL) PO SCH (23:16)
[2018-11-14 04:45] LABS: Hemoglobin 8.2 g/dL (12.0-16.0); Platelet Count 199 thou/uL (130-400)
[2018-11-14] MEDS: Acetylcysteine 10% 100 MG/ML (4ML VIAL) PO SCH ×4 (05:34→23:34)
[2018-11-14] MEDS ORDERED: Dextrose 50% Abboject 50 ML SYRINGE SLOW IVP PRN (07:31)
[2018-11-14] MEDS ORDERED: Dextrose 5% in Water 1,000 ML IV PRN (07:31)
[2018-11-14] MEDS: Pregabalin 75 MG CAP PO SCH ×2 (08:37→20:29)
[2018-11-14] MEDS: Estradiol 1 MG TAB PO SCH (08:39)
[2018-11-14] MEDS: Lantus 1000 UNITS/10 ML VIAL SC SCH ×2 (08:40→20:32)
[2018-11-14] MEDS: Apixaban 5 MG TAB PO SCH ×2 (08:40→20:31)
[2018-11-14] MEDS: Saccharomyces boulardii 250 MG CAP PO SCH (08:40)
[2018-11-14] MEDS: Meloxicam 7.5 MG TAB PO SCH (08:41)
[2018-11-14] MEDS: Cyanocobalamin (Vitamin B-12) 1,000 MCG TAB PO SCH (08:43)
[2018-11-14] MEDS: Fish Oil 1,000 MG CAP PO SCH ×2 (08:43→20:31)
[2018-11-14] MEDS: Ferrous Sulfate 325 MG TAB PO SCH ×2 (08:44→17:34)
[2018-11-14] MEDS: Docusate 100 MG CAP PO SCH (08:44)
[2018-11-14] MEDS: DULoxetine 30 MG CAP PO SCH (08:45)
[2018-11-14] MEDS: guaiFENesin ER 600 MG TAB PO SCH ×2 (08:47→20:32)
[2018-11-14] MEDS: Furosemide 40 MG TAB PO SCH (08:47)
[2018-11-14] MEDS: Potassium Chloride 20 MEQ TAB PO SCH ×2 (08:47→17:34)
[2018-11-14] MEDS: Pantoprazole 40 MG GRANULES PACKET PO SCH (08:48)
[2018-11-14] MEDS: Aspirin 81 mg Enteric Coated Tablet PO SCH (08:48)
[2018-11-14] MEDS: Polyethylene Glycol 3350 17 GM Packet PO SCH (08:48)
[2018-11-14] MEDS: Mometasone/Formoterol 60 PUFF AER INH SCH ×2 (08:55→20:44)
[2018-11-14] MEDS ORDERED: Lantus 1000 UNITS/10 ML VIAL SC SCH (09:00)
[2018-11-14] MEDS: Azelastine 137 MCG/Spray 30 ML NS SCH ×2 (09:04→21:01)
[2018-11-14] MEDS: HumaLOG 300 UNITS/3 ML VIAL SC PRN ×4 (09:07→20:57)
[2018-11-14] MEDS: Acetaminophen 325 MG TAB PO PRN ×2 (12:33→20:31)
[2018-11-14] MEDS: traZODone HCl 50 MG TAB PO SCH (20:31)
[2018-11-14] MEDS: Loratadine 10 MG TAB PO SCH (20:32)
[2018-11-14] MEDS: Mirtazapine 15 MG TAB PO SCH (20:32)
[2018-11-14] MEDS: Atorvastatin Calcium 10 MG TAB PO SCH (20:32)
[2018-11-15] MEDS: Acetylcysteine 10% 100 MG/ML (4ML VIAL) PO SCH ×4 (05:29→23:33)
[2018-11-15] MEDS: Pregabalin 75 MG CAP PO SCH ×2 (07:00→20:46)
[2018-11-15] MEDS: Lantus 1000 UNITS/10 ML VIAL SC SCH ×2 (08:20→20:48)
[2018-11-15] MEDS: HumaLOG 300 UNITS/3 ML VIAL SC PRN ×2 (08:22→17:32)
[2018-11-15] MEDS: Aspirin 81 mg Enteric Coated Tablet PO SCH (09:15)
[2018-11-15] MEDS: Docusate 100 MG CAP PO SCH (09:15)
[2018-11-15] MEDS: Meloxicam 7.5 MG TAB PO SCH (09:16)
[2018-11-15] MEDS: Furosemide 40 MG TAB PO SCH (09:17)
[2018-11-15] MEDS: Cyanocobalamin (Vitamin B-12) 1,000 MCG TAB PO SCH (09:17)
[2018-11-15] MEDS: Pantoprazole 40 MG GRANULES PACKET PO SCH (09:17)
[2018-11-15] MEDS: Estradiol 1 MG TAB PO SCH (09:18)
[2018-11-15] MEDS: DULoxetine 30 MG CAP PO SCH (09:18)
[2018-11-15] MEDS: Saccharomyces boulardii 250 MG CAP PO SCH (09:30)
[2018-11-15] MEDS: guaiFENesin ER 600 MG TAB PO SCH ×2 (09:30→20:48)
[2018-11-15] MEDS: Ferrous Sulfate 325 MG TAB PO SCH ×2 (09:30→16:22)
[2018-11-15] MEDS: Apixaban 5 MG TAB PO SCH ×2 (09:31→20:48)
[2018-11-15] MEDS: Azelastine 137 MCG/Spray 30 ML NS SCH ×3 (09:31→21:21)
[2018-11-15] MEDS: Fish Oil 1,000 MG CAP PO SCH ×2 (09:31→20:47)
[2018-11-15] MEDS: Potassium Chloride 20 MEQ TAB PO SCH ×3 (09:32→16:23)
[2018-11-15] MEDS: Polyethylene Glycol 3350 17 GM Packet PO SCH (09:36)
[2018-11-15] MEDS: Mometasone/Formoterol 60 PUFF AER INH SCH ×2 (09:36→20:56)
[2018-11-15] MEDS: Acetaminophen 325 MG TAB PO PRN ×2 (16:21→20:47)
[2018-11-15] MEDS: traZODone HCl 50 MG TAB PO SCH (20:47)
[2018-11-15] MEDS: Mirtazapine 15 MG TAB PO SCH (20:48)
[2018-11-15] MEDS: Atorvastatin Calcium 10 MG TAB PO SCH (20:48)
[2018-11-15] MEDS: Loratadine 10 MG TAB PO SCH (20:48)
[2018-11-16] MEDS: Acetaminophen 325 MG TAB PO PRN ×3 (00:41→21:14)
--- NOTE | 2018-11-16 01:45 | HP ---
ADMISSION DIAGNOSIS: Rehabilitation, status post open reduction and internal fixation of the right tibial plateau surgical repair. HISTORY OF PRESENT ILLNESS: The patient is a 73-year-old white female, who recently underwent a surgery done by Dr. Mcmullen with an open reduction and internal fixation of the right tibial plateau with removal of cannulated screws along the right tibial plateau as well. The patient is nonambulatory on that right lower extremity and needed further rehabilitation including physical therapy and occupational therapy and thus after her surgery, it was planned to be transferred to [facility] for rehab. Postoperatively, she did have a period of chronic atrial fibrillation with rapid ventricular rate, which resolved and the patient was switched to long-acting calcium channel breanna and had been in sinus rhythm for greater than 24 hours prior to transfer back to [facility]. PAST MEDICAL HISTORY: Significant for, 1. Coronary artery disease, status post bypass surgery. 2. History of carotid stenosis. 3. Hypothyroidism. 4. Status post cholecystectomy. 5. Status post gastroesophageal reflux disease. 6. COPD. 7. Hypertension. 8. History of TIA. 9. History of diabetes mellitus, type 2. 10. Anxiety. 11. Insomnia. 12. Spinal stenosis. 13. Peripheral vascular disease. 14. Chronic renal disease. 15. Tib-fib fracture on the right as above. 16. Atrial fibrillation. 17. Chronic pain. PAST SURGICAL HISTORY: 1. Status post hernia repair. 2. Status post hysterectomy. 3. Status post tonsillectomy. 4. Status post right tibia repair as above. 5. Appendectomy. 6. Hernia repair. 7. Coronary artery bypass repair. SOCIAL HISTORY: The patient denies tobacco, alcohol, or social drug use. She had been fairly independent in all activities. FAMILY HISTORY: Significant for hypertension as well as coronary artery disease. MEDICATIONS: Include, 1. Albuterol sulfate nebulized treatments t.i.d. 2. Aspirin 81 mg daily. 3. Atorvastatin 10 mg at bedtime. 4. Astelin nasal spray b.i.d. 5. Diltiazem-hydrochlorothiazide, she was switched to long-acting and 180 mg daily. 6. Tylenol 650 mg every 6 hours p.r.n. pain. 7. Lasix 40 mg daily. 8. Lantus 10 units every morning. 9. K-Dur 20 mEq daily. 10. Tramadol 100 mg every 6 hours p.r.n. pain. 11. Ambien 5 mg at bedtime p.r.n. insomnia. 12. Lyrica 300 mg b.i.d. 13. Pravastatin 40 mg daily. 14. Combivent Respimat one puff q.i.d. 15. Vitamin K and multivitamins daily. 16. Xyzal 10 mg daily. 17. Trazodone 200 mg p.o. at bedtime. 18. Protonix 40 mg daily. 19. p.o. at bedtime. 20. Cymbalta 60 mg daily. 21. Estrace 0.5 mg daily. 22. DuoNebs 3 mL neb treatments q.i.d. 23. Florastor 250 mg daily. 24. MiraLAX 17 g daily. 25. Feosol 325 mg b.i.d. 26. Mobic 15 mg daily. 27. Claritin 10 mg daily. 28. Eliquis 5 mg b.i.d. REVIEW OF SYSTEMS: The patient reports no significant shortness of breath above her baseline. She is on chronic oxygen use. No new chest pain reported. The patient denies URI-like symptoms. She says her appetite has been good. Her lower extremity pain is controlled with current medications. The patient denies any dysuria or hematuria. No change in urinary frequency. No diarrhea reported. No increased back pain above her baseline. The patient denies any rashes. No visual changes. The patient denies depression, although she was not too excited about the prolonged rehabilitation she is going to be required to have. PHYSICAL EXAMINATION: GENERAL: White female, alert and oriented x3, in no obvious distress. HEENT: Extraocular movements are intact. Pupils are equal, round, and reactive to light and accommodation. NECK: Supple. No masses were palpated. CHEST: Had some coarse breath sounds without rales or wheezes. HEART: With an irregularly irregular rhythm. No significant murmurs were appreciated. ABDOMEN: Soft, nontender, and nondistended. No masses were palpated. Bowel sounds positive in all 4 quadrants. EXTREMITIES: Right lower extremity was bandaged. There was no significant surrounding erythema nor warmth. No significant edema noted. SKIN: Showed no significant rashes. ASSESSMENT AND PLAN: 1. Status post removal of hardware for right lower extremity surgery. The patient is currently nonweightbearing and will need to work with Physical Therapy and Occupational Therapy to improve her transfers and overall strength. She will need an extended rehabilitation and may likely need penitentiary placement at least for 1 to 2-month period. The patient understands. 2. Atrial fibrillation, presently the rate is controlled. Her heart rate was in the high 80s and low 90s, and she will continue with the long-acting Cardizem. She is on Eliquis, which she will continue as well and thus eliminate the need for further DVT prophylaxis. 3. Diabetes mellitus. The patient will continue on her current diabetic regimen. 4. Chronic lung disease. The patient will continue on her oxygen, DuoNebs, and inhalers as per her routine. 5. Hypertension, presently controlled. 6. Coronary artery disease, presently stable without any signs of cardiac ischemia. 7. Deep venous thrombosis prophylaxis. The patient is on Eliquis, which will provide adequate deep venous thrombosis prophylaxis. 8. Disposition. The patient will start with physical therapy. She may need extended period of rehabilitation and may need penitentiary placement. Her ultimate goal is to be discharged to home. Care will be resumed by her primary care provider, Dr. Nikolay Brown in 24 hours. Job ID: [id number] [facility]
[2018-11-16] MEDS: Acetylcysteine 10% 100 MG/ML (4ML VIAL) PO SCH ×3 (05:16→19:17)
[2018-11-16 05:41] LABS: Anion Gap 11 mmol/L (10-20); BUN (Urea Nitrogen) 18 mg/dL (9.8-20.1); Calc. Creatinine Clearance 76 mL/min (70-130); Calcium 8.5 mg/dL (7.8-10.44); Carbon Dioxide 32 mmol/L (23-31); Chloride 102 mmol/L (98-107); Estimated GFR-MDRD 70; Glucose 122 mg/dL (83-110); Sodium 141 mmol/L (136-145)
[2018-11-16 06:32] LABS: #Basophils 0.1 thou/uL (0.0-0.2); #Eosinphils 0.2 thou/uL (0.0-0.7); #Lymphocytes 1.2 thou/uL (1.20-3.40); #Monocytes 0.4 thou/uL (0.11-0.59); #Neutrophils 4.8 thou/uL (1.40-6.50); %Basophils 1.4 % (0.0-1.0); %Eosinophils 2.4 % (0.0-10.0); %Lymphocytes 18.1 % (21.0-51.0); %Monocytes 6.3 % (0.0-10.0); %Neutrophils 71.8 % (42.0-75.0); Anisocytosis SLIGHT = 6-15 cells (100X) (0-5/hpf); Hemoglobin 7.2 g/dL (12.0-16.0); Hypochromia SLIGHT = 6-15 cells (100X) (0-5/hpf); MDiff Complete? YES; Mean Corpuscular HGB CONC 29.6 g/dL (32.0-36.0); Mean Corpuscular Hemoglobin 24.2 pg (27.0-31.0); Mean Corpuscular Volume 81.7 fL (78.0-98.0); Mean Platelet Volume 7.9 fL (7.4-10.4); Platelet Count 193 thou/uL (130-400); Platelet Morphology Comment Appears Adequate; Polychromasia SLIGHT = 2-3 cells (100X) (0-2/hpf); RBC Distribution Width 17.3 % (11.5-14.5); Red Blood Cell (RBC) Count 2.98 mill/uL (4.20-5.40); Stomatocytes SLIGHT = 2-5 cells (100X) (0-1/hpf); White Blood Cell (WBC) Count 6.6 thou/uL (4.8-10.8)
[2018-11-16] MEDS: Polyethylene Glycol 3350 17 GM Packet PO SCH (08:53)
[2018-11-16] MEDS: Pregabalin 75 MG CAP PO SCH ×2 (08:54→21:14)
[2018-11-16] MEDS: Pantoprazole 40 MG GRANULES PACKET PO SCH (08:55)
[2018-11-16] MEDS: Estradiol 1 MG TAB PO SCH (08:55)
[2018-11-16] MEDS: Apixaban 5 MG TAB PO SCH ×2 (08:56→20:55)
[2018-11-16] MEDS: Aspirin 81 mg Enteric Coated Tablet PO SCH (08:56)
[2018-11-16] MEDS: Docusate 100 MG CAP PO SCH (08:56)
[2018-11-16] MEDS: Ferrous Sulfate 325 MG TAB PO SCH ×2 (08:56→17:35)
[2018-11-16] MEDS: Potassium Chloride 20 MEQ TAB PO SCH ×2 (08:56→17:35)
[2018-11-16] MEDS: guaiFENesin ER 600 MG TAB PO SCH ×2 (08:56→20:55)
[2018-11-16] MEDS: Saccharomyces boulardii 250 MG CAP PO SCH (08:56)
[2018-11-16] MEDS: Furosemide 40 MG TAB PO SCH (08:57)
[2018-11-16] MEDS: Cyanocobalamin (Vitamin B-12) 1,000 MCG TAB PO SCH (08:57)
[2018-11-16] MEDS: DULoxetine 30 MG CAP PO SCH (08:57)
[2018-11-16] MEDS: Meloxicam 7.5 MG TAB PO SCH (08:57)
[2018-11-16] MEDS: Fish Oil 1,000 MG CAP PO SCH ×2 (08:57→20:55)
[2018-11-16] MEDS: Azelastine 137 MCG/Spray 30 ML NS SCH ×2 (08:59→21:00)
[2018-11-16] MEDS: Lantus 1000 UNITS/10 ML VIAL SC SCH ×2 (08:59→21:17)
[2018-11-16] MEDS: Mometasone/Formoterol 60 PUFF AER INH SCH ×2 (09:00→20:56)
[2018-11-16] MEDS: HumaLOG 300 UNITS/3 ML VIAL SC PRN ×2 (12:48→17:37)
[2018-11-16] MEDS: Mirtazapine 15 MG TAB PO SCH (20:55)
[2018-11-16] MEDS: Atorvastatin Calcium 10 MG TAB PO SCH (20:55)
[2018-11-16] MEDS: Loratadine 10 MG TAB PO SCH (20:55)
[2018-11-16] MEDS: traZODone HCl 50 MG TAB PO SCH (20:56)
[2018-11-17] MEDS: Acetylcysteine 10% 100 MG/ML (4ML VIAL) PO SCH ×4 (00:04→17:08)
[2018-11-17 04:38] LABS: #Basophils 0.1 thou/uL (0.0-0.2); #Eosinphils 0.2 thou/uL (0.0-0.7); #Lymphocytes 1.1 thou/uL (1.20-3.40); #Monocytes 0.6 thou/uL (0.11-0.59); %Basophils 1.1 % (0.0-1.0); %Eosinophils 1.5 % (0.0-10.0); %Lymphocytes 11.2 % (21.0-51.0); %Monocytes 5.8 % (0.0-10.0); %Neutrophils 80.3 % (42.0-75.0); Anisocytosis SLIGHT = 6-15 cells (100X) (0-5/hpf); Hypochromia SLIGHT = 6-15 cells (100X) (0-5/hpf); MDiff Complete? YES; Mean Corpuscular HGB CONC 29.3 g/dL (32.0-36.0); Mean Corpuscular Hemoglobin 24.1 pg (27.0-31.0); Mean Corpuscular Volume 82.2 fL (78.0-98.0); Mean Platelet Volume 8.4 fL (7.4-10.4); Ovalocytes SLIGHT = 2-5 cells (100X) (0-1/hpf); Platelet Count 193 thou/uL (130-400); Platelet Morphology Comment Appears Adequate; Polychromasia SLIGHT = 2-3 cells (100X) (0-2/hpf); RBC Distribution Width 17.8 % (11.5-14.5); Red Blood Cell (RBC) Count 2.89 mill/uL (4.20-5.40); Tear Drops SLIGHT = 2-5 cells (100X) (0-1/hpf)
[2018-11-17] MEDS: Lantus 1000 UNITS/10 ML VIAL SC SCH ×2 (08:44→22:04)
[2018-11-17] MEDS: HumaLOG 300 UNITS/3 ML VIAL SC PRN ×3 (08:45→17:01)
[2018-11-17] MEDS: Mometasone/Formoterol 60 PUFF AER INH SCH ×2 (08:46→21:09)
[2018-11-17] MEDS: Polyethylene Glycol 3350 17 GM Packet PO SCH (08:48)
[2018-11-17] MEDS: Pregabalin 75 MG CAP PO SCH ×2 (08:51→21:28)
[2018-11-17] MEDS: Estradiol 1 MG TAB PO SCH (08:52)
[2018-11-17] MEDS: Saccharomyces boulardii 250 MG CAP PO SCH (08:52)
[2018-11-17] MEDS: Furosemide 40 MG TAB PO SCH (08:53)
[2018-11-17] MEDS: Aspirin 81 mg Enteric Coated Tablet PO SCH (08:53)
[2018-11-17] MEDS: Fish Oil 1,000 MG CAP PO SCH ×2 (08:53→21:30)
[2018-11-17] MEDS: guaiFENesin ER 600 MG TAB PO SCH ×2 (08:54→21:30)
[2018-11-17] MEDS: Ferrous Sulfate 325 MG TAB PO SCH ×2 (08:54→17:03)
[2018-11-17] MEDS: Meloxicam 7.5 MG TAB PO SCH (08:54)
[2018-11-17] MEDS: Docusate 100 MG CAP PO SCH (08:54)
[2018-11-17] MEDS: DULoxetine 30 MG CAP PO SCH (08:55)
[2018-11-17] MEDS: Apixaban 5 MG TAB PO SCH ×2 (08:56→21:30)
[2018-11-17] MEDS: Potassium Chloride 20 MEQ TAB PO SCH ×2 (08:56→17:03)
[2018-11-17] MEDS: Azelastine 137 MCG/Spray 30 ML NS SCH ×2 (08:57→21:32)
[2018-11-17] MEDS: Cyanocobalamin (Vitamin B-12) 1,000 MCG TAB PO SCH (08:57)
[2018-11-17] MEDS: Pantoprazole 40 MG GRANULES PACKET PO SCH (09:03)
[2018-11-17] MEDS ORDERED: Acetaminophen 325 MG TAB ONE (11:07)
[2018-11-17] MEDS: Acetaminophen 325 MG TAB PO PRN ×2 (11:10→21:31)
[2018-11-17] MEDS ORDERED: Sodium Chloride For Inhalation 0.9% 3 ML NEB ONE ×2 (11:48)
[2018-11-17] MEDS: Mirtazapine 15 MG TAB PO SCH (21:30)
[2018-11-17] MEDS: Atorvastatin Calcium 10 MG TAB PO SCH (21:30)
[2018-11-17] MEDS: traZODone HCl 50 MG TAB PO SCH (21:30)
[2018-11-17] MEDS: Loratadine 10 MG TAB PO SCH (21:31)
[2018-11-18] MEDS: Acetylcysteine 10% 100 MG/ML (4ML VIAL) PO SCH ×4 (00:22→17:43)
[2018-11-18] MEDS: Acetaminophen 325 MG TAB PO PRN ×2 (02:59→21:27)
[2018-11-18 05:27] LABS: #Basophils 0.1 thou/uL (0.0-0.2); #Eosinphils 0.2 thou/uL (0.0-0.7); #Lymphocytes 1.5 thou/uL (1.20-3.40); #Monocytes 0.6 thou/uL (0.11-0.59); %Eosinophils 1.8 % (0.0-10.0); %Lymphocytes 14.3 % (21.0-51.0); %Monocytes 6.1 % (0.0-10.0); %Neutrophils 76.8 % (42.0-75.0); Mean Corpuscular HGB CONC 30.8 g/dL (32.0-36.0); Mean Corpuscular Hemoglobin 25.9 pg (27.0-31.0); Mean Corpuscular Volume 84.1 fL (78.0-98.0); Mean Platelet Volume 8.6 fL (7.4-10.4); Platelet Count 177 thou/uL (130-400); RBC Distribution Width 17.2 % (11.5-14.5); Red Blood Cell (RBC) Count 3.09 mill/uL (4.20-5.40); White Blood Cell (WBC) Count 10.4 thou/uL (4.8-10.8)
[2018-11-18 05:39] LABS: Anion Gap 7 mmol/L (10-20); BUN (Urea Nitrogen) 21 mg/dL (9.8-20.1); Calc. Creatinine Clearance 82 mL/min (70-130); Calcium 8.2 mg/dL (7.8-10.44); Carbon Dioxide 33 mmol/L (23-31); Chloride 103 mmol/L (98-107); Estimated GFR-MDRD 76; Glucose 140 mg/dL (83-110); Sodium 139 mmol/L (136-145)
[2018-11-18] MEDS: Lantus 1000 UNITS/10 ML VIAL SC SCH ×2 (09:03→21:02)
[2018-11-18] MEDS: Pantoprazole 40 MG GRANULES PACKET PO SCH (09:05)
[2018-11-18] MEDS: Estradiol 1 MG TAB PO SCH (09:06)
[2018-11-18] MEDS: Apixaban 5 MG TAB PO SCH ×2 (09:07→21:06)
[2018-11-18] MEDS: Aspirin 81 mg Enteric Coated Tablet PO SCH (09:07)
[2018-11-18] MEDS: Meloxicam 7.5 MG TAB PO SCH (09:07)
[2018-11-18] MEDS: Saccharomyces boulardii 250 MG CAP PO SCH (09:07)
[2018-11-18] MEDS: Docusate 100 MG CAP PO SCH (09:08)
[2018-11-18] MEDS: Furosemide 40 MG TAB PO SCH (09:08)
[2018-11-18] MEDS: Potassium Chloride 20 MEQ TAB PO SCH ×2 (09:08→17:42)
[2018-11-18] MEDS: Fish Oil 1,000 MG CAP PO SCH ×2 (09:08→21:06)
[2018-11-18] MEDS: guaiFENesin ER 600 MG TAB PO SCH ×2 (09:09→21:07)
[2018-11-18] MEDS: DULoxetine 30 MG CAP PO SCH (09:09)
[2018-11-18] MEDS: Ferrous Sulfate 325 MG TAB PO SCH ×2 (09:09→17:42)
[2018-11-18] MEDS: Cyanocobalamin (Vitamin B-12) 1,000 MCG TAB PO SCH (09:09)
[2018-11-18] MEDS: Pregabalin 75 MG CAP PO SCH ×2 (09:10→21:03)
[2018-11-18] MEDS: Polyethylene Glycol 3350 17 GM Packet PO SCH (09:12)
[2018-11-18] MEDS: Mometasone/Formoterol 60 PUFF AER INH SCH ×2 (09:12→20:58)
[2018-11-18] MEDS: Azelastine 137 MCG/Spray 30 ML NS SCH ×2 (09:16→21:16)
[2018-11-18] MEDS: HumaLOG 300 UNITS/3 ML VIAL SC PRN ×2 (12:21→17:43)
[2018-11-18] MEDS: traZODone HCl 50 MG TAB PO SCH (21:06)
[2018-11-18] MEDS: Atorvastatin Calcium 10 MG TAB PO SCH (21:06)
[2018-11-18] MEDS: Mirtazapine 15 MG TAB PO SCH (21:07)
[2018-11-18] MEDS: Loratadine 10 MG TAB PO SCH (21:07)
[2018-11-19] MEDS: Acetylcysteine 10% 100 MG/ML (4ML VIAL) PO SCH ×4 (00:13→17:49)
[2018-11-19] MEDS: Mometasone/Formoterol 60 PUFF AER INH SCH ×2 (09:18→21:09)
[2018-11-19] MEDS: Pantoprazole 40 MG GRANULES PACKET PO SCH (09:19)
[2018-11-19] MEDS: Polyethylene Glycol 3350 17 GM Packet PO SCH (09:19)
[2018-11-19] MEDS: Lantus 1000 UNITS/10 ML VIAL SC SCH ×2 (09:19→21:17)
[2018-11-19] MEDS: Ferrous Sulfate 325 MG TAB PO SCH ×2 (09:19→16:32)
[2018-11-19] MEDS: Saccharomyces boulardii 250 MG CAP PO SCH (09:19)
[2018-11-19] MEDS: Potassium Chloride 20 MEQ TAB PO SCH ×2 (09:20→16:33)
[2018-11-19] MEDS: Aspirin 81 mg Enteric Coated Tablet PO SCH (09:20)
[2018-11-19] MEDS: Pregabalin 75 MG CAP PO SCH ×2 (09:20→21:11)
[2018-11-19] MEDS: DULoxetine 30 MG CAP PO SCH (09:20)
[2018-11-19] MEDS: Docusate 100 MG CAP PO SCH (09:21)
[2018-11-19] MEDS: guaiFENesin ER 600 MG TAB PO SCH ×2 (09:21→21:15)
[2018-11-19] MEDS: Meloxicam 7.5 MG TAB PO SCH (09:22)
[2018-11-19] MEDS: Estradiol 1 MG TAB PO SCH (09:22)
[2018-11-19] MEDS: Fish Oil 1,000 MG CAP PO SCH ×2 (09:22→21:14)
[2018-11-19] MEDS: Apixaban 5 MG TAB PO SCH ×2 (09:23→21:14)
[2018-11-19] MEDS: Furosemide 40 MG TAB PO SCH (09:23)
[2018-11-19] MEDS: Azelastine 137 MCG/Spray 30 ML NS SCH ×2 (09:23→21:21)
[2018-11-19] MEDS: Cyanocobalamin (Vitamin B-12) 1,000 MCG TAB PO SCH (09:23)
[2018-11-19] MEDS: HumaLOG 300 UNITS/3 ML VIAL SC PRN (11:40)
[2018-11-19] MEDS: Mirtazapine 15 MG TAB PO SCH (21:14)
[2018-11-19] MEDS: traZODone HCl 50 MG TAB PO SCH (21:15)
[2018-11-19] MEDS: Loratadine 10 MG TAB PO SCH (21:15)
[2018-11-19] MEDS: Atorvastatin Calcium 10 MG TAB PO SCH (21:15)
[2018-11-20] MEDS: Acetaminophen 325 MG TAB PO PRN ×4 (00:19→21:55)
[2018-11-20] MEDS: Acetylcysteine 10% 100 MG/ML (4ML VIAL) PO SCH ×5 (00:20→23:56)
[2018-11-20 05:20] LABS: Hemoglobin 6.9 g/dL (12.0-16.0); Platelet Count 169 thou/uL (130-400)
[2018-11-20] MEDS: HumaLOG 300 UNITS/3 ML VIAL SC PRN ×4 (07:55→21:07)
[2018-11-20] MEDS: Meloxicam 7.5 MG TAB PO SCH (08:46)
[2018-11-20] MEDS: Estradiol 1 MG TAB PO SCH (08:47)
[2018-11-20] MEDS: Furosemide 40 MG TAB PO SCH (08:49)
[2018-11-20] MEDS: Cyanocobalamin (Vitamin B-12) 1,000 MCG TAB PO SCH (08:49)
[2018-11-20] MEDS: guaiFENesin ER 600 MG TAB PO SCH ×2 (08:49→20:53)
[2018-11-20] MEDS: DULoxetine 30 MG CAP PO SCH (08:49)
[2018-11-20] MEDS: Apixaban 5 MG TAB PO SCH ×2 (08:50→20:53)
[2018-11-20] MEDS: Fish Oil 1,000 MG CAP PO SCH ×2 (08:50→20:52)
[2018-11-20] MEDS: Potassium Chloride 20 MEQ TAB PO SCH ×2 (08:50→16:45)
[2018-11-20] MEDS: Pregabalin 75 MG CAP PO SCH ×2 (08:50→20:53)
[2018-11-20] MEDS: Aspirin 81 mg Enteric Coated Tablet PO SCH (08:50)
[2018-11-20] MEDS: Pantoprazole 40 MG GRANULES PACKET PO SCH (08:54)
[2018-11-20] MEDS: Saccharomyces boulardii 250 MG CAP PO SCH (08:54)
[2018-11-20] MEDS: Polyethylene Glycol 3350 17 GM Packet PO SCH (08:54)
[2018-11-20] MEDS: Docusate 100 MG CAP PO SCH (09:02)
[2018-11-20] MEDS: Mometasone/Formoterol 60 PUFF AER INH SCH ×2 (09:09→20:58)
[2018-11-20] MEDS: Azelastine 137 MCG/Spray 30 ML NS SCH ×2 (09:15→22:18)
[2018-11-20] MEDS: Lantus 1000 UNITS/10 ML VIAL SC SCH ×2 (09:23→20:57)
[2018-11-20] MEDS ORDERED: Acetaminophen 325 MG TAB ONE ×3 (12:10→21:53)
[2018-11-20] MEDS: Mirtazapine 15 MG TAB PO SCH (20:51)
[2018-11-20] MEDS: Atorvastatin Calcium 10 MG TAB PO SCH (20:52)
[2018-11-20] MEDS: traZODone HCl 50 MG TAB PO SCH (20:52)
[2018-11-20] MEDS: Loratadine 10 MG TAB PO SCH (20:53)
[2018-11-21] MEDS: Acetylcysteine 10% 100 MG/ML (4ML VIAL) PO SCH ×5 (05:19→23:43)
[2018-11-21 07:36] LABS: #Basophils 0.1 thou/uL (0.0-0.2); #Eosinphils 0.3 thou/uL (0.0-0.7); #Lymphocytes 1.3 thou/uL (1.20-3.40); #Monocytes 0.6 thou/uL (0.11-0.59); #Neutrophils 7.2 thou/uL (1.40-6.50); %Eosinophils 3.6 % (0.0-10.0); %Lymphocytes 13.9 % (21.0-51.0); %Monocytes 6.1 % (0.0-10.0); %Neutrophils 75.3 % (42.0-75.0); Hemoglobin 8.1 g/dL (12.0-16.0); Mean Corpuscular HGB CONC 30.5 g/dL (32.0-36.0); Mean Corpuscular Hemoglobin 25.6 pg (27.0-31.0); Mean Corpuscular Volume 83.7 fL (78.0-98.0); Mean Platelet Volume 8.1 fL (7.4-10.4); Platelet Count 186 thou/uL (130-400); RBC Distribution Width 17.3 % (11.5-14.5); Red Blood Cell (RBC) Count 3.17 mill/uL (4.20-5.40); White Blood Cell (WBC) Count 9.5 thou/uL (4.8-10.8)
[2018-11-21 07:49] LABS: Anion Gap 12 mmol/L (10-20); BUN (Urea Nitrogen) 24 mg/dL (9.8-20.1); Calc. Creatinine Clearance 77 mL/min (70-130); Calcium 8.4 mg/dL (7.8-10.44); Carbon Dioxide 27 mmol/L (23-31); Chloride 105 mmol/L (98-107); Estimated GFR-MDRD 68; Glucose 119 mg/dL (83-110); Sodium 140 mmol/L (136-145)
[2018-11-21] MEDS: Lantus 1000 UNITS/10 ML VIAL SC SCH ×2 (07:59→21:38)
[2018-11-21] MEDS: Mometasone/Formoterol 60 PUFF AER INH SCH ×2 (08:00→21:39)
[2018-11-21] MEDS: Pregabalin 75 MG CAP PO SCH ×2 (08:03→21:34)
[2018-11-21] MEDS: Pantoprazole 40 MG GRANULES PACKET PO SCH (08:04)
[2018-11-21] MEDS: Aspirin 81 mg Enteric Coated Tablet PO SCH (08:05)
[2018-11-21] MEDS: Cyanocobalamin (Vitamin B-12) 1,000 MCG TAB PO SCH (08:05)
[2018-11-21] MEDS: Estradiol 1 MG TAB PO SCH (08:05)
[2018-11-21] MEDS: Apixaban 5 MG TAB PO SCH ×3 (08:06→21:38)
[2018-11-21] MEDS: Fish Oil 1,000 MG CAP PO SCH ×2 (08:06→21:36)
[2018-11-21] MEDS: guaiFENesin ER 600 MG TAB PO SCH ×2 (08:06→21:38)
[2018-11-21] MEDS: Saccharomyces boulardii 250 MG CAP PO SCH (08:06)
[2018-11-21] MEDS: Potassium Chloride 20 MEQ TAB PO SCH ×2 (08:06→17:44)
[2018-11-21] MEDS: DULoxetine 30 MG CAP PO SCH (08:07)
[2018-11-21] MEDS: Meloxicam 7.5 MG TAB PO SCH (08:09)
[2018-11-21] MEDS: Docusate 100 MG CAP PO SCH (08:20)
[2018-11-21] MEDS: Azelastine 137 MCG/Spray 30 ML NS SCH ×2 (08:20→22:19)
[2018-11-21] MEDS: Furosemide 40 MG TAB PO SCH ×3 (08:21→13:32)
[2018-11-21] MEDS: Polyethylene Glycol 3350 17 GM Packet PO SCH (08:21)
[2018-11-21] MEDS ORDERED: Ferrous Sulfate 325 MG TAB PO SCH (11:00)
[2018-11-21] MEDS: Ferrous Sulfate 325 MG TAB PO SCH ×2 (13:31→17:44)
[2018-11-21] MEDS: Acetaminophen 325 MG TAB PO PRN (14:58)
[2018-11-21] MEDS: HumaLOG 300 UNITS/3 ML VIAL SC PRN ×2 (17:47→21:47)
[2018-11-21] MEDS: traZODone HCl 50 MG TAB PO SCH (21:36)
[2018-11-21] MEDS: Atorvastatin Calcium 10 MG TAB PO SCH (21:36)
[2018-11-21] MEDS: Loratadine 10 MG TAB PO SCH (21:37)
[2018-11-21] MEDS: Mirtazapine 15 MG TAB PO SCH (21:37)
[2018-11-22 05:14] LABS: Platelet Count 153 thou/uL (130-400)
[2018-11-22] MEDS: Acetylcysteine 10% 100 MG/ML (4ML VIAL) PO SCH ×4 (06:13→23:30)
[2018-11-22] MEDS: Lantus 1000 UNITS/10 ML VIAL SC SCH ×2 (08:35→20:58)
[2018-11-22] MEDS: Fish Oil 1,000 MG CAP PO SCH ×2 (08:37→20:25)
[2018-11-22] MEDS: Polyethylene Glycol 3350 17 GM Packet PO SCH (08:37)
[2018-11-22] MEDS: Potassium Chloride 20 MEQ TAB PO SCH ×2 (08:38→17:12)
[2018-11-22] MEDS: guaiFENesin ER 600 MG TAB PO SCH ×2 (08:38→20:25)
[2018-11-22] MEDS: DULoxetine 30 MG CAP PO SCH (08:38)
[2018-11-22] MEDS: Pregabalin 75 MG CAP PO SCH ×2 (08:39→20:17)
[2018-11-22] MEDS: Saccharomyces boulardii 250 MG CAP PO SCH (08:39)
[2018-11-22] MEDS: Furosemide 40 MG TAB PO SCH (08:39)
[2018-11-22] MEDS: Meloxicam 7.5 MG TAB PO SCH (08:41)
[2018-11-22] MEDS: Docusate 100 MG CAP PO SCH (08:42)
[2018-11-22] MEDS: Estradiol 1 MG TAB PO SCH (08:42)
[2018-11-22] MEDS: Aspirin 81 mg Enteric Coated Tablet PO SCH (08:42)
[2018-11-22] MEDS: Ferrous Sulfate 325 MG TAB PO SCH ×2 (08:45→17:13)
[2018-11-22] MEDS: Cyanocobalamin (Vitamin B-12) 1,000 MCG TAB PO SCH (08:46)
[2018-11-22] MEDS: Azelastine 137 MCG/Spray 30 ML NS SCH ×2 (08:46→20:29)
[2018-11-22] MEDS: Mometasone/Formoterol 60 PUFF AER INH SCH ×2 (08:54→20:22)
[2018-11-22] MEDS: Pantoprazole 40 MG GRANULES PACKET PO SCH (08:55)
[2018-11-22] MEDS: Apixaban 5 MG TAB PO SCH (11:15)
[2018-11-22] MEDS: HumaLOG 300 UNITS/3 ML VIAL SC PRN (12:50)
[2018-11-22] MEDS: Rivaroxaban 10 MG TAB PO SCH (17:12)
[2018-11-22] MEDS: Acetaminophen 325 MG TAB PO PRN (19:44)
[2018-11-22] MEDS: Loratadine 10 MG TAB PO SCH (20:25)
[2018-11-22] MEDS: traZODone HCl 50 MG TAB PO SCH (20:25)
[2018-11-22] MEDS: Mirtazapine 15 MG TAB PO SCH (20:26)
[2018-11-22] MEDS: Atorvastatin Calcium 10 MG TAB PO SCH (20:27)
[2018-11-23 05:24] LABS: #Basophils 0.1 thou/uL (0.0-0.2); #Eosinphils 0.3 thou/uL (0.0-0.7); #Lymphocytes 1.3 thou/uL (1.20-3.40); #Monocytes 0.5 thou/uL (0.11-0.59); #Neutrophils 3.9 thou/uL (1.40-6.50); %Basophils 2.1 % (0.0-1.0); %Eosinophils 5.3 % (0.0-10.0); %Lymphocytes 20.9 % (21.0-51.0); %Monocytes 7.8 % (0.0-10.0); Hemoglobin 8.7 g/dL (12.0-16.0); Mean Corpuscular HGB CONC 31.7 g/dL (32.0-36.0); Mean Corpuscular Hemoglobin 26.7 pg (27.0-31.0); Mean Corpuscular Volume 84.1 fL (78.0-98.0); Mean Platelet Volume 8.7 fL (7.4-10.4); Platelet Count 153 thou/uL (130-400); RBC Distribution Width 16.4 % (11.5-14.5); Red Blood Cell (RBC) Count 3.28 mill/uL (4.20-5.40); White Blood Cell (WBC) Count 6.2 thou/uL (4.8-10.8)
[2018-11-23] MEDS: Acetylcysteine 10% 100 MG/ML (4ML VIAL) PO SCH ×4 (05:25→23:54)
[2018-11-23] MEDS: Lantus 1000 UNITS/10 ML VIAL SC SCH ×2 (08:30→20:43)
[2018-11-23] MEDS: Polyethylene Glycol 3350 17 GM Packet PO SCH (08:33)
[2018-11-23] MEDS: guaiFENesin ER 600 MG TAB PO SCH ×2 (08:34→20:35)
[2018-11-23] MEDS: Aspirin 81 mg Enteric Coated Tablet PO SCH (08:34)
[2018-11-23] MEDS: DULoxetine 30 MG CAP PO SCH (08:34)
[2018-11-23] MEDS: Pantoprazole 40 MG GRANULES PACKET PO SCH (08:35)
[2018-11-23] MEDS: Fish Oil 1,000 MG CAP PO SCH ×2 (08:37→20:35)
[2018-11-23] MEDS: Meloxicam 7.5 MG TAB PO SCH (08:37)
[2018-11-23] MEDS: Docusate 100 MG CAP PO SCH (08:38)
[2018-11-23] MEDS: Ferrous Sulfate 325 MG TAB PO SCH (08:38)
[2018-11-23] MEDS: Furosemide 40 MG TAB PO SCH (08:38)
[2018-11-23] MEDS: Cyanocobalamin (Vitamin B-12) 1,000 MCG TAB PO SCH (08:39)
[2018-11-23] MEDS: Estradiol 1 MG TAB PO SCH (08:39)
[2018-11-23] MEDS: Saccharomyces boulardii 250 MG CAP PO SCH (08:39)
[2018-11-23] MEDS: Pregabalin 75 MG CAP PO SCH ×2 (08:40→20:55)
[2018-11-23] MEDS: Azelastine 137 MCG/Spray 30 ML NS SCH ×2 (08:43→20:34)
[2018-11-23] MEDS: Potassium Chloride 20 MEQ TAB PO SCH ×2 (08:43→16:35)
[2018-11-23] MEDS: Mometasone/Formoterol 60 PUFF AER INH SCH ×2 (08:58→20:39)
[2018-11-23 11:40] LABS: Reticulocyte Count 9.1 % (0.5-1.5)
[2018-11-23 12:12] LABS: Iron 25 ug/dL (50-170); Iron Binding Capacity, Total 260 mcg/dL (265-497)
[2018-11-23] MEDS: Acetaminophen 325 MG TAB PO PRN ×2 (12:30→19:45)
[2018-11-23] MEDS: Rivaroxaban 10 MG TAB PO SCH (16:35)
[2018-11-23] MEDS: HumaLOG 300 UNITS/3 ML VIAL SC PRN ×2 (17:39→20:46)
[2018-11-23] MEDS: Loratadine 10 MG TAB PO SCH (20:35)
[2018-11-23] MEDS: traZODone HCl 50 MG TAB PO SCH (20:45)
[2018-11-23] MEDS: Mirtazapine 15 MG TAB PO SCH (20:54)
[2018-11-23] MEDS: Atorvastatin Calcium 10 MG TAB PO SCH (20:54)
[2018-11-24 04:56] LABS: Hemoglobin 7.9 g/dL (12.0-16.0); Platelet Count 145 thou/uL (130-400)
[2018-11-24] MEDS: Acetylcysteine 10% 100 MG/ML (4ML VIAL) PO SCH ×4 (05:49→23:40)
[2018-11-24] MEDS: Lantus 1000 UNITS/10 ML VIAL SC SCH ×2 (08:56→21:29)
[2018-11-24] MEDS: Pregabalin 75 MG CAP PO SCH ×2 (08:58→21:28)
[2018-11-24] MEDS: DULoxetine 30 MG CAP PO SCH (09:01)
[2018-11-24] MEDS: Meloxicam 7.5 MG TAB PO SCH (09:01)
[2018-11-24] MEDS: Estradiol 1 MG TAB PO SCH (09:02)
[2018-11-24] MEDS: Docusate 100 MG CAP PO SCH (09:03)
[2018-11-24] MEDS: Aspirin 81 mg Enteric Coated Tablet PO SCH (09:03)
[2018-11-24] MEDS: Cyanocobalamin (Vitamin B-12) 1,000 MCG TAB PO SCH (09:03)
[2018-11-24] MEDS: Saccharomyces boulardii 250 MG CAP PO SCH (09:03)
[2018-11-24] MEDS: guaiFENesin ER 600 MG TAB PO SCH ×2 (09:03→21:31)
[2018-11-24] MEDS: Fish Oil 1,000 MG CAP PO SCH ×2 (09:03→21:31)
[2018-11-24] MEDS: Potassium Chloride 20 MEQ TAB PO SCH ×2 (09:04→17:01)
[2018-11-24] MEDS: Polyethylene Glycol 3350 17 GM Packet PO SCH (09:04)
[2018-11-24] MEDS: Pantoprazole 40 MG GRANULES PACKET PO SCH (09:04)
[2018-11-24] MEDS: Furosemide 40 MG TAB PO SCH (09:04)
[2018-11-24] MEDS: Azelastine 137 MCG/Spray 30 ML NS SCH ×2 (09:05→21:30)
[2018-11-24] MEDS: Mometasone/Formoterol 60 PUFF AER INH SCH ×2 (09:12→21:26)
[2018-11-24] MEDS: Acetaminophen 325 MG TAB PO PRN ×3 (11:57→21:31)
[2018-11-24] MEDS: Rivaroxaban 10 MG TAB PO SCH (17:01)
[2018-11-24] MEDS: Atorvastatin Calcium 10 MG TAB PO SCH (21:30)
[2018-11-24] MEDS: Loratadine 10 MG TAB PO SCH (21:31)
[2018-11-24] MEDS: Mirtazapine 15 MG TAB PO SCH (21:32)
[2018-11-24] MEDS: traZODone HCl 50 MG TAB PO SCH (21:33)
[2018-11-25 04:57] LABS: #Basophils 0.1 thou/uL (0.0-0.2); #Eosinphils 0.3 thou/uL (0.0-0.7); #Lymphocytes 1.2 thou/uL (1.20-3.40); #Monocytes 0.4 thou/uL (0.11-0.59); #Neutrophils 2.8 thou/uL (1.40-6.50); %Basophils 1.7 % (0.0-1.0); %Eosinophils 6.2 % (0.0-10.0); %Lymphocytes 24.5 % (21.0-51.0); %Monocytes 9.1 % (0.0-10.0); %Neutrophils 58.5 % (42.0-75.0); Mean Corpuscular HGB CONC 30.1 g/dL (32.0-36.0); Mean Corpuscular Hemoglobin 25.9 pg (27.0-31.0); Mean Corpuscular Volume 86.1 fL (78.0-98.0); Mean Platelet Volume 8.2 fL (7.4-10.4); Platelet Count 141 thou/uL (130-400); RBC Distribution Width 16.6 % (11.5-14.5); Red Blood Cell (RBC) Count 2.71 mill/uL (4.20-5.40); White Blood Cell (WBC) Count 4.7 thou/uL (4.8-10.8)
[2018-11-25] MEDS: Acetylcysteine 10% 100 MG/ML (4ML VIAL) PO SCH ×3 (06:00→18:13)
[2018-11-25 06:18] VITALS: BMI 29.2
[2018-11-25] MEDS: Polyethylene Glycol 3350 17 GM Packet PO SCH (08:52)
[2018-11-25] MEDS: Fish Oil 1,000 MG CAP PO SCH ×2 (09:03→20:19)
[2018-11-25] MEDS: Saccharomyces boulardii 250 MG CAP PO SCH (09:03)
[2018-11-25] MEDS: Estradiol 1 MG TAB PO SCH (09:03)
[2018-11-25] MEDS: Pregabalin 75 MG CAP PO SCH ×2 (09:04→20:19)
[2018-11-25] MEDS: guaiFENesin ER 600 MG TAB PO SCH ×2 (09:05→20:21)
[2018-11-25] MEDS: Docusate 100 MG CAP PO SCH (09:05)
[2018-11-25] MEDS: Pantoprazole 40 MG GRANULES PACKET PO SCH (09:05)
[2018-11-25] MEDS: Furosemide 40 MG TAB PO SCH (09:06)
[2018-11-25] MEDS: Potassium Chloride 20 MEQ TAB PO SCH ×2 (09:06→17:11)
[2018-11-25] MEDS: DULoxetine 30 MG CAP PO SCH (09:06)
[2018-11-25] MEDS: Meloxicam 7.5 MG TAB PO SCH (09:06)
[2018-11-25] MEDS: Azelastine 137 MCG/Spray 30 ML NS SCH ×2 (09:07→20:17)
[2018-11-25] MEDS: Cyanocobalamin (Vitamin B-12) 1,000 MCG TAB PO SCH (09:07)
[2018-11-25] MEDS: Aspirin 81 mg Enteric Coated Tablet PO SCH (09:07)
[2018-11-25] MEDS: Lantus 1000 UNITS/10 ML VIAL SC SCH ×2 (09:07→20:31)
[2018-11-25] MEDS: Mometasone/Formoterol 60 PUFF AER INH SCH ×2 (09:08→20:26)
[2018-11-25] MEDS ORDERED: Acetaminophen 500 MG TAB PO SCH (11:00)
[2018-11-25] MEDS ORDERED: Iron Sucrose Complex 500 MG in Sodium Chloride 0.9% 250 ML 250 ML IVPB SCH (12:00)
[2018-11-25] MEDS ORDERED: Iron Sucrose Complex 100 MG in Sodium Chloride 0.9% 100 ML IVPB SCH (12:00)
[2018-11-25] MEDS: HumaLOG 300 UNITS/3 ML VIAL SC PRN ×2 (12:29→18:12)
[2018-11-25] MEDS ORDERED: Iron Sucrose Complex 200 MG in Sodium Chloride 0.9% 250 ML 250 ML IVPB SCH ×2 (13:00→15:15)
[2018-11-25] MEDS: Rivaroxaban 10 MG TAB PO SCH (17:11)
[2018-11-25] MEDS: Atorvastatin Calcium 10 MG TAB PO SCH (20:21)
[2018-11-25] MEDS: Mirtazapine 15 MG TAB PO SCH (20:22)
[2018-11-25] MEDS: Loratadine 10 MG TAB PO SCH (20:22)
[2018-11-25] MEDS: Acetaminophen 325 MG TAB PO PRN (20:24)
[2018-11-25] MEDS: traZODone HCl 50 MG TAB PO SCH (20:27)
[2018-11-26] MEDS: Acetylcysteine 10% 100 MG/ML (4ML VIAL) PO SCH ×4 (01:04→19:19)
[2018-11-26 05:11] LABS: Hemoglobin 6.9 g/dL (12.0-16.0); Platelet Count 165 thou/uL (130-400)
[2018-11-26] MEDS ORDERED: diphenhydrAMINE 25 MG CAP PO SCH (07:00)
[2018-11-26] MEDS ORDERED: Acetaminophen 325 MG TAB PO SCH (07:00)
[2018-11-26] MEDS: Potassium Chloride 20 MEQ TAB PO SCH ×2 (10:18→19:19)
[2018-11-26] MEDS: Saccharomyces boulardii 250 MG CAP PO SCH (10:18)
[2018-11-26] MEDS: Fish Oil 1,000 MG CAP PO SCH ×2 (10:18→21:44)
[2018-11-26] MEDS: Pregabalin 75 MG CAP PO SCH ×2 (10:19→21:46)
[2018-11-26] MEDS: Cyanocobalamin (Vitamin B-12) 1,000 MCG TAB PO SCH (10:20)
[2018-11-26] MEDS: Furosemide 40 MG TAB PO SCH (10:20)
[2018-11-26] MEDS: Docusate 100 MG CAP PO SCH (10:21)
[2018-11-26] MEDS: Estradiol 1 MG TAB PO SCH (10:21)
[2018-11-26] MEDS: Meloxicam 7.5 MG TAB PO SCH (10:22)
[2018-11-26] MEDS: guaiFENesin ER 600 MG TAB PO SCH ×2 (10:22→21:44)
[2018-11-26] MEDS: Aspirin 81 mg Enteric Coated Tablet PO SCH (10:22)
[2018-11-26] MEDS: DULoxetine 30 MG CAP PO SCH (10:22)
[2018-11-26] MEDS: Pantoprazole 40 MG GRANULES PACKET PO SCH (10:24)
[2018-11-26] MEDS: Mometasone/Formoterol 60 PUFF AER INH SCH ×2 (10:25→22:05)
[2018-11-26] MEDS: Polyethylene Glycol 3350 17 GM Packet PO SCH (10:27)
[2018-11-26] MEDS: Azelastine 137 MCG/Spray 30 ML NS SCH ×2 (10:28→21:54)
[2018-11-26] MEDS: Lantus 1000 UNITS/10 ML VIAL SC SCH ×2 (10:31→21:49)
[2018-11-26] MEDS ORDERED: Iron Sucrose Complex 200 MG in Sodium Chloride 0.9% 250 ML 250 ML IVPB SCH (13:00)
[2018-11-26] MEDS: HumaLOG 300 UNITS/3 ML VIAL SC PRN ×2 (19:15→22:05)
[2018-11-26] MEDS: Mirtazapine 15 MG TAB PO SCH (21:44)
[2018-11-26] MEDS: Atorvastatin Calcium 10 MG TAB PO SCH (21:46)
[2018-11-26] MEDS: Loratadine 10 MG TAB PO SCH (21:46)
[2018-11-26] MEDS: traZODone HCl 50 MG TAB PO SCH (22:04)
[2018-11-26] MEDS: Acetaminophen 325 MG TAB PO PRN (22:04)
[2018-11-26] MEDS ORDERED: Sodium Chloride 0.9% 10 ML ONE (22:15)
[2018-11-27] MEDS: Acetylcysteine 10% 100 MG/ML (4ML VIAL) PO SCH ×4 (00:15→16:58)
[2018-11-27] MEDS: Polyethylene Glycol 3350 17 GM Packet PO SCH (08:21)
[2018-11-27] MEDS: Pantoprazole 40 MG GRANULES PACKET PO SCH (08:25)
[2018-11-27] MEDS: Potassium Chloride 20 MEQ TAB PO SCH ×2 (08:27→16:55)
[2018-11-27] MEDS: Meloxicam 7.5 MG TAB PO SCH (08:28)
[2018-11-27] MEDS: Aspirin 81 mg Enteric Coated Tablet PO SCH (08:28)
[2018-11-27] MEDS: guaiFENesin ER 600 MG TAB PO SCH ×2 (08:28→21:47)
[2018-11-27] MEDS: DULoxetine 30 MG CAP PO SCH (08:29)
[2018-11-27] MEDS: Furosemide 40 MG TAB PO SCH (08:29)
[2018-11-27] MEDS: Docusate 100 MG CAP PO SCH (08:29)
[2018-11-27] MEDS: Cyanocobalamin (Vitamin B-12) 1,000 MCG TAB PO SCH (08:29)
[2018-11-27] MEDS: Pregabalin 75 MG CAP PO SCH ×2 (08:29→21:48)
[2018-11-27] MEDS: Azelastine 137 MCG/Spray 30 ML NS SCH ×2 (08:35→21:47)
[2018-11-27] MEDS: Lantus 1000 UNITS/10 ML VIAL SC SCH (08:37)
[2018-11-27] MEDS: Estradiol 1 MG TAB PO SCH (08:41)
[2018-11-27] MEDS: Fish Oil 1,000 MG CAP PO SCH ×2 (08:41→21:46)
[2018-11-27] MEDS: Saccharomyces boulardii 250 MG CAP PO SCH (08:42)
[2018-11-27] MEDS: Mometasone/Formoterol 60 PUFF AER INH SCH ×2 (08:45→21:51)
[2018-11-27] MEDS: SUPREP BOWEL PREP KIT PO SCH (18:16)
[2018-11-27] MEDS ORDERED: Lantus 1000 UNITS/10 ML VIAL SC SCH (21:00)
[2018-11-27] MEDS: traZODone HCl 50 MG TAB PO SCH (21:46)
[2018-11-27] MEDS: Mirtazapine 15 MG TAB PO SCH (21:47)
[2018-11-27] MEDS: Loratadine 10 MG TAB PO SCH (21:47)
[2018-11-27] MEDS: Atorvastatin Calcium 10 MG TAB PO SCH (21:48)
[2018-11-28] MEDS: Acetylcysteine 10% 100 MG/ML (4ML VIAL) PO SCH ×4 (00:15→17:34)
[2018-11-28] MEDS: Pantoprazole 40 MG GRANULES PACKET PO SCH (05:25)
[2018-11-28] MEDS: Pregabalin 75 MG CAP PO SCH ×2 (05:25→21:56)
[2018-11-28] MEDS: DULoxetine 30 MG CAP PO SCH (05:25)
[2018-11-28] MEDS: SUPREP BOWEL PREP KIT PO SCH (06:23)
[2018-11-28 08:03] LABS: #Eosinphils 0.2 thou/uL (0.0-0.7); #Lymphocytes 1.1 thou/uL (1.20-3.40); #Monocytes 0.4 thou/uL (0.11-0.59); #Neutrophils 6.1 thou/uL (1.40-6.50); %Basophils 0.6 % (0.0-1.0); %Eosinophils 2.1 % (0.0-10.0); %Lymphocytes 14.1 % (21.0-51.0); %Monocytes 4.8 % (0.0-10.0); %Neutrophils 78.4 % (42.0-75.0); Hemoglobin 9.9 g/dL (12.0-16.0); Mean Corpuscular HGB CONC 30.6 g/dL (32.0-36.0); Mean Corpuscular Hemoglobin 26.6 pg (27.0-31.0); Mean Corpuscular Volume 86.9 fL (78.0-98.0); Mean Platelet Volume 7.5 fL (7.4-10.4); Platelet Count 179 thou/uL (130-400); Red Blood Cell (RBC) Count 3.73 mill/uL (4.20-5.40); White Blood Cell (WBC) Count 7.8 thou/uL (4.8-10.8)
[2018-11-28 08:17] LABS: ALT (SGPT) 42 U/L (8-55); AST (SGOT) 107 U/L (5-34); Albumin 2.7 g/dL (3.4-4.8); Alkaline Phosphatase 207 U/L (40-150); Anion Gap 11 mmol/L (10-20); BUN (Urea Nitrogen) 11 mg/dL (9.8-20.1); Bilirubin, Total 0.5 mg/dL (0.2-1.2); Calc. Creatinine Clearance 91 mL/min (70-130); Calcium 8.7 mg/dL (7.8-10.44); Carbon Dioxide 34 mmol/L (23-31); Chloride 103 mmol/L (98-107); Estimated GFR-MDRD 84; Glucose 85 mg/dL (83-110); Potassium 4.3 mmol/L (3.5-5.1); Protein, Total 5.7 g/dL (6.0-8.3); Sodium 144 mmol/L (136-145)
[2018-11-28] MEDS: Aspirin 81 mg Enteric Coated Tablet PO SCH (09:08)
[2018-11-28] MEDS: Azelastine 137 MCG/Spray 30 ML NS SCH ×2 (09:08→21:52)
[2018-11-28] MEDS: Potassium Chloride 20 MEQ TAB PO SCH ×2 (09:08→17:33)
[2018-11-28] MEDS: Cyanocobalamin (Vitamin B-12) 1,000 MCG TAB PO SCH (09:09)
[2018-11-28] MEDS: Fish Oil 1,000 MG CAP PO SCH ×2 (09:09→21:50)
[2018-11-28] MEDS: guaiFENesin ER 600 MG TAB PO SCH ×2 (09:09→21:50)
[2018-11-28] MEDS: Estradiol 1 MG TAB PO SCH (09:09)
[2018-11-28] MEDS: Furosemide 40 MG TAB PO SCH (09:09)
[2018-11-28] MEDS: Docusate 100 MG CAP PO SCH (09:09)
[2018-11-28] MEDS: Mometasone/Formoterol 60 PUFF AER INH SCH ×2 (09:10→21:51)
[2018-11-28] MEDS: Meloxicam 7.5 MG TAB PO SCH (09:10)
[2018-11-28] MEDS: Polyethylene Glycol 3350 17 GM Packet PO SCH (09:12)
[2018-11-28] MEDS: Saccharomyces boulardii 250 MG CAP PO SCH (09:12)
[2018-11-28] MEDS ORDERED: Lantus 1000 UNITS/10 ML VIAL SC SCH (21:30)
[2018-11-28] MEDS: Atorvastatin Calcium 10 MG TAB PO SCH (21:50)
[2018-11-28] MEDS: Loratadine 10 MG TAB PO SCH (21:50)
[2018-11-28] MEDS: Mirtazapine 15 MG TAB PO SCH (21:50)
[2018-11-28] MEDS: traZODone HCl 50 MG TAB PO SCH (21:53)
[2018-11-28] MEDS: HumaLOG 300 UNITS/3 ML VIAL SC PRN (22:05)
[2018-11-28] MEDS: Acetaminophen 325 MG TAB PO PRN (22:35)
[2018-11-29] MEDS: Acetylcysteine 10% 100 MG/ML (4ML VIAL) PO SCH ×4 (00:16→17:29)
[2018-11-29] MEDS: Saccharomyces boulardii 250 MG CAP PO SCH (08:44)
[2018-11-29] MEDS: DULoxetine 30 MG CAP PO SCH (08:44)
[2018-11-29] MEDS: Furosemide 40 MG TAB PO SCH (08:45)
[2018-11-29] MEDS: Cyanocobalamin (Vitamin B-12) 1,000 MCG TAB PO SCH (08:45)
[2018-11-29] MEDS: Fish Oil 1,000 MG CAP PO SCH ×2 (08:45→20:04)
[2018-11-29] MEDS: guaiFENesin ER 600 MG TAB PO SCH ×2 (08:45→20:06)
[2018-11-29] MEDS: Pregabalin 75 MG CAP PO SCH ×2 (08:46→20:06)
[2018-11-29] MEDS: Meloxicam 7.5 MG TAB PO SCH (08:46)
[2018-11-29] MEDS: Docusate 100 MG CAP PO SCH (08:48)
[2018-11-29] MEDS: Potassium Chloride 20 MEQ TAB PO SCH ×2 (08:49→16:29)
[2018-11-29] MEDS: Polyethylene Glycol 3350 17 GM Packet PO SCH (08:52)
[2018-11-29] MEDS: Mometasone/Formoterol 60 PUFF AER INH SCH ×2 (08:53→20:20)
[2018-11-29] MEDS: Pantoprazole 40 MG GRANULES PACKET PO SCH (08:53)
[2018-11-29] MEDS: Estradiol 1 MG TAB PO SCH (08:55)
[2018-11-29] MEDS: Azelastine 137 MCG/Spray 30 ML NS SCH ×2 (08:55→20:17)
[2018-11-29] MEDS: Lantus 1000 UNITS/10 ML VIAL SC SCH ×2 (09:03→20:18)
[2018-11-29] MEDS: HumaLOG 300 UNITS/3 ML VIAL SC PRN ×3 (09:04→17:31)
[2018-11-29] MEDS: Acetaminophen 325 MG TAB PO PRN ×2 (12:06→16:28)
[2018-11-29] MEDS: traZODone HCl 50 MG TAB PO SCH (20:05)
[2018-11-29] MEDS: Loratadine 10 MG TAB PO SCH (20:05)
[2018-11-29] MEDS: Mirtazapine 15 MG TAB PO SCH (20:06)
[2018-11-29] MEDS: Atorvastatin Calcium 10 MG TAB PO SCH (20:06)
[2018-11-30] MEDS: Acetylcysteine 10% 100 MG/ML (4ML VIAL) PO SCH ×3 (00:06→12:58)
[2018-11-30] MEDS: Lantus 1000 UNITS/10 ML VIAL SC SCH (08:54)
[2018-11-30 08:55] LABS: Hemoglobin 9.2 g/dL (12.0-16.0); Platelet Count 148 thou/uL (130-400)
[2018-11-30] MEDS: guaiFENesin ER 600 MG TAB PO SCH (08:59)
[2018-11-30] MEDS: Furosemide 40 MG TAB PO SCH (08:59)
[2018-11-30] MEDS: Fish Oil 1,000 MG CAP PO SCH (08:59)
[2018-11-30] MEDS: Polyethylene Glycol 3350 17 GM Packet PO SCH (08:59)
[2018-11-30] MEDS: Docusate 100 MG CAP PO SCH (08:59)
[2018-11-30] MEDS: Cyanocobalamin (Vitamin B-12) 1,000 MCG TAB PO SCH (09:00)
[2018-11-30] MEDS: DULoxetine 30 MG CAP PO SCH (09:00)
[2018-11-30] MEDS: Potassium Chloride 20 MEQ TAB PO SCH (09:01)
[2018-11-30] MEDS: Saccharomyces boulardii 250 MG CAP PO SCH (09:02)
[2018-11-30] MEDS: Meloxicam 7.5 MG TAB PO SCH (09:02)
[2018-11-30] MEDS: Estradiol 1 MG TAB PO SCH (09:02)
[2018-11-30] MEDS: Pantoprazole 40 MG GRANULES PACKET PO SCH (09:03)
[2018-11-30] MEDS: Pregabalin 75 MG CAP PO SCH (09:04)
[2018-11-30] MEDS: Azelastine 137 MCG/Spray 30 ML NS SCH (09:04)
[2018-11-30] MEDS: Acetaminophen 325 MG TAB PO PRN (11:10)
[2018-11-30] MEDS: Mometasone/Formoterol 60 PUFF AER INH SCH (13:29)
[2018-11-30] MEDS ORDERED: Potassium Chloride 20 MEQ TAB PO ONE (18:46)
[2018-11-30] MEDS ORDERED: Acetaminophen 325 MG TAB ONE ×2 (22:22)
[2018-11-30] MEDS ORDERED: Acetaminophen 325 MG TAB PO ONE (22:25)
[2018-12-01] MEDS ORDERED: Acetaminophen 325 MG TAB ONE ×4 (01:02→21:44)
[2018-12-01] MEDS ORDERED: traMADol HCl 50 MG TAB ONE (01:04)
[2018-12-01] MEDS ORDERED: Acetaminophen 325 MG TAB PO ONE ×2 (03:45→22:05)
[2018-12-01] MEDS ORDERED: Acetylcysteine (ACETADOTE) 20% 200 MG/ML (30 ML VIAL) ONE (05:15)
[2018-12-01] MEDS ORDERED: Potassium Chloride 20 MEQ TAB PO ONE ×2 (08:00→17:00)
[2018-12-01] MEDS ORDERED: Saccharomyces boulardii 250 MG CAP PO ONE (09:00)
[2018-12-01] MEDS ORDERED: Fish Oil 1,000 MG CAP PO ONE ×2 (09:00→21:00)
[2018-12-01] MEDS ORDERED: Pantoprazole 40 MG GRANULES PACKET PO ONE (09:00)
[2018-12-01] MEDS ORDERED: Cyanocobalamin (Vitamin B-12) 1,000 MCG TAB PO ONE (09:00)
[2018-12-01] MEDS ORDERED: Meloxicam 7.5 MG TAB PO ONE (09:00)
[2018-12-01] MEDS ORDERED: Docusate 100 MG CAP PO ONE (09:00)
[2018-12-01] MEDS ORDERED: DULoxetine 30 MG CAP PO ONE (09:00)
[2018-12-01] MEDS ORDERED: Pregabalin 75 MG CAP PO ONE ×2 (09:00→21:00)
[2018-12-01] MEDS ORDERED: guaiFENesin ER 600 MG TAB PO ONE ×2 (09:00→21:00)
[2018-12-01] MEDS ORDERED: Furosemide 40 MG TAB PO ONE (09:00)
[2018-12-01] MEDS ORDERED: Estradiol 1 MG TAB PO ONE (09:00)
[2018-12-01] MEDS ORDERED: Acetylcysteine 10% 100 MG/ML (4ML VIAL) INH ONE ×2 (12:00→18:00)
[2018-12-01] MEDS: Pregabalin 75 MG CAP PO SCH (15:55)
[2018-12-01] MEDS: Mometasone/Formoterol 60 PUFF AER INH SCH (15:55)
[2018-12-01] MEDS ORDERED: Atorvastatin Calcium 10 MG TAB PO ONE (21:00)
[2018-12-01] MEDS ORDERED: Loratadine 10 MG TAB PO ONE (21:00)
[2018-12-01] MEDS ORDERED: traZODone HCl 50 MG TAB PO ONE (21:00)
[2018-12-01] MEDS ORDERED: Mirtazapine 15 MG TAB PO ONE (21:00)
[2018-12-01] MEDS ORDERED: Pregabalin 75 MG CAP ONE (21:54)
[2018-12-01] MEDS ORDERED: Mirtazapine 15 MG TAB ONE (21:55)
[2018-12-02] MEDS: Acetylcysteine 10% 100 MG/ML (4ML VIAL) PO SCH ×7 (00:02→23:50)
[2018-12-02 05:14] LABS: Hemoglobin 8.9 g/dL (12.0-16.0); Platelet Count 131 thou/uL (130-400)
[2018-12-02] MEDS: Potassium Chloride 20 MEQ TAB PO SCH ×3 (09:00→17:24)
[2018-12-02] MEDS: Mometasone/Formoterol 60 PUFF AER INH SCH ×2 (09:21→21:55)
[2018-12-02] MEDS: Meloxicam 7.5 MG TAB PO SCH ×2 (09:31→15:58)
[2018-12-02] MEDS: Azelastine 137 MCG/Spray 30 ML NS SCH ×3 (10:20→21:58)
[2018-12-02] MEDS: Fish Oil 1,000 MG CAP PO SCH ×3 (10:20→21:52)
[2018-12-02] MEDS: guaiFENesin ER 600 MG TAB PO SCH ×3 (10:21→21:53)
[2018-12-02] MEDS: Pregabalin 75 MG CAP PO SCH ×3 (10:26→21:49)
[2018-12-02] MEDS: Cyanocobalamin (Vitamin B-12) 1,000 MCG TAB PO SCH ×2 (10:28→15:56)
[2018-12-02] MEDS: DULoxetine 30 MG CAP PO SCH ×2 (10:29→15:57)
[2018-12-02] MEDS: Docusate 100 MG CAP PO SCH ×2 (10:29→15:57)
[2018-12-02] MEDS: Estradiol 1 MG TAB PO SCH ×2 (10:29→15:57)
[2018-12-02] MEDS: Furosemide 40 MG TAB PO SCH ×2 (10:30→15:58)
[2018-12-02] MEDS: Pantoprazole 40 MG GRANULES PACKET PO SCH ×2 (10:31→15:58)
[2018-12-02] MEDS: Saccharomyces boulardii 250 MG CAP PO SCH ×2 (10:32→15:58)
[2018-12-02] MEDS: Polyethylene Glycol 3350 17 GM Packet PO SCH ×2 (10:32→15:58)
[2018-12-02] MEDS: Lantus 1000 UNITS/10 ML VIAL SC SCH ×2 (10:42→21:56)
[2018-12-02] MEDS: Acetaminophen 325 MG TAB PO PRN ×2 (14:29→21:53)
[2018-12-02] MEDS: Atorvastatin Calcium 10 MG TAB PO SCH ×2 (15:48→21:55)
[2018-12-02] MEDS: Mirtazapine 15 MG TAB PO SCH ×2 (15:54→21:54)
[2018-12-02] MEDS: Loratadine 10 MG TAB PO SCH ×2 (15:54→21:55)
[2018-12-02] MEDS: traZODone HCl 50 MG TAB PO SCH ×2 (15:56→22:04)
[2018-12-02] MEDS: HumaLOG 300 UNITS/3 ML VIAL SC PRN ×2 (17:28→22:03)
[2018-12-03] MEDS: Potassium Chloride 20 MEQ TAB PO SCH ×3 (04:41→17:10)
[2018-12-03] MEDS: Acetylcysteine 10% 100 MG/ML (4ML VIAL) PO SCH ×5 (04:42→23:54)
[2018-12-03] MEDS: Fish Oil 1,000 MG CAP PO SCH ×3 (04:43→20:37)
[2018-12-03] MEDS: Atorvastatin Calcium 10 MG TAB PO SCH ×2 (04:43→20:38)
[2018-12-03] MEDS: Azelastine 137 MCG/Spray 30 ML NS SCH ×3 (04:43→20:40)
[2018-12-03] MEDS: guaiFENesin ER 600 MG TAB PO SCH ×3 (04:44→20:36)
[2018-12-03] MEDS: Lantus 1000 UNITS/10 ML VIAL SC SCH ×5 (04:44→21:02)
[2018-12-03] MEDS: Mirtazapine 15 MG TAB PO SCH ×2 (04:45→20:37)
[2018-12-03] MEDS: Loratadine 10 MG TAB PO SCH ×2 (04:45→20:38)
[2018-12-03] MEDS: Pregabalin 75 MG CAP PO SCH ×3 (04:46→20:34)
[2018-12-03] MEDS: traZODone HCl 50 MG TAB PO SCH ×2 (04:46→20:38)
[2018-12-03] MEDS: Mometasone/Formoterol 60 PUFF AER INH SCH ×3 (04:46→20:39)
[2018-12-03 05:48] LABS: Anion Gap 10 mmol/L (10-20); BUN (Urea Nitrogen) 12 mg/dL (9.8-20.1); Calc. Creatinine Clearance 80 mL/min (70-130); Calcium 8.5 mg/dL (7.8-10.44); Carbon Dioxide 33 mmol/L (23-31); Chloride 103 mmol/L (98-107); Estimated GFR-MDRD 71; Glucose 155 mg/dL (83-110); Potassium 4.5 mmol/L (3.5-5.1); Sodium 141 mmol/L (136-145)
[2018-12-03 05:52] LABS: #Basophils 0.1 thou/uL (0.0-0.2); #Eosinphils 0.2 thou/uL (0.0-0.7); #Lymphocytes 0.9 thou/uL (1.20-3.40); #Monocytes 0.4 thou/uL (0.11-0.59); #Neutrophils 2.1 thou/uL (1.40-6.50); %Basophils 1.6 % (0.0-1.0); %Eosinophils 5.5 % (0.0-10.0); %Lymphocytes 25.9 % (21.0-51.0); %Monocytes 10.3 % (0.0-10.0); %Neutrophils 56.7 % (42.0-75.0); Hemoglobin 9.1 g/dL (12.0-16.0); Mean Corpuscular HGB CONC 29.9 g/dL (32.0-36.0); Mean Corpuscular Hemoglobin 25.9 pg (27.0-31.0); Mean Corpuscular Volume 86.8 fL (78.0-98.0); Mean Platelet Volume 7.8 fL (7.4-10.4); Platelet Count 123 thou/uL (130-400); RBC Distribution Width 17.3 % (11.5-14.5); Red Blood Cell (RBC) Count 3.49 mill/uL (4.20-5.40); White Blood Cell (WBC) Count 3.6 thou/uL (4.8-10.8)
[2018-12-03] MEDS: Acetaminophen 325 MG TAB PO PRN ×3 (05:54→20:37)
[2018-12-03] MEDS: DULoxetine 30 MG CAP PO SCH (09:15)
[2018-12-03] MEDS: Cyanocobalamin (Vitamin B-12) 1,000 MCG TAB PO SCH (09:17)
[2018-12-03] MEDS: Saccharomyces boulardii 250 MG CAP PO SCH (09:18)
[2018-12-03] MEDS: Meloxicam 7.5 MG TAB PO SCH (09:18)
[2018-12-03] MEDS: Furosemide 40 MG TAB PO SCH (09:18)
[2018-12-03] MEDS: Docusate 100 MG CAP PO SCH (09:18)
[2018-12-03] MEDS: Estradiol 1 MG TAB PO SCH (09:19)
[2018-12-03] MEDS: Pantoprazole 40 MG GRANULES PACKET PO SCH (09:23)
[2018-12-03] MEDS: Polyethylene Glycol 3350 17 GM Packet PO SCH (09:24)
[2018-12-03] MEDS: HumaLOG 300 UNITS/3 ML VIAL SC PRN ×3 (12:01→21:00)
[2018-12-04 06:01] LABS: Hemoglobin 9.6 g/dL (12.0-16.0); Platelet Count 137 thou/uL (130-400)
[2018-12-04] MEDS: Acetylcysteine 10% 100 MG/ML (4ML VIAL) PO SCH ×3 (06:02→17:50)
[2018-12-04] MEDS: Fish Oil 1,000 MG CAP PO SCH ×2 (09:20→20:28)
[2018-12-04] MEDS: DULoxetine 30 MG CAP PO SCH (09:20)
[2018-12-04] MEDS: Docusate 100 MG CAP PO SCH (09:20)
[2018-12-04] MEDS: Pregabalin 75 MG CAP PO SCH ×2 (09:21→20:26)
[2018-12-04] MEDS: Potassium Chloride 20 MEQ TAB PO SCH ×2 (09:22→17:51)
[2018-12-04] MEDS: Furosemide 40 MG TAB PO SCH (09:22)
[2018-12-04] MEDS: Saccharomyces boulardii 250 MG CAP PO SCH (09:22)
[2018-12-04] MEDS: guaiFENesin ER 600 MG TAB PO SCH ×2 (09:22→20:29)
[2018-12-04] MEDS: Pantoprazole 40 MG GRANULES PACKET PO SCH (09:22)
[2018-12-04] MEDS: Estradiol 1 MG TAB PO SCH (09:23)
[2018-12-04] MEDS: Meloxicam 7.5 MG TAB PO SCH (09:23)
[2018-12-04] MEDS: Cyanocobalamin (Vitamin B-12) 1,000 MCG TAB PO SCH (09:23)
[2018-12-04] MEDS: Polyethylene Glycol 3350 17 GM Packet PO SCH (09:27)
[2018-12-04] MEDS: Mometasone/Formoterol 60 PUFF AER INH SCH ×2 (09:29→20:23)
[2018-12-04] MEDS: Azelastine 137 MCG/Spray 30 ML NS SCH ×2 (09:38→20:31)
[2018-12-04] MEDS: Lantus 1000 UNITS/10 ML VIAL SC SCH ×2 (09:38→20:41)
[2018-12-04] MEDS: Acetaminophen 325 MG TAB PO PRN ×2 (09:42→17:49)
[2018-12-04] MEDS: HumaLOG 300 UNITS/3 ML VIAL SC PRN ×2 (12:29→17:41)
[2018-12-04] MEDS: Atorvastatin Calcium 10 MG TAB PO SCH (20:29)
[2018-12-04] MEDS: Mirtazapine 15 MG TAB PO SCH (20:30)
[2018-12-04] MEDS: Loratadine 10 MG TAB PO SCH (20:31)
[2018-12-04] MEDS: traZODone HCl 50 MG TAB PO SCH (20:31)
[2018-12-05] MEDS: Acetylcysteine 10% 100 MG/ML (4ML VIAL) PO SCH ×4 (00:32→18:30)
[2018-12-05] MEDS: Pregabalin 75 MG CAP PO SCH ×2 (09:29→20:51)
[2018-12-05] MEDS: Estradiol 1 MG TAB PO SCH (09:31)
[2018-12-05] MEDS: Meloxicam 7.5 MG TAB PO SCH (09:32)
[2018-12-05] MEDS: Potassium Chloride 20 MEQ TAB PO SCH ×2 (09:32→18:06)
[2018-12-05] MEDS: Pantoprazole 40 MG GRANULES PACKET PO SCH (09:32)
[2018-12-05] MEDS: Saccharomyces boulardii 250 MG CAP PO SCH (09:32)
[2018-12-05] MEDS: Fish Oil 1,000 MG CAP PO SCH ×2 (09:33→20:53)
[2018-12-05] MEDS: Furosemide 40 MG TAB PO SCH (09:33)
[2018-12-05] MEDS: Cyanocobalamin (Vitamin B-12) 1,000 MCG TAB PO SCH (09:33)
[2018-12-05] MEDS: guaiFENesin ER 600 MG TAB PO SCH ×2 (09:33→20:54)
[2018-12-05] MEDS: DULoxetine 30 MG CAP PO SCH (09:33)
[2018-12-05] MEDS: Docusate 100 MG CAP PO SCH (09:33)
[2018-12-05] MEDS: Apixaban 5 MG TAB PO SCH ×2 (09:34→20:54)
[2018-12-05] MEDS: Azelastine 137 MCG/Spray 30 ML NS SCH ×2 (09:34→22:53)
[2018-12-05] MEDS: Lantus 1000 UNITS/10 ML VIAL SC SCH ×2 (09:34→21:35)
[2018-12-05] MEDS: Mometasone/Formoterol 60 PUFF AER INH SCH ×2 (09:35→20:58)
[2018-12-05] MEDS: Polyethylene Glycol 3350 17 GM Packet PO SCH (09:35)
[2018-12-05] MEDS: HumaLOG 300 UNITS/3 ML VIAL SC PRN ×2 (12:39→21:29)
[2018-12-05] MEDS: Acetaminophen 325 MG TAB PO PRN (16:23)
[2018-12-05] MEDS: Mirtazapine 15 MG TAB PO SCH (20:54)
[2018-12-05] MEDS: Atorvastatin Calcium 10 MG TAB PO SCH (20:55)
[2018-12-05] MEDS: Loratadine 10 MG TAB PO SCH (20:55)
[2018-12-05] MEDS: traZODone HCl 50 MG TAB PO SCH (21:00)
[2018-12-06 05:25] LABS: Hemoglobin 9.3 g/dL (12.0-16.0); Platelet Count 137 thou/uL (130-400)
[2018-12-06] MEDS: Acetylcysteine 10% 100 MG/ML (4ML VIAL) PO SCH ×4 (06:23→17:21)
[2018-12-06] MEDS: Estradiol 1 MG TAB PO SCH (09:54)
[2018-12-06] MEDS: Furosemide 40 MG TAB PO SCH (09:55)
[2018-12-06] MEDS: Meloxicam 7.5 MG TAB PO SCH (09:55)
[2018-12-06] MEDS: Fish Oil 1,000 MG CAP PO SCH ×2 (09:55→20:27)
[2018-12-06] MEDS: DULoxetine 30 MG CAP PO SCH (09:55)
[2018-12-06] MEDS: guaiFENesin ER 600 MG TAB PO SCH ×2 (09:55→20:26)
[2018-12-06] MEDS: Saccharomyces boulardii 250 MG CAP PO SCH (09:55)
[2018-12-06] MEDS: Docusate 100 MG CAP PO SCH (09:56)
[2018-12-06] MEDS: Pregabalin 75 MG CAP PO SCH ×2 (09:56→20:27)
[2018-12-06] MEDS: Potassium Chloride 20 MEQ TAB PO SCH ×2 (09:56→16:59)
[2018-12-06] MEDS: Apixaban 5 MG TAB PO SCH ×2 (09:56→20:26)
[2018-12-06] MEDS: Cyanocobalamin (Vitamin B-12) 1,000 MCG TAB PO SCH (09:56)
[2018-12-06] MEDS: Pantoprazole 40 MG GRANULES PACKET PO SCH (09:57)
[2018-12-06] MEDS: Mometasone/Formoterol 60 PUFF AER INH SCH ×2 (09:57→20:28)
[2018-12-06] MEDS: Lantus 1000 UNITS/10 ML VIAL SC SCH ×2 (10:00→20:38)
[2018-12-06] MEDS: Polyethylene Glycol 3350 17 GM Packet PO SCH (10:05)
[2018-12-06] MEDS: Acetaminophen 325 MG TAB PO PRN ×2 (17:04→21:11)
[2018-12-06] MEDS: Atorvastatin Calcium 10 MG TAB PO SCH (20:26)
[2018-12-06] MEDS: Mirtazapine 15 MG TAB PO SCH (20:26)
[2018-12-06] MEDS: Loratadine 10 MG TAB PO SCH (20:27)
[2018-12-06] MEDS: traZODone HCl 50 MG TAB PO SCH (20:31)
[2018-12-07] MEDS: Acetylcysteine 10% 100 MG/ML (4ML VIAL) PO SCH ×5 (01:07→23:42)
[2018-12-07] MEDS: Pregabalin 75 MG CAP PO SCH ×2 (08:36→21:41)
[2018-12-07] MEDS: Estradiol 1 MG TAB PO SCH (08:38)
[2018-12-07] MEDS: Fish Oil 1,000 MG CAP PO SCH ×2 (08:39→21:36)
[2018-12-07] MEDS: Saccharomyces boulardii 250 MG CAP PO SCH (08:39)
[2018-12-07] MEDS: Meloxicam 7.5 MG TAB PO SCH (08:39)
[2018-12-07] MEDS: Apixaban 5 MG TAB PO SCH ×2 (08:40→21:35)
[2018-12-07] MEDS: DULoxetine 30 MG CAP PO SCH (08:40)
[2018-12-07] MEDS: Furosemide 40 MG TAB PO SCH (08:40)
[2018-12-07] MEDS: guaiFENesin ER 600 MG TAB PO SCH ×2 (08:40→21:38)
[2018-12-07] MEDS: Potassium Chloride 20 MEQ TAB PO SCH ×2 (08:41→17:13)
[2018-12-07] MEDS: Cyanocobalamin (Vitamin B-12) 1,000 MCG TAB PO SCH (08:41)
[2018-12-07] MEDS: Pantoprazole 40 MG GRANULES PACKET PO SCH (08:42)
[2018-12-07] MEDS: Docusate 100 MG CAP PO SCH (08:42)
[2018-12-07] MEDS: Mometasone/Formoterol 60 PUFF AER INH SCH ×2 (08:43→21:44)
[2018-12-07] MEDS: Polyethylene Glycol 3350 17 GM Packet PO SCH (08:47)
[2018-12-07] MEDS: HumaLOG 300 UNITS/3 ML VIAL SC PRN ×4 (08:50→22:00)
[2018-12-07] MEDS: Lantus 1000 UNITS/10 ML VIAL SC SCH ×2 (08:53→21:59)
[2018-12-07] MEDS: Acetaminophen 325 MG TAB PO PRN ×4 (09:02→21:43)
[2018-12-07] MEDS: Atorvastatin Calcium 10 MG TAB PO SCH (21:36)
[2018-12-07] MEDS: Loratadine 10 MG TAB PO SCH (21:38)
[2018-12-07] MEDS: Mirtazapine 15 MG TAB PO SCH (21:39)
[2018-12-07] MEDS: traZODone HCl 50 MG TAB PO SCH (21:41)
[2018-12-08] MEDS: Acetaminophen 325 MG TAB PO PRN ×5 (03:48→21:23)
[2018-12-08 05:41] LABS: Hemoglobin 9.7 g/dL (12.0-16.0); Platelet Count 152 thou/uL (130-400)
[2018-12-08] MEDS: Acetylcysteine 10% 100 MG/ML (4ML VIAL) PO SCH ×3 (06:10→18:35)
[2018-12-08] MEDS ORDERED: Acetaminophen 500 MG TAB PO SCH (08:30)
[2018-12-08] MEDS ORDERED: Iron Sucrose Complex 500 MG in Sodium Chloride 0.9% 250 ML 250 ML IVPB SCH (08:45)
[2018-12-08] MEDS: Pregabalin 75 MG CAP PO SCH ×2 (08:47→21:12)
[2018-12-08] MEDS: Saccharomyces boulardii 250 MG CAP PO SCH (08:50)
[2018-12-08] MEDS: Pantoprazole 40 MG GRANULES PACKET PO SCH (08:51)
[2018-12-08] MEDS: Estradiol 1 MG TAB PO SCH (08:51)
[2018-12-08] MEDS: Furosemide 40 MG TAB PO SCH (08:51)
[2018-12-08] MEDS: Potassium Chloride 20 MEQ TAB PO SCH ×2 (08:52→16:59)
[2018-12-08] MEDS: Docusate 100 MG CAP PO SCH (08:53)
[2018-12-08] MEDS: Meloxicam 7.5 MG TAB PO SCH (08:53)
[2018-12-08] MEDS: Apixaban 5 MG TAB PO SCH ×2 (08:53→21:11)
[2018-12-08] MEDS: Cyanocobalamin (Vitamin B-12) 1,000 MCG TAB PO SCH (08:55)
[2018-12-08] MEDS: Fish Oil 1,000 MG CAP PO SCH ×2 (08:55→21:12)
[2018-12-08] MEDS: DULoxetine 30 MG CAP PO SCH (08:57)
[2018-12-08] MEDS: guaiFENesin ER 600 MG TAB PO SCH ×2 (08:58→21:12)
[2018-12-08] MEDS: Polyethylene Glycol 3350 17 GM Packet PO SCH (08:58)
[2018-12-08] MEDS: Lantus 1000 UNITS/10 ML VIAL SC SCH ×2 (09:02→21:59)
[2018-12-08] MEDS: Mometasone/Formoterol 60 PUFF AER INH SCH ×2 (09:04→21:13)
[2018-12-08] MEDS: HumaLOG 300 UNITS/3 ML VIAL SC PRN (17:22)
[2018-12-08] MEDS: Loratadine 10 MG TAB PO SCH (21:12)
[2018-12-08] MEDS: Mirtazapine 15 MG TAB PO SCH (21:12)
[2018-12-08] MEDS: Atorvastatin Calcium 10 MG TAB PO SCH (21:12)
[2018-12-08] MEDS: traZODone HCl 50 MG TAB PO SCH (21:12)
[2018-12-09] MEDS: Acetylcysteine 10% 100 MG/ML (4ML VIAL) PO SCH ×2 (00:01→06:15)
[2018-12-09 05:45] LABS: BUN (Urea Nitrogen) 16 mg/dL (9.8-20.1); Calc. Creatinine Clearance 0 mL/min (70-130); Carbon Dioxide 31 mmol/L (23-31); Chloride 103 mmol/L (98-107); Estimated GFR-MDRD 60; Potassium 3.9 mmol/L (3.5-5.1); Sodium 142 mmol/L (136-145)
[2018-12-09 05:46] LABS: Calcium 8.4 mg/dL (7.8-10.44); Glucose 53 mg/dL (83-110)
[2018-12-09 05:52] LABS: Anion Gap 12 mmol/L (10-20)
[2018-12-09 05:53] LABS: #Basophils 0.1 thou/uL (0.0-0.2); #Eosinphils 0.2 thou/uL (0.0-0.7); #Lymphocytes 0.8 thou/uL (1.20-3.40); #Monocytes 0.5 thou/uL (0.11-0.59); #Neutrophils 4.1 thou/uL (1.40-6.50); %Basophils 1.2 % (0.0-1.0); %Eosinophils 2.8 % (0.0-10.0); %Lymphocytes 14.7 % (21.0-51.0); %Monocytes 9.1 % (0.0-10.0); %Neutrophils 72.2 % (42.0-75.0); Mean Corpuscular HGB CONC 29.9 g/dL (32.0-36.0); Mean Corpuscular Hemoglobin 25.3 pg (27.0-31.0); Mean Corpuscular Volume 84.5 fL (78.0-98.0); Mean Platelet Volume 8.6 fL (7.4-10.4); Platelet Count 154 thou/uL (130-400); RBC Distribution Width 16.4 % (11.5-14.5); Red Blood Cell (RBC) Count 3.57 mill/uL (4.20-5.40); White Blood Cell (WBC) Count 5.6 thou/uL (4.8-10.8)
[2018-12-09 06:18] VITALS: BP 111/54; TEMP 97.8
[2018-12-09] MEDS: Pregabalin 75 MG CAP PO SCH (08:10)
[2018-12-09] MEDS: Fish Oil 1,000 MG CAP PO SCH (08:13)
[2018-12-09] MEDS: Docusate 100 MG CAP PO SCH (08:13)
[2018-12-09] MEDS: guaiFENesin ER 600 MG TAB PO SCH (08:13)
[2018-12-09] MEDS: Saccharomyces boulardii 250 MG CAP PO SCH (08:13)
[2018-12-09] MEDS: Potassium Chloride 20 MEQ TAB PO SCH (08:13)
[2018-12-09] MEDS: Pantoprazole 40 MG GRANULES PACKET PO SCH (08:13)
[2018-12-09] MEDS: DULoxetine 30 MG CAP PO SCH (08:14)
[2018-12-09] MEDS: Cyanocobalamin (Vitamin B-12) 1,000 MCG TAB PO SCH (08:14)
[2018-12-09] MEDS: Meloxicam 7.5 MG TAB PO SCH (08:14)
[2018-12-09] MEDS: Apixaban 5 MG TAB PO SCH (08:14)
[2018-12-09] MEDS: Furosemide 40 MG TAB PO SCH (08:14)
[2018-12-09] MEDS: Estradiol 1 MG TAB PO SCH (08:15)
[2018-12-09] MEDS: Lantus 1000 UNITS/10 ML VIAL SC SCH (08:16)
[2018-12-09] MEDS: Mometasone/Formoterol 60 PUFF AER INH SCH (08:16)
[2018-12-09] MEDS: Polyethylene Glycol 3350 17 GM Packet PO SCH (08:19)
[2018-12-09] MEDS: Acetaminophen 325 MG TAB PO PRN (08:23)
--- NOTE | 2018-12-10 04:34 | DIS ---
DATE OF ADMISSION: 11/13/2018 DATE OF DISCHARGE: 12/09/2018 ADMISSION DIAGNOSES: Status post open reduction and internal fixation right tibia, atrial fibrillation, chronic obstructive pulmonary disease, chronic combined congestive heart failure, hypertension, insulin-dependent diabetes mellitus, chronic anemia. PROCEDURES: During the patient's stay, she was seen by Dr. Mirza, [place], for upper endoscopy and colonoscopy with findings showing an ulcerated colonic stricture of the transverse colon, colon polyp, and diverticulosis along with a small amount of bleeding vascular ectasia of the stomach. HOSPITAL COURSE: A 73-year-old female presented to our facility to participate with physical therapy and occupational therapy, status post open reduction and internal fixation of the right tibia. This was done in response to prior procedure, which was complicated with development of right footdrop. She has consequently been nonweightbearing per restrictions from her orthopedic surgeon, Dr. Mcmullen. Her right lower extremity has been healing well and she is to follow up with Dr. Mcmullen on 12/20/2018 with hopes for advancement of her orthopedic restrictions. During her stay, she has had several complications. Of note, she has required somewhere in the neighborhood of about 15 units of packed red blood cell transfusion over the last several months, which prompted a referral to GI with subsequent evaluation as above. I did speak with Dr. Baker, Hematology, as well regarding her anemia. She was evaluated for hemolysis, which was felt not to be the case secondary to lactate dehydrogenase and haptoglobin levels being within normal limits. She did receive two iron transfusions, by two weeks during her stay here. The patient's Eliquis was held for a number of days after her GI evaluation and scopes. Eliquis was resumed at the beginning of this week and fortunately, she has displayed no further drop in her hemoglobin levels over this week with hemoglobin of 8.9 prior to Eliquis re-initiation on 12/02/2018 and hemoglobin level of 9.0 on date of discharge on 12/09/2018. The reason for her need for Eliquis is secondary to development of new onset atrial fibrillation within the last 1 to 2 months. She has remained rate controlled and as stated, is now tolerating her anticoagulant therapy. The patient's other comorbidities were well-controlled including insulin-dependent diabetes mellitus, oxygen-dependent COPD, and chronic combined congestive heart failure. She has nearly exhausted her rehab days and thus will need to transition to [facility] for further physical therapy and occupational therapy with planned followups with both GI and Orthopedics as scheduled. DISPOSITION: The patient will be discharged to [facility] in [place]. She will follow up with Dr. Mcmullen on 12/20/2018. She will also follow up with Dr. Mirza on 12/20/2018 as well. DISCHARGE MEDICATIONS: Include Tylenol 650 mg p.o. q.6 hours p.r.n., acetylcysteine 600 mg p.o. q.6 hours, Eliquis 5 mg p.o. b.i.d., atorvastatin 10 mg p.o. at bedtime, cyanocobalamin 1000 mcg p.o. daily, diltiazem 180 mg p.o. daily, Colace 100 mg p.o. daily, Cymbalta 60 mg p.o. daily, estradiol 0.5 mg p.o. daily, fish oil 1000 mg p.o. b.i.d., furosemide 40 mg p.o. daily, Mucinex 600 mg p.o. b.i.d., Lantus 30 units subcutaneously b.i.d., DuoNeb 3 mL q.i.d., Claritin 10 mg p.o. daily, Mobic 15 mg p.o. daily, mirtazapine 30 mg p.o. at bedtime, Dulera 2 puffs inhaled b.i.d., nitroglycerin 0.4 mg sublingual q.5 minutes p.r.n. up to 3 doses, pantoprazole 40 mg p.o. daily, MiraLAX 17 g p.o. daily, potassium chloride 20 mEq p.o. b.i.d., Lyrica 300 mg p.o. b.i.d., Florastor 250 mg p.o. daily, tramadol 50 mg p.o. q.6 hours p.r.n., trazodone 200 mg p.o. at bedtime, and zolpidem 5 mg p.o. at bedtime p.r.n. Job ID: [id number]
== END 2018-12-09 10:15 | DRG 561 ==
LOC: BURMED 11-13 16:50
PROVIDERS: ADMIT Family Medicine; ATTEND Family Medicine
DX: S82.141D Displaced bicondylar fracture of right tibia, subsequent encounter for closed fracture with routine healing (principal); I25.10 Atherosclerotic heart disease of native coronary artery without angina pectoris; E03.9 Hypothyroidism, unspecified; K21.9 Gastro-esophageal reflux disease without esophagitis; J44.9 Chronic obstructive pulmonary disease, unspecified; F41.9 Anxiety disorder, unspecified; G47.00 Insomnia, unspecified; I73.9 Peripheral vascular disease, unspecified; N18.9 Chronic kidney disease, unspecified; I48.91 Unspecified atrial fibrillation; G89.29 Other chronic pain; I12.9 Hypertensive chronic kidney disease with stage 1 through stage 4 chronic kidney disease, or unspecified chronic kidney disease; E11.22 Type 2 diabetes mellitus with diabetic chronic kidney disease; Z95.1 Presence of aortocoronary bypass graft; Z90.49 Acquired absence of other specified parts of digestive tract; Z90.710 Acquired absence of both cervix and uterus; Z90.89 Acquired absence of other organs; Z79.82 Long term (current) use of aspirin; Z79.899 Other long term (current) drug therapy; Z79.4 Long term (current) use of insulin; X58.XXXD Exposure to other specified factors, subsequent encounter
CPT/HCPCS: 36415; 36416; 36430; 80048; 80053; 82378; 82565; 82728; 83010; 83540; 83550; 85014; 85018; 85025; 85046; 85049; 86850; 86900; 86901; 86922; 94640; 94664; J0132; J1756; J1815; J3490; J7050; J7620; P9016; Q0163

== ENCOUNTER 2019-03-20 16:00 | Emergency (ER) | payer MEDICARE, OTHER ==
[2019-03-20 16:33] LABS: INR-International Normal Ratio 2.4; PTT 41.1 SEC (22.9-36.1); Prothrombin Time 25.9 SEC (12.0-14.7)
[2019-03-20 16:42] LABS: #Lymphocytes 0.7 thou/uL (1.20-3.40); #Monocytes 0.4 thou/uL (0.11-0.59); #Neutrophils 5.9 thou/uL (1.40-6.50); %Basophils 0.4 % (0.0-1.0); %Lymphocytes 9.8 % (21.0-51.0); %Neutrophils 83.8 % (42.0-75.0); Elliptocytes SLIGHT = 2-5 cells (100X) (0-1/hpf); Hemoglobin 4.1 g/dL (12.0-16.0); Hypochromia MARKED = >30 cells (100X) (0-5/hpf); MDiff Complete? YES; Macrocytosis SLIGHT = 6-15 cells (100X) (0-5/hpf); Mean Corpuscular HGB CONC 26.9 g/dL (32.0-36.0); Mean Corpuscular Volume 70.5 fL (78.0-98.0); Mean Platelet Volume 10.3 fL (7.4-10.4); Microcytosis MARKED = >30 cells (100X) (0-5/hpf); Platelet Count 225 thou/uL (130-400); Polychromasia MODERATE = 3-4 cells (100X) (0-2/hpf); RBC Distribution Width 17.7 % (11.5-14.5); Red Blood Cell (RBC) Count 2.16 mill/uL (4.20-5.40); Target Cells SLIGHT = 2-5 cells (100X) (0-1/hpf)
[2019-03-20 16:43] LABS: ALT (SGPT) 14 U/L (8-55); AST (SGOT) 29 U/L (5-34); Albumin 2.9 g/dL (3.4-4.8); Alkaline Phosphatase 113 U/L (40-150); Anion Gap 19 mmol/L (10-20); BUN (Urea Nitrogen) 61 mg/dL (9.8-20.1); Bilirubin, Total 1.1 mg/dL (0.2-1.2); Calc. Creatinine Clearance 0 mL/min (70-130); Calcium 8.4 mg/dL (7.8-10.44); Carbon Dioxide 35 mmol/L (23-31); Chloride 81 mmol/L (98-107); Estimated GFR-MDRD 25; Globulin 3.1 g/dL (2.4-3.5); Glucose 342 mg/dL (83-110); Lipase 34 U/L (8-78); Potassium 3.3 mmol/L (3.5-5.1); Sodium 132 mmol/L (136-145)
--- NOTE | 2019-03-20 16:45 | RAD ---
EXAM: XR Chest 1 View Portable PROVIDED CLINICAL HISTORY: Weakness COMPARISON: 01/05/2019 FINDINGS: The cardiac silhouette and mediastinal silhouette appear unchanged. Diffuse prominence of the pulmona ry interstitium redemonstrated. Superimposed consolidation at the left upper and right lower lung zones cannot be excluded. Right pleural fluid cannot be excluded. There is no evidence for pneumothor ax. IMPRESSION: Cardiomegaly and prominence of the pulmonary interstitium appears similar to the prior study. Airspac e disease in the left upper and right lower lung zones may reflect edema or pneumonia. Follow-up is recommended.
[2019-03-20 17:03] LABS: CKMB 2.4 ng/mL (0-6.6)
--- NOTE | 2019-03-20 17:43 | CT ---
CT ABDOMEN AND PELVIS WITHOUT CONTRAST: 03/20/2019 PROVIDED CLINICAL HISTORY: Abdominal pain. COMPARISON: 10/09/2018 FINDINGS: There are small bilateral pleural effusions. There is a peripheral nodular contour to the liver, sug gesting changes of cirrhosis. The spleen appears enlarged. The solid abdominal organs are suboptima lly evaluated in the absence of IV contrast material but demonstrate an otherwise unremarkable unenha nced CT appearance. There is diffuse reticulation of the subcutaneous adipose layer, circumferentially, about the abdomen and pelvis. There is a small amount of free fluid within the pelvic cul-de-sac. There is free flui d noted about the right hepatic margin and, to a lesser extent, above the cranial aspects of the sple en. There is no evidence of bowel obstruction or free air. Extensive vascular calcifications are ag ain seen. The osseous structures demonstrate no concerning osteoblastic or osteolytic lesions. IMPRESSION: 1. Findings of cirrhosis and portal hypertension with presumably attendant free intraperitoneal flui d/ascites. 2. Anasarca. 3. Small bilateral pleural effusions. POS: MARIIA
[2019-03-20] MEDS ORDERED: Norepinephrine 4 MG/4 ML VIAL ONE (17:47)
[2019-03-20] MEDS ORDERED: Ondansetron PF 4 MG/2 ML Vial ONE ×2 (18:45→18:49)
[2019-03-20 21:54] LABS: Iron 10 ug/dL (50-170); Iron Binding Capacity, Total 379 mcg/dL (265-497)
== END 2019-03-20 18:54 | disposition home or self-care (01) ==
LOC: BURERS 16:00
DX: R57.1 Hypovolemic shock (principal); N28.9 Disorder of kidney and ureter, unspecified; D64.9 Anemia, unspecified; I25.10 Atherosclerotic heart disease of native coronary artery without angina pectoris; E11.9 Type 2 diabetes mellitus without complications; K21.9 Gastro-esophageal reflux disease without esophagitis; D50.9 Iron deficiency anemia, unspecified; I11.0 Hypertensive heart disease with heart failure; I50.9 Heart failure, unspecified; Z86.73 Personal history of transient ischemic attack (TIA), and cerebral infarction without residual deficits; J44.9 Chronic obstructive pulmonary disease, unspecified; E03.9 Hypothyroidism, unspecified; E66.9 Obesity, unspecified; F41.9 Anxiety disorder, unspecified; G47.00 Insomnia, unspecified; Z87.891 Personal history of nicotine dependence; Z79.899 Other long term (current) drug therapy; Z79.82 Long term (current) use of aspirin; Z79.4 Long term (current) use of insulin; Z79.01 Long term (current) use of anticoagulants
CPT/HCPCS: 36430; 36556; 71045; 74176; 80053; 82274; 82553; 82728; 83540; 83550; 83605; 83690; 83880; 84484; 85025; 85610; 85730; 86850; 86900; 86901; 86920; 86922; 93005; 96360; 96365; 96375; 99291; P9016; J2405

== ENCOUNTER 2020-07-15 11:37 | Inpatient (IN) | payer OTHER ==
[2020-07-15] MEDS ORDERED: Albuterol 200 PUFF (6.7GM INHALER) ONE (12:11)
[2020-07-15] MEDS ORDERED: methylPREDNISolone Sod Succ/PF 125 MG/2 ML VIAL ONE (12:11)
[2020-07-15 12:32] LABS: #Eosinphils 0.1 thou/uL (0.0-0.7); #Monocytes 0.4 thou/uL (0.11-0.59); #Neutrophils 3.5 thou/uL (1.40-6.50); %Basophils 0.9 % (0.0-1.0); %Eosinophils 1.2 % (0.0-10.0); %Lymphocytes 19.9 % (21.0-51.0); %Monocytes 7.5 % (0.0-10.0); %Neutrophils 70.6 % (42.0-75.0); Hemoglobin 10.3 g/dL (12.0-16.0); Mean Corpuscular Hemoglobin 27.2 pg (27.0-31.0); Mean Corpuscular Volume 87.8 fL (78.0-98.0); Mean Platelet Volume 14.3 fL (7.4-10.4); Platelet Count 93 thou/uL (130-400); RBC Distribution Width 14.1 % (11.5-14.5); Red Blood Cell (RBC) Count 3.81 mill/uL (4.20-5.40); White Blood Cell (WBC) Count 4.9 thou/uL (4.8-10.8)
[2020-07-15] MEDS ORDERED: Azithromycin 500 MG VIAL ONE (12:46)
[2020-07-15] MEDS ORDERED: cefTRIAXone\\ROCEPHIN 2 GM VIAL ONE (12:46)
[2020-07-15] MEDS ORDERED: Aspirin Chewable 81 MG TAB ONE (12:46)
[2020-07-15] MEDS ORDERED: Magnesium 2 GM/50 ML BAG (IN WATER) ONE (12:46)
[2020-07-15] MEDS ORDERED: Sodium Chloride 0.9% 100 ML ONE (12:47)
[2020-07-15 12:51] LABS: CRP (Inflammatory) 6.94 mg/dL (= or < 0.5); Magnesium 2.6 mg/dL (1.6-2.6)
[2020-07-15 12:55] LABS: Anion Gap 16 mmol/L (10-20); Glucose 343 mg/dL (83-110)
[2020-07-15 12:56] LABS: ALT (SGPT) 40 U/L (8-55); Albumin 3.4 g/dL (3.4-4.8); Alkaline Phosphatase 86 U/L (40-110); BUN (Urea Nitrogen) 16 mg/dL (9.8-20.1); Bilirubin, Total 0.5 mg/dL (0.2-1.2); Calc. Creatinine Clearance 0 mL/min (70-130); Carbon Dioxide 33 mmol/L (23-31); Chloride 97 mmol/L (98-107); Globulin 4.6 g/dL (2.4-3.5); Sodium 141 mmol/L (136-145)
[2020-07-15 13:03] LABS: Potassium 4.4 mmol/L (3.5-5.1)
[2020-07-15 13:04] LABS: CKMB 5.5 ng/mL (0-6.6)
[2020-07-15 13:07] LABS: AST (SGOT) 53 U/L (5-34)
[2020-07-15 13:19] LABS: Bicarbonate (HCO3v) 35.9 mmol/L (22.0-28.0); CO2 Tension (PvCO2) 84.4 mmHg (40.0-50.0); Calcium, Ionized 1.07 mmol/L (1.15-1.33); Chloride 99 mmol/L (98-107); Hemoglobin - Calc 11.5 g/dL (12.0-16.0); Potassium 4.5 mmol/L (3.5-5.1); Sodium 140 mmol/L (138-145); T. Carbon Dioxide 38.5 mmol/L (22.0-28.0); vO2 Saturation-calc 90.4 % (60.0-85.0)
[2020-07-15] MEDS ORDERED: Furosemide 40 MG/4 ML VIAL ONE (13:53)
[2020-07-15 13:59] LABS: Bilirubin Negative (Negative); Blood, Urine Trace (Negative); Clarity Cloudy (Clear); Glucose, Urine (Dipstick) 100 mg/dL (Negative); Ketone, Urine Negative (Negative); Leukocyte Negative (Negative); Nitrite Negative (Negative); Protein, Urine (Dipstick) 100 mg/dL (Neg-Trace); Urobilinogen 0.2 mg/dL (Less than 2); pH, Urine 5.5 (5.0-9.0)
[2020-07-15 14:00] LABS: Specific Gravity, Urine 1.022 (1.002-1.036)
[2020-07-15 14:02] LABS: Bacteria/HPF 3+ HPF (None Seen); RBC/HPF 0-3 HPF (0-3)
--- NOTE | 2020-07-15 17:37 | RAD ---
PORTABLE CHEST: Date: 07-15-2020 FINDINGS: An AP portable film at 1230 was compared with an 04-05-19 study from [facility]. The heart is enlarged as before. There is diffuse vascular congestion and edema consistent with CHF. The mediastinum is rather wide, though it was previously. There is probably a small amount of fluid o n the right. More focal pulmonary infiltrates would be difficult to rule out given the background. IMPRESSION: Cardiomegaly and diffuse congestive change. POS: HOME
[2020-07-15] MEDS ORDERED: Fentanyl 100 MCG/2 ML VIAL SLOW IVP PRN (17:47)
[2020-07-15] MEDS ORDERED: Acetaminophen 325 MG TAB PO PRN ×2 (18:00→22:43)
[2020-07-15] MEDS ORDERED: Ondansetron ODT 4 MG TAB SL PRN (18:00)
[2020-07-15] MEDS ORDERED: Ondansetron PF 4 MG/2 ML Vial IVP PRN (18:00)
[2020-07-15] MEDS ORDERED: Lorazepam 2 MG/ML VIAL ONE (19:52)
[2020-07-15] MEDS ORDERED: Fentanyl 100 MCG/2 ML VIAL ONE (19:53)
[2020-07-15] MEDS: Fentanyl 100 MCG/2 ML VIAL SLOW IVP PRN (19:58)
[2020-07-15] MEDS: Lorazepam 2 MG/ML VIAL SLOW IVP PRN (19:58)
[2020-07-15] MEDS: Scopolamine 1.5 mg/72 hour Patch TD SCH (19:59)
[2020-07-15] MEDS: Famotidine 20 MG TAB PO SCH (20:00)
[2020-07-15 22:41] VITALS: BMI 36.6
[2020-07-15] MEDS ORDERED: Nitroglycerin 0.4 MG TAB (25 Tab Bottle) SL PRN (22:43)
[2020-07-15] MEDS ORDERED: Dextrose 5% in Water 1,000 ML IV PRN (22:50)
[2020-07-15] MEDS ORDERED: HumaLOG 300 UNITS/3 ML VIAL SC PRN ×2 (22:50)
[2020-07-15] MEDS ORDERED: Dextrose 50% Abboject 50 ML SYRINGE SLOW IVP PRN (22:50)
[2020-07-15] MEDS ORDERED: traZODone HCl 50 MG TAB PO PRN (23:27)
[2020-07-16] MEDS ORDERED: Dexamethasone 4 mg/ml Vial ONE (07:56)
[2020-07-16] MEDS: Dexamethasone 4 mg/ml Vial SLOW IVP SCH (08:09)
[2020-07-16] MEDS: Pregabalin 75 MG CAP PO SCH ×2 (08:13→21:49)
[2020-07-16] MEDS: Potassium Chloride 20 MEQ TAB PO SCH ×2 (08:15→21:48)
[2020-07-16] MEDS: Lisinopril 5 MG TAB PO SCH (08:15)
[2020-07-16] MEDS: Furosemide 40 MG TAB PO SCH ×2 (08:17→13:25)
[2020-07-16] MEDS: Ferrous Sulfate 325 MG TAB PO SCH ×2 (08:17→17:30)
[2020-07-16] MEDS: Dronedarone HCl 400 MG TAB PO SCH ×2 (08:17→19:49)
[2020-07-16] MEDS ORDERED: Lorazepam 2 MG/ML VIAL ONE ×2 (13:18→16:29)
[2020-07-16] MEDS: Lorazepam 2 MG/ML VIAL SLOW IVP PRN (13:23)
[2020-07-16] MEDS ORDERED: Fentanyl 100 MCG/2 ML VIAL ONE ×2 (13:25→16:20)
[2020-07-16] MEDS: Fentanyl 100 MCG/2 ML VIAL SLOW IVP PRN (13:27)
[2020-07-16] MEDS ORDERED: Ipratropium/Albuterol Sulfate 4 GM AER IH SCH (15:45)
[2020-07-16] MEDS: Fentanyl 100 MCG/2 ML VIAL SLOW IVP SCH ×2 (17:30→21:16)
[2020-07-16] MEDS: Lorazepam 2 MG/ML VIAL SLOW IVP SCH ×2 (17:30→21:14)
[2020-07-16] MEDS: Ipratropium/Albuterol Sulfate 4 GM AER IH SCH (21:15)
[2020-07-16] MEDS: Mirtazapine 15 MG TAB PO SCH (21:48)
[2020-07-16] MEDS: Famotidine 20 MG TAB PO SCH (21:48)
[2020-07-17] MEDS: Lorazepam 2 MG/ML VIAL SLOW IVP SCH ×6 (01:00→20:36)
[2020-07-17] MEDS: Fentanyl 100 MCG/2 ML VIAL SLOW IVP SCH ×6 (01:00→20:35)
[2020-07-17] MEDS: Ipratropium/Albuterol Sulfate 4 GM AER IH SCH ×4 (03:01→20:40)
[2020-07-17] MEDS ORDERED: Dexamethasone 4 mg/ml Vial ONE ×2 (10:23→10:24)
[2020-07-17] MEDS: Dexamethasone 4 mg/ml Vial SLOW IVP SCH (10:33)
[2020-07-17] MEDS: Ferrous Sulfate 325 MG TAB PO SCH ×2 (10:45→17:00)
[2020-07-17] MEDS: Lisinopril 5 MG TAB PO SCH (10:45)
[2020-07-17] MEDS: Dronedarone HCl 400 MG TAB PO SCH ×2 (10:45→17:00)
[2020-07-17] MEDS: Furosemide 40 MG TAB PO SCH ×2 (10:45→14:00)
[2020-07-17] MEDS: Potassium Chloride 20 MEQ TAB PO SCH ×2 (10:46→21:24)
[2020-07-17] MEDS: Pregabalin 75 MG CAP PO SCH ×2 (10:46→21:24)
[2020-07-17] MEDS: Lorazepam 2 MG/ML VIAL SLOW IVP PRN ×2 (19:37→22:36)
[2020-07-17] MEDS: Mirtazapine 15 MG TAB PO SCH (21:23)
[2020-07-17] MEDS: Famotidine 20 MG TAB PO SCH (21:23)
[2020-07-17] MEDS: Fentanyl 100 MCG/2 ML VIAL SLOW IVP PRN (22:36)
[2020-07-18] MEDS: Lorazepam 2 MG/ML VIAL SLOW IVP SCH ×6 (01:03→20:33)
[2020-07-18] MEDS: Fentanyl 100 MCG/2 ML VIAL SLOW IVP SCH ×6 (01:03→21:27)
[2020-07-18] MEDS: Ipratropium/Albuterol Sulfate 4 GM AER IH SCH ×4 (03:00→20:32)
[2020-07-18] MEDS: Fentanyl 100 MCG/2 ML VIAL SLOW IVP PRN (03:16)
[2020-07-18] MEDS: Lorazepam 2 MG/ML VIAL SLOW IVP PRN (03:19)
[2020-07-18] MEDS ORDERED: Lorazepam 2 MG/ML VIAL ONE (09:18)
[2020-07-18] MEDS ORDERED: Dexamethasone 4 mg/ml Vial ONE ×2 (09:23→09:24)
[2020-07-18] MEDS: Dexamethasone 4 mg/ml Vial SLOW IVP SCH (09:34)
[2020-07-18] MEDS: Dronedarone HCl 400 MG TAB PO SCH (09:39)
[2020-07-18] MEDS: Ferrous Sulfate 325 MG TAB PO SCH (09:39)
[2020-07-18] MEDS: Furosemide 40 MG TAB PO SCH ×2 (09:39→15:00)
[2020-07-18] MEDS: Lisinopril 5 MG TAB PO SCH (09:40)
[2020-07-18] MEDS: Potassium Chloride 20 MEQ TAB PO SCH (09:40)
[2020-07-18] MEDS: Pregabalin 75 MG CAP PO SCH (09:41)
[2020-07-18] MEDS: Scopolamine 1.5 mg/72 hour Patch TD SCH (20:27)
[2020-07-19] MEDS: Lorazepam 2 MG/ML VIAL SLOW IVP SCH ×5 (01:12→17:29)
[2020-07-19] MEDS: Fentanyl 100 MCG/2 ML VIAL SLOW IVP SCH ×5 (01:13→17:29)
[2020-07-19] MEDS: Ipratropium/Albuterol Sulfate 4 GM AER IH SCH ×3 (03:15→17:31)
[2020-07-19] MEDS ORDERED: Dexamethasone 4 mg/ml Vial ONE ×2 (08:05→08:06)
[2020-07-19] MEDS: Dexamethasone 4 mg/ml Vial SLOW IVP SCH (08:20)
[2020-07-19 18:31] VITALS: BP 62/36; TEMP 102.1
== END 2020-07-19 22:30 | disposition expired | DRG 951 ==
LOC: BURERS 11:37 → BURMED 14:40
PROVIDERS: ADMIT Family Medicine; ATTEND Family Medicine
DX: Z51.5 Encounter for palliative care (principal); U07.1 COVID-19; J12.89 Other viral pneumonia; J96.90 Respiratory failure, unspecified, unspecified whether with hypoxia or hypercapnia; J44.0 Chronic obstructive pulmonary disease with (acute) lower respiratory infection; E87.2 Acidosis; J44.1 Chronic obstructive pulmonary disease with (acute) exacerbation; I25.10 Atherosclerotic heart disease of native coronary artery without angina pectoris; Z66 Do not resuscitate; Z95.1 Presence of aortocoronary bypass graft; I50.9 Heart failure, unspecified; I11.0 Hypertensive heart disease with heart failure; K21.9 Gastro-esophageal reflux disease without esophagitis; D50.9 Iron deficiency anemia, unspecified; E03.9 Hypothyroidism, unspecified; E66.9 Obesity, unspecified; E11.9 Type 2 diabetes mellitus without complications; E78.5 Hyperlipidemia, unspecified; F41.9 Anxiety disorder, unspecified; G47.00 Insomnia, unspecified; Z90.710 Acquired absence of both cervix and uterus; Z87.891 Personal history of nicotine dependence; Z88.6 Allergy status to analgesic agent; Z88.8 Allergy status to other drugs, medicaments and biological substances; Z91.030 Bee allergy status; Z79.899 Other long term (current) drug therapy; Z79.82 Long term (current) use of aspirin; Z79.51 Long term (current) use of inhaled steroids; Z79.4 Long term (current) use of insulin; Z79.01 Long term (current) use of anticoagulants; Z90.49 Acquired absence of other specified parts of digestive tract; R77.8 Other specified abnormalities of plasma proteins; M19.90 Unspecified osteoarthritis, unspecified site; Z86.73 Personal history of transient ischemic attack (TIA), and cerebral infarction without residual deficits; M48.00 Spinal stenosis, site unspecified
CPT/HCPCS: 36415; 36416; 51701; 71045; 80053; 81003; 81015; 82330; 82550; 82553; 82803; 83605; 83735; 83880; 84484; 85025; 85379; 86140; 87040; 87086; 93005; 94640; 96365; 96367; 96375; J0456; J0696; J1100; J1940; J2060; J2930; J3010; J3475; J3490; J7620